=== PATIENT | male | born 1955 | race Caucasian/White ===

== ENCOUNTER 2019-04-02 23:50 | Inpatient (IN) ==
[2019-04-03] MEDS ORDERED: SODIUM CHLORIDE 0.9% 1000ML 1,000 ML IV ONE (00:17)
[2019-04-03] MEDS ORDERED: SODIUM CHLORIDE 0.9% 250 ML IV PRN ×5 (00:17→05:22)
[2019-04-03] MEDS ORDERED: PANTOprazole 80 MG in DEXTROSE 5% 100 ML IV ONE (00:30)
[2019-04-03] MEDS ORDERED: PROTHROMBIN COMP CONC- KCENTRA 2,000 UNITS in SYRINGE 0 ML IV ONE ×2 (00:45→01:15)
[2019-04-03 00:51] LABS: Hematocrit (blood only) 16.8 % (42-52); Hemoglobin 5.3 g/dL (14.0-18.0); Mean Corpuscular Hgb Conc 31.5 g/dL (32-36); Mean Corpuscular Volume 85.3 fL (80-100); Mean Platelet Volume 8.9 fL (7.4-10.4); Nucleated RBC # (auto) 0.11 K/uL (0-0); Nucleated RBC % (auto) 1.2 %; Platelet Count 490 K/uL (130-400); RDW Coefficient of Variation 26.9 % (11.5-14.5); RDW Standard Deviation 83.2 fL (36.4-46.3); Red Blood Count 1.97 M/uL (4.7-6.1); White Blood Count 9.96 K/uL (4.8-10.8)
[2019-04-03 00:53] LABS: INR 1.4 (0.9-1.1); Partial Thromboplastin Time 27.3 Seconds (21.0-31.0); Prothrombin Time 13.7 Seconds (9.0-12.0)
[2019-04-03] MEDS: PANTOprazole 40 MG in DEXTROSE 5% 100 ML IV SCH ×5 (00:54→19:40)
[2019-04-03 00:59] LABS: Alanine Aminotransferase 34 U/L (12-78); Albumin Globulin Ratio 0.5 (0.9-2); Albumin Level 1.9 gm/dl (3.4-5.0); Alkaline Phosphatase 111 U/L (45-117); Aspartate Aminotransferase 30 U/L (15-37); BUN Creatinine Ratio 27.6 (10-20); Bilirubin,Total 1.5 mg/dl (0.2-1); Blood Urea Nitrogen 125 mg/dl (7-18); Calcium 8.4 mg/dl (8.5-10.1); Carbon Dioxide 23 mmol/L (21-32); Chloride 108 mmol/L (98-107); Est GFR (African American) 14.5; Est GFR (Non-African American) 12.5; Globulin 4.2 gm/dl (2.5-4.0); Glucose 153 mg/dl (70-99); Potassium 4.3 mmol/L (3.5-5.1); Sodium 142 mmol/L (136-145); Total Protein 6.1 gm/dl (6.4-8.2); Troponin I < 0.015 ng/ml (0-0.045)
--- NOTE | 2019-04-03 01:26 | Emergency Department Note ---
Entered by Izabel Martinez acting as a scribe for Mynor Garcia MD History of Present Illness General Chief complaint: Fall Time Seen by Provider: 04/03/19 00:08 Source: patient History of Present Illness Onset (ago): hour(s) (prior to arrival) Location: upper extremity (wrist and shoulder) and right Pain Consistency: + constant Exacerbated By: + none Associated symptoms: + denies other symptoms (black stool); no chest pain and no nausea/vomiting The patient is a 63 year old male who presents to the Emergency Room with complaints of constant left wrist and left shoulder pain from a fall that occurred just prior to arrival. He also states that he has some back pain from the fall. The patient states that he remembers some of the fall. He denies any nausea, vomiting, chest pain, and black stool. EMS reports that he was found on the floor. The patient reports that he is on Eliquis. He has been falling a lot recently. He does use alcohol heavily but has not had an alcoholic drink today. History is somewhat limited secondary to his mental state and the critical nature of his presentation. Home Medications Home Medications Medication Instructions Recorded Confirmed Type apixaban [Eliquis] 5 mg PO BID 04/03/19 04/03/19 History carvedilol 25 mg PO BID 04/03/19 04/03/19 History furosemide 20 mg PO DAILY 04/03/19 04/03/19 History lisinopril 10 mg PO DAILY 04/03/19 04/03/19 History multivitamin 1 tab PO DAILY 04/03/19 04/03/19 History prednisone 0 mg PO DIRECTED 04/03/19 04/03/19 History Allergies Allergy/AdvReac Type Severity Reaction Status Date / Time No Known Allergies Allergy NONE Verified 04/03/19 00:22 Past Med/Surg History Medical History EDMUNDO (acute kidney injury) Anemia Atrial fibrillation Chronic anticoagulation [place] GI bleed Heavy alcohol use Hypertension Subdural hematoma Wrist pain Surgical History Status post knee surgery Family History Other Medical history non-contributory Social History Preferred Language: Slovenian Communication Ability: Effective Counter Molder Required: No Beliefs That Will Affect Care: None Current Living Situation: Alone Feels Safe at Home: Yes Smoking Status: Current some day smoker Hx Alcohol Use: Yes Alcohol type: hard liquor Hx Substance Use: No Review of Systems Unobtainable due to reduced consciousness Physical Exam Vital Signs Vital Signs - 24 hr 04/02/19 23:54 04/02/19 23:57 04/02/19 23:59 Temperature 36.7 C Temperature Source Oral Sepsis Recent Fever Within 48 Hours No Sepsis New/Unexplained Change in Mental Status No Sepsis Action Taken by Nursing No Action Required Pulse Rate 103 H 107 H 105 H Pulse Rate [Apical] Pulse Rate from SpO2 Sensor Pulse Rhythm Pulse Rhythm [Apical] Respiratory Rate 17 19 16 Respiratory Effort / Characteristics Non-Labored Spontaneous Respiratory Depth Normal Respiratory Pattern Regular Blood Pressure 88/55 L 88/64 L Blood Pressure [Right Arm] Blood Pressure Mean 66 72 Blood Pressure Mean [Right Arm] Blood Pressure Position Pulse Oximetry 99 98 Oxygen Delivery Method Room Air Oxygen Flow Rate 04/03/19 00:00 04/03/19 00:01 04/03/19 00:15 Temperature Temperature Source Sepsis Recent Fever Within 48 Hours Sepsis New/Unexplained Change in Mental Status Sepsis Action Taken by Nursing Pulse Rate 105 H 100 H Pulse Rate [Apical] 112 H Pulse Rate from SpO2 Sensor Pulse Rhythm Pulse Rhythm [Apical] Irregular Respiratory Rate 16 19 16 Respiratory Effort / Characteristics Respiratory Depth Normal Respiratory Pattern Blood Pressure 82/55 L Blood Pressure [Right Arm] 82/45 L Blood Pressure Mean 64 Blood Pressure Mean [Right Arm] 57 Blood Pressure Position Pulse Oximetry 100 100 Oxygen Delivery Method Oxygen Flow Rate 04/03/19 00:21 04/03/19 00:24 04/03/19 00:27 Temperature Temperature Source Sepsis Recent Fever Within 48 Hours Sepsis New/Unexplained Change in Mental Status Sepsis Action Taken by Nursing Pulse Rate 112 H 100 H Pulse Rate [Apical] 103 H Pulse Rate from SpO2 Sensor Pulse Rhythm Pulse Rhythm [Apical] Irregular Respiratory Rate 18 16 19 Respiratory Effort / Characteristics Respiratory Depth Respiratory Pattern Blood Pressure 72/53 L 80/55 L Blood Pressure [Right Arm] 72/53 L Blood Pressure Mean 59 63 Blood Pressure Mean [Right Arm] 59 Blood Pressure Position Pulse Oximetry 98 99 Oxygen Delivery Method Oxygen Flow Rate 04/03/19 00:30 04/03/19 00:31 04/03/19 00:32 Temperature Temperature Source Sepsis Recent Fever Within 48 Hours Sepsis New/Unexplained Change in Mental Status Sepsis Action Taken by Nursing Pulse Rate 104 H 113 H 117 H Pulse Rate [Apical] 104 H Pulse Rate from SpO2 Sensor Pulse Rhythm Pulse Rhythm [Apical] Regular Respiratory Rate 21 22 14 Respiratory Effort / Characteristics Respiratory Depth Respiratory Pattern Blood Pressure 75/54 L Blood Pressure [Right Arm] 75/54 L Blood Pressure Mean 61 Blood Pressure Mean [Right Arm] 61 Blood Pressure Position Pulse Oximetry 95 100 100 Oxygen Delivery Method Room Air Oxygen Flow Rate 04/03/19 00:47 04/03/19 00:52 04/03/19 01:00 Temperature Temperature Source Sepsis Recent Fever Within 48 Hours Sepsis New/Unexplained Change in Mental Status Sepsis Action Taken by Nursing Pulse Rate 106 H 109 H 106 H Pulse Rate [Apical] Pulse Rate from SpO2 Sensor Pulse Rhythm Pulse Rhythm [Apical] Respiratory Rate 22 19 21 Respiratory Effort / Characteristics Respiratory Depth Respiratory Pattern Blood Pressure Blood Pressure [Right Arm] Blood Pressure Mean Blood Pressure Mean [Right Arm] Blood Pressure Position Pulse Oximetry Oxygen Delivery Method Oxygen Flow Rate 04/03/19 01:01 04/03/19 01:09 04/03/19 01:15 Temperature 36 C L Temperature Source Rectal Sepsis Recent Fever Within 48 Hours Sepsis New/Unexplained Change in Mental Status Sepsis Action Taken by Nursing Pulse Rate 133 H 105 H 115 H Pulse Rate [Apical] 118 H Pulse Rate from SpO2 Sensor Pulse Rhythm Pulse Rhythm [Apical] Irregular Respiratory Rate 21 18 17 Respiratory Effort / Characteristics Respiratory Depth Normal Respiratory Pattern Blood Pressure 76/60 L 94/58 L Blood Pressure [Right Arm] 94/68 L Blood Pressure Mean 65 70 Blood Pressure Mean [Right Arm] 76 Blood Pressure Position Pulse Oximetry 98 96 Oxygen Delivery Method Non-rebreather Oxygen Flow Rate 15 04/03/19 01:16 04/03/19 01:29 04/03/19 01:31 Temperature 36 C L Temperature Source Rectal Sepsis Recent Fever Within 48 Hours Sepsis New/Unexplained Change in Mental Status Sepsis Action Taken by Nursing Pulse Rate 107 H 104 H 104 H Pulse Rate [Apical] Pulse Rate from SpO2 Sensor Pulse Rhythm Irregular Pulse Rhythm [Apical] Respiratory Rate 23 18 20 Respiratory Effort / Characteristics Respiratory Depth Respiratory Pattern Blood Pressure 89/61 L 89/61 L 89/65 L Blood Pressure [Right Arm] Blood Pressure Mean 70 70 73 Blood Pressure Mean [Right Arm] Blood Pressure Position Pulse Oximetry 100 Oxygen Delivery Method Oxymask Oxygen Flow Rate 6 04/03/19 01:35 04/03/19 01:45 04/03/19 01:56 Temperature 35.9 C L 35.9 C L Temperature Source Rectal Rectal Sepsis Recent Fever Within 48 Hours Sepsis New/Unexplained Change in Mental Status Sepsis Action Taken by Nursing Pulse Rate 114 H 103 H 116 H Pulse Rate [Apical] Pulse Rate from SpO2 Sensor 105 H Pulse Rhythm Pulse Rhythm [Apical] Respiratory Rate 26 H 18 18 Respiratory Effort / Characteristics Respiratory Depth Respiratory Pattern Blood Pressure 85/65 L 97/59 L 92/58 L Blood Pressure [Right Arm] Blood Pressure Mean 71 71 69 Blood Pressure Mean [Right Arm] Blood Pressure Position Pulse Oximetry 97 100 96 Oxygen Delivery Method Oxymask Oxygen Flow Rate 6 6 6 04/03/19 02:00 04/03/19 02:17 04/03/19 02:19 Temperature 36.2 C L Temperature Source Rectal Sepsis Recent Fever Within 48 Hours Sepsis New/Unexplained Change in Mental Status Sepsis Action Taken by Nursing Pulse Rate 121 H 109 H 96 H Pulse Rate [Apical] Pulse Rate from SpO2 Sensor 105 H 103 H Pulse Rhythm Pulse Rhythm [Apical] Respiratory Rate 19 26 H 18 Respiratory Effort / Characteristics Respiratory Depth Respiratory Pattern Blood Pressure 85/65 L 97/59 L 88/58 L Blood Pressure [Right Arm] Blood Pressure Mean 71 71 68 Blood Pressure Mean [Right Arm] Blood Pressure Position Lying Pulse Oximetry 88 L 100 100 Oxygen Delivery Method Oxymask Oxymask Oxygen Flow Rate 6 6 6 04/03/19 02:21 04/03/19 02:32 04/03/19 02:45 Temperature 35.9 C L Temperature Source Rectal Sepsis Recent Fever Within 48 Hours Sepsis New/Unexplained Change in Mental Status Sepsis Action Taken by Nursing Pulse Rate 99 H 92 H Pulse Rate [Apical] Pulse Rate from SpO2 Sensor 99 H 104 H Pulse Rhythm Pulse Rhythm [Apical] Respiratory Rate 20 19 Respiratory Effort / Characteristics Respiratory Depth Respiratory Pattern Blood Pressure 94/70 L 89/64 L Blood Pressure [Right Arm] Blood Pressure Mean 78 72 Blood Pressure Mean [Right Arm] Blood Pressure Position Pulse Oximetry 100 100 Oxygen Delivery Method Oxymask Oxymask Oxygen Flow Rate 6 6 GENERAL: Patient is significant distress. HEENT: No acute trauma, normocephalic atraumatic, mucous membranes dry, no nasal congestion, no scleral icterus. NECK: No stridor, no adenopathy, no meningismus, trachea is midline. LUNGS: Clear to auscultation bilaterally, no wheeze, no rhonchi, breath sounds equal. HEART: tachycardic, irregular rhythm, no murmurs ABDOMEN: Soft, nontender, bowel sounds positive, no hernias, no peritonitis. Reducible umbilical hernia EXTREMITIES: Pain with palpation and movement of left wrist and hand, no gross deformity, bruising noted of all ages on all extremities. NEUROLOGIC: Somewhat slow to respond to questioning, awake, no acute motor or sensory deficits, no focal weakness. SKIN: No rash, no jaundice, no diaphoresis. Pale. BACK: non tender thoracic or lumbar spine RECTAL: black stool, heme positive Procedures Free Text Procedures Central line placement: The area for the procedure was cleansed sterilely and prepared for the procedure. Lidocaine was used for anesthesia. Sterile technique was employed. Using the Seldinger technique, I was able to cannulate the femoral vein. No significant complications. There was no arterial stick during the procedure. All ports did flush well. The line was then sutured into position. This line was placed under emergent conditions. The patient was hypotensive and had just suffered a syncopal event. His hemoglobin was in the range of 5. A timeout was taken prior to placement of the line. Ultrasound was used for evaluation of his anatomy. Patient did consent to the procedure. Course 0008: Past medical records reviewed. The patient was evaluated in room A1. A complete history and physical exam was performed. 0020: I talked to Dr Richard-coagulation management consultant, and she is ordering Kcentra. I also talked to the pharmacist who is getting Protonix. 0030: I spoke with Dr. Taylor - [facility] who sees no clear indicat ion for transfer to [facility] due to the patient being unstable. He recommends neuro checks and a repeat CT in the morning 0044: I talked to Dr. Cooley - ICU attending who agrees to take the patient for further evaluation. Administered Medications Pantoprazole Sodium 40 mg/ (Dextrose) 100 mls @ 20 mls/hr IV Q5H MIMI Stop: 05/03/19 00:44 Last Admin: 04/03/19 19:40 Dose: 20 mls/hr Documented by: [id number] Infusion: 04/03/19 19:40 Dose: 20 mls/hr Documented by: [id number] Admin: 04/03/19 15:02 Dose: 20 mls/hr Documented by: [id number] Infusion: 04/03/19 15:02 Dose: 20 mls/hr Documented by: [id number] Admin: 04/03/19 10:33 Dose: 20 mls/hr Documented by: [id number] Infusion: 04/03/19 10:33 Dose: 20 mls/hr Documented by: [id number] Admin: 04/03/19 06:21 Dose: 20 mls/hr Documented by: [id number] Infusion: 04/03/19 05:54 Dose: 20 mls/hr Documented by: [id number] Admin: 04/03/19 00:54 Dose: 20 mls/hr Documented by: [id number] Thiamine HCl 100 mg/ Syringe 10 mls @ 2 mls/min IV BID MIMI Stop: 04/05/19 21:04 Last Admin: 04/03/19 09:02 Dose: 2 mls/min Documented by: [id number] Insulin Aspart (Novolog Flexpen) 0 units SC Q6 MIMI Stop: 05/03/19 11:59 Last Admin: 04/03/19 18:41 Dose: 2 units Documented by: [id number] Cosigned by: [id number] Admin: 04/03/19 13:35 Dose: 2 units Documented by: [id number] Cosigned by: [id number] Discontinued Medications Acetaminophen (Ofirmev) Confirm Administered Dose 1,000 mg IV .STK-MED ONE Stop: 04/03/19 03:16 Last Admin: 04/03/19 03:29 Dose: Not Given Documented by: [id number] Hydrocortisone Sodium Succinate (Solu-Cortef) 100 mg IV NOW STA Stop: 04/03/19 05:58 Last Admin: 04/03/19 08:54 Dose: 100 mg Documented by: [id number] Hydrocortisone Sodium Succinate (Solu-Cortef) Confirm Administered Dose 100 mg .ROUTE .STK-MED ONE Stop: 04/03/19 08:51 Last Admin: 04/03/19 09:02 Dose: Not Given Documented by: [id number] Prothrombin Complex Concent ( (Human) 2,000 units/ Syringe) 80 mls @ 10 mls/min IV NOW ONE; Protocol Stop: 04/03/19 00:52 Last Admin: 04/03/19 00:31 Dose: 10 mls/min Documented by: [id number] Pantoprazole Sodium 80 mg/ (Dextrose) 120 mls @ 480 mls/hr IV ONE ONE Stop: 04/03/19 00:44 Last Infusion: 04/03/19 01:10 Dose: 0 mls/hr Documented by: [id number] Admin: 04/03/19 00:54 Dose: 480 mls/hr Documented by: [id number] Sodium Chloride (Nss) 250 mls @ 15 mls/hr IV .[id number] PRN PRN Reason: For Transfusion Stop: 05/03/19 00:16 Last Infusion: 04/03/19 02:35 Dose: 0 mls/hr Documented by: [id number] Admin: 04/03/19 02:16 Dose: 15 mls/hr Documented by: [id number] Sodium Chloride (Nss 1000ml) 1,000 mls @ 999 mls/hr IV .[id number] ONE Stop: 04/03/19 01:17 Last Infusion: 04/03/19 02:41 Dose: 0 mls/hr Documented by: [id number] Infusion: 04/03/19 01:09 Dose: 0 mls/hr Documented by: [id number] Admin: 04/03/19 00:30 Dose: 999 mls/hr Documented by: [id number] Sodium Chloride (Nss) 250 mls @ 15 mls/hr IV .[id number] PRN PRN Reason: For Transfusion Stop: 05/03/19 00:53 Last Infusion: 04/03/19 02:16 Dose: 0 mls/hr Documented by: [id number] Admin: 04/03/19 02:15 Dose: 15 mls/hr Documented by: [id number] Ceftriaxone Sodium (Rocephin) 2,000 mg in 70 mls @ 140 mls/hr IV NOW STA Stop: 04/03/19 02:11 Last Infusion: 04/03/19 02:41 Dose: 0 mls/hr Documented by: [id number] Admin: 04/03/19 02:15 Dose: 140 mls/hr Documented by: [id number] Acetaminophen (Ofirmev) 1,000 mg in 100 mls @ 400 mls/hr IV NOW STA Stop: 04/03/19 03:25 Last Infusion: 04/03/19 03:35 Dose: 0 mls/hr Documented by: [id number] Admin: 04/03/19 03:20 Dose: 400 mls/hr Documented by: [id number] Parenteral Electrolytes (Normosol-R) 1,000 mls @ 100 mls/hr IV .Q10H MIMI Stop: 04/03/19 13:11 Last Infusion: 04/03/19 14:45 Dose: 0 mls/hr Documented by: [id number] Admin: 04/03/19 06:21 Dose: 125 mls/hr Documented by: [id number] Medical Decision Making Differential Diagnosis DD: upper GI bleeding, lower GI bleeding, intra-abdominal bleeding, intracranial bleeding, anemia, electrolyte imbalance, dehydration, cervical spine injury, extremity fracture, CT Medical Records Attestation: I reviewed the patient's medical records. Home Medications Current Medication List: was personally reviewed by me Laboratory Data Attestation: I reviewed the patient's lab results. Result diagrams: 04/03/19 20:17 04/03/19 20:17 Lab Results 04/02/19 04/02/19 04/02/19 Range/Units 23:56 23:56 23:56 WBC 9.96 (4.8-10.8) K/uL RBC 1.97 L (4.7-6.1) M/uL Hgb 5.3 L* (14.0-18.0) g/dL Hct 16.8 L* (42-52) % MCV 85.3 (80-100) fL MCH 26.9 (25-34) pg MCHC 31.5 L (32-36) g/dL RDW Std Deviation 83.2 H (36.4-46.3) fL RDW Coeff of Quan 26.9 H (11.5-14.5) % Plt Count 490 H (130-400) K/uL MPV 8.9 (7.4-10.4) fL Absolute Nucleated RBC 0.11 H (0-0) K/uL Nucleated RBC % (auto) 1.2 % PT 13.7 H (9.0-12.0) Seconds INR 1.4 H (0.9-1.1) APTT 27.3 (21.0-31.0) Seconds PTT Ratio 1.0 Sodium 142 (136-145) mmol/L Potassium 4.3 (3.5-5.1) mmol/L Chloride 108 H (98-107) mmol/L Carbon Dioxide 23 (21-32) mmol/L Anion Gap 11.0 (3-11) BUN 125 H (7-18) mg/dl Creatinine 4.62 H* (0.6-1.4) mg/dl Est Cr Clr Drug Dosing 18.0 ml/min Est GFR ( Amer) 14.5 Est GFR (Non-Af Amer) 12.5 BUN/Creatinine Ratio 27.6 H (10-20) Glucose 153 H (70-99) mg/dl Calcium 8.4 L (8.5-10.1) mg/dl Magnesium 2.0 (1.8-2.4) mg/dl Total Bilirubin 1.5 H (0.2-1) mg/dl AST 30 (15-37) U/L ALT 34 (12-78) U/L Alkaline Phosphatase 111 (45-117) U/L Troponin I < 0.015 (0-0.045) ng/ml Total Protein 6.1 L (6.4-8.2) gm/dl Albumin 1.9 L (3.4-5.0) gm/dl Globulin 4.2 H (2.5-4.0) gm/dl Albumin/Globulin Ratio 0.5 L (0.9-2) Ethyl Alcohol mg/dL (0-3) mg/dl Blood Type Blood Type Recheck Antibody Screen Crossmatch 04/03/19 04/03/19 04/03/19 Range/Units 00:25 01:16 01:16 WBC (4.8-10.8) K/uL RBC (4.7-6.1) M/uL Hgb (14.0-18.0) g/dL Hct (42-52) % MCV (80-100) fL MCH (25-34) pg MCHC (32-36) g/dL RDW Std Deviation (36.4-46.3) fL RDW Coeff of Quan (11.5-14.5) % Plt Count (130-400) K/uL MPV (7.4-10.4) fL Absolute Nucleated RBC (0-0) K/uL Nucleated RBC % (auto) % PT (9.0-12.0) Seconds INR (0.9-1.1) APTT (21.0-31.0) Seconds PTT Ratio Sodium (136-145) mmol/L Potassium (3.5-5.1) mmol/L Chloride (98-107) mmol/L Carbon Dioxide (21-32) mmol/L Anion Gap (3-11) BUN (7-18) mg/dl Creatinine (0.6-1.4) mg/dl Est Cr Clr Drug Dosing ml/min Est GFR ( Amer) Est GFR (Non-Af Amer) BUN/Creatinine Ratio (10-20) Glucose (70-99) mg/dl Calcium (8.5-10.1) mg/dl Magnesium (1.8-2.4) mg/dl Total Bilirubin (0.2-1) mg/dl AST (15-37) U/L ALT (12-78) U/L Alkaline Phosphatase (45-117) U/L Troponin I (0-0.045) ng/ml Total Protein (6.4-8.2) gm/dl Albumin (3.4-5.0) gm/dl Globulin (2.5-4.0) gm/dl Albumin/Globulin Ratio (0.9-2) Ethyl Alcohol mg/dL < 3.0 (0-3) mg/dl Blood Type A Negative Blood Type Recheck A Negative Antibody Screen NEGATIVE Crossmatch See Detail Imaging Data Attestation: I personally reviewed and interpreted this imaging study as follows: My Impression: Xray left wrist and hand: No hand fracture. Flakes of bone over dorsal aspect of wrist Finding could be acute or chronic. No bony dislocation xray of chest: mild cardiomegaly, no CHF, no pneumonia, some superior mediastinal fullness Radiologist's Impression: [facility] Preliminary Findings Only See Final Report For Complete Findings CT HEAD: Evaluation is limited due to motion artifact Small subdural hematoma along the right aspect of the anterior falx measuring 5 mm in maximum thickness. Although limited by motion artifact, there is a probable subdural hematoma in the left frontal temporal convexity measuring up to 4 mm. Additionally there are prominent extra-axial space in the bilateral convexities with medium to low density which probably represents chronic subdural hematoma/cystic hygroma. No midline shift. No acute fracture. Radiologist: George Hirsch MD Study ready at 01:53 and initial results transmitted at 02:03 CT C SPINE: No acute fracture. Severe cervical spondylosis mainly at C5-C7 with disc osteophyte complexes causing mild central spinal stenosis and right neural foraminal stenosis at C5- 6. Severe multilevel facet arthropathy. Minimal anterolisthesis at C3-4 is probably related to degenerative disc disease. Radiologist: George Hirsch MD Study ready at 01:59 and initial results transmitted at 02:05 CT ABDOMEN & PELVIS Without Contrast: Cholelithiasis without cholecystitis. No biliary dilatation. Bilateral perinephric fat stranding and fluid are nonspecific and could be related to senescent changes or chronic kidney disease. Recommend correlation with renal function. No retroperitoneal hematoma. No bowel wall thickening. No free air. No acute fracture. Multilevel degenerative changes of the lumbar spine. Small fat-containing bilateral inguinal hernias. Small fat-containing umbilical hernia. Radiologist: George Hirsch MD Study ready at 02:11 and initial results transmitted at 02:19 ECG Data Attestation: I personally reviewed and interpreted this ECG as follows: Indication: back/shoulder pain Rate (beats per minute): 108 Rhythm: atrial fibrillation Findings: + PVC and + T-wave inversion Comparison ECG Date: from (December 10, 2008) Change: the following changes noted Additional Comments: afib now present Blood Pressure Blood Pressure Findings: Low blood pressure Blood Pressure Disposition: further management by hospitalist MDM Narrative There is no leukocytosis. Hemoglobin is low at 5.3rectal exam was performed, the stool was black and heme positive. Platelet count is elevated at 493. INR is elevated at 1.4, this is likely from his Eliquis use. Renal panel testing shows a significant BUN elevation at 125. Creatinine is quite high at 4.6. No concerning liver enzyme elevation. EKG showed A. fib, no acute ischemic change. Cardiac enzyme testing x1 was not consistent with acute cardiac injury. Alcohol level was undetectable. Blood type returned A negative. Chest film shows some cardiomegaly, no CHF or pneumonia. Brain CT shows some chronic hygromas with 2 areas of acute subdural bleeding at 5 mm, and 4 mm. No midline shift. C-spine CT showed no acute fracture. Abdominal and pelvis CT shows some chronic findings. There was no evidence for acute intra-abdominal bleeding or solid organ injury. The patient was aggressively managed. He presented hypotensive, dehydrated and pale. He was found down at his home. He received 1 L of saline prior to arri kami, he was given 1 L of IV saline during his ED stay. I did speak to our coagulation management consultant. She recommended Kcentra, this was given IV. Patient was also given a bolus of Protonix IV and placed on a Protonix drip. He received a dose of IV ceftriaxone. Patient was eventually ordered for 2 units of O- blood emergently. The patient did receive the 2 units of O- blood here in the ED, 2 more units of type specific blood were then ordered. I did place a right femoral central line, this was done without complication. I was called emergently to the room as the patient had become unresponsive. His blood pressure could not be measured. He was maintaining his airway. He was placed in Trendelenburg and more IV fluids were initiated. He did then become responsive. The patient did not require CPR. Since the fluids and blood have been administered, the patient's blood pressure is now around 90 systolic. He is awake and interactive and states he feels improved. He does look better, his color is improved. I did speak to the roller on-call. I spoke to the on-call hospitalist, I spoke to case management. I spoke at length with the patient about his findings. When the findings of subtle areas of subdural bleeding were noted on CT, I spoke to neurology at [facility] in [place]. They did not feel any need for emergent transfer. They felt the patient was truly unstable for transfer. There was no need for emergent neurosurgical intervention. They recommended frequent neuro checks, a repeat CT scan of the brain in the morning. If the patient has a decline in his mentation, if the areas of bleeding increase in size, transfer may at that point be warranted. Films of the left hand and wrist were done, there was no fracture to the hand. There were a few flakes of bone noted over the dorsal aspect of the wrist, this may be chronic versus acute. A wrist lacer was placed. The patient is being admitted to our intensive care unit. He requires further resuscitation. In short, the patient is currently in improved condition compared to when he arrived. His condition though is still critical. Impression & Plan Hypotension, Syncope, Anemia, GI (gastrointestinal bleed), Acute kidney injury, Acute dehydration Critical Care Time Critical Care Time: Yes Total Critical Care Time: 55 I have personally spent greater than 55 minutes of critical care time in the direct management of this patient. This includes bedside care, interpretation of diagnostic studies, and testing, discussion with consultants, patient, and family members, and other required patient management activities. This 55 minutes is in excess of all separately billable procedures. Discharge Plan Visit Data *Final* Discharge Date/Time: 04/03/19 03:59 Chief Complaint: Fall ED Provider: Mynor Garcia Discharge Problem: Hypotension, Syncope, Anemia, GI (gastrointestinal bleed), Acute kidney injury, Acute dehydration Patient Disposition: Admitted As Inpatient Discharge Instructions Interventions: ED Discharge Assessment Last Done: 04/03/19 03:59 Discharge Problem: Hypotension Qualifiers: Hypotension type: unspecified hypotension type Qualified Code(s): I95.9 - Hypotension, unspecified Syncope Qualifiers: Syncope type: unspecified Qualified Code(s): R55 - Syncope and collapse Anemia Qualifiers: Anemia type: unspecified type Qualified Code(s): D64.9 - Anemia, unspecified GI (gastrointestinal bleed) Qualifiers: GI bleed type/associated pathology: gastritis Gastritis type: acute gastritis Qualified Code(s): K29.01 - Acute gastritis with bleeding The scribe's documentation has been prepared under my direction and personally reviewed by me in its entirety. I confirm that the note above accurately reflect s all work, treatment, procedures, and medical decision making performed by me.
[2019-04-03] MEDS ORDERED: cefTRIAXone SODIUM 2,000 MG/70 ML BAG IV STA (01:42)
[2019-04-03] MEDS ORDERED: cefTRIAXone SODIUM 1,000 MG in DEXTROSE 5% 50 ML IV SCH (02:00)
--- NOTE | 2019-04-03 03:06 | History & Physical Report ---
Date of Service April 03, 2019 Assessment & Plan (1) Hypotension: 63-year-old male with history of hypertension, atrial fibrillation on Eliquis anticoagulation, COPD who was brought in after being found down on the floor. Patient hypotensive, anemic with heme positive stools. Severely compromised renal function. Subdural hematoma. Neuro: Patient awake alert and oriented x4. Speech is clear. Weakness at left wrist and hand most likely secondary to acute pain. CT head with what appears to be chronic subdural hematomas/hygromas. Patient with frequent falls. Uncertain if this is secondary to alcohol use. He reports drinking approximately 4 drinks daily. No history of withdrawal. -Pain control with Tylenol PRN -Ice to area -Cautious use of morphine -Neurochecks every 4 hours -CT head in the morning -CIWA protocol. Patient at risk for alcohol withdrawal Cardiovascular: Patient presenting with hypotension most likely secondary to hemorrhagic/hypovolemic shock. Patient with anemia and heme positive stools. Blood pressure has improved with IV fluids and transfusion of packed red blood cells. Patient with atrial fibrillation, anticoagulated on Eliquis. -Continue aggressive resuscitation -Continue to monitor blood pressure. Goal map of 65 or greater -Hold Coreg, lisinopril, Lasix in setting of hypotension -PCC administered in the ER -Hold Eliquis Pulmonary: Patient with history of COPD. Wheezing on exam. Adequate oxygenation on oxygen mask. -Duo nebs as needed -Albuterol as needed -Supplemental oxygen as needed to maintain saturation of 88 to 94% Gastrointestinal: Suspect upper GI bleed. Patient presenting with hypotension, normochromic/normocytic anemia, heme positive stools on chronic anticoagulation. Patient denies history of liver disease or varices. No prior history of GI bleed. Colonoscopy from 2009 comments on presence of diverticulosis. Suspect upper GI source. -PCC administered as above -Patient being transfused with 4 units PRBCs -Continue to monitor CBC every 8 hours. Transfuse for ongoing blood loss, hemodynamic instability, hemoglobin less than 7 -Protonix drip -GI consultation. Appreciate assistance with this case -Keep n.p.o. Genitourinary: Markedly elevated BUN and creatinine 125 and 4.6, respectively. Patient with underlying CKD. Creatinine of 2.09 in 2015, recent creatinine level unknown. Findings on CT abdomen also suggestive of CKD. Suspect multifactorial etiology of EDMUNDO on CKD to include prerenal azotemia in setting of hypotension and blood loss as well as medication effects of lisinopril/Lasix. -Check urine sodium and urea to calculate FeUrea -Check UA -Place James catheter. Monitor strict I's and O's -BMP every 8 hours -Avoid nephrotoxic agents -Renal dosing were appropriate Hematology: Patient with normochromic normocytic anemia. Suspect acute blood loss. Hemoglobin of 5.3 and hematocrit of 16.8. Prior labs from 2015 with hemoglobin of 13.8 and hematocrit of 39.8. -Transfusion of PRBCs x4 units as above -CBC every 8 hours Infectious disease: Patient afebrile. Administered 2 g of ceftriaxone in the ER. No overt evidence of infection. -Follow culture results -We will hold empiric antibiotics for now Endocrine: No active issues F/E/N -Normosol at 125 mL/h x 1 L. Monitor electrolytes with every 8 hours BMPs, n.p.o. for now Prophylaxis-Protonix drip as above. SCDs to bilateral lower extremities Code-full per discussion with patient Disposition-admission to MICU (2) Hypertension: (3) Atrial fibrillation: (4) Chronic anticoagulation: (5) EDMUNDO (acute kidney injury): (6) GI bleed: (7) Anemia: (8) Falls: (9) Heavy alcohol use: (10) Subdural hematoma: (11) Wrist pain: History of Present Illness Chief Complaint: Falls, hypotension Primary Care Provider: Mg Fuller Mr. Loza is a 63-year-old male with history of atrial flutter on Eliquis for anticoagulation, hypertension, COPD and heavy alcohol use. He was found down in his home by friends and was brought to [facility]. Mr. Flores complains only of feeling tired, shaky and thirsty. He does report frequent falls at home over the last few weeks. States that his legs simply give out. He denies chest pain, palpitations, dizziness contributing to these falls. Denies any significant head trauma. Does not completely recall having a fall this evening. On arrival patient afebrile, tachycardic at 103 bpm, hypotensive at 88/55, saturating well on ambient air. He had what may be a syncopal episode while in the ER where he became pale and became briefly unresponsive. Blood pressure during the episode was difficult to obtain. Patient found to have heme positive stools. Hemoglobin of 5.3. BUN elevated at 125 and creatinine elevated at 4.6. Patient was administered PCC for some degree of Eliquis reversal in setting of presumed acute bleed. A triple-lumen central venous catheter was placed in the right femoral by the ER attending. The patient was aggressively resuscitated with 1 L of normal saline in route and 2 additional liters in the ER. He was transfused with [address] of the head was obtained which revealed evidence of chronic subdural hematomas, possible small areas of acute hemorrhage. Case was discussed with neurology at [place] for possible transfer. Patient will remain at [facility] for now with close neurological observation. ER course: Ceftriaxone, Protonix bolus and drip, PCC, normal saline solution, 2 units PRBCs Allergies Allergy/AdvReac Type Severity Reaction Status Date / Time No Known Allergies Allergy NONE Verified 04/03/19 00:22 Home Medications Home Medications Medication Instructions Recorded Confirmed Type apixaban [Eliquis] 5 mg PO BID 04/03/19 04/03/19 History carvedilol 25 mg PO BID 04/03/19 04/03/19 History furosemide 20 mg PO DAILY 04/03/19 04/03/19 History lisinopril 10 mg PO DAILY 04/03/19 04/03/19 History multivitamin 1 tab PO DAILY 04/03/19 04/03/19 History prednisone 0 mg PO DIRECTED 04/03/19 04/03/19 History Past Med/Surg History Medical History EDMUNDO (acute kidney injury) Anemia Atrial fibrillation Chronic anticoagulation Falls GI bleed Heavy alcohol use Hypertension Subdural hematoma Wrist pain Surgical History Status post knee surgery Family History Other Medical history non-contributory Social History Feels Safe at Home: Yes Smoking Status: Never smoker Hx Alcohol Use: Yes Hx Substance Use: No Review of Systems Review of Systems: All systems reviewed & are unremarkable except as noted in HPI & below Patient denies fevers + Chills over the last 2 to 3 days Denies headache, visual changes, throat pain, chest pain, palpitations, shortness of breath, nausea, vomiting, diarrhea, constipation, abdominal pain, dysuria Physical Exam Physical Exam: General: patient resting comfortably, supine, NAD, ill in appearance, AA&O x 4 Skin: warm, dry, intact, + pallor, fungal infection on feet HEENT: NC/AT, facial bones stable, PERRL, EOMI, anicteric sclera, conjunctiva pale without injection, external ear normal to inspection and nontender, no hemotympanum, nares patent, moist mucus membranes, dentition intact, no oropharyngeal lesions, neck supple, trachea midline, no LAD, no thyromegaly, no JVD Heart: +S1/S2, irregularly irregular, tachycardic no m/r/g Lungs: equal air entry bilaterally, no rales/rhonchi, scattered end expiratory wheezing Abd: +BS, soft, NT/ND, no masses/organomegaly/ascites, reducible umbilical hernia Ext: warm, 2+ pulses in UE/LE bilaterally, no clubbing/cyanosis or edema, triple-lumen CVC and right femoral pain Neuro: nonfocal, patient AA&O x 4, speech intact, no facial droop, moving all extremities on command, weakness of left hand Results & Data Vital Signs (Past 12 Hours) Vital Signs Temp Pulse Pulse Resp BP BP Pulse Ox 04/03/19 02:45 92 H 19 89/64 L 100 04/03/19 02:32 99 H 20 94/70 L 100 04/03/19 02:21 35.9 C L 04/03/19 02:17 109 H 26 H 97/59 L 100 04/03/19 02:00 121 H 19 85/65 L 88 L 04/03/19 01:56 116 H 18 92/58 L 96 04/03/19 01:45 35.9 C L 103 H 18 97/59 L 100 04/03/19 01:35 35.9 C L 114 H 26 H 85/65 L 97 04/03/19 01:31 104 H 20 89/65 L 04/03/19 01:29 36 C L 104 H 18 89/61 L 100 04/03/19 01:16 107 H 23 89/61 L 04/03/19 01:15 115 H 17 96 04/03/19 01:09 36 C L 105 H 118 H 18 94/58 L 94/68 L 98 04/03/19 01:01 133 H 21 76/60 L 04/03/19 01:00 106 H 21 04/03/19 00:52 109 H 19 04/03/19 00:47 106 H 22 04/03/19 00:32 117 H 104 H 14 75/54 L 100 04/03/19 00:31 113 H 22 75/54 L 100 04/03/19 00:30 104 H 21 95 04/03/19 00:27 100 H 19 80/55 L 99 04/03/19 00:24 103 H 16 72/53 L 98 04/03/19 00:21 112 H 18 72/53 L 04/03/19 00:15 16 04/03/19 00:01 100 H 19 82/55 L 100 04/03/19 00:00 105 H 112 H 16 82/45 L 100 04/02/19 23:59 36.7 C 105 H 16 88/64 L 98 04/02/19 23:57 107 H 19 99 04/02/19 23:54 103 H 17 88/55 L Laboratory Results Lab Results 04/02/19 04/02/19 04/02/19 Range/Units 23:56 23:56 23:56 WBC 9.96 (4.8-10.8) K/uL RBC 1.97 L (4.7-6.1) M/uL Hgb 5.3 L* (14.0-18.0) g/dL Hct 16.8 L* (42-52) % MCV 85.3 (80-100) fL MCH 26.9 (25-34) pg MCHC 31.5 L (32-36) g/dL RDW Std Deviation 83.2 H (36.4-46.3) fL RDW Coeff of Quan 26.9 H (11.5-14.5) % Plt Count 490 H (130-400) K/uL MPV 8.9 (7.4-10.4) fL Absolute Nucleated RBC 0.11 H (0-0) K/uL Nucleated RBC % (auto) 1.2 % PT 13.7 H (9.0-12.0) Seconds INR 1.4 H (0.9-1.1) APTT 27.3 (21.0-31.0) Seconds PTT Ratio 1.0 Sodium 142 (136-145) mmol/L Potassium 4.3 (3.5-5.1) mmol/L Chloride 108 H (98-107) mmol/L Carbon Dioxide 23 (21-32) mmol/L Anion Gap 11.0 (3-11) BUN 125 H (7-18) mg/dl Creatinine 4.62 H* (0.6-1.4) mg/dl Est Cr Clr Drug Dosing 18.0 ml/min Est GFR ( Amer) 14.5 Est GFR (Non-Af Amer) 12.5 BUN/Creatinine Ratio 27.6 H (10-20) Glucose 153 H (70-99) mg/dl Calcium 8.4 L (8.5-10.1) mg/dl Magnesium 2.0 (1.8-2.4) mg/dl Total Bilirubin 1.5 H (0.2-1) mg/dl AST 30 (15-37) U/L ALT 34 (12-78) U/L Alkaline Phosphatase 111 (45-117) U/L Troponin I < 0.015 (0-0.045) ng/ml Total Protein 6.1 L (6.4-8.2) gm/dl Albumin 1.9 L (3.4-5.0) gm/dl Globulin 4.2 H (2.5-4.0) gm/dl Albumin/Globulin Ratio 0.5 L (0.9-2) Ethyl Alcohol mg/dL (0-3) mg/dl Blood Type Blood Type Recheck Antibody Screen Crossmatch 04/03/19 04/03/19 04/03/19 Range/Units 00:25 01:16 01:16 WBC (4.8-10.8) K/uL RBC (4.7-6.1) M/uL Hgb (14.0-18.0) g/dL Hct (42-52) % MCV (80-100) fL MCH (25-34) pg MCHC (32-36) g/dL RDW Std Deviation (36.4-46.3) fL RDW Coeff of Quan (11.5-14.5) % Plt Count (130-400) K/uL MPV (7.4-10.4) fL Absolute Nucleated RBC (0-0) K/uL Nucleated RBC % (auto) % PT (9.0-12.0) Seconds INR (0.9-1.1) APTT (21.0-31.0) Seconds PTT Ratio Sodium (136-145) mmol/L Potassium (3.5-5.1) mmol/L Chloride (98-107) mmol/L Carbon Dioxide (21-32) mmol/L Anion Gap (3-11) BUN (7-18) mg/dl Creatinine (0.6-1.4) mg/dl Est Cr Clr Drug Dosing ml/min Est GFR ( Amer) Est GFR (Non-Af Amer) BUN/Creatinine Ratio (10-20) Glucose (70-99) mg/dl Calcium (8.5-10.1) mg/dl Magnesium (1.8-2.4) mg/dl Total Bilirubin (0.2-1) mg/dl AST (15-37) U/L ALT (12-78) U/L Alkaline Phosphatase (45-117) U/L Troponin I (0-0.045) ng/ml Total Protein (6.4-8.2) gm/dl Albumin (3.4-5.0) gm/dl Globulin (2.5-4.0) gm/dl Albumin/Globulin Ratio (0.9-2) Ethyl Alcohol mg/dL < 3.0 (0-3) mg/dl Blood Type A Negative Blood Type Recheck A Negative Antibody Screen NEGATIVE Crossmatch See Detail Diagnostic Findings CT head: Per stat read-evaluation is limited due to motion artifact. Small subdural hematoma along the right aspect of the anterior falx measuring 5 mm. Probable subdural hematoma in the left frontal temporal convexity measuring up to 4 mm. Prominent extra-axial space in the bilateral convexities with medium to low-density which probably represents chronic subdural hematoma/cystic hygroma. No midline shift. No acute fracture CT C-spine: Per stat read-no acute fracture. Severe cervical spondylosis mainly at C5-C7 with disc osteophyte complexes causing mild central spinal stenosis and right neuroforaminal stenosis at C5 and C6. Severe multilevel facet arthropathy. Minimal anterolisthesis at C3-C4 is probably related to degenerative disc disease CT abdomen and pelvis: Per stat rad-cholelithiasis without cholecystitis. No biliary dilatation. Bilateral perinephric fat stranding and fluid are nonspecific and could be related to senescent changes or chronic kidney disease. Recommend correlation with renal function. No retroperitoneal hematoma. No bowel wall thickening. No free air. No acute fracture. Multilevel degenerative changes of the lumbar spine. Small fat-containing bilateral inguinal hernias. Small fat-containing umbilical hernia Code Status & VTE Plan Code Status Full code VTE Prophylaxis Plan VTE Prophylaxis will be ordered: Yes Critical Care Time Critical Care Time: Yes Total Critical Care Time: 65 PG Care Time/CCT Total # of Minutes Spent Total Time Spent with Patient: Total time spent is greater than 50% in coordination of care (as documented) at patient's floor/unit and/or counseling patient: Critical Care Time: Yes Total Critical Care Time: 65
[2019-04-03] MEDS ORDERED: ACETAMINOPHEN 1,000 MG/100 ML VIAL IV STA (03:11)
[2019-04-03] MEDS ORDERED: ACETAMINOPHEN 1000 MG/100 ML IV IV ONE (03:15)
[2019-04-03] MEDS ORDERED: ICU PROTOCOL FOR HYPERGLYCEMIA PRN (04:23)
[2019-04-03] MEDS ORDERED: MoRPHine SULFATE 2 MG/ML CARP IV PRN (04:23)
[2019-04-03] MEDS ORDERED: ALBUTEROL 0.5% NEB SOLN 2.5 MG/0.5 ML VIAL NEB PRN (04:23)
[2019-04-03] MEDS ORDERED: NORMOSOL-R 1,000 ML IV SCH (04:23)
[2019-04-03] MEDS ORDERED: ACETAMINOPHEN 65 ML IV PRN (04:23)
[2019-04-03] MEDS ORDERED: ALBUT/IPRATROP 3MG/0.5MG NEB 3 ML VIAL INH PRN (04:23)
[2019-04-03 04:44] LABS: Hematocrit (blood only) 22.8 % (42-52); Hemoglobin 7.3 g/dL (14.0-18.0); Mean Corpuscular Volume 85.4 fL (80-100); Mean Platelet Volume 8.8 fL (7.4-10.4); Nucleated RBC # (auto) 0.09 K/uL (0-0); Nucleated RBC % (auto) 0.9 %; Platelet Count 369 K/uL (130-400); RDW Coefficient of Variation 21.8 % (11.5-14.5); RDW Standard Deviation 68.2 fL (36.4-46.3); Red Blood Count 2.67 M/uL (4.7-6.1); White Blood Count 9.95 K/uL (4.8-10.8)
[2019-04-03 04:52] LABS: INR 1.3 (0.9-1.1); Prothrombin Time 13.1 Seconds (9.0-12.0)
[2019-04-03 05:02] LABS: Albumin Level 1.7 gm/dl (3.4-5.0); Calcium 7.5 mg/dl (8.5-10.1); Est GFR (African American) 17.6; Est GFR (Non-African American) 15.2; Magnesium 1.9 mg/dl (1.8-2.4); Potassium 4.1 mmol/L (3.5-5.1)
[2019-04-03 05:06] LABS: Appearance Urine Clear (Clear); Bacteria Urine Automated Negative (Negative); Bilirubin Urine Negative (Negative); Blood Urine Trace (Negative); Color Urine Yellow; Epithelial Cell Urine Auto 20-30 /lpf (0-5); Glucose Urine UA Negative (Negative); Ketones Urine Negative (Negative); Leukocyte Esterase Urine Negative (Negative); Nitrite Urine Negative (Negative); Protein Urine 1+ (Negative); RBC Urine Automated 0-4 /hpf (0-4); Specific Gravity Urine 1.019 (1.000-1.030); Urobilinogen Urine Negative (Negative)
[2019-04-03 05:07] LABS: Bilirubin,Total 1.5 mg/dl (0.2-1); Phosphorus 4.6 mg/dl (2.5-4.9); Total Protein 5.6 gm/dl (6.4-8.2)
[2019-04-03 05:16] LABS: Anisocytosis Present; Immature Granulocytes # (auto) 0.03 K/uL (0.00-0.02); Immature Granulocytes % (auto) 0.3 %; Lymphocytes # (auto) 0.18 K/uL (1.2-3.4); Lymphocytes % (auto) 1.8 %; Monocytes # (auto) 0.43 K/uL (0.11-0.59); Monocytes % (auto) 4.3 %; Neutrophils # (auto) 9.31 K/uL (1.4-6.5); Neutrophils % (auto) 93.6 %; Polychromasia 1+
[2019-04-03 05:22] LABS: Sodium Random Urine 16 mmol/L; Urea Nitrogen, Urine Random 1070 mg/dl
[2019-04-03] MEDS ORDERED: HYDROCORTISONE SOD SUCCINATE 100 MG/2 ML VIAL IV STA (05:57)
--- NOTE | 2019-04-03 06:19 | XRay Report ---
XR chest 1V portable CLINICAL HISTORY: weakness dyspnea COMPARISON STUDY: 10/11/2014 FINDINGS: Fullness in the mediastinum possibly due to AP supine technique. Lungs are considered clear . Diaphragms are smooth. Mild stable cardiomegaly. IMPRESSION: Mild stable cardiomegaly. No acute process. The above report was generated using voice recognition software. It may contain grammatical, syntax or spelling errors. Electronically signed by: Mike So M.D. 04/03/2019 6:18 AM
--- NOTE | 2019-04-03 06:23 | XRay Report ---
XR hand LT min 3V routine CLINICAL HISTORY: fall, pain trauma. Pain. COMPARISON: None. DISCUSSION: Mild soft tissue edema. Moderate degenerative change. No well-defined fracture or disloca tion. IMPRESSION: Soft tissue edema. Moderate degenerative change. No acute bony abnormality. The above report was generated using voice recognition software. It may contain grammatical, syntax or spelling errors. Electronically signed by: Mike So M.D. 04/03/2019 6:21 AM
--- NOTE | 2019-04-03 06:26 | XRay Report ---
XR wrist LT min 3V routine CLINICAL HISTORY: fall, pain trauma. Pain. COMPARISON: None. DISCUSSION: The bones and joint spaces appear intact. There is no evidence of fracture, dislocation o r bony disease. Mild soft tissue edema IMPRESSION: No acute bony abnormality. Mild soft tissue edema. The above report was generated using voice recognition software. It may contain grammatical, syntax or spelling errors. Electronically signed by: Mike So M.D. 04/03/2019 6:25 AM
--- NOTE | 2019-04-03 06:41 | CT Scan Report ---
CT cervical spine wo con CT DOSE: 1124.61 mGy.cm CLINICAL HISTORY: 63 years-old Male with fall, pain. Acute neck pain status post fall COMPARISON: Head CT of same day TECHNIQUE: Multiple axial CT images of the cervical spine were obtained without contrast. A dose low ering technique was utilized adhering to the principles of ALARA. FINDINGS: Grade 1 anterolisthesis C3 on C4, C4 on C5 and T1 on T2, likely secondary to long-standing facet arth rosis. There is severe multilevel facet arthrosis. Severe disc space narrowing and spondylitic spurri ng at C5-C6 and C6-C7 with posterior disc osteophyte complex formations. Large posterior disc osteoph yte complex is also noted at C3-C4. No acute fracture identified. Evaluation of the central canal and neuroforamina is better assessed by MRI. Multilevel foraminal narrowing is noted. There is at least mild central canal stenosis at C5-C6. No prevertebral soft tissue swelling. Calcified plaque of the c arotid bulbs. No pneumothorax. IMPRESSION: No acute cervical spine fracture or subluxation. The above report was generated using voice recognition software. It may contain grammatical, syntax o r spelling errors. Electronically signed by: Juma Shepherd M.D. 04/03/2019 6:39 AM
--- NOTE | 2019-04-03 06:50 | CT Scan Report ---
CT abd pelvis wo con CT DOSE: 758.35 mGy.cm HISTORY: Trauma. Pain. fall, poss bleeding, on eliquis TECHNIQUE: Multiaxial CT images of the abdomen and pelvis were performed without contrast. A dose lo wering technique was utilized adhering to the principles of ALARA. COMPARISON STUDY: None. FINDINGS: Lung bases are clear. Overall configuration of liver spleen and pancreas are unremarkable. Considerable bilateral perinephric fat stranding. This is nonspecific. Several gallstones. Nonobstructive bowel pattern. Containing periumbilical hernia. This is nonobstructing. Bladder is midline. Small fat-containing chilo ateral inguinal hernias. IMPRESSION: 1. Significant perinephric fat stranding bilaterally. 2. This is nonobstructive and may be age-related, although findings secondary to renal insufficiency must be considered. 3. Several fat-containing nonobstructive hernias. 4. Otherwise no acute process. The above report was generated using voice recognition software. It may contain grammatical, syntax or spelling errors. Electronically signed by: Mike So M.D. 04/03/2019 6:49 AM
--- NOTE | 2019-04-03 06:58 | CT Scan Report ---
CT head/brain wo con CLINICAL HISTORY: 63 years-old Male with fall, eliquis. Acute head injury status post fall TECHNIQUE: Multiple axial CT images of the head were obtained without contrast. A dose lowering tech nique was utilized adhering to the principles of ALARA. COMPARISON: CT cervical spine of same day FINDINGS: Motion degraded exam. Small areas of acute subdural hematoma noted about the falx cerebri the level t he centrum semiovale and also adjacent to the anteroinferior left frontal lobe. These measure up to 5 mm in transverse dimension. Additional probable acute subdural hematoma adjacent to the left tempora l lobe measures up to 4 mm. Prominent extra-axial spaces bilaterally with attenuation slightly above that of expected CSF. Age-related involutional changes. Mild patchy white matter hypodensities sugges t chronic microvascular ischemic disease. No acute territorial infarct. No calvarial fracture. Mastoi d air cells and middle ear cavities are clear. Paranasal sinuses are also clear. The soft tissues and orbits are within normal limits. IMPRESSION: 1. Acute areas of subdural hematoma noted about the falx cerebri measuring up to 5 mm without midline shift or hydrocephalus. 2. Probable additional acute subdural hematoma adjacent to the left temporal lobe, 4 mm. 3. Symmetric prominent extra-axial spaces about the bilateral cerebral convexities may be secondary t o age-related involutional changes versus chronic subdural hematoma/subdural hygroma. The above report was generated using voice recognition software. It may contain grammatical, syntax o r spelling errors. Electronically signed by: Juma Shepherd M.D. 04/03/2019 6:56 AM
--- NOTE | 2019-04-03 08:01 | Critical Care Consultation ---
Date of Consultation April 03, 2019 Assessment & Plan (1) Admitted to intensive care unit: Reason Critically Ill: Acute blood loss anemia suspect 2/2 AGIB PLAN: Neuro: Bilateral subdural hematoma Serial CT scan to follow, hematoma with maximum transverse dimension of 5 mm and without significant midline shift -Holding systemic anticoagulation History of high alcohol intake - CIWA precautions - 4-8 drinks per day per pt, liquor Acute encephalopathy, improved -Ammonia level 14, within normal limits - Continue to follow clinically Resp: Acute hypoxic respiratory failure: Improved History of COPD not tolerant of inhalers Duo nebs every 4 hours as needed No home O2 requirement Former tobacco smoker -40 year .5ppd (~20pack/yr hx) -Quit September this year CV: Hypotension 2/2 hypovolemia and acute blood loss anemia Clinically stable History atrial fibrillation Initially in normal sinus rhythm, converted to A. fib in the afternoon Apixaban held in the setting of acute bleed -Echo pending Renal: Acute kidney injury Creatinine 3.62 downtrending from a.m. 3.95, peak 4.56 I: 3070, O: 665 ID: Ceftriaxone 1 g daily for acute GI bleed without excluded varices Perianal/gluteal rash Patient has a diffuse, nontender bilateral rash with central eschar and without vesicles. 3 ocean import representative lesions unroofed and collected for HSV rapid culture, sample slides sent for pathology/[place] smear. No giant cells, but large amounts of bacteria observed. + Bacitracin BID GI/Nutrition: Acute GI bleed Hemoglobin initially dropped to 5.3, received 4 units of packed red blood cells and 1 unit of PCC with increase in hemoglobin to 7.3 GI consulted. EGD shows diffuse gastritis with biopsy taken, nonbleeding gastric ulcers, nonbleeding duodenal ulcers, and a normal second and third portion of the duodenum. Per GI recommend 1 day full liquid diet and advance as tolerated, Protonix 40 mg p.o. twice daily for 6 weeks then 40 mg daily Repeat upper endoscopy in 3 months Right upper quadrant ultrasound pending Nutrition 1 day full liquids and advance as tolerated as above Heme: Acute blood loss anemia secondary to GI bleed as above Status post 4 units PRBC, 1 unit PCC Hemoglobin on admit 5.3, delicia to 7.3 with above. Currently 7.9, no active signs of bleeding -Reticulocytes increased to 4.1 with a reticulate site index of 1.19 adjusting a degree of hypo-proliferation Endocrine: No history of type 2 diabetes Glycemic high of 176 -SSI ICU hyperglycemia protocol DVT prophylaxis: Pharmacal prophylaxis contraindicated, SCDs Vascular access: Peripheral IVs x2, triple-lumen in femoral Code Status: Full (2) HTN (hypertension): (3) Hypotension: (4) Syncope: (5) Anemia: (6) Heart disease: (7) GI (gastrointestinal bleed): (8) Acute kidney injury: (9) Acute dehydration: Supervising Physician Co-Signing Physician Notes Dr. Duffy was resident physician during care of patient. I separately evaluated patient for coulter portions of the history and the exam. I was present during the critical portion of medical decision making, and I discussed the case with the resident. I generally agree with the findings and plan. Patient was discussed in multidisciplinary rounds. Reason Critically Ill: Acute anemia requiring blood transfusion on anticoagulation PLAN: Neuro: Bilateral subdurals -Serial CT scan to evaluate for expansion -Holding systemic anticoagulation Reported alcohol use - CIWA precautions Acute encephalopathy: Improved -Checking ammonia level, however I believe the acute encephalopathy was likely secondary to hypoperfusion and anemia Resp: Acute hypoxic respiratory failure: Improved Former tobacco smoker -Quit September this year CV: Hypotension: Resolved -Secondary to volume contraction and acute blood loss anemia History atrial fibrillation -Echocardiogram pending -Normal sinus rhythm at this time Fluids/Renal: Acute kidney injury -Continue fluids at this time as patient is n.p.o. ID: Adding Rocephin in setting of GI bleed and alcoholism cannot exclude variceal bleeding at this point GI/Nutrition: Gastrointestinal bleeding -GI consulted -Holding anticoagulation Right upper quadrant ultrasound pending Heme: Long-term anticoagulation with Eliquis -Indication: Atrial fibrillation -Contraindication: Frequent falls, gastrointestinal hemorrhage Acute blood loss anemia: improved -Transfused 4 units of blood DVT prophylaxis: SCDs Endocrine: ICU hyperglycemia protocol Vascular access: Peripheral IVs x2, triple-lumen in femoral -After GI evaluation plus minus EGD will discontinue triple-lumen Code Status: Full I have personally spent 55 minutes of critical care time in the direct management of this patient. This is a life/limb threatening event. This includes time spent evaluating patient, direct bedside care, chart review, placing orders, interpretation of diagnostic studies, discussion with consultants, patient, and/or family members regarding treatment decisions, as well as other required patient management activities. This time is exclusive of all separately billable procedures, and teaching time and separate from and in addition to any other critical care service time. History of Present Illness Reason for Consultation: MICU Admit. Hypotension, Acute Blood Loss Anemia 2/2 GIB Attending Physician: Hortensia Huitron DO History of Present Illness Tapan is a 63-year-old male with past medical history of hypertension, atrial fibrillation anticoagulated with Eliquis, COPD with no home O2 requirement who was brought to the hospital after being found down on the floor and was hypotensive with guaiac positive stools on admission. He lives alone at home and was found at home by friends. He reports he has had frequent falls over the last few months and has felt tired since September. He endorses wheezing with a COPD which he feels makes him very tired and he has tried multiple inhalers, but does not remember their name and reports that they make him sick and vomit so he has not been taking them. He reports he is not aware that he was admitted because of a fall, and does not remember falling. He is not sure if he hit his head, but does not report a headache or head trauma. He denies a history of heart disease, high cholesterol, strokes, or diabetes. Patient endorses at least 4 "not small "mixed drinks per day which he thinks is equal to a couple of shots daily. He reports he has not had symptoms of withdrawal before, and has never been in delirium tremens. Past medical history: Reviewed. Positive for hypertension, A. fib, COPD Past surgical history: Reports a history of bilateral knee surgery over 20 years ago and a distant left elbow surgery. Denies other surgery. Endorses 40-year half pack per day cigarette use, reports he quit with no cigarette use since September 2018. Denies recreational drug use Reports he lives at home alone, has friends that visit him Denies medication allergies Allergies Allergy/AdvReac Type Severity Reaction Status Date / Time No Known Allergies Allergy NONE Verified 04/03/19 00:22 Home Medications Home Medications Medication Instructions Recorded Confirmed Type apixaban [Eliquis] 5 mg PO BID 04/03/19 04/03/19 History carvedilol 25 mg PO BID 04/03/19 04/03/19 History furosemide 20 mg PO DAILY 04/03/19 04/03/19 History lisinopril 10 mg PO DAILY 04/03/19 04/03/19 History multivitamin 1 tab PO DAILY 04/03/19 04/03/19 History prednisone 0 mg PO DIRECTED 04/03/19 04/03/19 History Patient History Medical History EDMUNDO (acute kidney injury) Anemia Atrial fibrillation Chronic anticoagulation Falls GI bleed Heavy alcohol use Hypertension Subdural hematoma Wrist pain Surgical History Status post knee surgery Family History Other Medical history non-contributory Social History Preferred Language: Ukrainian Communication Ability: Effective Cheese Specialist Required: No Beliefs That Will Affect Care: None Current Living Situation: Alone Feels Safe at Home: Yes Smoking Status: Current some day smoker Hx Alcohol Use: Yes Alcohol type: hard liquor Hx Substance Use: No Review of Systems Review of Systems: Constitutional: Denies fever, chills. Endorses fatigue, malaise Eyes: Denies double vision, vision change, eye pain ENT: Denies ear pain, sore throat, sinus pain Cardiovascular: Denies chest pain, chest pressure, palpitations, extremity swelling Respiratory: Denies shortness of breath, cough, sputum production, difficulty breathing at time of visit. Endorses wheezing over the last few months Gastrointestinal: Denies abdominal pain, nausea, vomiting, constipation, diarrhea Genitourinary: Denies pain with urination, incontinence Musculoskeletal: Denies weakness, muscle aches/pain, joint aches/pain. Endorses left hand swelling without pain. Integumentary:Denies rash, lesions, bruising Neurological: Denies headache, numbness, tingling, focal weakness. Physical Exam Physical Exam: General: Alert and oriented to name, date, and place. NAD. Cooperative. Speech fluent. Mild pallor. Skin: Few scattered spider angiomata on upper chest bilaterally. Perianal and posterior gluteal skin with scattered erythematous 2 to 5 mm eschars with central scab Nontender to palpation. No warmth. HEENT: Atraumatic, normocephalic. Pupils equal and reactive to light and accommodation. Extraocular movements intact without nystagmus. Mucous membranes moist. Pulm: Global end expiratory wheezes, otherwise CTAB A&P with moderate air movement-rales, -rhonchi. Symmetrical chest rise. No increased work of breathing. No respiratory distress. Cardiac: On initial exam heart rate regular, on recheck half an hour later heart rate irregularly irregular. Tachycardic, without murmurs rubs or gallops. No JVD appreciated. Abdominal: Nontender, nondistended, soft. BS present. Extremities: Warm, well-perfused. PT pulses palpable bilaterally. No pitting edema appreciated. Right groin central venous line present. Results & Data Vital Signs (Past 12 Hours) Vital Signs Temp Pulse Pulse Resp BP BP Pulse Ox 04/03/19 06:01 36.4 C L 105 H 26 H 71/55 L 98 04/03/19 05:57 36.4 C L 105 H 26 H 71/55 L 04/03/19 04:16 36.3 C L 101 H 16 77/58 L 98 04/03/19 03:47 106 H 20 99/60 L 96 04/03/19 03:26 35.7 C L 108 H 18 120/107 H 98 04/03/19 03:00 115 H 21 90/57 L 100 04/03/19 02:45 92 H 19 89/64 L 100 04/03/19 02:32 99 H 20 94/70 L 100 04/03/19 02:21 35.9 C L 04/03/19 02:19 36.2 C L 96 H 18 88/58 L 100 04/03/19 02:17 109 H 26 H 97/59 L 100 04/03/19 02:00 121 H 19 85/65 L 88 L 04/03/19 01:56 116 H 18 92/58 L 96 04/03/19 01:45 35.9 C L 103 H 18 97/59 L 100 04/03/19 01:35 35.9 C L 114 H 26 H 85/65 L 97 04/03/19 01:31 104 H 20 89/65 L 04/03/19 01:29 36 C L 104 H 18 89/61 L 100 04/03/19 01:16 107 H 23 89/61 L 04/03/19 01:15 115 H 17 96 04/03/19 01:09 36 C L 105 H 118 H 18 94/58 L 94/68 L 98 04/03/19 01:01 133 H 21 76/60 L 04/03/19 01:00 106 H 21 04/03/19 00:52 109 H 19 04/03/19 00:47 106 H 22 04/03/19 00:32 117 H 104 H 14 75/54 L 100 04/03/19 00:31 113 H 22 75/54 L 100 04/03/19 00:30 104 H 21 95 04/03/19 00:27 100 H 19 80/55 L 99 04/03/19 00:24 103 H 16 72/53 L 98 04/03/19 00:21 112 H 18 72/53 L 04/03/19 00:15 16 04/03/19 00:01 100 H 19 82/55 L 100 04/03/19 00:00 105 H 112 H 16 82/45 L 100 04/02/19 23:59 36.7 C 105 H 16 88/64 L 98 04/02/19 23:57 107 H 19 99 04/02/19 23:54 103 H 17 88/55 L PG Care Time/CCT Total # of Minutes Spent Total Time Spent with Patient: Total time spent is greater than 50% in coordination of care (as documented) at patient's floor/unit and/or counseling patient: Critical Care Time: Yes Total Critical Care Time: 55 Resident Activity Tracking Resident Involvement: Resident Care Provided Care Provided: Adult Hospital Medicine (1) GI (gastrointestinal bleed) GI bleed type/associated pathology: gastritis Gastritis type: acute gastritis Qualified Code(s): K29.01 - Acute gastritis with bleeding (2) Anemia Anemia type: unspecified type Qualified Code(s): D64.9 - Anemia, unspecified (3) Syncope Syncope type: unspecified Qualified Code(s): R55 - Syncope and collapse (4) Hypotension Hypotension type: unspecified hypotension type Qualified Code(s): I95.9 - Hypotension, unspecified
--- NOTE | 2019-04-03 08:20 | CT Scan Report ---
CT head/brain wo con CLINICAL HISTORY: 63 years-old Male with assess bleed. TECHNIQUE: Multiple axial CT images of the head were obtained without contrast. A dose lowering tech nique was utilized adhering to the principles of ALARA. CT DOSE: 1535.66 mGy.cm COMPARISON: None. FINDINGS: Motion degraded exam. Small areas of acute subdural hematoma noted about the falx cerebri at the leve l the centrum semiovale and also adjacent to the anteroinferior left frontal lobe appears unchanged. These measure up to 5 mm in transverse dimension. Additional probable acute subdural hematoma adjacen t to the left temporal lobe measures up to 4 mm. Prominent extra-axial spaces bilaterally with attenu ation slightly above that of expected CSF. Age-related involutional changes. Mild patchy white matter hypodensities suggest chronic microvascular ischemic disease. No acute territorial infarct. No juanis rial fracture. Mastoid air cells and middle ear cavities are clear. Paranasal sinuses are also clear. The soft tissues and orbits are within normal limits. IMPRESSION: 1. Unchanged small acute subdural hematoma about the falx cerebri with additional unchanged small acu te subdural hematoma adjacent to the left temporal lobe. 2. Prominent extra-axial spaces adjacent to the bilateral cerebral convexities redemonstrated suggest darrian of probable chronic subdural hematomas. The above report was generated using voice recognition software. It may contain grammatical, syntax o r spelling errors. Electronically signed by: Juma Shepherd M.D. 04/03/2019 8:19 AM
[2019-04-03 08:48] LABS: Hematocrit (blood only) 25.1 % (42-52); Hemoglobin 8.2 g/dL (14.0-18.0); Reticulocyte % 4.1 % (0.5-2.0); Reticulocytes # 0.12 10^6/uL (0.02-0.10)
[2019-04-03] MEDS ORDERED: HYDROCORTISONE SOD SUCCINATE 100 MG/2 ML VIAL ONE (08:50)
--- NOTE | 2019-04-03 08:56 | Gastrointestinal Consultation ---
Date of Consultation April 03, 2019 Assessment & Plan (1) Anemia: 63 year old male with history of a-flutter on Eliquis HTN, COPD, daily ETOH use last drink day prior to arrival found down at home admitted w/ hypotension, anemia, EDMUNDO - GI asked to evaluate for anemia. He denies any prior episodes of black/bloody emesis/bowels but notes he does not often assess his stools. Head CT w/ acute areas of subdural hematoma. He is awake, alert and oriented x 3 but appears to be a poor historian. - NPO - IV PPI drip and bolus - Trend HGB - Transfuse PRN HGB less than 8 - Agree with holding anticoagulation - Ongoing fluid resuscitation and BP support per ICU - EGD today, location and timing to be determined Thank you for allowing us to participate in the care of this patient. Please call with any acute changes, questions or concerns. Please see addendum below with additional recommendation from my supervising physician. Present on Admission?: Yes Supervising Physician Co-Signing Physician Notes I saw and evaluated the patient. GI is consulted for evaluation of anemia heme positive stool and a recent drop in his hemoglobin and hematocrit. The patient was found down at home and appears to have suffered a recent subdural hematoma. The patient does have a history of alcohol use but no known history of cirrhosis. There is been no gross hematemesis since admission. Physical examination Frail appearing male /disheveled appearing No scleral icterus Abdomen soft Impression: Patient with a subdural hematoma found to have anemia and heme positive stools. We are certainly happy to provide endoscopic evaluation of the upper GI tract to look for blood loss from peptic ulcer disease. If negative then the patient would likely need to have an outpatient colonoscopy once he is recovered from his epidural hematoma. Recommendations Upper endoscopy today History of Present Illness Reason for Consultation: anemia Requesting Physician: Alexx Attending Physician: Paty Coffey MD History of Present Illness 63 year old male with history of a-flutter on Eliquis HTN, COPD, daily ETOH use suggesting 3-5 drinks daily last drink was AM who presented through the ED after being found down at home - GI asked to evaluate for hypotension and anemia. Pt was seen and evaluated, chart reviewed. He is awake, alert and oriented, answering questions appropriately although appear to be a poor historian. He endorses he just has not felt well the past few days but denies any abdominal pain, nausea, vomiting. He notes he moves his bowels twice daily but is unsure if he has had any black/bloody stools as he does not assess. He denies any increase in stool frequency. Today, feels tired, weak. Denies any CP, SOB. On arrival, he was hypotensive, tachycardiac w/ a reported unresponsive episode in the ED. At that time, labs revealed HGB 5 w/ both BUN and PARKING ATTENDANT elevation. Stools were heme +. S/P [address] of the head was obtained which revealed evidence of chronic subdural hematomas, possible small areas of acute hemorrhage. CT ABD w/o evidence of cirrhosis or splenomegaly Allergies Allergy/AdvReac Type Severity Reaction Status Date / Time No Known Allergies Allergy NONE Verified 04/03/19 00:22 Home Medications Home Medications Medication Instructions Recorded Confirmed Type apixaban [Eliquis] 5 mg PO BID 04/03/19 04/03/19 History carvedilol 25 mg PO BID 04/03/19 04/03/19 History furosemide 20 mg PO DAILY 04/03/19 04/03/19 History lisinopril 10 mg PO DAILY 04/03/19 04/03/19 History multivitamin 1 tab PO DAILY 04/03/19 04/03/19 History prednisone 0 mg PO DIRECTED 04/03/19 04/03/19 History Patient History Medical History EDMUNDO (acute kidney injury) Anemia Atrial fibrillation Chronic anticoagulation Falls GI bleed Heavy alcohol use Hypertension Subdural hematoma Wrist pain Surgical History Status post knee surgery Family History Other Medical history non-contributory Social History Preferred Language: Syriac Communication Ability: Effective Trim Carpenter Required: No Beliefs That Will Affect Care: None Current Living Situation: Alone Feels Safe at Home: Yes Smoking Status: Current some day smoker Hx Alcohol Use: Yes Alcohol type: hard liquor Hx Substance Use: No Review of Systems Constitutional: + fatigue; no fever and no chills Respiratory: no cough, no chest congestion and no wheezing Cardiovascular: + syncope (ongoing prior to arrival); no chest pain and no chest pain at rest Gastrointestinal: no abdominal pain, no belching, no coffee ground emesis, no hematemesis, no blood in stools and no melena Physical Exam Constitutional: + ill appearing and + thin Neck: trachea midline Respiratory: normal respiratory effort Cardiovascular: Rate/Rhythm: + tachycardic Gastrointestinal (Abdomen): normal bowel sounds, soft, nontender, no hepatosplenomegaly Skin: no rashes, warm and dry Results & Data Vital Signs (Past 12 Hours) Vital Signs Temp Pulse Pulse Resp BP BP Pulse Ox 04/03/19 08:31 36.6 C 102 H 24 93/66 L 99 04/03/19 08:11 110 H 16 04/03/19 07:46 95 H 22 92/72 L 99 04/03/19 07:45 106 H 23 100 04/03/19 07:31 100 H 32 H 91/63 L 99 04/03/19 07:30 36.5 C 96 H 20 100 04/03/19 07:16 106 H 22 93/57 L 99 04/03/19 07:15 105 H 15 100 04/03/19 07:01 106 H 22 84/62 L 97 04/03/19 07:00 110 H 25 H 94 04/03/19 06:46 104 H 26 H 84/60 L 100 04/03/19 06:45 105 H 17 100 04/03/19 06:31 100 H 25 H 88/57 L 100 04/03/19 06:30 97 H 23 100 04/03/19 06:16 100 H 17 93/59 L 99 04/03/19 06:15 99 H 17 100 04/03/19 06:01 36.4 C L 102 H 23 89/57 L 100 04/03/19 06:00 109 H 19 100 04/03/19 05:57 36.4 C L 105 H 26 H 71/55 L 04/03/19 05:50 110 H 13 76/55 L 100 04/03/19 05:45 104 H 27 H 98 04/03/19 05:30 102 H 18 100 04/03/19 05:15 106 H 20 100 04/03/19 05:00 101 H 22 100 04/03/19 04:45 91 H 25 H 100 04/03/19 04:38 108 H 20 86/64 L 100 04/03/19 04:30 100 H 22 100 04/03/19 04:16 36.3 C L 101 H 101 H 18 77/58 L 100 04/03/19 04:14 102 H 21 77/58 L 100 04/03/19 04:13 110 H 23 100 04/03/19 03:47 106 H 20 99/60 L 96 04/03/19 03:45 92 H 23 99/60 L 100 04/03/19 03:42 36.4 C L 109 H 26 H 89/47 L 100 04/03/19 03:30 105 H 18 88/58 L 100 04/03/19 03:26 35.7 C L 108 H 18 120/107 H 98 04/03/19 03:17 131 H 19 120/107 H 04/03/19 03:15 110 H 18 96 04/03/19 03:00 115 H 21 90/57 L 100 04/03/19 02:45 92 H 19 89/64 L 100 04/03/19 02:32 99 H 20 94/70 L 100 04/03/19 02:21 35.9 C L 04/03/19 02:19 36.2 C L 96 H 18 88/58 L 100 04/03/19 02:17 109 H 26 H 97/59 L 100 04/03/19 02:00 121 H 19 85/65 L 88 L 04/03/19 01:56 116 H 18 92/58 L 96 04/03/19 01:45 35.9 C L 103 H 18 97/59 L 100 04/03/19 01:35 35.9 C L 114 H 26 H 85/65 L 97 04/03/19 01:31 104 H 20 89/65 L 04/03/19 01:29 36 C L 104 H 18 89/61 L 100 04/03/19 01:16 107 H 23 89/61 L 04/03/19 01:15 115 H 17 96 04/03/19 01:09 36 C L 105 H 118 H 18 94/58 L 94/68 L 98 04/03/19 01:01 133 H 21 76/60 L 04/03/19 01:00 106 H 21 04/03/19 00:52 109 H 19 04/03/19 00:47 106 H 22 08/30/19 00:32 117 H 104 H 14 75/54 L 100 04/03/19 00:31 113 H 22 75/54 L 100 04/03/19 00:30 104 H 21 95 04/03/19 00:27 100 H 19 80/55 L 99 04/03/19 00:24 103 H 16 72/53 L 98 04/03/19 00:21 112 H 18 72/53 L 04/03/19 00:15 16 04/03/19 00:01 100 H 19 82/55 L 100 04/03/19 00:00 105 H 112 H 16 82/45 L 100 04/02/19 23:59 36.7 C 105 H 16 88/64 L 98 04/02/19 23:57 107 H 19 99 04/02/19 23:54 103 H 17 88/55 L Laboratory Results 04/03/19 04/03/19 04/03/19 Range/Units 08:37 06:32 04:50 WBC (4.8-10.8) K/uL RBC (4.7-6.1) M/uL Hgb 8.2 L (14.0-18.0) g/dL Hct 25.1 L (42-52) % MCV (80-100) fL MCH (25-34) pg MCHC (32-36) g/dL RDW Std Deviation (36.4-46.3) fL RDW Coeff of Quan (11.5-14.5) % Plt Count (130-400) K/uL MPV (7.4-10.4) fL Immature Gran % (Auto) % Neut % (Auto) % Lymph % (Auto) % [place] % (Auto) % Eos % (Auto) % Baso % (Auto) % Reticulocyte % (Auto) 4.1 H (0.5-2.0) % Immature Gran # (Auto) (0.00-0.02) K/uL Neut # (Auto) (1.4-6.5) K/uL Lymph # (Auto) (1.2-3.4) K/uL Sargent # (Auto) (0.11-0.59) K/uL Eos # (Auto) (0-0.5) K/uL Baso # (Auto) (0-0.2) K/uL Reticulocyte # 0.12 H (0.02-0.10) 10^6/uL Absolute Nucleated RBC (0-0) K/uL Nucleated RBC % (auto) % Polychromasia Anisocytosis PT (9.0-12.0) Seconds INR (0.9-1.1) APTT (21.0-31.0) Seconds PTT Ratio Sodium (136-145) mmol/L Potassium (3.5-5.1) mmol/L Chloride (98-107) mmol/L Carbon Dioxide (21-32) mmol/L Anion Gap (3-11) BUN (7-18) mg/dl Creatinine (0.6-1.4) mg/dl Est Cr Clr Drug Dosing ml/min Est GFR ( Amer) Est GFR (Non-Af Amer) BUN/Creatinine Ratio (10-20) Glucose (70-99) mg/dl Calcium (8.5-10.1) mg/dl Phosphorus (2.5-4.9) mg/dl Magnesium (1.8-2.4) mg/dl Total Bilirubin (0.2-1) mg/dl Direct Bilirubin (0-0.2) mg/dl AST (15-37) U/L ALT (12-78) U/L Alkaline Phosphatase (45-117) U/L Total Creatine Kinase 111 (39-308) U/L Troponin I (0-0.045) ng/ml Total Protein (6.4-8.2) gm/dl Albumin (3.4-5.0) gm/dl Globulin (2.5-4.0) gm/dl Albumin/Globulin Ratio (0.9-2) Urine Color Yellow Urine Appearance Clear (Clear) Urine pH 5.0 (4.5-7.5) Ur Specific [place] 1.019 (1.000-1.030) Urine Protein 1+ H (Negative) Urine Glucose (UA) Negative (Negative) Urine Ketones Negative (Negative) Urine Blood Trace H (Negative) Urine Nitrite Negative (Negative) Urine Bilirubin Negative (Negative) Urine Urobilinogen Negative (Negative) Ur Leukocyte Esterase Negative (Negative) Urine WBC (Auto) 1-5 (0-5) /hpf Urine RBC (Auto) 0-4 (0-4) /hpf U Hyaline Cast (Auto) 1-5 (0-5) /lpf U Epithel Cells (Auto) 20-30 H (0-5) /lpf Urine Bacteria (Auto) Negative (Negative) Ur Random Sodium Ur Random Urea Nitrogn mg/dl Nasal Screen MRSA (PCR) (Negative) Ethyl Alcohol mg/dL (0-3) mg/dl Hepatitis C Ab Screen Blood Type Blood Type Recheck Antibody Screen Crossmatch 04/03/19 04/03/19 04/03/19 Range/Units 04:50 04:50 04:36 WBC (4.8-10.8) K/uL RBC (4.7-6.1) M/uL Hgb (14.0-18.0) g/dL Hct (42-52) % MCV (80-100) fL MCH (25-34) pg MCHC (32-36) g/dL RDW Std Deviation (36.4-46.3) fL RDW Coeff of Quan (11.5-14.5) % Plt Count (130-400) K/uL MPV (7.4-10.4) fL Immature Gran % (Auto) % Neut % (Auto) % Lymph % (Auto) % Sargent % (Auto) % Eos % (Auto) % Baso % (Auto) % Reticulocyte % (Auto) (0.5-2.0) % Immature Gran # (Auto) (0.00-0.02) K/uL Neut # (Auto) (1.4-6.5) K/uL Lymph # (Auto) (1.2-3.4) K/uL Sargent # (Auto) (0.11-0.59) K/uL Eos # (Auto) (0-0.5) K/uL Baso # (Auto) (0-0.2) K/uL Reticulocyte # (0.02-0.10) 10^6/uL Absolute Nucleated RBC (0-0) K/uL Nucleated RBC % (auto) % Polychromasia Anisocytosis PT (9.0-12.0) Seconds INR (0.9-1.1) APTT (21.0-31.0) Seconds PTT Ratio Sodium (136-145) mmol/L Potassium (3.5-5.1) mmol/L Chloride (98-107) mmol/L Carbon Dioxide (21-32) mmol/L Anion Gap (3-11) BUN (7-18) mg/dl Creatinine (0.6-1.4) mg/dl Est Cr Clr Drug Dosing ml/min Est GFR ( Amer) Est GFR (Non-Af Amer) BUN/Creatinine Ratio (10-20) Glucose (70-99) mg/dl Calcium (8.5-10.1) mg/dl Phosphorus (2.5-4.9) mg/dl Magnesium (1.8-2.4) mg/dl Total Bilirubin (0.2-1) mg/dl Direct Bilirubin (0-0.2) mg/dl AST (15-37) U/L ALT (12-78) U/L Alkaline Phosphatase (45-117) U/L Total Creatine Kinase (39-308) U/L Troponin I (0-0.045) ng/ml Total Protein (6.4-8.2) gm/dl Albumin (3.4-5.0) gm/dl Globulin (2.5-4.0) gm/dl Albumin/Globulin Ratio (0.9-2) Urine Color Urine Appearance (Clear) Urine pH (4.5-7.5) Ur Specific [place] (1.000-1.030) Urine Protein (Negative) Urine Glucose (UA) (Negative) Urine Ketones (Negative) Urine Blood (Negative) Urine Nitrite (Negative) Urine Bilirubin (Negative) Urine Urobilinogen (Negative) Ur Leukocyte Esterase (Negative) Urine WBC (Auto) (0-5) /hpf Urine RBC (Auto) (0-4) /hpf U Hyaline Cast (Auto) (0-5) /lpf U Epithel Cells (Auto) (0-5) /lpf Urine Bacteria (Auto) (Negative) Ur Random Sodium 16 Cancelled Ur Random Urea Nitrogn 1070 mg/dl Nasal Screen MRSA (PCR) (Negative) Ethyl Alcohol mg/dL (0-3) mg/dl Hepatitis C Ab Screen Pending Blood Type Blood Type Recheck Antibody Screen Crossmatch 04/03/19 04/03/19 04/03/19 Range/Units 04:33 04:33 04:33 WBC 9.95 (4.8-10.8) K/uL RBC 2.67 L (4.7-6.1) M/uL Hgb 7.3 L (14.0-18.0) g/dL Hct 22.8 L (42-52) % MCV 85.4 (80-100) fL MCH 27.3 (25-34) pg MCHC 32.0 (32-36) g/dL RDW Std Deviation 68.2 H (36.4-46.3) fL RDW Coeff of Quan 21.8 H (11.5-14.5) % Plt Count 369 (130-400) K/uL MPV 8.8 (7.4-10.4) fL Immature Gran % (Auto) 0.3 % Neut % (Auto) 93.6 % Lymph % (Auto) 1.8 % Sargent % (Auto) 4.3 % Eos % (Auto) 0.0 % Baso % (Auto) 0.0 % Reticulocyte % (Auto) (0.5-2.0) % Immature Gran # (Auto) 0.03 H (0.00-0.02) K/uL Neut # (Auto) 9.31 H (1.4-6.5) K/uL Lymph # (Auto) 0.18 L (1.2-3.4) K/uL Sargent # (Auto) 0.43 (0.11-0.59) K/uL Eos # (Auto) 0.00 (0-0.5) K/uL Baso # (Auto) 0.00 (0-0.2) K/uL Reticulocyte # (0.02-0.10) 10^6/uL Absolute Nucleated RBC 0.09 H (0-0) K/uL Nucleated RBC % (auto) 0.9 % Polychromasia 1+ Anisocytosis Present PT 13.1 H (9.0-12.0) Seconds INR 1.3 H (0.9-1.1) APTT (21.0-31.0) Seconds PTT Ratio Sodium 143 (136-145) mmol/L Potassium 4.1 (3.5-5.1) mmol/L Chloride 112 H (98-107) mmol/L Carbon Dioxide 21 (21-32) mmol/L Anion Gap 10.0 (3-11) BUN 114 H (7-18) mg/dl Creatinine 3.95 H D (0.6-1.4) mg/dl Est Cr Clr Drug Dosing 21.0 ml/min Est GFR ( Amer) 17.6 Est GFR (Non-Af Amer) 15.2 BUN/Creatinine Ratio 29.0 H (10-20) Glucose 176 H (70-99) mg/dl Calcium 7.5 L (8.5-10.1) mg/dl Phosphorus 4.6 (2.5-4.9) mg/dl Magnesium 1.9 (1.8-2.4) mg/dl Total Bilirubin 1.5 H (0.2-1) mg/dl Direct Bilirubin 1.0 H (0-0.2) mg/dl AST 26 (15-37) U/L ALT 29 (12-78) U/L Alkaline Phosphatase 101 (45-117) U/L Total Creatine Kinase (39-308) U/L Troponin I (0-0.045) ng/ml Total Protein 5.6 L (6.4-8.2) gm/dl Albumin 1.7 L (3.4-5.0) gm/dl Globulin (2.5-4.0) gm/dl Albumin/Globulin Ratio (0.9-2) Urine Color Urine Appearance (Clear) Urine pH (4.5-7.5) Ur Specific [place] (1.000-1.030) Urine Protein (Negative) Urine Glucose (UA) (Negative) Urine Ketones (Negative) Urine Blood (Negative) Urine Nitrite (Negative) Urine Bilirubin (Negative) Urine Urobilinogen (Negative) Ur Leukocyte Esterase (Negative) Urine WBC (Auto) (0-5) /hpf Urine RBC (Auto) (0-4) /hpf U Hyaline Cast (Auto) (0-5) /lpf U Epithel Cells (Auto) (0-5) /lpf Urine Bacteria (Auto) (Negative) Ur Random Sodium Ur Random Urea Nitrogn mg/dl Nasal Screen MRSA (PCR) (Negative) Ethyl Alcohol mg/dL (0-3) mg/dl Hepatitis C Ab Screen Blood Type Blood Type Recheck Antibody Screen Crossmatch 04/03/19 04/03/19 04/03/19 Range/Units 04:30 01:16 01:16 WBC (4.8-10.8) K/uL RBC (4.7-6.1) M/uL Hgb (14.0-18.0) g/dL Hct (42-52) % MCV (80-100) fL MCH (25-34) pg MCHC (32-36) g/dL RDW Std Deviation (36.4-46.3) fL RDW Coeff of Quan (11.5-14.5) % Plt Count (130-400) K/uL MPV (7.4-10.4) fL Immature Gran % (Auto) % Neut % (Auto) % Lymph % (Auto) % Sargent % (Auto) % Eos % (Auto) % Baso % (Auto) % Reticulocyte % (Auto) (0.5-2.0) % Immature Gran # (Auto) (0.00-0.02) K/uL Neut # (Auto) (1.4-6.5) K/uL Lymph # (Auto) (1.2-3.4) K/uL Sargent # (Auto) (0.11-0.59) K/uL Eos # (Auto) (0-0.5) K/uL Baso # (Auto) (0-0.2) K/uL Reticulocyte # (0.02-0.10) 10^6/uL Absolute Nucleated RBC (0-0) K/uL Nucleated RBC % (auto) % Polychromasia Anisocytosis PT (9.0-12.0) Seconds INR (0.9-1.1) APTT (21.0-31.0) Seconds PTT Ratio Sodium (136-145) mmol/L Potassium (3.5-5.1) mmol/L Chloride (98-107) mmol/L Carbon Dioxide (21-32) mmol/L Anion Gap (3-11) BUN (7-18) mg/dl Creatinine (0.6-1.4) mg/dl Est Cr Clr Drug Dosing ml/min Est GFR ( Amer) Est GFR (Non-Af Amer) BUN/Creatinine Ratio (10-20) Glucose (70-99) mg/dl Calcium (8.5-10.1) mg/dl Phosphorus (2.5-4.9) mg/dl Magnesium (1.8-2.4) mg/dl Total Bilirubin (0.2-1) mg/dl Direct Bilirubin (0-0.2) mg/dl AST (15-37) U/L ALT (12-78) U/L Alkaline Phosphatase (45-117) U/L Total Creatine Kinase (39-308) U/L Troponin I (0-0.045) ng/ml Total Protein (6.4-8.2) gm/dl Albumin (3.4-5.0) gm/dl Globulin (2.5-4.0) gm/dl Albumin/Globulin Ratio (0.9-2) Urine Color Urine Appearance (Clear) Urine pH (4.5-7.5) Ur Specific [place] (1.000-1.030) Urine Protein (Negative) Urine Glucose (UA) (Negative) Urine Ketones (Negative) Urine Blood (Negative) Urine Nitrite (Negative) Urine Bilirubin (Negative) Urine Urobilinogen (Negative) Ur Leukocyte Esterase (Negative) Urine WBC (Auto) (0-5) /hpf Urine RBC (Auto) (0-4) /hpf U Hyaline Cast (Auto) (0-5) /lpf U Epithel Cells (Auto) (0-5) /lpf Urine Bacteria (Auto) (Negative) Ur Random Sodium Ur Random Urea Nitrogn mg/dl Nasal Screen MRSA (PCR) Uninterpretable (Negative) Ethyl Alcohol mg/dL < 3.0 (0-3) mg/dl Hepatitis C Ab Screen Blood Type Blood Type Recheck A Negative Antibody Screen Crossmatch 04/03/19 04/02/19 04/02/19 Range/Units 00:25 23:56 23:56 WBC (4.8-10.8) K/uL RBC (4.7-6.1) M/uL Hgb (14.0-18.0) g/dL Hct (42-52) % MCV (80-100) fL MCH (25-34) pg MCHC (32-36) g/dL RDW Std Deviation (36.4-46.3) fL RDW Coeff of Quan (11.5-14.5) % Plt Count (130-400) K/uL MPV (7.4-10.4) fL Immature Gran % (Auto) % Neut % (Auto) % Lymph % (Auto) % Sargent % (Auto) % Eos % (Auto) % Baso % (Auto) % Reticulocyte % (Auto) (0.5-2.0) % Immature Gran # (Auto) (0.00-0.02) K/uL Neut # (Auto) (1.4-6.5) K/uL Lymph # (Auto) (1.2-3.4) K/uL Sargent # (Auto) (0.11-0.59) K/uL Eos # (Auto) (0-0.5) K/uL Baso # (Auto) (0-0.2) K/uL Reticulocyte # (0.02-0.10) 10^6/uL Absolute Nucleated RBC (0-0) K/uL Nucleated RBC % (auto) % Polychromasia Anisocytosis PT 13.7 H (9.0-12.0) Seconds INR 1.4 H (0.9-1.1) APTT 27.3 (21.0-31.0) Seconds PTT Ratio 1.0 Sodium 142 (136-145) mmol/L Potassium 4.3 (3.5-5.1) mmol/L Chloride 108 H (98-107) mmol/L Carbon Dioxide 23 (21-32) mmol/L Anion Gap 11.0 (3-11) BUN 125 H (7-18) mg/dl Creatinine 4.62 H* (0.6-1.4) mg/dl Est Cr Clr Drug Dosing 18.0 ml/min Est GFR ( Amer) 14.5 Est GFR (Non-Af Amer) 12.5 BUN/Creatinine Ratio 27.6 H (10-20) Glucose 153 H (70-99) mg/dl Calcium 8.4 L (8.5-10.1) mg/dl Phosphorus (2.5-4.9) mg/dl Magnesium 2.0 (1.8-2.4) mg/dl Total Bilirubin 1.5 H (0.2-1) mg/dl Direct Bilirubin (0-0.2) mg/dl AST 30 (15-37) U/L ALT 34 (12-78) U/L Alkaline Phosphatase 111 (45-117) U/L Total Creatine Kinase (39-308) U/L Troponin I < 0.015 (0-0.045) ng/ml Total Protein 6.1 L (6.4-8.2) gm/dl Albumin 1.9 L (3.4-5.0) gm/dl Globulin 4.2 H (2.5-4.0) gm/dl Albumin/Globulin Ratio 0.5 L (0.9-2) Urine Color Urine Appearance (Clear) Urine pH (4.5-7.5) Ur Specific [place] (1.000-1.030) Urine Protein (Negative) Urine Glucose (UA) (Negative) Urine Ketones (Negative) Urine Blood (Negative) Urine Nitrite (Negative) Urine Bilirubin (Negative) Urine Urobilinogen (Negative) Ur Leukocyte Esterase (Negative) Urine WBC (Auto) (0-5) /hpf Urine RBC (Auto) (0-4) /hpf U Hyaline Cast (Auto) (0-5) /lpf U Epithel Cells (Auto) (0-5) /lpf Urine Bacteria (Auto) (Negative) Ur Random Sodium Ur Random Urea Nitrogn mg/dl Nasal Screen MRSA (PCR) (Negative) Ethyl Alcohol mg/dL (0-3) mg/dl Hepatitis C Ab Screen Blood Type A Negative Blood Type Recheck Antibody Screen NEGATIVE Crossmatch See Detail 04/02/19 Range/Units 23:56 WBC 9.96 (4.8-10.8) K/uL RBC 1.97 L (4.7-6.1) M/uL Hgb 5.3 L* (14.0-18.0) g/dL Hct 16.8 L* (42-52) % MCV 85.3 (80-100) fL MCH 26.9 (25-34) pg MCHC 31.5 L (32-36) g/dL RDW Std Deviation 83.2 H (36.4-46.3) fL RDW Coeff of Quan 26.9 H (11.5-14.5) % Plt Count 490 H (130-400) K/uL MPV 8.9 (7.4-10.4) fL Immature Gran % (Auto) % Neut % (Auto) % Lymph % (Auto) % [place] % (Auto) % Eos % (Auto) % Baso % (Auto) % Reticulocyte % (Auto) (0.5-2.0) % Immature Gran # (Auto) (0.00-0.02) K/uL Neut # (Auto) (1.4-6.5) K/uL Lymph # (Auto) (1.2-3.4) K/uL [place] # (Auto) (0.11-0.59) K/uL Eos # (Auto) (0-0.5) K/uL Baso # (Auto) (0-0.2) K/uL Reticulocyte # (0.02-0.10) 10^6/uL Absolute Nucleated RBC 0.11 H (0-0) K/uL Nucleated RBC % (auto) 1.2 % Polychromasia Anisocytosis PT (9.0-12.0) Seconds INR (0.9-1.1) APTT (21.0-31.0) Seconds PTT Ratio Sodium (136-145) mmol/L Potassium (3.5-5.1) mmol/L Chloride (98-107) mmol/L Carbon Dioxide (21-32) mmol/L Anion Gap (3-11) BUN (7-18) mg/dl Creatinine (0.6-1.4) mg/dl Est Cr Clr Drug Dosing ml/min Est GFR ( Amer) Est GFR (Non-Af Amer) BUN/Creatinine Ratio (10-20) Glucose (70-99) mg/dl Calcium (8.5-10.1) mg/dl Phosphorus (2.5-4.9) mg/dl Magnesium (1.8-2.4) mg/dl Total Bilirubin (0.2-1) mg/dl Direct Bilirubin (0-0.2) mg/dl AST (15-37) U/L ALT (12-78) U/L Alkaline Phosphatase (45-117) U/L Total Creatine Kinase (39-308) U/L Troponin I (0-0.045) ng/ml Total Protein (6.4-8.2) gm/dl Albumin (3.4-5.0) gm/dl Globulin (2.5-4.0) gm/dl Albumin/Globulin Ratio (0.9-2) Urine Color Urine Appearance (Clear) Urine pH (4.5-7.5) Ur Specific [place] (1.000-1.030) Urine Protein (Negative) Urine Glucose (UA) (Negative) Urine Ketones (Negative) Urine Blood (Negative) Urine Nitrite (Negative) Urine Bilirubin (Negative) Urine Urobilinogen (Negative) Ur Leukocyte Esterase (Negative) Urine WBC (Auto) (0-5) /hpf Urine RBC (Auto) (0-4) /hpf U Hyaline Cast (Auto) (0-5) /lpf U Epithel Cells (Auto) (0-5) /lpf Urine Bacteria (Auto) (Negative) Ur Random Sodium Ur Random Urea Nitrogn mg/dl Nasal Screen MRSA (PCR) (Negative) Ethyl Alcohol mg/dL (0-3) mg/dl Hepatitis C Ab Screen Blood Type Blood Type Recheck Antibody Screen Crossmatch (1) Anemia Anemia type: unspecified type Qualified Code(s): D64.9 - Anemia, unspecified
[2019-04-03] MEDS ORDERED: POTASSIUM CHLORIDE / WTR 10 MEQ/100 ML PLCT IV SCH (09:00)
[2019-04-03] MEDS: THIAMINE HCL 100 MG in SYRINGE 9 ML IV SCH ×2 (09:02→21:30)
[2019-04-03] MEDS ORDERED: ePHEDrine sulfate 50 MG/ML AMP IV PRN ×3 (09:58→14:58)
[2019-04-03] MEDS ORDERED: ATROPINE SULFATE 0.1 MG/ML 10ML SYR IV PRN ×3 (09:58→14:58)
--- NOTE | 2019-04-03 09:58 | Ultrasound Report ---
US abdomen limited HISTORY: Pain. Nausea. RUQ US, etoh abuse with gib. COMPARISON: CT same date FINDINGS: Pancreas: The pancreas demonstrates a normal echotexture. Liver: Unremarkable. Gallbladder: Several small gallstones. No pericholecystic edematous change. CBD: 3 mm Right kidney: Trace amount of perinephric edema. No evidence for hydronephrosis. IMPRESSION: 1. Trace amount of perinephric edematous change. 2. No evidence for hydronephrosis. 3. Several small gallstone. 4. Normal caliber bile ducts. The above report was generated using voice recognition software. It may contain grammatical, syntax or spelling errors. Electronically signed by: Mike So M.D. 04/03/2019 9:57 AM
--- NOTE | 2019-04-03 09:58 | Anesthesiology Consultation ---
Date of Service April 03, 2019 Assessment & Plan Chart Review Chart Review: Acceptable Risk for Surgery and Patient NOT seen in Pre Admission Testing Consults Requested none History Surgery Operation Date: 04/03/19 07:00 Proposed Procedures p Esophagogastroduodenoscopy - Ray Miramontes Height/Weight Height: 6 ft Weight: 82 kg Allergies Allergy/AdvReac Type Severity Reaction Status Date / Time No Known Allergies Allergy NONE Verified 04/03/19 00:22 Medications Home Medications Medication Instructions Recorded Confirmed Last Taken apixaban [Eliquis] 5 mg PO BID 04/03/19 04/03/19 04/02/19 carvedilol 25 mg PO BID 04/03/19 04/03/19 04/02/19 furosemide 20 mg PO DAILY 04/03/19 04/03/19 04/02/19 lisinopril 10 mg PO DAILY 04/03/19 04/03/19 04/02/19 multivitamin 1 tab PO DAILY 04/03/19 04/03/19 04/02/19 prednisone 0 mg PO DIRECTED 04/03/19 04/03/19 Unknown Active Medications Generic Name Dose Route Start Last Admin Trade Name Freq PRN Reason Stop Dose Admin Pantoprazole Sodium 40 mg/ 100 mls @ 20 mls/hr 04/03/19 00:45 04/03/19 10:33 Dextrose IV 05/03/19 00:44 20 mls/hr Q5H MIMI Administration Parenteral Electrolytes 1,000 mls @ 100 mls/hr 04/03/19 04:23 04/03/19 06:21 Normosol-R IV 04/03/19 13:11 125 mls/hr .Q10H MIMI Administration Thiamine HCl 100 mg/ Syringe 10 mls @ 2 mls/min 04/03/19 09:00 04/03/19 09:02 IV 04/05/19 21:04 2 mls/min BID MIMI Administration Past Medical History Medical History EDMUNDO (acute kidney injury) Anemia Atrial fibrillation Chronic anticoagulation [place] GI bleed Heavy alcohol use Hypertension Subdural hematoma Wrist pain Past Family History Family History Other Medical history non-contributory Past Surgical History Surgical History Status post knee surgery Social History Smoking Status: Current some day smoker Hx Alcohol Use: Yes Alcohol type: hard liquor alcohol intake frequency: 3 or more drinks per day Hx Substance Use: No Physical Exam Vital Signs Last Vital Signs Temp 36.6 C 04/03/19 08:31 Pulse 104 H 04/03/19 11:01 Resp 17 04/03/19 11:01 BP 94/61 L 04/03/19 11:01 Pulse Ox 99 04/03/19 11:01 Testing Laboratory Results 04/03/19 08:37 PT 13.1 Seconds (9.0-12.0) H 04/03/19 04:33 INR 1.3 (0.9-1.1) H 04/03/19 04:33 APTT 27.3 Seconds (21.0-31.0) 04/02/19 23:56 Urine Color Yellow 04/03/19 04:50 Urine Appearance Clear (Clear) 04/03/19 04:50 Urine pH 5.0 (4.5-7.5) 04/03/19 04:50 Ur Specific Scroggins 1.019 (1.000-1.030) 04/03/19 04:50 Urine Protein 1+ (Negative) H 04/03/19 04:50 Urine Glucose (UA) Negative (Negative) 04/03/19 04:50 Urine Ketones Negative (Negative) 04/03/19 04:50 Urine Nitrite Negative (Negative) 04/03/19 04:50 Ur Leukocyte Esterase Negative (Negative) 04/03/19 04:50 Urine WBC (Auto) 1-5 /hpf (0-5) 04/03/19 04:50 Urine RBC (Auto) 0-4 /hpf (0-4) 04/03/19 04:50 U Hyaline Cast (Auto) 1-5 /lpf (0-5) 04/03/19 04:50 U Epithel Cells (Auto) 20-30 /lpf (0-5) H 04/03/19 04:50 Urine Bacteria (Auto) Negative (Negative) 04/03/19 04:50 Blood Type A Negative 04/03/19 00:25 Antibody Screen NEGATIVE 04/03/19 00:25 04/03/19 11:20 POC Glucose 183 H
[2019-04-03 13:03] LABS: BUN Creatinine Ratio 28.7 (10-20); Calcium 8.1 mg/dl (8.5-10.1); Creatinine Clr Calc Pharmacy 22.9 ml/min; Est GFR (African American) 19.5; Est GFR (Non-African American) 16.8; Potassium 3.9 mmol/L (3.5-5.1)
[2019-04-03] MEDS: INSULIN ASPART 100 UNITS/ML 3 ML PEN SC SCH ×2 (13:35→18:41)
--- NOTE | 2019-04-03 14:51 | History & Physical Bridge Note ---
Date of Service April 03, 2019 History & Physical Bridge Note I have examined the patient, reviewed the History & Physical and in the interval since the performance of the History & Physical I have noted the following changes of clinical significance: no changes noted. Upper endoscopy today to evaluate a history of heme positive stool and question of melena.
[2019-04-03 15:03] LABS: Hematocrit (blood only) 24.3 % (42-52); Hemoglobin 7.9 g/dL (14.0-18.0)
[2019-04-03] MEDS ORDERED: fentaNYL citrate 100 MCG/2 ML VIAL ONE (15:25)
[2019-04-03] MEDS ORDERED: LIDOCAINE HCL 2% 2 ML VIAL/AMP(20MG/ML) INFIL ONE (15:45)
[2019-04-03] MEDS ORDERED: ONDANSETRON INJ 2 MG/ML 2 ML VIAL ONE (15:45)
[2019-04-03] MEDS ORDERED: SUCCINYLCHOLINE CHLORIDE 20 MG/ML 10 ML VIAL ONE (15:45)
[2019-04-03] MEDS ORDERED: PROPOFOL IV EMULSION 10 MG/ML 20 ML VIAL IV ONE (15:45)
--- NOTE | 2019-04-03 15:54 | GI REPORT ---
Patient Name: Tapan Mac Procedure Date: 04/03/2019 3:27 PM Date of : 1955 Admit Type: Inpatient Age: 63 Gender: Male Attending MD: Ray Miramontes DO Procedure: Upper GI endoscopy Providers: Ray Miramontes DO Referring MD: Paty Coffey Md, Julio Starks, Indications: Acute post hemorrhagic anemia Medicines: General Anesthesia Complications: No immediate complications. Estimated blood loss: Minimal. Estimated Blood Loss: Estimated blood loss was minimal. Procedure: Pre-Anesthesia Assessment: - Prior to the procedure, a History and Physical was performed, and patient medications, allergies and sensitivities were reviewed. The patient's tolerance of previous anesthesia was reviewed. - The risks and benefits of the procedure and the sedation options and risks were discussed with the patient. All questions were answered and informed consent was obtained. - Patient identification and proposed procedure were verified prior to the procedure by the physician, the nurse and the medicaid nurse. The procedure was verified in the procedure room. - Pre-procedure physical examination revealed no contraindications to sedation. - ASA Grade Assessment: IV - A patient with severe systemic disease that is a constant threat to life. - After reviewing the risks and benefits, the patient was deemed in satisfactory condition to undergo the procedure. - The anesthesia plan was to use general anesthesia. - Immediately prior to administration of medications, the patient was re-assessed for adequacy to receive sedatives. - The heart rate, respiratory rate, oxygen saturations, blood pressure, adequacy of pulmonary ventilation, and response to care were monitored throughout the procedure. - The physical status of the patient was re-assessed after the procedure. After obtaining informed consent, the endoscope was passed under direct vision. Throughout the procedure, the patient's blood pressure, pulse, and oxygen saturations were monitored continuously. The Scope was introduced through the mouth, and advanced to the third part of duodenum. The upper GI endoscopy was accomplished without difficulty. The patient tolerated the procedure well. Findings: The esophagus and gastroesophageal junction were examined with white light. 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 These changes involved the mucosa at the upper extent of the gastric folds (36 cm from the incisors) extending to the Z-line (26 cm from the incisors). Circumferential salmon-colored mucosa was present from 27 to 36 cm. The maximum longitudinal extent of these esophageal mucosal changes was at least 10 cm in length. Biopsies not done today due to indication of a melena. Diffuse moderate inflammation characterized by congestion (edema), erythema and granularity was found in the entire examined stomach. Biopsies were taken with a cold forceps for histology. The pathology specimen was placed into Bottle A. Estimated blood loss was minimal. Two non-obstructing non-bleeding cratered gastric ulcers of moderate severity with no stigmata of bleeding were found in the gastric antrum. The largest lesion was 8 mm in largest dimension. Three non-obstructing non-bleeding cratered duodenal ulcers with no stigmata of bleeding were found in the duodenal bulb. The largest lesion was 6 mm in largest dimension. Estimated blood loss was minimal. The second portion of the duodenum and third portion of the duodenum were normal. 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 - Diffuse Gastritis. Biopsied. - Non-obstructing non-bleeding gastric ulcers with no stigmata of bleeding. NSAID induced etiology. - Multiple non-obstructing non-bleeding duodenal ulcers with no stigmata of bleeding. NSAID induced etiology. - Normal second portion of the duodenum and third portion of the duodenum. Recommendation: - Return patient to [facility] for ongoing care. - Full liquid diet today, then advance as tolerated. - Avoid use of NSAIDS - Use Protonix (pantoprazole) 40 mg PO BID for 6 weeks, then 40 mg per day therafter. - Repeat upper endoscopy in 3 months for surveillance and evaluation of the Barretts Segment. Ray Miramontes D.O. Ray Miramontes, 04/03/2019 3:54:10 PM This report has been signed electronically. Note Initiated On: 04/03/2019 3:27 PM Number of Addenda: 0 I attest to the content of the Intraoperative Record and orders documented therein, exceptions below {[id number]}
--- NOTE | 2019-04-03 15:56 | Communication Note ---
Date of Service: April 03, 2019 Patient underwent upper endoscopy this afternoon. He was found to have several clean-based ulcers in the gastric antrum in addition to the duodenal bulb. In addition it appears the patient may have long segment Ricks's esophagus. We did obtain biopsies from the gastric antrum to screen for H. pylori infection. Biopsies were not obtained from the Ricks's segment due to the recent history of melena. Recommendations Protonix 40 mg twice daily for 6 weeks then 1 time daily thereafter Upper endoscopy with Dr. Antonio in 3 months outpatient colonoscopy in [address] Antonio May advance diet as tolerated from my perspective Is call with any questions or concerns GI to sign off for the present time
[2019-04-03] MEDS ORDERED: PHENYLEPHRINE HCL 10 MG/ML VIAL ONE (16:23)
--- NOTE | 2019-04-03 17:32 | Anesthesiology Progress Note ---
Date of Service April 03, 2019 Anesthesia Post Procedure Vital Signs Vital Signs: Temp Pulse Pulse Resp BP BP Pulse Ox 04/03/19 16:51 108 H 23 80/33 L 04/03/19 16:45 112 H 16 90 04/03/19 16:41 109 H 21 83/54 L 90 04/03/19 16:35 94 04/03/19 14:39 36.6 C 104 H 24 80/59 L 97 04/03/19 14:01 110 H 17 86/61 L 96 04/03/19 14:00 106 H 20 97 04/03/19 13:33 106 H 19 85/66 L 98 04/03/19 13:32 105 H 18 65/37 L 98 04/03/19 13:30 104 H 19 99 04/03/19 13:02 102 H 21 87/58 L 99 04/03/19 13:01 109 H 25 H 77/60 L 98 04/03/19 13:00 102 H 14 96 04/03/19 12:31 101 H 14 90/56 L 99 04/03/19 12:30 105 H 13 100 04/03/19 12:01 36.7 C 106 H 15 92/66 L 98 04/03/19 11:59 106 H 24 88/58 L 98 04/03/19 11:30 115 H 15 97 04/03/19 11:01 104 H 17 94/61 L 99 04/03/19 11:00 118 H 38 H 92 04/03/19 10:31 113 H 18 95/66 L 99 04/03/19 10:30 104 H 18 100 04/03/19 10:01 109 H 20 101/66 99 04/03/19 10:00 112 H 18 98 04/03/19 09:31 104 H 16 89/65 L 98 04/03/19 09:30 111 H 20 99 04/03/19 09:01 103 H 22 100/63 99 04/03/19 09:00 107 H 24 99 04/03/19 08:46 102 H 14 95/67 L 98 04/03/19 08:31 36.6 C 96 H 21 101/72 96 04/03/19 08:30 101 H 24 99 04/03/19 08:27 93 H 20 93/66 L 97 04/03/19 08:16 100 H 16 99/66 L 99 04/03/19 08:11 110 H 16 04/03/19 07:46 95 H 22 92/72 L 99 04/03/19 07:45 106 H 23 100 04/03/19 07:31 100 H 32 H 91/63 L 99 04/03/19 07:30 36.5 C 96 H 20 100 04/03/19 07:16 106 H 22 93/57 L 99 04/03/19 07:15 105 H 15 100 04/03/19 07:01 106 H 22 84/62 L 97 04/03/19 07:00 110 H 25 H 94 04/03/19 06:46 104 H 26 H 84/60 L 100 04/03/19 06:45 105 H 17 100 04/03/19 06:31 100 H 25 H 88/57 L 100 04/03/19 06:30 97 H 23 100 04/03/19 06:16 100 H 17 93/59 L 99 04/03/19 06:15 99 H 17 100 04/03/19 06:01 36.4 C L 102 H 23 89/57 L 100 04/03/19 06:00 109 H 19 100 04/03/19 05:57 36.4 C L 105 H 26 H 71/55 L 04/03/19 05:50 110 H 13 76/55 L 100 04/03/19 05:45 104 H 27 H 98 04/03/19 05:30 102 H 18 100 04/03/19 05:15 106 H 20 100 04/03/19 05:00 101 H 22 100 04/03/19 04:45 91 H 25 H 100 04/03/19 04:38 108 H 20 86/64 L 100 04/03/19 04:30 100 H 22 100 04/03/19 04:16 36.3 C L 101 H 101 H 18 77/58 L 100 04/03/19 04:14 102 H 21 77/58 L 100 04/03/19 04:13 110 H 23 100 04/03/19 03:47 106 H 20 99/60 L 96 04/03/19 03:45 92 H 23 99/60 L 100 04/03/19 03:42 36.4 C L 109 H 26 H 89/47 L 100 04/03/19 03:30 105 H 18 88/58 L 100 04/03/19 03:26 35.7 C L 108 H 18 120/107 H 98 04/03/19 03:17 131 H 19 120/107 H 04/03/19 03:15 110 H 18 96 04/03/19 03:00 115 H 21 90/57 L 100 04/03/19 02:45 92 H 19 89/64 L 100 04/03/19 02:32 99 H 20 94/70 L 100 04/03/19 02:21 35.9 C L 04/03/19 02:19 36.2 C L 96 H 18 88/58 L 100 04/03/19 02:17 109 H 26 H 97/59 L 100 04/03/19 02:00 121 H 19 85/65 L 88 L 04/03/19 01:56 116 H 18 92/58 L 96 04/03/19 01:45 35.9 C L 103 H 18 97/59 L 100 04/03/19 01:35 35.9 C L 114 H 26 H 85/65 L 97 04/03/19 01:31 104 H 20 89/65 L 04/03/19 01:29 36 C L 104 H 18 89/61 L 100 04/03/19 01:16 107 H 23 89/61 L 04/03/19 01:15 115 H 17 96 04/03/19 01:09 36 C L 105 H 118 H 18 94/58 L 94/68 L 98 04/03/19 01:01 133 H 21 76/60 L 04/03/19 01:00 106 H 21 04/03/19 00:52 109 H 19 04/03/19 00:47 106 H 22 04/03/19 00:32 117 H 104 H 14 75/54 L 100 04/03/19 00:31 113 H 22 75/54 L 100 04/03/19 00:30 104 H 21 95 04/03/19 00:27 100 H 19 80/55 L 99 04/03/19 00:24 103 H 16 72/53 L 98 04/03/19 00:21 112 H 18 72/53 L 04/03/19 00:15 16 04/03/19 00:01 100 H 19 82/55 L 100 04/03/19 00:00 105 H 112 H 16 82/45 L 100 08/29/19 23:59 36.7 C 105 H 16 88/64 L 98 04/02/19 23:57 107 H 19 99 04/02/19 23:54 103 H 17 88/55 L Pain Intensity Generalized: Pain Intensity: 3 Transfer of Care Handoff Completed per policy Notes Mental Status: alert / awake / arousable and participated in evaluation Patient Amnestic to Procedure: Yes Nausea / Vomiting: adequately controlled Pain: adequately controlled Airway Patency, RR, SpO2: stable & adequate BP & HR: stable & adequate Hydration State: stable & adequate Anesthetic Complications: no major complications apparent and Pt Satisfied with anesthetic care
[2019-04-03 20:28] LABS: Hematocrit (blood only) 23.9 % (42-52); Hemoglobin 7.9 g/dL (14.0-18.0)
--- NOTE | 2019-04-03 20:44 | History & Physical Bridge Note ---
Date of Service April 03, 2019 History & Physical Bridge Note I have examined the patient, reviewed the History & Physical and in the interval since the performance of the History & Physical I have noted the following changes of clinical significance: Admitted early this AM with acute encephalopathy from acute blood loss anemia, hypotension, GI bleed, EDMUNDO, and acute on chronic SDH. Is in rapid Afib, ECHO with severely reduced LV function, BPs remain low throughout the day. Had EGD which showed clean based gastric and duodenal ulcers,nonbleeding. Eliquis on hold Continue IVF, has received 4 units PBCs, hgb up to 7.9 -continue PPI gtt -continue AWSS scale and ativan prn, thiamine, folic acid -serial labs Vitals reviewed appears chonically ill Is AAOx3 tachy, irreg irreg, no mgr CTAB no wcr Abd +BS soft NT ND, reducible umb hernia Ext trace edema, left foot with ecchymosis and erythematous macular rash, palpable DP pulses
[2019-04-03 20:48] LABS: BUN Creatinine Ratio 29.4 (10-20); Calcium 7.6 mg/dl (8.5-10.1); Creatinine Clr Calc Pharmacy 25.1 ml/min; Est GFR (African American) 21.7; Est GFR (Non-African American) 18.8; Potassium 3.9 mmol/L (3.5-5.1)
[2019-04-03] MEDS: BACITRACIN OINT 15 GM TUBE EXT SCH (21:29)
[2019-04-03] MEDS: LORazepam 1 MG/2 ML VIAL IV PRN (21:41)
[2019-04-04] MEDS ORDERED: VANCOMYCIN CONSULT ACTIVE PRN (00:21)
[2019-04-04] MEDS ORDERED: VANCOMYCIN HCL 1,500 MG in SODIUM CHLORIDE 0.9% 500 ML IV ONE (00:30)
[2019-04-04] MEDS ORDERED: SODIUM CHLORIDE 0.9% 1000ML 1,000 ML IV SCH (00:34)
[2019-04-04] MEDS: INSULIN ASPART 100 UNITS/ML 3 ML PEN SC SCH ×5 (00:40→23:41)
[2019-04-04] MEDS: PANTOprazole 40 MG in DEXTROSE 5% 100 ML IV SCH ×3 (00:57→11:08)
[2019-04-04 01:00] LABS: Hematocrit (blood only) 23.7 % (42-52); Hemoglobin 7.8 g/dL (14.0-18.0); Mean Corpuscular Volume 84.9 fL (80-100); Mean Platelet Volume 8.7 fL (7.4-10.4); Nucleated RBC # (auto) 0.08 K/uL (0-0); Nucleated RBC % (auto) 0.9 %; Platelet Count 337 K/uL (130-400); RDW Coefficient of Variation 20.8 % (11.5-14.5); RDW Standard Deviation 64.7 fL (36.4-46.3); Red Blood Count 2.79 M/uL (4.7-6.1); White Blood Count 8.69 K/uL (4.8-10.8)
[2019-04-04 01:05] LABS: Allen Test Pos (Pos); Base Excess ABG -3.1 mEq/L (-9-1.8); HCO3 ABG 20 mmol/L (19-24); Oxygen Saturation ABG 94.9 % (90-95); PCO2 ABG 28 mmHg (35-46); PO2 ABG 88 mm/Hg (80-95); pH ABG 7.47 (7.35-7.45)
[2019-04-04 01:13] LABS: Mean Corpuscular Hgb Conc 32.9 g/dL (32-36)
[2019-04-04 01:21] LABS: Albumin Level 1.6 gm/dl (3.4-5.0); BUN Creatinine Ratio 30.7 (10-20); Calcium 7.5 mg/dl (8.5-10.1); Creatinine Clr Calc Pharmacy 27.2 ml/min; Est GFR (Non-African American) 20.7; Potassium 3.8 mmol/L (3.5-5.1)
[2019-04-04 01:23] LABS: Albumin Globulin Ratio 0.4 (0.9-2); Bilirubin,Total 1.3 mg/dl (0.2-1); Globulin 3.7 gm/dl (2.5-4.0); Total Protein 5.3 gm/dl (6.4-8.2)
[2019-04-04 01:32] LABS: Anisocytosis Present; Dohle Bodies 1+; Eosinophils # (auto) 0.01 K/uL (0-0.5); Eosinophils % (auto) 0.1 %; Immature Granulocytes # (auto) 0.04 K/uL (0.00-0.02); Immature Granulocytes % (auto) 0.5 %; Lymphocytes # (auto) 0.27 K/uL (1.2-3.4); Lymphocytes % (auto) 3.1 %; Monocytes # (auto) 0.22 K/uL (0.11-0.59); Monocytes % (auto) 2.5 %; Neutrophils # (auto) 8.15 K/uL (1.4-6.5); Neutrophils % (auto) 93.8 %; Polychromasia 1+; Toxic Vacuolation 1+
--- NOTE | 2019-04-04 01:38 | Progress Note ---
Date of Service April 04, 2019 Assessment & Plan (1) Admitted to intensive care unit: S/ Informed by nursing that patient had 2 positive blood cultures for MRSA, and that he was less responsive than before. O/ GCS was 10 - opened eyes to verbal command, groaning frequently, able to localize pain Pulse 120s. Saturating in mid 90's on oxymask. BP 100s/60s. Cardiac: Tachycardic. Irregularly irregular rhythm. Lungs: CTAB A&P/ Concern regarding sepsis in the setting of 2 positive MRSA blood cultures. - initiated IV vancomycin - 1L NS bolus ordered - stat CBC, CMP, trop, EKG and ABG ordered Results & Data Vital Signs (Past 12 Hours) Vital Signs Temp Pulse Pulse Resp BP BP Pulse Ox 04/04/19 01:03 118 H 23 107/65 81 L 04/04/19 01:00 118 H 27 H 98 04/04/19 00:55 116 H 21 94/62 L 94 04/04/19 00:45 130 H 29 H 98 04/04/19 00:30 116 H 27 H 94 04/04/19 00:15 118 H 18 95 04/04/19 00:01 110 H 27 H 88/56 L 97 04/04/19 00:00 36.8 C 124 H 19 96 04/03/19 23:45 116 H 21 97 04/03/19 23:30 126 H 19 95 04/03/19 23:15 36.8 C 114 H 17 106/43 L 91 04/03/19 23:01 112 H 21 88/61 L 97 04/03/19 23:00 108 H 15 97 04/03/19 22:45 121 H 17 100 04/03/19 22:30 107 H 14 98 04/03/19 22:15 121 H 21 96 04/03/19 22:01 112 H 17 89/67 L 99 04/03/19 22:00 117 H 24 100 04/03/19 21:45 118 H 18 98 04/03/19 21:30 108 H 20 98 04/03/19 21:25 118 H 23 92/78 L 04/03/19 21:21 111 H 23 77/61 L 04/03/19 21:15 113 H 18 04/03/19 21:11 105 H 20 112/66 04/03/19 21:01 115 H 18 87/60 L 92 04/03/19 21:00 94 H 21 98 04/03/19 20:51 101 H 17 94/68 L 98 04/03/19 20:45 110 H 18 97 04/03/19 20:41 105 H 18 92/63 L 96 04/03/19 20:31 35 L 99/66 L 92 04/03/19 20:30 89 L 04/03/19 20:21 91/58 L 91 04/03/19 20:15 98 04/03/19 20:11 85/62 L 97 04/03/19 20:02 157/102 H 99 04/03/19 20:00 36.8 C 100 04/03/19 19:45 110 H 21 96 04/03/19 19:41 94 H 18 83/59 L 99 04/03/19 19:31 105 H 22 85/54 L 100 04/03/19 19:30 98 H 20 100 04/03/19 19:21 120 H 24 86/72 L 99 04/03/19 19:15 116 H 17 98 04/03/19 19:11 118 H 22 86/56 L 04/03/19 19:01 119 H 19 90/57 L 04/03/19 19:00 110 H 22 04/03/19 18:51 109 H 20 86/60 L 04/03/19 18:41 110 H 20 87/58 L 04/03/19 18:31 94 H 24 80/57 L 04/03/19 18:30 123 H 16 04/03/19 18:21 117 H 14 82/54 L 04/03/19 18:11 108 H 17 87/51 L 04/03/19 18:01 121 H 15 87/57 L 92 04/03/19 18:00 112 H 16 90 04/03/19 17:42 116 H 22 120/68 04/03/19 17:31 104 H 17 78/63 L 92 04/03/19 17:30 106 H 18 94 04/03/19 17:11 117 H 21 84/58 L 91 04/03/19 17:01 116 H 17 84/61 L 92 04/03/19 17:00 115 H 20 91 04/03/19 16:51 108 H 23 80/33 L 04/03/19 16:45 112 H 16 90 04/03/19 16:41 109 H 21 83/54 L 90 04/03/19 16:35 94 04/03/19 14:39 36.6 C 104 H 24 80/59 L 97 04/03/19 14:01 110 H 17 86/61 L 96 04/03/19 14:00 106 H 20 97 Pulse Ox 04/04/19 01:03 04/04/19 01:00 04/04/19 00:55 04/04/19 00:45 04/04/19 00:30 04/04/19 00:15 04/04/19 00:01 04/04/19 00:00 98 04/03/19 23:45 04/03/19 23:30 04/03/19 23:15 04/03/19 23:01 04/03/19 23:00 04/03/19 22:45 04/03/19 22:30 04/03/19 22:15 04/03/19 22:01 04/03/19 22:00 04/03/19 21:45 04/03/19 21:30 04/03/19 21:25 04/03/19 21:21 04/03/19 21:15 04/03/19 21:11 04/03/19 21:01 04/03/19 21:00 04/03/19 20:51 04/03/19 20:45 04/03/19 20:41 04/03/19 20:31 04/03/19 20:30 04/03/19 20:21 04/03/19 20:15 04/03/19 20:11 04/03/19 20:02 04/03/19 20:00 04/03/19 19:45 04/03/19 19:41 04/03/19 19:31 04/03/19 19:30 04/03/19 19:21 04/03/19 19:15 04/03/19 19:11 04/03/19 19:01 04/03/19 19:00 04/03/19 18:51 04/03/19 18:41 04/03/19 18:31 04/03/19 18:30 04/03/19 18:21 04/03/19 18:11 04/03/19 18:01 04/03/19 18:00 04/03/19 17:42 04/03/19 17:31 04/03/19 17:30 04/03/19 17:11 04/03/19 17:01 04/03/19 17:00 04/03/19 16:51 04/03/19 16:45 04/03/19 16:41 04/03/19 16:35 04/03/19 14:39 04/03/19 14:01 04/03/19 14:00 PG Care Time/CCT Total # of Minutes Spent Total Time Spent with Patient: Total time spent is greater than 50% in coordination of care (as documented) at patient's floor/unit and/or counseling patient: Resident Activity Tracking Resident Involvement: [facility] Coverage Note Care Provided: Adult Hospital Medicine
[2019-04-04] MEDS ORDERED: cefTRIAXone SODIUM 1,000 MG in DEXTROSE 5% 50 ML IV SCH (02:00)
[2019-04-04 05:11] LABS: Hematocrit (blood only) 23.9 % (42-52); Hemoglobin 7.9 g/dL (14.0-18.0)
[2019-04-04 05:22] LABS: INR 1.3 (0.9-1.1); Prothrombin Time 12.8 Seconds (9.0-12.0)
[2019-04-04 05:38] LABS: Albumin Level 1.5 gm/dl (3.4-5.0); Bilirubin Direct 0.9 mg/dl (0-0.2); Creatinine Clr Calc Pharmacy 27.7 ml/min; Est GFR (African American) 24.5; Est GFR (Non-African American) 21.1; Magnesium 1.8 mg/dl (1.8-2.4)
[2019-04-04 05:45] LABS: Bilirubin,Total 1.4 mg/dl (0.2-1); Phosphorus 3.7 mg/dl (2.5-4.9); Total Protein 5.7 gm/dl (6.4-8.2)
[2019-04-04] MEDS: LORazepam 1 MG/2 ML VIAL IV PRN (05:57)
[2019-04-04] MEDS ORDERED: METOPROLOL TARTRATE 1 MG/ML VIAL IV STA (06:15)
[2019-04-04] MEDS ORDERED: SODIUM CHLORIDE 0.9% 500 ML IV ONE (06:15)
--- NOTE | 2019-04-04 06:31 | Critical Care Progress Note ---
Date of Service April 04, 2019 Assessment & Plan (1) Admitted to intensive care unit: Reason Critically Ill: Acute blood loss anemia suspect 2/2 AGIB PLAN: Neuro: Bilateral subdural hematoma Serial CT scan to follow, hematoma with maximum transverse dimension of 5 mm and without significant midline shift. Repeat CT scan pending today. -Holding systemic anticoagulation Suspect EtOH Withdrawal, last drink [employer] 04/02, History of high alcohol intake - CIWA precautions - Ativan 2mg total overnight, AWSS ~14 Started phenobarbital protocol - 4-8 drinks per day per pt, liquor Acute Encephalopahy, EtOH withdrawal versus septic -Ammonia level 14, within normal limits - CIWA/phenobarbital as above, abx/sepsis tx as below Resp: Acute hypoxic respiratory failure: Improved History of COPD not tolerant of inhalers Duo nebs every 4 hours as needed No home O2 requirement Former tobacco smoker -40 year .5ppd (~20pack/yr hx) -Quit September this year CV: Hypotension 2/2 hypovolemia and acute blood loss anemia Clinically stable History atrial fibrillation Initially in normal sinus rhythm, converted to A. fib in the afternoon Apixaban held in the setting of acute bleed Heart failure with reduced ejection fraction -Echo shows reduced ejection fraction of approximately 30 to 35% He is having good urine output at this time. Balancing fluid status in the setting of reduced ejection fraction against MRSA bacteremia/sepsis. EDMUNDO as below No diuresis at this time Renal: Acute kidney injury 2/2 prerenal Creatinine peak 4.56, downtrending to 3.00 In: 3026, out: 1700 cc ID: Sepsis 2/2 MRSA Bacteremia - BCx2 positive for GPC MRSA rapid positive - Started on Vancomycin overnight, recieved 1L crystalloid bolus Source unclear, his presentation is concerning for septic emboli. Cardiology consulted. -Left foot continues to be swollen with ecchymoses. XR left ankle/foot 3 No active bleeding on EGD, Rocephin discontinued Perianal/gluteal rash Patient has a diffuse, nontender bilateral rash with central eschar and without vesicles. 3 parts counter representative lesions unroofed and collected for HSV rapid culture, sample slides sent for pathology/[place] smear. No giant cells, but large amounts of bacteria observed. + Bacitracin BID - ?MRSA with bacteremia after unroofing GI/Nutrition: Acute GI bleed Hemoglobin initially dropped to 5.3, received 4 units of packed red blood cells and 1 unit of PCC with increase in hemoglobin to 7.3 GI consulted. EGD shows diffuse gastritis with biopsy taken, nonbleeding gastric ulcers, nonbleeding duodenal ulcers, and a normal second and third portion of the duodenum. - Hgb continues to be stable Per GI ADAT Protonix 40 mg p.o. twice daily for 6 weeks then 40 mg daily, PO conversion and diet currently held in the setting of AMS Repeat upper endoscopy in 3 months Right upper quadrant ultrasound shows trace amount of perinephric edematous change, No evidence for hydronephrosis, Several small gallstones Nutrition NPO 2/2 AMS. Heme: Acute blood loss anemia secondary to GI bleed as above Status post 4 units PRBC, 1 unit PCC Hemoglobin on admit 5.3, delicia to 7.3 with above. Currently stable -Reticulocytes increased to 4.1 with a reticulate site index of 1.19 adjusting a degree of hypo-proliferation Endocrine: No history of type 2 diabetes Glucose checks as needed, BMP daily -SSI ICU hyperglycemia protocol Pending A1c DVT prophylaxis: Pharmacal prophylaxis contraindicated, SCDs Vascular access: Peripheral IVs x2, triple-lumen in femoral Code Status: Full Supervising Physician Co-Signing Physician Notes Dr. Duffy was resident physician during care of patient. I separately evaluated patient for coulter portions of the history and the exam. I was present during the critical portion of medical decision making, and I discussed the case with the resident. I generally agree with the findings and plan. Patient underwent EGD yesterday no active bleedingNo intervention was completed.No significant events overnight with the exception of increasing confusion, I believe the patient is entering alcohol withdrawal we will switch from symptom triggered management to empiric management based off of clinical history. Nursing staff is able to get additional history from friends who report the patient fell at work approximately 6 weeks ago had a significant contusion noticeable to his head and has declined mentally since that point. I believe this could represent the onset of the chronic appearing subdural hematomas. Blood cultures are positive to for 2 for MRSA bacteremia, we will obtain an echo to rule out, I am concerned for septic emboli. We will work with case management to confirm a medical decision maker for him.Cardiology will be consulted,Will discontinue ceftriaxone and continue vancomycin he will require long-term IV, he will need to be consented for PICC line at some point. We will continue with the groin triple-lumen until we can confirm the medical decision maker for him. Patient remains critically ill I have personally spent 40 minutes of critical care time in the direct management of this patient. This is a life/limb threatening event. This includes time spent evaluating patient, direct bedside care, chart review, placing orders, interpretation of diagnostic studies, discussion with consultants, patient, and/or family members regarding treatment decisions, as well as other required patient management activities. This time is exclusive of all separately billable procedures, and teaching time and separate from and in addition to any other critical care service time. Subjective Patient somnolent, undergoing phenobarbital protocol. Subjective limited by mental status. Review of Systems Review of Systems: Unobtainable due to cognitive status Physical Exam Physical Exam: General: Alert and oriented to name, date, and place. NAD. Cooperative. Speech fluent. Mild pallor. Skin: Few scattered spider angiomata on upper chest bilaterally. Perianal and posterior gluteal skin with scattered erythematous 2 to 5 mm eschars with central scab. No warmth. HEENT: Atraumatic, normocephalic. Pupils equal and reactive to light and accommodation. Mucous membranes moist. Pulm: Global end expiratory wheezes, otherwise CTAB A&P with moderate air movement-rales, -rhonchi. Symmetrical chest rise. No increased work of breathing. No respiratory distress. Cardiac: Irregularly irregular. No JVD. Abdominal: Nontender, nondistended, soft. BS present. Extremities: Warm, well-perfused. PT pulses palpable bilaterally. Ecchymoses of left ankle and foot appreciated. Feet bilaterally. Right lateral forefoot and hallux erythematous and warm, erythema dissipated on evening reexam. Results & Data Vital Signs (Past 12 Hours) Vital Signs Temp Pulse Resp BP Pulse Ox Pulse Ox 04/04/19 06:27 106 H 88/57 L 04/04/19 04:01 36.9 C 130 H 22 103/61 95 04/04/19 04:00 123 H 27 H 96 04/04/19 03:45 122 H 25 H 95 04/04/19 03:30 115 H 22 96 04/04/19 03:15 113 H 32 H 94 04/04/19 03:01 122 H 25 H 95/64 L 94 04/04/19 03:00 126 H 29 H 94 04/04/19 02:45 124 H 26 H 97 04/04/19 02:30 105 H 22 92 04/04/19 02:15 117 H 20 96 04/04/19 02:01 104 H 25 H 97/68 L 94 04/04/19 02:00 118 H 24 94 04/04/19 01:45 110 H 26 H 97 04/04/19 01:30 111 H 17 94 04/04/19 01:15 145 H 22 93 04/04/19 01:03 118 H 23 107/65 81 L 04/04/19 01:00 118 H 27 H 98 04/04/19 00:55 116 H 21 94/62 L 94 04/04/19 00:45 130 H 29 H 98 04/04/19 00:30 116 H 27 H 94 04/04/19 00:15 118 H 18 95 04/04/19 00:01 110 H 27 H 88/56 L 97 04/04/19 00:00 36.8 C 124 H 19 96 98 04/03/19 23:45 116 H 21 97 04/03/19 23:30 126 H 19 95 04/03/19 23:15 36.8 C 114 H 17 106/43 L 91 04/03/19 23:01 112 H 21 88/61 L 97 04/03/19 23:00 108 H 15 97 04/03/19 22:45 121 H 17 100 04/03/19 22:30 107 H 14 98 04/03/19 22:15 121 H 21 96 04/03/19 22:01 112 H 17 89/67 L 99 04/03/19 22:00 117 H 24 100 04/03/19 21:45 118 H 18 98 04/03/19 21:30 108 H 20 98 04/03/19 21:25 118 H 23 92/78 L 04/03/19 21:21 111 H 23 77/61 L 04/03/19 21:15 113 H 18 04/03/19 21:11 105 H 20 112/66 04/03/19 21:01 115 H 18 87/60 L 92 04/03/19 21:00 94 H 21 98 04/03/19 20:51 101 H 17 94/68 L 98 04/03/19 20:45 110 H 18 97 04/03/19 20:41 105 H 18 92/63 L 96 04/03/19 20:31 35 L 99/66 L 92 04/03/19 20:30 89 L 04/03/19 20:21 91/58 L 91 04/03/19 20:15 98 04/03/19 20:11 85/62 L 97 04/03/19 20:02 157/102 H 99 04/03/19 20:00 36.8 C 100 04/03/19 19:45 110 H 21 96 04/03/19 19:41 94 H 18 83/59 L 99 04/03/19 19:31 105 H 22 85/54 L 100 04/03/19 19:30 98 H 20 100 04/03/19 19:21 120 H 24 86/72 L 99 04/03/19 19:15 116 H 17 98 04/03/19 19:11 118 H 22 86/56 L 04/03/19 19:01 119 H 19 90/57 L 04/03/19 19:00 110 H 22 04/03/19 18:51 109 H 20 86/60 L 04/03/19 18:41 110 H 20 87/58 L 04/03/19 18:31 94 H 24 80/57 L PG Care Time/CCT Total # of Minutes Spent Total Time Spent with Patient: Total time spent is greater than 50% in coordination of care (as documented) at patient's floor/unit and/or counseling patient: Critical Care Time: Yes Total Critical Care Time: 40 Resident Activity Tracking Resident Involvement: Resident Care Provided Care Provided: Adult Hospital Medicine
[2019-04-04] MEDS: FOLIC ACID 1 MG in SYRINGE 9.8 ML IV SCH (08:10)
[2019-04-04] MEDS: BACITRACIN OINT 15 GM TUBE EXT SCH (08:10)
[2019-04-04] MEDS: THIAMINE HCL 100 MG in SYRINGE 9 ML IV SCH ×2 (08:10→19:56)
[2019-04-04] MEDS ORDERED: THIAMINE HCL 100 MG in SYRINGE 9 ML IV SCH (09:00)
[2019-04-04] MEDS ORDERED: PHENobarbital sodium 65 MG/ML VIAL IM STA (10:52)
[2019-04-04] MEDS ORDERED: PHENobarbital sodium 130 MG/ML VIAL IV PRN (10:56)
[2019-04-04] MEDS ORDERED: CONSULT PHARMACY STA (11:06)
[2019-04-04] MEDS: PANTOprazole 40 MG in SYRINGE 0 ML IV SCH ×2 (12:07→19:57)
[2019-04-04] MEDS ORDERED: VANCOMYCIN HCL 2,000 MG in SODIUM CHLORIDE 0.9% 500 ML IV STA (12:32)
--- NOTE | 2019-04-04 12:59 | Pharmacy Report ---
Pharmacy Abx Dose Short Note - Date of Service April 04, 2019 - Assessment & Plan Assessment 63 year old M receiving IV Vancomycin and Ceftriaxone for treatment of MRSA bacteremia Day # 1 of antimicrobial therapy. * Patient with confirmed MRSA bacteremia in EDMUNDO, rapidly changing renal function * sCr is currently 3.05 mg/dL * He received Vancomycin 1500mg (~18 mg/kg) x 1 last night ~0038. The drug likely finished infusing at ~0300, therefore the random level around 0400 is essentially a "peak". Based on his Vd, this should have been at least 26 mcg/mL. * Given severity of infection, need to dose Vancomycin aggressively. Plan Vancomycin * Random levels of 14.6 mcg/mL (0441) and 11 mcg/mL (0954) are subtherapeutic * Give another dose of Vancomycin 2000mg (~24mg/kg) IV x 1 now * Continue to dose Vancomycin prn random levels * Goal trough level for bacteremia : 15 to 20 mcg/mL * Random level ordered for: 04/05/19 with AM labs Ceftriaxone * Incr' to 2g IV q24 (from 1g IV q24) due to weight >80kg; next dose given ~6 hours early Pharmacy will continue to follow and will adjust dose/frequency as necessary. Thank you.
[2019-04-04] MEDS ORDERED: PHENobarbital sodium 65 MG/ML VIAL IM SCH (14:15)
[2019-04-04] MEDS ORDERED: PHENobarbital sodium 65 MG/ML VIAL IV PRN (16:15)
[2019-04-04] MEDS: PHENOBARBITAL SODIUM IM SCH ×2 (16:23→19:49)
--- NOTE | 2019-04-04 16:51 | Anesthesiology Progress Note ---
Date of Service April 04, 2019 Anesthesia Post Procedure Vital Signs Vital Signs: Temp Pulse Pulse Resp BP BP Pulse Ox 04/04/19 16:00 37.4 C 122 H 117 H 22 110/77 97 04/04/19 10:00 122 H 20 104/65 99 04/04/19 09:00 118 H 38 H 97/64 L 97 04/04/19 08:00 37.1 C 119 H 22 97/61 L 99 04/04/19 07:01 113 H 24 97/67 L 99 04/04/19 07:00 122 H 25 H 97 04/04/19 06:45 122 H 23 99 04/04/19 06:30 113 H 22 99 04/04/19 06:27 106 H 88/57 L 04/04/19 06:15 136 H 23 100 04/04/19 06:05 124 H 11 L 88/57 L 90 04/04/19 06:01 129 H 19 88/59 L 96 04/04/19 06:00 126 H 25 H 93 04/04/19 05:45 128 H 24 86 L 04/04/19 05:30 124 H 25 H 94 04/04/19 05:15 118 H 25 H 89 L 04/04/19 05:01 117 H 21 100/65 96 04/04/19 05:00 138 H 26 H 96 04/04/19 04:45 131 H 24 97 04/04/19 04:30 135 H 27 H 95 04/04/19 04:15 129 H 34 H 92 04/04/19 04:01 36.9 C 130 H 22 103/61 95 04/04/19 04:00 123 H 27 H 96 04/04/19 03:45 122 H 25 H 95 04/04/19 03:30 115 H 22 96 04/04/19 03:15 113 H 32 H 94 04/04/19 03:01 122 H 25 H 95/64 L 94 04/04/19 03:00 126 H 29 H 94 04/04/19 02:45 124 H 26 H 97 04/04/19 02:30 105 H 22 92 04/04/19 02:15 117 H 20 96 04/04/19 02:01 104 H 25 H 97/68 L 94 04/04/19 02:00 118 H 24 94 04/04/19 01:45 110 H 26 H 97 04/04/19 01:30 111 H 17 94 04/04/19 01:15 145 H 22 93 04/04/19 01:03 118 H 23 107/65 81 L 04/04/19 01:00 118 H 27 H 98 04/04/19 00:55 116 H 21 94/62 L 94 04/04/19 00:45 130 H 29 H 98 04/04/19 00:30 116 H 27 H 94 04/04/19 00:15 118 H 18 95 04/04/19 00:01 110 H 27 H 88/56 L 97 04/04/19 00:00 36.8 C 124 H 19 96 04/03/19 23:45 116 H 21 97 04/03/19 23:30 126 H 19 95 04/03/19 23:15 36.8 C 114 H 17 106/43 L 91 04/03/19 23:01 112 H 21 88/61 L 97 04/03/19 23:00 108 H 15 97 04/03/19 22:45 121 H 17 100 04/03/19 22:30 107 H 14 98 04/03/19 22:15 121 H 21 96 04/03/19 22:01 112 H 17 89/67 L 99 04/03/19 22:00 117 H 24 100 04/03/19 21:45 118 H 18 98 04/03/19 21:30 108 H 20 98 04/03/19 21:25 118 H 23 92/78 L 04/03/19 21:21 111 H 23 77/61 L 04/03/19 21:15 113 H 18 04/03/19 21:11 105 H 20 112/66 04/03/19 21:01 115 H 18 87/60 L 92 04/03/19 21:00 94 H 21 98 04/03/19 20:51 101 H 17 94/68 L 98 04/03/19 20:45 110 H 18 97 04/03/19 20:41 105 H 18 92/63 L 96 04/03/19 20:31 35 L 99/66 L 92 04/03/19 20:30 89 L 04/03/19 20:21 91/58 L 91 04/03/19 20:15 98 04/03/19 20:11 85/62 L 97 04/03/19 20:02 157/102 H 99 04/03/19 20:00 36.8 C 100 04/03/19 19:45 110 H 21 96 04/03/19 19:41 94 H 18 83/59 L 99 04/03/19 19:31 105 H 22 85/54 L 100 04/03/19 19:30 98 H 20 100 04/03/19 19:21 120 H 24 86/72 L 99 04/03/19 19:15 116 H 17 98 04/03/19 19:11 118 H 22 86/56 L 04/03/19 19:01 119 H 19 90/57 L 04/03/19 19:00 110 H 22 04/03/19 18:51 109 H 20 86/60 L 04/03/19 18:41 110 H 20 87/58 L 04/03/19 18:31 94 H 24 80/57 L 04/03/19 18:30 123 H 16 04/03/19 18:21 117 H 14 82/54 L 04/03/19 18:11 108 H 17 87/51 L 04/03/19 18:01 121 H 15 87/57 L 92 04/03/19 18:00 112 H 16 90 04/03/19 17:42 116 H 22 120/68 04/03/19 17:31 104 H 17 78/63 L 92 04/03/19 17:30 106 H 18 94 04/03/19 17:11 117 H 21 84/58 L 91 04/03/19 17:01 116 H 17 84/61 L 92 04/03/19 17:00 115 H 20 91 04/03/19 16:51 108 H 23 80/33 L Pulse Ox 04/04/19 16:00 04/04/19 10:00 04/04/19 09:00 04/04/19 08:00 04/04/19 07:01 04/04/19 07:00 04/04/19 06:45 04/04/19 06:30 04/04/19 06:27 04/04/19 06:15 04/04/19 06:05 04/04/19 06:01 04/04/19 06:00 04/04/19 05:45 04/04/19 05:30 04/04/19 05:15 04/04/19 05:01 04/04/19 05:00 04/04/19 04:45 04/04/19 04:30 04/04/19 04:15 04/04/19 04:01 04/04/19 04:00 04/04/19 03:45 04/04/19 03:30 04/04/19 03:15 04/04/19 03:01 04/04/19 03:00 04/04/19 02:45 04/04/19 02:30 04/04/19 02:15 04/04/19 02:01 04/04/19 02:00 04/04/19 01:45 04/04/19 01:30 04/04/19 01:15 04/04/19 01:03 04/04/19 01:00 04/04/19 00:55 04/04/19 00:45 04/04/19 00:30 04/04/19 00:15 04/04/19 00:01 04/04/19 00:00 98 04/03/19 23:45 04/03/19 23:30 04/03/19 23:15 04/03/19 23:01 04/03/19 23:00 04/03/19 22:45 04/03/19 22:30 04/03/19 22:15 04/03/19 22:01 04/03/19 22:00 04/03/19 21:45 04/03/19 21:30 04/03/19 21:25 04/03/19 21:21 04/03/19 21:15 04/03/19 21:11 04/03/19 21:01 04/03/19 21:00 04/03/19 20:51 04/03/19 20:45 04/03/19 20:41 04/03/19 20:31 04/03/19 20:30 04/03/19 20:21 04/03/19 20:15 04/03/19 20:11 04/03/19 20:02 04/03/19 20:00 04/03/19 19:45 04/03/19 19:41 04/03/19 19:31 04/03/19 19:30 04/03/19 19:21 04/03/19 19:15 04/03/19 19:11 04/03/19 19:01 04/03/19 19:00 04/03/19 18:51 04/03/19 18:41 04/03/19 18:31 04/03/19 18:30 04/03/19 18:21 04/03/19 18:11 04/03/19 18:01 04/03/19 18:00 04/03/19 17:42 04/03/19 17:31 04/03/19 17:30 04/03/19 17:11 04/03/19 17:01 04/03/19 17:00 04/03/19 16:51 Pain Intensity Generalized: Pain Intensity: 3 Transfer of Care Handoff Completed per policy Notes Mental Status: see notes below Patient Amnestic to Procedure: Yes Nausea / Vomiting: adequately controlled Pain: adequately controlled Airway Patency, RR, SpO2: stable & adequate BP & HR: stable & adequate Hydration State: stable & adequate Anesthetic Complications: no major complications apparent and see Notes below Notes: pt extubated, but sedated in the ICU
--- NOTE | 2019-04-04 17:15 | Hospitalist Progress Note ---
Date of Service April 04, 2019 Assessment & Plan (1) Acute metabolic encephalopathy: 63-year-old male with history of EtOH abuse, hypertension, atrial fibrillation on Eliquis anticoagulation, COPD who was brought in after being found down on the floor. Patient hypotensive, anemic with heme positive stools, EDMUNDO, and acute on chronic Subdural hematomas. ALso with EtOH withdrawal and sepsis from MRSA bacteremia. -Acute Metabolic encephalopathy-secondary to EtOH withdrawal, possibly SDH, sepsis, med side effect from phenobarb, and hypotension. -treating infection -giving volume resuscitation -continue phenobarb for EtOH withdrawal -repeat CT head -continue supportive care (2) Sepsis: secondary to MRSA bacteremia With tachycardia, tachypnea, hypothermia on admission -treating with IV Vanco, volume resuscitation (3) Hypovolemic shock: treated with PRBCs, IVFs, now improved treating bacteremia (4) MRSA bacteremia: with likely skin cellulitis on foot vs septic ankle joint as source? -repeat BCxs today -started IV Vanco last night-continue -ECHO no valvular vegetation -check xrays foot/ankle and consider Ortho consult to assess for septic joint (5) Hypotension: Secondary to hypovolemia from blood loss, sepsis, also with rapid afib -treating with PRBC transfusion, IVFs BPs now improving, were down into the 60s systolic at one point no vasopressors needed (6) Atrial fibrillation: With rapid Afib since admission, has a h/o Afib -continue volume resuscitation -also treating EtOH withdrawal which is also contributing to tachycardia -holding home Coreg and Eliquis due to hypotension and acute GI bleeding -continue tele monitoring (7) Anemia: Acute blood loss anemia Patient with normochromic normocytic anemia. Suspect acute blood loss. Hemoglobin of 5.3 on admission, had Heme positive stool in ER. Prior labs from 2015 with hemoglobin of 13.8 and hematocrit of 39.8. -Transfusion of PRBCs x4 units given on admission and hgb up to 7.9 and stable No further obvious bleeding Was likely secondary to gastric and duodenal ulcers and gastritis from EtOH use- s/p EGD -follow CBC -continue PPI IV bid (8) EDMUNDO (acute kidney injury): With markedly elevated BUN and creatinine 125 and 4.6, respectively on admission. Patient with underlying CKD. Creatinine of 2.09 in 2015, recent creatinine level unknown. Findings on CT abdomen also suggestive of CKD. Suspect multifactorial etiology of EDMUNDO on CKD to include prerenal azotemia in setting of hypotension and blood loss as well as medication effects of lisinopril/Lasix at home. UA without infection Corporate Compliance Manager improved today down to 3.0, BUN down to 94, other lytes ok -maintain James catheter. Monitor strict I's and O's -follow BMP -Avoid nephrotoxic agents -Renal dosing were appropriate Making urine (9) GI bleed: UGI Bleed as above with duodenal and gastric ulcers, gastritis on EGD. Patient presenting with hypotension, normochromic/normocytic anemia, heme p ositive stools on chronic anticoagulation. Patient denies history of liver disease or varices. No prior history of GI bleed. Colonoscopy from 2009 comments on presence of diverticulosis. -PCC administered initially due to Eliquis use Appreciate GI consult -continue IV PPI bid nad conver to po PPI bid once taking po -continue NPO for now due to AMS (10) Falls: multiple, likely secondary to EtOH abuse and possibly due to chronic SDH? Will eventually need PT/OT (11) Subdural hematoma: Acute on chronic SDH bilat on CT With known h/o multiple falls recently, EtOH use -Gave PCC to try to reverse Eliquis Hold Eliquis -serial CT-repeat today -if worsening, would transfer out for NS eval (12) Wrist pain: xrays neg for fracture contusions (13) Left ankle pain: Appears to have a sprain with edema, ecchymosis, warmth, tenderness Xrays neg for fractures Possible septic joint given MRSA bacteremia? Consider Ortho consult in AM -continue IV abx (14) Hypoalbuminemia: severely low at 1.5, secondary to poor nutrition and alcohol abuse -follow -NPO for now due to AMS (15) Hyperbilirubinemia: mildly high at 1.4 secondary to EtOH use -follow LFTs (16) Hyperglycemia: glucose elevated, no known h/o DMII accuchecks, SSI -check HgbA1C in AM (17) Systolic CHF, acute: ECHO here found ot have left vent global hypokinesis and severely reduce LV function at 25% COuld be tachyarrhythmia-induced from Afib, could be Alcohol-induced CM? -no volume overload at this time -holding home Coreg, lisinopril, lasix -consider Cardio consult -may need ischemic eval in future (18) Alcohol dependence: known to drink 1/2 bottle vodka daily, sometimes beer in active withdrawal -continue phenobarb taper, prn ativan or phenobarb -IV thiamine, Folate (19) Hypertension: Hold Coreg, lisinopril, Lasix in setting of hypotension (20) COPD (chronic obstructive pulmonary disease): Patient with history of COPD. With acute hypoxic respiratory failure, Wheezing on exam on admission, now improved. Adequate oxygenation on oxygen mask. 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 He was having worsening signs of EtOH withdrawal today and was placed on phenobarbital. Remains in rapid Afib, BCxs turned positive overnight for MRSA. He was given IVF bolus overnight and 1 dose of IV lopressor for tachycardia. Making urine. Discussed the case with the Operator and commercial project manager of Systems Review of Systems: Unobtainable due to reduced consciousness Physical Exam Constitutional: + ill appearing, + altered mental status and + lethargic ENMT: external ear and nose normal, oropharynx normal (with OxyMask in place) Neck: trachea midline, no thyromegaly Respiratory: + labored breathing (intermittently) Auscultation: + diminished lung sounds (throughout); no crackles, no rhonchi and no wheezes Cardiovascular: Rate/Rhythm: + tachycardic and + irregularly irregular Heart Sounds: no murmur Extremities: no calf tenderness and no edema Gastrointestinal (Abdomen): normal bowel sounds, soft, nontender, no hepatosplenomegaly Musculoskeletal: Extremities: + extremities abnormal to inspection (left ankel with +edema and ecchymosis laterally, +TTP, mild warmth/erythema), no cyanosis and no clubbing Skin: + rash (left foot with erythematous macular lesions dorsal foot) Neurologic: moves all extremities, + confused and + obtunded Motor/Sensory: no tremor Genitourinary: James in place with clear yellow urine Results & Data Vital Signs (Past 12 Hours) Vital Signs Temp Pulse Pulse Resp BP BP Pulse Ox 04/04/19 16:00 37.4 C 122 H 117 H 22 110/77 97 04/04/19 10:00 122 H 20 104/65 99 04/04/19 09:00 118 H 38 H 97/64 L 97 04/04/19 08:00 37.1 C 119 H 22 97/61 L 99 04/04/19 07:01 113 H 24 97/67 L 99 04/04/19 07:00 122 H 25 H 97 04/04/19 06:45 122 H 23 99 04/04/19 06:30 113 H 22 99 04/04/19 06:27 106 H 88/57 L 04/04/19 06:15 136 H 23 100 04/04/19 06:05 124 H 11 L 88/57 L 90 04/04/19 06:01 129 H 19 88/59 L 96 04/04/19 06:00 126 H 25 H 93 04/04/19 05:45 128 H 24 86 L 04/04/19 05:30 124 H 25 H 94 04/04/19 05:15 118 H 25 H 89 L Laboratory Results 04/04/19 04/04/19 04/04/19 Range/Units 19:58 19:58 18:00 WBC (4.8-10.8) K/uL RBC (4.7-6.1) M/uL Hgb (14.0-18.0) g/dL Hct (42-52) % MCV (80-100) fL MCH (25-34) pg MCHC (32-36) g/dL RDW Std Deviation (36.4-46.3) fL RDW Coeff of Quan (11.5-14.5) % Plt Count (130-400) K/uL MPV (7.4-10.4) fL Immature Gran % (Auto) % Neut % (Auto) % Lymph % (Auto) % [place] % (Auto) % Eos % (Auto) % Baso % (Auto) % Immature Gran # (Auto) (0.00-0.02) K/uL Neut # (Auto) (1.4-6.5) K/uL Lymph # (Auto) (1.2-3.4) K/uL [place] # (Auto) (0.11-0.59) K/uL Eos # (Auto) (0-0.5) K/uL Baso # (Auto) (0-0.2) K/uL Absolute Nucleated RBC (0-0) K/uL Nucleated RBC % (auto) % Toxic Vacuolation Dohle Bodies Polychromasia Anisocytosis PT (9.0-12.0) Seconds INR (0.9-1.1) ABG pH (7.35-7.45) ABG pCO2 (35-46) mmHg ABG pO2 (80-95) mm/Hg ABG HCO3 (19-24) mmol/L ABG O2 Saturation (90-95) % ABG Base Excess (-9-1.8) mEq/L Jimmy Test (Pos) VBG pH 7.35 L (7.36-7.41) VBG pCO2 42 (38-50) mmHg VBG pO2 30 mmHg VBG HCO3 23 mmol/L VBG O2 Saturation < 60.0 % VBG Base Excess -3.0 mEq/L Barometric Pressure 738.6 mm/Hg Oxygen Given Sodium (136-145) mmol/L Potassium (3.5-5.1) mmol/L Chloride (98-107) mmol/L Carbon Dioxide (21-32) mmol/L Anion Gap (3-11) BUN (7-18) mg/dl Creatinine (0.6-1.4) mg/dl Est Cr Clr Drug Dosing ml/min Est GFR ( Amer) Est GFR (Non-Af Amer) BUN/Creatinine Ratio (10-20) Glucose (70-99) mg/dl POC Glucose 173 H (70-99) Lactate (0.4-2.0) mmol/L Calcium (8.5-10.1) mg/dl Ionized Calcium 1.11 L (1.12-1.32) mmol/L Phosphorus (2.5-4.9) mg/dl Magnesium (1.8-2.4) mg/dl Total Bilirubin (0.2-1) mg/dl Direct Bilirubin (0-0.2) mg/dl AST (15-37) U/L ALT (12-78) U/L Alkaline Phosphatase (45-117) U/L Troponin I (0-0.045) ng/ml Total Protein (6.4-8.2) gm/dl Albumin (3.4-5.0) gm/dl Globulin (2.5-4.0) gm/dl Albumin/Globulin Ratio (0.9-2) Procalcitonin (0-0.5) ng/ml Random Vancomycin mcg/ml Bld Cult Staph aureus PCR (Negative) Blood Culture MRSA PCR (Negative) Crossmatch 04/04/19 04/04/19 04/04/19 Range/Units 17:05 11:50 09:54 WBC (4.8-10.8) K/uL RBC (4.7-6.1) M/uL Hgb 7.8 L (14.0-18.0) g/dL Hct 24.6 L (42-52) % MCV (80-100) fL MCH (25-34) pg MCHC (32-36) g/dL RDW Std Deviation (36.4-46.3) fL RDW Coeff of Quan (11.5-14.5) % Plt Count (130-400) K/uL MPV (7.4-10.4) fL Immature Gran % (Auto) % Neut % (Auto) % Lymph % (Auto) % [place] % (Auto) % Eos % (Auto) % Baso % (Auto) % Immature Gran # (Auto) (0.00-0.02) K/uL Neut # (Auto) (1.4-6.5) K/uL Lymph # (Auto) (1.2-3.4) K/uL [place] # (Auto) (0.11-0.59) K/uL Eos # (Auto) (0-0.5) K/uL Baso # (Auto) (0-0.2) K/uL Absolute Nucleated RBC (0-0) K/uL Nucleated RBC % (auto) % Toxic Vacuolation Dohle Bodies Polychromasia Anisocytosis PT (9.0-12.0) Seconds INR (0.9-1.1) ABG pH (7.35-7.45) ABG pCO2 (35-46) mmHg ABG pO2 (80-95) mm/Hg ABG HCO3 (19-24) mmol/L ABG O2 Saturation (90-95) % ABG Base Excess (-9-1.8) mEq/L Jimmy Test (Pos) VBG pH (7.36-7.41) VBG pCO2 (38-50) mmHg VBG pO2 mmHg VBG HCO3 mmol/L VBG O2 Saturation % VBG Base Excess mEq/L Barometric Pressure mm/Hg Oxygen Given Sodium (136-145) mmol/L Potassium (3.5-5.1) mmol/L Chloride (98-107) mmol/L Carbon Dioxide (21-32) mmol/L Anion Gap (3-11) BUN (7-18) mg/dl Creatinine (0.6-1.4) mg/dl Est Cr Clr Drug Dosing ml/min Est GFR ( Amer) Est GFR (Non-Af Amer) BUN/Creatinine Ratio (10-20) Glucose (70-99) mg/dl POC Glucose 154 H (70-99) Lactate (0.4-2.0) mmol/L Calcium (8.5-10.1) mg/dl Ionized Calcium (1.12-1.32) mmol/L Phosphorus (2.5-4.9) mg/dl Magnesium (1.8-2.4) mg/dl Total Bilirubin (0.2-1) mg/dl Direct Bilirubin (0-0.2) mg/dl AST (15-37) U/L ALT (12-78) U/L Alkaline Phosphatase (45-117) U/L Troponin I (0-0.045) ng/ml Total Protein (6.4-8.2) gm/dl Albumin (3.4-5.0) gm/dl Globulin (2.5-4.0) gm/dl Albumin/Globulin Ratio (0.9-2) Procalcitonin (0-0.5) ng/ml Random Vancomycin 11.0 mcg/ml Bld Cult Staph aureus PCR (Negative) Blood Culture MRSA PCR (Negative) Crossmatch 04/04/19 04/04/19 04/04/19 Range/Units 08:33 05:39 04:41 WBC (4.8-10.8) K/uL RBC (4.7-6.1) M/uL Hgb (14.0-18.0) g/dL Hct (42-52) % MCV (80-100) fL MCH (25-34) pg MCHC (32-36) g/dL RDW Std Deviation (36.4-46.3) fL RDW Coeff of Quan (11.5-14.5) % Plt Count (130-400) K/uL MPV (7.4-10.4) fL Immature Gran % (Auto) % Neut % (Auto) % Lymph % (Auto) % [place] % (Auto) % Eos % (Auto) % Baso % (Auto) % Immature Gran # (Auto) (0.00-0.02) K/uL Neut # (Auto) (1.4-6.5) K/uL Lymph # (Auto) (1.2-3.4) K/uL [place] # (Auto) (0.11-0.59) K/uL Eos # (Auto) (0-0.5) K/uL Baso # (Auto) (0-0.2) K/uL Absolute Nucleated RBC (0-0) K/uL Nucleated RBC % (auto) % Toxic Vacuolation Dohle Bodies Polychromasia Anisocytosis PT (9.0-12.0) Seconds INR (0.9-1.1) ABG pH (7.35-7.45) ABG pCO2 (35-46) mmHg ABG pO2 (80-95) mm/Hg ABG HCO3 (19-24) mmol/L ABG O2 Saturation (90-95) % ABG Base Excess (-9-1.8) mEq/L Jimmy Test (Pos) VBG pH (7.36-7.41) VBG pCO2 (38-50) mmHg VBG pO2 mmHg VBG HCO3 mmol/L VBG O2 Saturation % VBG Base Excess mEq/L Barometric Pressure mm/Hg Oxygen Given Sodium (136-145) mmol/L Potassium (3.5-5.1) mmol/L Chloride (98-107) mmol/L Carbon Dioxide (21-32) mmol/L Anion Gap (3-11) BUN (7-18) mg/dl Creatinine (0.6-1.4) mg/dl Est Cr Clr Drug Dosing ml/min Est GFR ( Amer) Est GFR (Non-Af Amer) BUN/Creatinine Ratio (10-20) Glucose (70-99) mg/dl POC Glucose 163 H (70-99) Lactate (0.4-2.0) mmol/L Calcium (8.5-10.1) mg/dl Ionized Calcium (1.12-1.32) mmol/L Phosphorus (2.5-4.9) mg/dl Magnesium (1.8-2.4) mg/dl Total Bilirubin (0.2-1) mg/dl Direct Bilirubin (0-0.2) mg/dl AST (15-37) U/L ALT (12-78) U/L Alkaline Phosphatase (45-117) U/L Troponin I (0-0.045) ng/ml Total Protein (6.4-8.2) gm/dl Albumin (3.4-5.0) gm/dl Globulin (2.5-4.0) gm/dl Albumin/Globulin Ratio (0.9-2) Procalcitonin 1.09 H (0-0.5) ng/ml Random Vancomycin 14.6 mcg/ml Bld Cult Staph aureus PCR (Negative) Blood Culture MRSA PCR (Negative) Crossmatch 04/04/19 04/04/19 04/04/19 Range/Units 04:41 04:41 04:41 WBC (4.8-10.8) K/uL RBC (4.7-6.1) M/uL Hgb 7.9 L (14.0-18.0) g/dL Hct 23.9 L (42-52) % MCV (80-100) fL MCH (25-34) pg MCHC (32-36) g/dL RDW Std Deviation (36.4-46.3) fL RDW Coeff of Quan (11.5-14.5) % Plt Count (130-400) K/uL MPV (7.4-10.4) fL Immature Gran % (Auto) % Neut % (Auto) % Lymph % (Auto) % [place] % (Auto) % Eos % (Auto) % Baso % (Auto) % Immature Gran # (Auto) (0.00-0.02) K/uL Neut # (Auto) (1.4-6.5) K/uL Lymph # (Auto) (1.2-3.4) K/uL [place] # (Auto) (0.11-0.59) K/uL Eos # (Auto) (0-0.5) K/uL Baso # (Auto) (0-0.2) K/uL Absolute Nucleated RBC (0-0) K/uL Nucleated RBC % (auto) % Toxic Vacuolation Dohle Bodies Polychromasia Anisocytosis PT 12.8 H (9.0-12.0) Seconds INR 1.3 H (0.9-1.1) ABG pH (7.35-7.45) ABG pCO2 (35-46) mmHg ABG pO2 (80-95) mm/Hg ABG HCO3 (19-24) mmol/L ABG O2 Saturation (90-95) % ABG Base Excess (-9-1.8) mEq/L Jimmy Test (Pos) VBG pH (7.36-7.41) VBG pCO2 (38-50) mmHg VBG pO2 mmHg VBG HCO3 mmol/L VBG O2 Saturation % VBG Base Excess mEq/L Barometric Pressure mm/Hg Oxygen Given Sodium (136-145) mmol/L Potassium (3.5-5.1) mmol/L Chloride (98-107) mmol/L Carbon Dioxide (21-32) mmol/L Anion Gap (3-11) BUN (7-18) mg/dl Creatinine 3.00 H (0.6-1.4) mg/dl Est Cr Clr Drug Dosing 27.7 ml/min Est GFR ( Amer) 24.5 Est GFR (Non-Af Amer) 21.1 BUN/Creatinine Ratio (10-20) Glucose (70-99) mg/dl POC Glucose (70-99) Lactate (0.4-2.0) mmol/L Calcium (8.5-10.1) mg/dl Ionized Calcium (1.12-1.32) mmol/L Phosphorus 3.7 (2.5-4.9) mg/dl Magnesium 1.8 (1.8-2.4) mg/dl Total Bilirubin 1.4 H (0.2-1) mg/dl Direct Bilirubin 0.9 H (0-0.2) mg/dl AST 22 (15-37) U/L ALT 26 (12-78) U/L Alkaline Phosphatase 98 (45-117) U/L Troponin I (0-0.045) ng/ml Total Protein 5.7 L (6.4-8.2) gm/dl Albumin 1.5 L (3.4-5.0) gm/dl Globulin (2.5-4.0) gm/dl Albumin/Globulin Ratio (0.9-2) Procalcitonin (0-0.5) ng/ml Random Vancomycin mcg/ml Bld Cult Staph aureus PCR (Negative) Blood Culture MRSA PCR (Negative) Crossmatch 04/04/19 04/04/19 04/04/19 Range/Units 00:52 00:52 00:42 WBC (4.8-10.8) K/uL RBC (4.7-6.1) M/uL Hgb (14.0-18.0) g/dL Hct (42-52) % MCV (80-100) fL MCH (25-34) pg MCHC (32-36) g/dL RDW Std Deviation (36.4-46.3) fL RDW Coeff of Quan (11.5-14.5) % Plt Count (130-400) K/uL MPV (7.4-10.4) fL Immature Gran % (Auto) % Neut % (Auto) % Lymph % (Auto) % [place] % (Auto) % Eos % (Auto) % Baso % (Auto) % Immature Gran # (Auto) (0.00-0.02) K/uL Neut # (Auto) (1.4-6.5) K/uL Lymph # (Auto) (1.2-3.4) K/uL [place] # (Auto) (0.11-0.59) K/uL Eos # (Auto) (0-0.5) K/uL Baso # (Auto) (0-0.2) K/uL Absolute Nucleated RBC (0-0) K/uL Nucleated RBC % (auto) % Toxic Vacuolation Dohle Bodies Polychromasia Anisocytosis PT (9.0-12.0) Seconds INR (0.9-1.1) ABG pH 7.47 H (7.35-7.45) ABG pCO2 28 L (35-46) mmHg ABG pO2 88 (80-95) mm/Hg ABG HCO3 20 (19-24) mmol/L ABG O2 Saturation 94.9 (90-95) % ABG Base Excess -3.1 (-9-1.8) mEq/L Jimmy Test Pos (Pos) VBG pH (7.36-7.41) VBG pCO2 (38-50) mmHg VBG pO2 mmHg VBG HCO3 mmol/L VBG O2 Saturation % VBG Base Excess mEq/L Barometric Pressure mm/Hg Oxygen Given 2L Sodium (136-145) mmol/L Potassium (3.5-5.1) mmol/L Chloride (98-107) mmol/L Carbon Dioxide (21-32) mmol/L Anion Gap (3-11) BUN (7-18) mg/dl Creatinine (0.6-1.4) mg/dl Est Cr Clr Drug Dosing ml/min Est GFR ( Amer) Est GFR (Non-Af Amer) BUN/Creatinine Ratio (10-20) Glucose (70-99) mg/dl POC Glucose (70-99) Lactate 1.3 (0.4-2.0) mmol/L Calcium (8.5-10.1) mg/dl Ionized Calcium (1.12-1.32) mmol/L Phosphorus (2.5-4.9) mg/dl Magnesium (1.8-2.4) mg/dl Total Bilirubin (0.2-1) mg/dl Direct Bilirubin (0-0.2) mg/dl AST (15-37) U/L ALT (12-78) U/L Alkaline Phosphatase (45-117) U/L Troponin I < 0.015 (0-0.045) ng/ml Total Protein (6.4-8.2) gm/dl Albumin (3.4-5.0) gm/dl Globulin (2.5-4.0) gm/dl Albumin/Globulin Ratio (0.9-2) Procalcitonin (0-0.5) ng/ml Random Vancomycin mcg/ml Bld Cult Staph aureus PCR (Negative) Blood Culture MRSA PCR (Negative) Crossmatch 04/04/19 04/04/19 04/04/19 Range/Units 00:42 00:42 00:17 WBC 8.69 (4.8-10.8) K/uL RBC 2.79 L (4.7-6.1) M/uL Hgb 7.8 L (14.0-18.0) g/dL Hct 23.7 L (42-52) % MCV 84.9 (80-100) fL MCH 28.0 (25-34) pg MCHC 32.9 (32-36) g/dL RDW Std Deviation 64.7 H (36.4-46.3) fL RDW Coeff of Quan 20.8 H (11.5-14.5) % Plt Count 337 (130-400) K/uL MPV 8.7 (7.4-10.4) fL Immature Gran % (Auto) 0.5 % Neut % (Auto) 93.8 % Lymph % (Auto) 3.1 % [place] % (Auto) 2.5 % Eos % (Auto) 0.1 % Baso % (Auto) 0.0 % Immature Gran # (Auto) 0.04 H (0.00-0.02) K/uL Neut # (Auto) 8.15 H (1.4-6.5) K/uL Lymph # (Auto) 0.27 L (1.2-3.4) K/uL [place] # (Auto) 0.22 (0.11-0.59) K/uL Eos # (Auto) 0.01 (0-0.5) K/uL Baso # (Auto) 0.00 (0-0.2) K/uL Absolute Nucleated RBC 0.08 H (0-0) K/uL Nucleated RBC % (auto) 0.9 % Toxic Vacuolation 1+ Dohle Bodies 1+ Polychromasia 1+ Anisocytosis Present PT (9.0-12.0) Seconds INR (0.9-1.1) ABG pH (7.35-7.45) ABG pCO2 (35-46) mmHg ABG pO2 (80-95) mm/Hg ABG HCO3 (19-24) mmol/L ABG O2 Saturation (90-95) % ABG Base Excess (-9-1.8) mEq/L Jimmy Test (Pos) VBG pH (7.36-7.41) VBG pCO2 (38-50) mmHg VBG pO2 mmHg VBG HCO3 mmol/L VBG O2 Saturation % VBG Base Excess mEq/L Barometric Pressure mm/Hg Oxygen Given Sodium 144 (136-145) mmol/L Potassium 3.8 (3.5-5.1) mmol/L Chloride 114 H (98-107) mmol/L Carbon Dioxide 21 (21-32) mmol/L Anion Gap 9.0 (3-11) BUN 94 H (7-18) mg/dl Creatinine 3.05 H (0.6-1.4) mg/dl Est Cr Clr Drug Dosing 27.2 ml/min Est GFR ( Amer) 24.0 Est GFR (Non-Af Amer) 20.7 BUN/Creatinine Ratio 30.7 H (10-20) Glucose 153 H (70-99) mg/dl POC Glucose 177 H (70-99) Lactate (0.4-2.0) mmol/L Calcium 7.5 L (8.5-10.1) mg/dl Ionized Calcium (1.12-1.32) mmol/L Phosphorus (2.5-4.9) mg/dl Magnesium (1.8-2.4) mg/dl Total Bilirubin 1.3 H (0.2-1) mg/dl Direct Bilirubin (0-0.2) mg/dl AST 20 (15-37) U/L ALT 28 (12-78) U/L Alkaline Phosphatase 91 (45-117) U/L Troponin I (0-0.045) ng/ml Total Protein 5.3 L (6.4-8.2) gm/dl Albumin 1.6 L (3.4-5.0) gm/dl Globulin 3.7 (2.5-4.0) gm/dl Albumin/Globulin Ratio 0.4 L (0.9-2) Procalcitonin (0-0.5) ng/ml Random Vancomycin mcg/ml Bld Cult Staph aureus PCR (Negative) Blood Culture MRSA PCR (Negative) Crossmatch 04/03/19 04/03/19 04/03/19 Range/Units 22:51 22:36 00:25 WBC (4.8-10.8) K/uL RBC (4.7-6.1) M/uL Hgb (14.0-18.0) g/dL Hct (42-52) % MCV (80-100) fL MCH (25-34) pg MCHC (32-36) g/dL RDW Std Deviation (36.4-46.3) fL RDW Coeff of Quan (11.5-14.5) % Plt Count (130-400) K/uL MPV (7.4-10.4) fL Immature Gran % (Auto) % Neut % (Auto) % Lymph % (Auto) % [place] % (Auto) % Eos % (Auto) % Baso % (Auto) % Immature Gran # (Auto) (0.00-0.02) K/uL Neut # (Auto) (1.4-6.5) K/uL Lymph # (Auto) (1.2-3.4) K/uL [place] # (Auto) (0.11-0.59) K/uL Eos # (Auto) (0-0.5) K/uL Baso # (Auto) (0-0.2) K/uL Absolute Nucleated RBC (0-0) K/uL Nucleated RBC % (auto) % Toxic Vacuolation Dohle Bodies Polychromasia Anisocytosis PT (9.0-12.0) Seconds INR (0.9-1.1) ABG pH (7.35-7.45) ABG pCO2 (35-46) mmHg ABG pO2 (80-95) mm/Hg ABG HCO3 (19-24) mmol/L ABG O2 Saturation (90-95) % ABG Base Excess (-9-1.8) mEq/L Jimmy Test (Pos) VBG pH (7.36-7.41) VBG pCO2 (38-50) mmHg VBG pO2 mmHg VBG HCO3 mmol/L VBG O2 Saturation % VBG Base Excess mEq/L Barometric Pressure mm/Hg Oxygen Given Sodium (136-145) mmol/L Potassium (3.5-5.1) mmol/L Chloride (98-107) mmol/L Carbon Dioxide (21-32) mmol/L Anion Gap (3-11) BUN (7-18) mg/dl Creatinine (0.6-1.4) mg/dl Est Cr Clr Drug Dosing ml/min Est GFR ( Amer) Est GFR (Non-Af Amer) BUN/Creatinine Ratio (10-20) Glucose (70-99) mg/dl POC Glucose 173 H (70-99) Lactate (0.4-2.0) mmol/L Calcium (8.5-10.1) mg/dl Ionized Calcium (1.12-1.32) mmol/L Phosphorus (2.5-4.9) mg/dl Magnesium (1.8-2.4) mg/dl Total Bilirubin (0.2-1) mg/dl Direct Bilirubin (0-0.2) mg/dl AST (15-37) U/L ALT (12-78) U/L Alkaline Phosphatase (45-117) U/L Troponin I (0-0.045) ng/ml Total Protein (6.4-8.2) gm/dl Albumin (3.4-5.0) gm/dl Globulin (2.5-4.0) gm/dl Albumin/Globulin Ratio (0.9-2) Procalcitonin (0-0.5) ng/ml Random Vancomycin mcg/ml Bld Cult Staph aureus PCR Positive A (Negative) Blood Culture MRSA PCR Positive A (Negative) Crossmatch See Detail PG Care Time/CCT Total # of Minutes Spent Total Time Spent with Patient: Total time spent is greater than 50% in coordination of care (as documented) at patient's floor/unit and/or counseling patient: (1) Hypotension Hypotension type: unspecified hypotension type Qualified Code(s): I95.9 - Hypotension, unspecified
[2019-04-04 17:19] LABS: Hematocrit (blood only) 24.6 % (42-52); Hemoglobin 7.8 g/dL (14.0-18.0)
--- NOTE | 2019-04-04 17:50 | CT Scan Report ---
CT head/brain wo con CLINICAL HISTORY: 63 years-old Male presenting with AMS known chronic subdurals. TECHNIQUE: Multidetector CT imaging of the head was performed without the use of intravenous contrast . IV contrast: None. One or more dose lowering techniques were used consistent with the principles of ALARA (as low as reasonably achievable), including automatic exposure control, mA or kV adjustment t o individual patient size, and/or use of iterative reconstruction. COMPARISON: 04/03/2019. CT DOSE (mGy.cm): The estimated cumulative dose is 3554.74 mGycm. FINDINGS: [employer] topogram: Unremarkable. Motion artifact and rotation moderately degrades diagnostic sensitivity the exam. Ventricles and sulci normal in size. No hemorrhage. Focal round hypodensity in the left temporal lobe is indeterminate and may represent an underlying lesion (series 8 image 13). No acute territorial in farct. No mass effect or midline shift. Prominence of the extra-axial spaces along the bilateral cere bral convexities fluid density consistent with chronic subdural hematomas or hygromas. Hyperdense foc us along the anterior falx near the vertex may represent trace hemorrhage versus a vessel. Paranasal sinuses and mastoid air cells clear. Calvarium intact. IMPRESSION: 1. Hypodense lesions suspected in the left temporal lobe. A contrast-enhanced brain MR is recommende d for better assessment. Metastatic lesion is not excluded. 2. Chronic subdural hematomas or hygromas. 3. Indeterminate focus of hyperdensity along the falx near the vertex. Trace acute subdural hematoma is not excluded though this could represent a vessel. The appearance is unchanged from prior. Again, brain MRI would better assess this abnormality. The report will be called/faxed according to standard departmental protocol. Electronically signed by: Gilbert Murillo M.D. 04/04/2019 5:48 PM
[2019-04-04] MEDS ORDERED: SODIUM CHLORIDE 0.9% 1000ML 500 ML IV ONE ×2 (18:39→22:10)
--- NOTE | 2019-04-04 19:02 | XRay Report ---
XR foot LT min 3V routine CLINICAL HISTORY: 63 years-old Male presenting with ecchymosis, swelling, MRSA bacteremia. TECHNIQUE: Frontal, oblique, and lateral views of the left foot were obtained. COMPARISON: None. FINDINGS: Suboptimal positioning with overlapping external leads and distortion results in mild image quality d egradation and mild decrease in diagnostic sensitivity the exam. No osseous erosion or periosteal reaction. No acute fracture or malalignment. Mild osteophytosis at t he first metatarsophalangeal joint. Prominent these a fight at the origin of the plantar fascia. No r adiographic soft tissue abnormality. IMPRESSION: No radiographic evidence of acute osseous injury or osteomyelitis. Electronically signed by: Gilbert Murillo M.D. 04/04/2019 7:01 PM
--- NOTE | 2019-04-04 19:05 | XRay Report ---
XR ankle LT min 3V routine CLINICAL HISTORY: 63 years-old Male presenting with swelling, ecchymosis, MRSA bacteremia. TECHNIQUE: Frontal, mortise, and lateral views of the left ankle were obtained. COMPARISON: None. FINDINGS: Ankle mortise congruent. Significant soft tissue swelling over the lateral malleolus as well as skin thickening. No osseous erosion or periosteal reaction. No acute fracture or malalignment. Enthesophyt e at the origin of the plantar fascia. Soft tissue erosion may be present over the calcaneus. IMPRESSION: 1. Possible soft tissue erosion over the calcaneus. Correlate clinically. Alternatively, this could be artifact. 2. No radiographic evidence of osteomyelitis or acute osseous injury. Electronically signed by: Gilbert Murillo M.D. 04/04/2019 7:04 PM
[2019-04-04] MEDS ORDERED: cefTRIAXone SODIUM 2,000 MG in DEXTROSE 5% 50 ML IV SCH (20:00)
[2019-04-04 20:15] LABS: HCO3 VBG 23 mmol/L; PCO2 VBG 42 mmHg (38-50); PO2 VBG 30 mmHg; pH VBG 7.35 (7.36-7.41)
[2019-04-04 20:20] LABS: Oxygen Saturation VBG < 60.0 %
[2019-04-04] MEDS ORDERED: PHENobarbital 32.4 MG TAB PO SCH (21:00)
[2019-04-04] MEDS ORDERED: NORMOSOL-R 500 ML IV ONE (22:11)
[2019-04-04] MEDS ORDERED: PROPRANOLOL HCL 1 MG/ML 1 ML VIAL IV SCH (22:45)
[2019-04-04] MEDS ORDERED: PROPRANOLOL HCL 1 MG/ML 1 ML VIAL IV STA (23:07)
[2019-04-04] MEDS ORDERED: PROPRANOLOL HCL 1 MG/ML 1 ML VIAL IV ONE (23:49)
--- NOTE | 2019-04-05 00:58 | Critical Care Progress Note ---
Date of Service April 05, 2019 Assessment & Plan (1) CKD (chronic kidney disease) stage 3, GFR 30-59 ml/min: Reason Critically Ill: Acute blood loss anemia suspect 2/2 AGIB, AMS w/ MRSA bacteremia of unclear origin PLAN: Neuro: AMS 2/2 Acute Encephalopathy - Ddx EtoH withdrawal vs chronic subdural hematoma vs septic - Ammonia wnl yesterday - Increased somnolence, AWSS scoring 8 this morning. - ETT placed this morning. Phenobarb d/mi, placed on versed gtt Bilateral subdural hematoma Serial CT scan to follow, hematoma with maximum transverse dimension of 5 mm and without significant midline shift. Repeat CT scan pending today. -Holding systemic anticoagulation hypodense lesions suspected in the left temporal lobe, chronic subdural hematomas or hygromas, Indeterminate focus of hyperdensity along the falx near the vertex. Trace acute subdural hematoma is not excluded though this could represent a vessel, appearance unchagned from prior. Recommend MRI for further evaluation. - MR Brain/MRA for eval of above and ?mycotic aneurysm. Suspect EtOH Withdrawal, last drink [employer] 04/02, History of high alcohol intake - CIWA precautions - 4-8 drinks per day per pt, liquor Resp: Acute hypoxic respiratory failure - Intubated 0800 History of COPD not tolerant of inhalers Duo nebs every 4 hours as needed No home O2 requirement Former tobacco smoker -40 year .5ppd (~20pack/yr hx) -Quit September this year CV: Hypotension 2/2 hypovolemia and acute blood loss anemia - Recieved 500cc bolus x3 overnight with improvement in MAP, lungs remained clear. Caution given reduced EF, clinically dry and appears contracted - Normosol 80cc/hr IVFM - Propranolol for rate control as noted below Tachycardia, history atrial fibrillation - In afib overnight Apixaban held in the setting of acute bleed - Rate control Propranolol IV 1mg x2 given with increased MAP. Addition dose def erred given above pending improvement in preload. Heart failure with reduced ejection fraction -Echo shows reduced ejection fraction of approximately 30 to 35% He is having good urine output at this time. Balancing fluid status in the setting of reduced ejection fraction against MRSA bacteremia/sepsis. EDMUNDO as below No diuresis at this time Renal: Acute kidney injury 2/2 prerenal Creatinine peak 4.56, downtrending to 3.00. BUN/Cr >20 Nonanion Gap Metabolic acidosis Sodium acutely increased to 150, chloride 121 - Volume contracted, free water loss. Bolus and IVFM as above ID: Sepsis 2/2 MRSA Bacteremia - BCx2 positive for GPC MRSA rapid positive - Repeat BC positive for GPC - +1 bc set - Continue vancomycin daily Source unclear, his presentation is concerning for septic emboli. -Left foot continues to be swollen with ecchymoses. XR left ankle/foot 3view shows no acute fracture, R foot with return of erythema. Ortho consulted for eval of septic arthritis as possible source. No active bleeding on EGD, Rocephin discontinued Perianal/gluteal rash Patient has a diffuse, nontender bilateral rash with central eschar and without vesicles. 3 phlebotomy services representative lesions unroofed and collected for HSV rapid culture, sample slides sent for pathology/[place] smear. No giant cells, but large amounts of bacteria observed. + Bacitracin BID GI/Nutrition: Acute GI bleed Hemoglobin initially dropped to 5.3, received 4 units of packed red blood cells and 1 unit of PCC with increase in hemoglobin to 7.3 GI consulted. EGD shows diffuse gastritis with biopsy taken, nonbleeding gas tric ulcers, nonbleeding duodenal ulcers, and a normal second and third portion of the duodenum. - Hgb continues to be stable Per GI ADAT Protonix 40 mg p.o. twice daily for 6 weeks then 40 mg daily, PO conversion and diet currently held in the setting of AMS Repeat upper endoscopy in 3 months Right upper quadrant ultrasound shows trace amount of perinephric edematous change, No evidence for hydronephrosis, Several small gallstones Nutrition NPO 2/2 AMS & ETT Heme: Acute blood loss anemia secondary to GI bleed as above Status post 4 units PRBC, 1 unit PCC Hemoglobin on admit 5.3, delicia to 7.3 with above. Stable at 8.1 this morning -Reticulocytes increased to 4.1 with a reticulate site index of 1.19 adjusting a degree of hypo-proliferation Endocrine: No history of type 2 diabetes Glucose checks as needed, BMP daily -SSI ICU hyperglycemia protocol Pending A1c DVT prophylaxis: Pharmacal prophylaxis contraindicated, SCDs Vascular access: Peripheral IVs x2, triple-lumen in femoral Code Status: Full (2) COPD (chronic obstructive pulmonary disease): (3) Alcohol dependence: (4) Systolic CHF, acute: (5) Hyperglycemia: (6) Hyperbilirubinemia: (7) Hypoalbuminemia: (8) Hypovolemic shock: (9) Sepsis: (10) DVT prophylaxis: (11) Left ankle pain: (12) MRSA bacteremia: (13) Acute metabolic encephalopathy: Supervising Physician Co-Signing Physician Notes Dr. Duffy was resident physician during care of patient. I separately evaluated patient for coulter portions of the history and the exam. I was present during the critical portion of medical decision making, and I discussed the case with the resident. I generally agree with the findings and plan. Patient's encephalopathy has not improved and may be mildly worse compared to yesterday. I do believe the patient is in alcohol withdrawal, he is receiving phenobarbital. He has a persistent MRSA bacteremia without obvious source at th is time. Given the encephalopathy as well as the subdural hematomas which of note have not change in interval size I believe he could be at risk for brain abscesses as well as mycotic aneurysms, to facilitate MRI as the patient clearly is not going to be able to tolerate laying flat and not moving as he is not redirectable to commands. We will proceed with intubation mechanical ventilation to facilitate MRI imaging. Patient does have extensive bruising and ecchymoses over the left ankle, radiographs are negative however given the lack of source I think it is a possibility that the patient could have a joint space infection. Question is is this secondary to the bacteremia or is this a primary infection from local trauma which led to hematogenous spread. Repeat blood cultures will be obtained today. Given that the patient will be intubated we will place a consult for transesophageal echocardiogram. Since the patient will be intubated we will transition from phenobarbital to IV Versed. Patient has a known history of atrial fibrillation and he certainly exhibits signs of sympathomimetic overdrive given the alcohol withdrawal he has frequent PVCs as well as atrial dysrhythmias. We added low-dose beta-blockade yesterday, I think the patient may benefit from amiodarone to help suppress his frequent arrhythmias and we will start that. Patient clearly is not a candidate for systemic anticoagulation given recent bleeding gastropathy as well as bilateral subdural hematomas which are presumptive secondary to frequent falls. Course safe will be placed and we will start tube feeds after the MRI is obtained. I have personally spent 85 minutes of critical care time in the direct management of this patient. This is a life/limb threatening event. This includes time spent evaluating patient, direct bedside care, chart review, placing orders, interpretation of diagnostic studies, discussion with consultants, patient, and/or family members regarding treatment decisions, as well as other required patient management activities. This time is exclusive of all separately billable procedures, and teaching time and separate from and in addition to any other critical care service time. Subjective Subjective limited by AMS. Mr. 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 Review of Systems Review of Systems: Unobtainable due to cognitive status Physical Exam Physical Exam: General: Somnolent, arouses transiently to voice. Follows simple commands (squeeze my hand) but not complex commands (hold up one finger). Skin: Few scattered spider angiomata on upper chest bilaterally. Perianal and posterior gluteal skin with scattered erythematous 2 to 5 mm eschars with central scab. No warmth. HEENT: Atraumatic, normocephalic. Pupils equal and reactive to light and accommodation. Mucous membranes moist. Pulm: Global end expiratory wheezes, otherwise CTAB A&P with moderate air movement-rales, -rhonchi. Symmetrical chest rise. No increased work of breathing. No respiratory distress. Cardiac: Irregularly irregular. No JVD, neck veins flat. Abdominal: Nontender, nondistended, soft. BS present. Extremities: Warm, cap refill ~2 seconds. PT pulses palpable bilaterally. Ecchymoses of left ankle and foot appreciated. Swelling and edema of the foot a nd low ankle bilaterally. Results & Data Vital Signs (Past 12 Hours) Vital Signs Temp Pulse Pulse Resp BP BP Pulse Ox 04/04/19 18:02 103 H 15 92/71 L 98 04/04/19 18:00 114 H 23 97 04/04/19 17:52 120 H 19 83/56 L 91 04/04/19 17:01 120 H 21 91/60 L 99 04/04/19 17:00 114 H 26 H 89 L 04/04/19 16:01 102 H 25 H 110/77 97 04/04/19 16:00 37.4 C 122 H 117 H 19 110/77 99 04/04/19 15:38 119 H 16 104/65 100 04/04/19 15:01 113 H 21 93/64 L 100 04/04/19 15:00 120 H 22 100 PG Care Time/CCT Total # of Minutes Spent Total Time Spent with Patient: Total time spent is greater than 50% in coordination of care (as documented) at patient's floor/unit and/or counseling patient: Critical Care Time: Yes Total Critical Care Time: 85 Resident Activity Tracking Resident Involvement: Resident Care Provided Care Provided: Adult Hospital Medicine
[2019-04-05] MEDS: BACITRACIN OINT 15 GM TUBE EXT SCH ×3 (01:14→21:27)
[2019-04-05 04:14] LABS: Hematocrit (blood only) 25.7 % (42-52); Hemoglobin 8.1 g/dL (14.0-18.0); Mean Corpuscular Hgb Conc 31.5 g/dL (32-36); Mean Corpuscular Volume 86.5 fL (80-100); Mean Platelet Volume 8.9 fL (7.4-10.4); Nucleated RBC # (auto) 0.05 K/uL (0-0); Nucleated RBC % (auto) 0.5 %; Platelet Count 321 K/uL (130-400); RDW Coefficient of Variation 21.2 % (11.5-14.5); RDW Standard Deviation 66.9 fL (36.4-46.3); Red Blood Count 2.97 M/uL (4.7-6.1); White Blood Count 9.45 K/uL (4.8-10.8)
[2019-04-05 04:26] LABS: INR 1.2 (0.9-1.1); Partial Thromboplastin Ratio 1.2; Prothrombin Time 12.3 Seconds (9.0-12.0)
[2019-04-05 04:34] LABS: Albumin Level 1.5 gm/dl (3.4-5.0); BUN Creatinine Ratio 30.1 (10-20); Calcium 7.9 mg/dl (8.5-10.1); Creatinine Clr Calc Pharmacy 33.5 ml/min; Est GFR (African American) 30.8; Est GFR (Non-African American) 26.6; Magnesium 1.9 mg/dl (1.8-2.4)
[2019-04-05 04:37] LABS: Albumin Globulin Ratio 0.4 (0.9-2); Bilirubin,Total 1.1 mg/dl (0.2-1); Phosphorus 3.4 mg/dl (2.5-4.9); Total Protein 5.5 gm/dl (6.4-8.2)
[2019-04-05 04:38] LABS: Anisocytosis Present; Echinocytes 1+; Eosinophils # (auto) 0.02 K/uL (0-0.5); Eosinophils % (auto) 0.2 %; Immature Granulocytes # (auto) 0.03 K/uL (0.00-0.02); Immature Granulocytes % (auto) 0.3 %; Lymphocytes # (auto) 0.57 K/uL (1.2-3.4); Monocytes # (auto) 0.38 K/uL (0.11-0.59); Neutrophils # (auto) 8.45 K/uL (1.4-6.5); Neutrophils % (auto) 89.5 %; Polychromasia 1+; Rouleaux 1+; Target Cells 1+
[2019-04-05] MEDS: INSULIN ASPART 100 UNITS/ML 3 ML PEN SC SCH ×3 (05:53→19:16)
[2019-04-05] MEDS ORDERED: LACTATED RINGER'S 500 ML IV ONE (06:43)
[2019-04-05] MEDS ORDERED: NORMOSOL-R 500 ML IV ONE (06:45)
[2019-04-05] MEDS: NORMOSOL-R 1,000 ML IV SCH ×2 (07:06→19:21)
[2019-04-05] MEDS ORDERED: AMIODARONE IV BOLUS / DRIP IV STA (07:36)
[2019-04-05] MEDS ORDERED: AMIODARONE 150MG / 100ML D5W IV ONE (07:42)
[2019-04-05] MEDS ORDERED: AMIODARONE 360MG / 200ML D5W IV ONE (07:43)
[2019-04-05] MEDS ORDERED: AMIODARONE / D5W 360 MG/200 ML BAG IV SCH (07:45)
[2019-04-05] MEDS ORDERED: AMIODARONE / D5W 150 MG/100 ML BAG IV ONE (07:45)
[2019-04-05] MEDS ORDERED: RAPID SEQUENCE INDUCTION BAG ONE ×2 (07:53→17:09)
[2019-04-05] MEDS ORDERED: ETOMIDATE 2 MG/ML 20 ML VIAL IV ONE ×2 (07:55→15:34)
[2019-04-05] MEDS ORDERED: MIDAZOLAM HCL 5 MG/ML 1 ML VIAL IV ONE (07:55)
[2019-04-05] MEDS ORDERED: SUCCINYLCHOLINE CHLORIDE 20 MG/ML 10 ML VIAL IV ONE ×2 (07:55→15:34)
[2019-04-05] MEDS ORDERED: MIDAZOLAM HCL 125MG/250ML D5W ONE (08:19)
[2019-04-05] MEDS: MIDAZOLAM HCL 125 MG/250 ML BAG IV SCH (08:25)
--- NOTE | 2019-04-05 08:54 | Procedure Note ---
Procedure Note Date of Service April 05, 2019 Procedure Date: Noted above Procedure: Endotracheal intubation Pre-procedure Diagnosis: Acute encephalopathy Post-procedure Diagnosis: same as above Prior to Procedure: Informed Consent: Two-physician consent Attending Staff: Wyatt Cooley DO The identity of the patient was confirmed and a bedside time out was performed. Description of Procedure: Patient was evaluated and required intubation for impending respiratory failure. The patient was prepared in the usual fashion. A Pena 3 laryngoscope was used. A 8 mm inner diameter endotrachial tube was placed endotracheally to 21 cm at the teeth. A grade 1 view was obtained. The endotracheal tube was noted to pass through the vocal cords. Chest rise was bilateral. Bilateral breath sounds were heard without air sounds in the abdomen. Mist was noted in the endotracheal tube. End-tidal CO2 measurement was positive. Chest x-ray shows proper endotracheal tube placement. Complications: None Findings: Not applicable Specimens: Not applicable Estimated blood loss: Zero Coding
[2019-04-05] MEDS: PANTOprazole 40 MG in SYRINGE 0 ML IV SCH ×2 (08:56→21:26)
[2019-04-05] MEDS: FOLIC ACID 1 MG in SYRINGE 9.8 ML IV SCH (08:57)
[2019-04-05] MEDS: THIAMINE HCL 100 MG in SYRINGE 9 ML IV SCH ×2 (08:57→21:27)
[2019-04-05] MEDS ORDERED: FIBERSOURCE HN 1.2 CAL 1000 ML BAG NG SCH (09:00)
[2019-04-05] MEDS ORDERED: PROPRANOLOL HCL 1 MG/ML 1 ML VIAL IV SCH (09:00)
--- NOTE | 2019-04-05 09:08 | Pharmacy Report ---
Pharmacy Abx Dose Short Note - Date of Service April 05, 2019 - Assessment & Plan Assessment 63 year old M receiving IV Vancomycin for treatment of MRSA bacteremia Day # 2 of antimicrobial therapy. * Renal function continues to rapidly change/improve. sCr is 2.48 mg/dL today (was 3.31 mg/dL upon admission). Vancomycin needs to be dosed prn random levels until renal function stabilizes. Plan Vancomycin * Random level of 24.8 mcg/mL drawn on 04/05/19 @ 0355 is supratherapeutic, but will drop to below 20 mcg/mL by 1000, therefore will need to be-redosed at that time * Give Vancomycin 1250mg (~15mg/kg) IV x 1 at 1000 * Goal trough level for bacteremia : 15 to 20 mcg/mL * Random level ordered for: 04/06/19 with AM labs Pharmacy will continue to follow and will adjust dose/frequency as necessary. Thank you.
[2019-04-05] MEDS ORDERED: VECURONIUM BROMIDE 10 MG VIAL IV STA ×2 (09:15→09:31)
[2019-04-05] MEDS ORDERED: VECURONIUM BROMIDE 10 MG VIAL ONE (09:27)
--- NOTE | 2019-04-05 09:52 | XRay Report ---
XR chest 1V portable HISTORY: intubation / coresafe placement COMPARISON: Chest 04/03/2019. FINDINGS: No pneumothorax. No pleural effusions. The heart is mildly enlarged. There is right greater than left perihilar interstitial and vascular thickening. This suggests developing mild asymmetric p ulmonary edema. Nasogastric tube terminates below the diaphragm. The tip is not included on this stud y. An endotracheal tube terminates 11 cm from the radha within the upper trachea. This should be adv anced by approximately 6 to 8 cm. IMPRESSION: 1. Endotracheal tube terminates 11 cm from the radha within the upper trachea. This should be advanc ed by approximately 68 cm. 2. Developing mild asymmetric pulmonary edema. 3. These findings were discussed with Dr. Cooley at 10:00 AM on 04/05/2019. Electronically signed by: Connor Lewis M.D. 04/05/2019 9:51 AM
[2019-04-05] MEDS ORDERED: VANCOMYCIN HCL 1,250 MG in SODIUM CHLORIDE 0.9% 250 ML IV ONE (10:00)
[2019-04-05] MEDS: THIAMINE HCL 500 MG in SODIUM CHLORIDE 0.9% 50 ML IV SCH ×2 (10:01→22:08)
--- NOTE | 2019-04-05 10:14 | XRay Report ---
ORBIT RADIOGRAPHS 3 VIEWS HISTORY: pre-MRI screening. COMPARISON: None. FINDINGS: There are no radiopaque foreign bodies identified within the orbits. Endotracheal tube and nasogastric tube are partially visualized. IMPRESSION: No radiopaque foreign bodies identified within the orbits. Electronically signed by: Connor Lewis M.D. 04/05/2019 10:13 AM
--- NOTE | 2019-04-05 10:18 | XRay Report ---
XR chest 1V portable HISTORY: Intubation. Follow-up. lines COMPARISON: Chest 04/05/2019.r FINDINGS: The tip of the endotracheal tube remains at the proximal trachea/hypopharynx and is located 12 cm from the radha. No pneumothorax. Progressive opacification within the basal left lower lobe w ith associated volume loss. This could be due to partial collapse of the left lower lobe. Calcified g ranuloma within the right upper lobe. Mild congestive change remains stable. The heart is stable in s ize. IMPRESSION: Tip of the endotracheal tube terminates in the hypopharynx/proximal trachea is 12 cm in the radha. T his should be advanced x 6-8 cm. There is developing left lower lobe collapse. These findings were di scussed with Dr. Cooley at 10:15 AM on 04/05/2019. Electronically signed by: Connor Lewis M.D. 04/05/2019 10:17 AM
--- NOTE | 2019-04-05 11:06 | Consultation Report ---
DATE OF CONSULTATION: 04/05/2019 CHIEF COMPLAINT: Left ankle swelling with bacteremia of unknown source. HISTORY OF PRESENT ILLNESS: Mr. Mac is a 63-year-old gentleman who was found down and admitted 2 days ago. He has a significant medical history for alcohol abuse, hypertension, atrial fibrillation on Eliquis and COPD. Blood cultures were drawn and he was found to have MRSA bacteremia. He is currently on IV vancomycin. He was intubated this morning and the intensive care unit physicians have been unable to get a good exam due to altered mental status since his admission. The patient had x-rays done of his ankle and foot. He is also being treated for acute on chronic subdural hematoma. PAST MEDICAL HISTORY: Reviewed in the chart. PAST SURGICAL HISTORY: Reviewed in the chart. REVIEW OF SYSTEMS: Reviewed in the chart. MEDICATIONS: Reviewed in the chart. ALLERGIES: Reviewed in the chart. PHYSICAL EXAMINATION: GENERAL: The patient is intubated and sedated in the intensive care unit. He recently received a paralytic for his intubation and therefore was not able to fire any motors. MUSCULOSKELETAL: He has an effusion noted in the left ankle joint. There is, however, minimal redness. There is some warmth both of the ankle, but also of the entire left lower extremity. The patient does not respond to passive ankle range of motion. Unable to assess neurologic status. His toes are warm and well perfused. Left hand exam reveals the patient to have an area of swelling on the dorsal aspect of the index finger MCP joint. It is difficult further to say this is an abscess versus a chronic callus from a Heberden's node. He does have some swelling around the wrist, but has been in restraints. IMPRESSION: Left ankle fusion in a patient with methicillin-resistant Staphylococcus aureus bacteremia. PLAN: Unable to obtain informed consent due to no family members available and patient being intubated. The anterior aspect of the ankle was prepped with chlorhexidine and a sterile drape was applied. I then inserted an 18 gauge needle into the ankle joint and was able to aspirate 2.5 mL of thick purulent appearing material. This was placed in a culture vial as well as sent for cell count. I then opened up a sterile container and used a 60 mL syringe to irrigate out the ankle joint by placing a second 18 gauge syringe through the anterolateral ankle joint as an outflow portal. A total of 1 liter of normal saline was irrigated through the ankle joint. The fluid was clear after only about 100 mL of irrigation. The ankle was then covered with 4 x 4 gauze and a Kerlix wrap loosely. The patient did not respond and appeared to tolerate the procedure well. I ordered a CT scan of his left hand and wrist to evaluate for a soft tissue abscess over the dorsal aspect of the index finger metacarpal as well as for wrist effusion. He will continue to follow this patient. IV antibiotics per the intensive care unit.
--- NOTE | 2019-04-05 11:37 | CT Scan Report ---
LEFT HAND CT CT DOSE: 443.16 mGy.cm HISTORY: Left hand swelling. Eval for abscess index MCP joint and wrist effusion TECHNIQUE: Multiaxial CT images of the left hand were performed and reformatted in the sagittal and c oronal plane without the use of contrast. A dose lowering technique was utilized adhering to the insa Arreola. COMPARISON: None. FINDINGS: No acute fracture or dislocation within the left hand. Bone mineralization is intact. There is subcutaneous edema seen throughout the hand and wrist. This is most pronounced dorsal to the seco nd MCP joint. No definite loculated subcutaneous fluid collections to suggest an abscess at this time . There is extensive chondrocalcinosis seen scattered throughout the hand and wrist primarily at the MCP joints. Specifically, this is most pronounced at the second MCP joint. Scattered areas of subchon dral cystic change seen within the wrist likely correspond to the CPPD arthropathy. Suspect small eff usions at the wrist and majority of the MCP joints. This may correspond to the CPPD arthropathy. IMPRESSION: 1. Extensive chondrocalcinosis and small effusions throughout the majority of the joints within the h and and wrist. This favors CPPD. Superimposed infectious process would be impossible to exclude by im aging but is considered less likely given the diffuse findings. 2. Subcutaneous edema throughout the hand and wrist most pronounced at the second MCP joint. No defin ite loculated fluid collections to suggest an abscess. Electronically signed by: Connor Lewis M.D. 04/05/2019 11:35 AM
--- NOTE | 2019-04-05 11:39 | Orthopedic Consultation ---
Date of Consultation April 05, 2019 Assessment & Plan (1) MRSA bacteremia: History of Present Illness Attending Physician: Paty Coffey MD Allergies Allergy/AdvReac Type Severity Reaction Status Date / Time No Known Allergies Allergy NONE Verified 04/03/19 00:22 Home Medications Home Medications Medication Instructions Recorded Confirmed Type apixaban [Eliquis] 5 mg PO BID 04/03/19 04/03/19 History carvedilol 25 mg PO BID 04/03/19 04/03/19 History furosemide 20 mg PO DAILY 04/03/19 04/03/19 History lisinopril 10 mg PO DAILY 04/03/19 04/03/19 History multivitamin 1 tab PO DAILY 04/03/19 04/03/19 History prednisone 0 mg PO DIRECTED 04/03/19 04/03/19 History Patient History Medical History EDMUNDO (acute kidney injury) Anemia Atrial fibrillation Chronic anticoagulation [place] GI bleed Heavy alcohol use Hypertension Subdural hematoma Wrist pain Surgical History Status post knee surgery Family History Other Medical history non-contributory Social History Preferred Language: [place] Communication Ability: Effective Blow Molder Required: No Beliefs That Will Affect Care: None Current Living Situation: Alone Feels Safe at Home: Yes Smoking Status: Current some day smoker Hx Alcohol Use: Yes Alcohol type: hard liquor Hx Substance Use: No Results & Data Vital Signs (Past 12 Hours) Vital Signs Temp Pulse Resp BP Pulse Ox 04/05/19 09:43 16 04/05/19 08:25 113 H 16 100 04/05/19 05:01 123 H 20 104/71 99 04/05/19 05:00 115 H 15 97 04/05/19 04:52 112 H 16 96/73 L 04/05/19 04:02 19 103/76 91 04/05/19 04:00 36.5 C 16 91 04/05/19 03:01 116 H 17 103/70 90 04/05/19 03:00 124 H 15 93 04/05/19 02:02 115 H 19 109/56 L 100 04/05/19 02:00 130 H 18 85 L 04/05/19 01:01 125 H 14 83/61 L 04/05/19 01:00 126 H 13 100 04/05/19 00:01 36.4 C L 124 H 17 96/76 L 98 04/05/19 00:00 120 H 17 100
[2019-04-05 11:45] LABS: Appearance Synovial Fluid TURBID; Color Synovial Fluid STRAW; Source Synovial Fluid LEFT ANKLE
[2019-04-05 11:46] LABS: Mononuclear WBC Synovial 12.2 %; Polynuclear WBC Synovial 87.8 %; RBC Synovial Fluid (A) 168000 /uL
[2019-04-05 11:48] LABS: WBC Synovial Fluid (A) 59379 /uL (0-200)
--- NOTE | 2019-04-05 12:10 | XRay Report ---
XR chest 1V portable HISTORY: intubation COMPARISON: Chest 04/05/2019. FINDINGS: Rotated study. Endotracheal tube is been advanced and now resides approximately 2.8 cm from the radha. No pneumothorax. Mild central pulmonary vascular congestion without overt edema. The hea rt is mildly enlarged. Left basilar density persists. There is associated left mediastinal shift. Thi s favors partial collapse of the left lower lobe. Nasogastric tube terminates below the diaphragm. IMPRESSION: 1. Satisfactory support line placement. Endotracheal tube terminates 2.8 cm from the radha. 2. Left mediastinal shift and left basilar density persists. This favors partial collapse of the left lower lobe. Electronically signed by: Connor Lewis M.D. 04/05/2019 12:08 PM
[2019-04-05 12:27] LABS: iSTAT Allen Test Pass; iSTAT Art Bld Gas pCO2 Correct 35 mmHg (35-46); iSTAT Art Bld Gas pH Corrected 7.362 (7.35-7.45); iSTAT Arterial Blood Gas HCO3 20 meg/L (19-24); iSTAT Arterial Blood Gas pCO2 36 mmHg (35-46); iSTAT Arterial Blood Gas pH 7.36 (7.35-7.45); iSTAT Carbon Dioxide 21 mEq/l (24-31); iSTAT Site R Radial
[2019-04-05] MEDS ORDERED: fentaNYL citrate 100 MCG/2 ML VIAL ONE (12:45)
--- NOTE | 2019-04-05 12:53 | Ultrasound Report ---
RENAL ULTRASOUND HISTORY: Acute kidney injury. COMPARISON: Abdomen and pelvis CT 04/03/2019. FINDINGS: Right kidney: 10.4 cm. A 6 mm cyst within the upper pole. No hydronephrosis. Normal corticomedullary differentiation and cortical thickness. Left kidney: 10.4 cm. No hydronephrosis. Normal corticomedullary differentiation and cortical thickne ss. Bladder: Bladder is decompressed by a James catheter and not well visualized. IMPRESSION: No hydronephrosis. Electronically signed by: Connor Lewis M.D. 04/05/2019 12:52 PM
[2019-04-05] MEDS: SUCRALFATE 1 GM/10 ML UDC PO SCH ×3 (12:56→21:27)
--- NOTE | 2019-04-05 13:09 | Anesthesiology Consultation ---
Date of Service April 05, 2019 Assessment & Plan (1) Encounter for pre-operative examination: Chart Review Chart Review: Acceptable Risk for Surgery and Patient NOT seen in Pre Admission Testing Consults Requested none ASA [id number] Proposed Anesthesia Anesthesia Type: General Risk / Benefits Reviewed With: PT / POA / Parent / Guardian, Accepts Plan and Informed Consent Obtained Additional Comments: Plan to obtain 2 physician consent due to patient not having a next of kin and currently being intubated. History Surgery Operation Date: 04/03/19 07:00 Proposed Procedures p Esophagogastroduodenoscopy - Ray Miramonets Operation Date: 04/05/19 13:00 Proposed Procedures p Incision and Drainage Extremity - Gilbert Santillan MD Height/Weight Height: 6 ft Weight: 81.7 kg Allergies Allergy/AdvReac Type Severity Reaction Status Date / Time No Known Allergies Allergy NONE Verified 04/03/19 00:22 Medications Home Medications Medication Instructions Recorded Confirmed Last Taken apixaban [Eliquis] 5 mg PO BID 04/03/19 04/03/19 04/02/19 carvedilol 25 mg PO BID 04/03/19 04/03/19 04/02/19 furosemide 20 mg PO DAILY 04/03/19 04/03/19 04/02/19 lisinopril 10 mg PO DAILY 04/03/19 04/03/19 04/02/19 multivitamin 1 tab PO DAILY 04/03/19 04/03/19 04/02/19 prednisone 0 mg PO DIRECTED 04/03/19 04/03/19 Unknown Active Medications Generic Name Dose Route Start Last Admin Trade Name Freq PRN Reason Stop Dose Admin Bacitracin 1 appln 04/03/19 21:00 04/05/19 08:58 Bacitracin EXT 05/03/19 20:59 1 appln BID MIMI Administration Folic Acid 1 mg/ Syringe 10 mls @ 5 mls/min 04/04/19 09:00 04/05/19 08:57 IV 05/04/19 08:59 5 mls/min QAM MIMI Administration Thiamine HCl 100 mg/ Syringe 10 mls @ 2 mls/min 04/03/19 09:00 04/05/19 08:57 IV 04/05/19 21:04 2 mls/min BID MIMI Administration Pantoprazole Sodium 40 mg/ 10 mls @ 5 mls/min 04/04/19 12:00 04/05/19 08:56 Syringe IV 05/04/19 11:59 5 mls/min BID@0900,2100 MIMI Administration Parenteral Electrolytes 1,000 mls @ 80 mls/hr 04/05/19 07:15 04/05/19 07:06 Normosol-R IV 05/05/19 07:14 80 mls/hr .[id number] MIMI Administration Amiodarone HCl/Dextrose 360 mg in 200 mls @ 33.333 mls/hr 04/05/19 07:45 04/05/19 08:00 Nexterone / D5w IV 04/05/19 13:44 1 mg/min .Q6H MIMI 33.3 mls/hr Administration 1 MG/MIN Midazolam HCl 125 mg in 250 mls @ 2 mls/hr 04/05/19 08:17 04/05/19 08:25 Versed IV 05/05/19 08:16 1 mg/hr .Q24H MIMI 2 mls/hr Administration Protocol 1 MG/HR Thiamine HCl 500 mg/ Sodium 55 mls @ 208 mls/hr 04/05/19 09:00 04/05/19 10:20 Chloride IV 04/06/19 21:16 Infused BID MIMI Infusion Insulin Aspart 0 units 04/03/19 12:00 04/05/19 12:26 Novolog Flexpen SC 05/03/19 11:59 1 units Q6 MIMI Administration Propranolol HCl 1 mg 04/05/19 09:00 04/05/19 08:58 Inderal IV 05/05/19 08:59 1 mg BID MIMI Administration Sucralfate 1 gm 04/05/19 13:00 04/05/19 12:56 Carafate PO 05/05/19 12:59 Not Given QID MIMI NPO Date Last Intake of Fluids: 04/02/19 Time Last Intake of Fluids: 22:00 Date Last Intake of Solids: 04/02/19 Time Last Intake of Solids: 17:00 Past Medical History Medical History EDMUNDO (acute kidney injury) Anemia Atrial fibrillation Chronic anticoagulation [place] GI bleed Heavy alcohol use Hypertension Subdural hematoma Wrist pain Past Family History Family History Other Medical history non-contributory Past Surgical History Surgical History Status post knee surgery Social History Smoking Status: Current some day smoker Hx Alcohol Use: Yes Alcohol type: hard liquor alcohol intake frequency: 3 or more drinks per day Hx Substance Use: No Review of Systems Unable to obtain due to sedated/intubated in ICU Physical Exam Vital Signs Last Vital Signs Temp 36.5 C 04/05/19 04:00 Pulse 88 04/05/19 12:20 Resp 16 04/05/19 12:20 BP 93/61 L 04/05/19 11:32 Pulse Ox 99 04/05/19 12:20 Constitutional + altered mental status ENMT Mouth: no TMJ abnormality Thyromental Distance: < 3.5 Finger Breadths Mallampati Class: Other (Pt intubated in ICU) Neck normal visual inspection Respiratory normal respiratory effort (Intubated on ventilator) Cardiovascular Rate/Rhythm: + abnormal rate and + abnormal rhythm Testing Laboratory Results 04/05/19 03:55 04/05/19 03:55 PT 12.3 Seconds (9.0-12.0) H 04/05/19 03:55 INR 1.2 (0.9-1.1) H 04/05/19 03:55 APTT 32.0 Seconds (21.0-31.0) H 04/05/19 03:55 Urine Color Yellow 04/03/19 04:50 Urine Appearance Clear (Clear) 04/03/19 04:50 Urine pH 5.0 (4.5-7.5) 04/03/19 04:50 Ur Specific [place] 1.019 (1.000-1.030) 04/03/19 04:50 Urine Protein 1+ (Negative) H 04/03/19 04:50 Urine Glucose (UA) Negative (Negative) 04/03/19 04:50 Urine Ketones Negative (Negative) 04/03/19 04:50 Urine Nitrite Negative (Negative) 04/03/19 04:50 Ur Leukocyte Esterase Negative (Negative) 04/03/19 04:50 Urine WBC (Auto) 1-5 /hpf (0-5) 04/03/19 04:50 Urine RBC (Auto) 0-4 /hpf (0-4) 04/03/19 04:50 U Hyaline Cast (Auto) 1-5 /lpf (0-5) 04/03/19 04:50 U Epithel Cells (Auto) 20-30 /lpf (0-5) H 04/03/19 04:50 Urine Bacteria (Auto) Negative (Negative) 04/03/19 04:50 Blood Type A Negative 04/03/19 00:25 Antibody Screen NEGATIVE 04/03/19 00:25 04/05/19 10:35 Gram Stain - Final Ankle,Left 04/04/19 08:50 Aerobic Blood Culture - Preliminary Blood Gram positive cocci clusters Anaerobic Blood Culture - Preliminary No growth in Anaerobic bottle after 24 hours. 04/04/19 08:33 Aerobic Blood Culture - Preliminary Blood Gram positive cocci clusters Anaerobic Blood Culture - Preliminary No growth in Anaerobic bottle after 24 hours. 04/03/19 06:35 Aerobic Blood Culture - Preliminary Blood Staph aureus MRSA Anaerobic Blood Culture - Final 04/03/19 06:32 Aerobic Blood Culture - Preliminary Blood Staph aureus MRSA Anaerobic Blood Culture - Final 04/03/19 07:06 MRSA Surveillance Culture - Final Nasal Methicillin Resistant Staph Aureus present. ---Surveillance culture only--- 04/05/19 04/05/19 12:11 05:50 POC Glucose 152 H 116 H Electrocardiogram Findings: + AFIB @ (118) Atrial fibrillation with rapid ventricular response Low voltage QRS Septal infarct (cited on or before 02-APR-2019) Abnormal ECG When compared with ECG of 02-APR-2019 23:53, T wave inversion no longer evident in Lateral leads Chest X-Ray Date: 04/03/19 FINDINGS: Rotated study. Endotracheal tube is been advanced and now resides approximately 2.8 cm from the radha. No pneumothorax. Mild central pulmonary vascular congestion without overt edema. The heart is mildly enlarged. Left basilar density persists. There is associated left mediastinal shift. This favors partial collapse of the left lower lobe. Nasogastric tube terminates below the diaphragm. IMPRESSION: 1. Satisfactory support line placement. Endotracheal tube terminates 2.8 cm from the radha. 2. Left mediastinal shift and left basilar density persists. This favors partial collapse of the left lower lobe. Echocardiogram Date: 04/03/19 EF: 30-35% LV Function: dysfunctional (moderately to severely reduced) RWMA: + hypokinetic (moderate global hypokinesis) Valvular Disease: + no significant valvular disease Other Testing 04/03/19 CT head/brain wo con CLINICAL HISTORY: 63 years-old Male presenting with AMS known chronic subdurals. TECHNIQUE: Multidetector CT imaging of the head was performed without the use of intravenous contrast. IV contrast: None. One or more dose lowering techniques were used consistent with the principles of ALARA (as low as reasonably achievable), including automatic exposure control, mA or kV adjustment to individual patient size, and/or use of iterative reconstruction. COMPARISON: 04/03/2019. CT DOSE (mGy.cm): The estimated cumulative dose is 3554.74 mGycm. FINDINGS: Coil Shaper topogram: Unremarkable. Motion artifact and rotation moderately degrades diagnostic sensitivity the exam. Ventricles and sulci normal in size. No hemorrhage. Focal round hypodensity in the left temporal lobe is indeterminate and may represent an underlying lesion (series 8 image 13). No acute territorial infarct. No mass effect or midline shift. Prominence of the extra-axial spaces along the bilateral cerebral convexities fluid density consistent with chronic subdural hematomas or hygromas. Hyperdense focus along the anterior falx near the vertex may represent trace hemorrhage versus a vessel. Paranasal sinuses and mastoid air cells clear. Calvarium intact. IMPRESSION: 1. Hypodense lesions suspected in the left temporal lobe. A contrast-enhanced brain MR is recommended for better assessment. Metastatic lesion is not excluded. 2. Chronic subdural hematomas or hygromas. 3. Indeterminate focus of hyperdensity along the falx near the vertex. Trace acute subdural hematoma is not excluded though this could represent a vessel. The appearance is unchanged from prior. Again, brain MRI would better assess this abnormality. The report will be called/faxed according to standard departmental protocol.
[2019-04-05] MEDS ORDERED: ATROPINE SULFATE 0.1 MG/ML 10ML SYR IV PRN (13:20)
[2019-04-05] MEDS ORDERED: ePHEDrine sulfate 50 MG/ML AMP IV PRN (13:20)
[2019-04-05] MEDS ORDERED: fentaNYL citrate 100 MCG/2 ML VIAL IV PRN (13:20)
--- NOTE | 2019-04-05 13:20 | History & Physical Bridge Note ---
Date of Service April 05, 2019 History & Physical Bridge Note After discussing the patient with Dr. Cooley and Dr. Campbell, it was decided that the best course of action would be to do a surgical irrigation and debridement of his left ankle before starting his tube feeds today. Since patient is intubated, and no immediate family available to consent, 2 physician consent was obtained. Re-admit to ICU post-operatively.
[2019-04-05] MEDS ORDERED: BUPIVACAINE/EPINEPHRINE 0.5% MPF 1:200,000 30 ML VIAL ONE (13:39)
[2019-04-05] MEDS: AMIODARONE / D5W 360 MG/200 ML BAG IV SCH ×2 (13:45→22:37)
[2019-04-05] MEDS ORDERED: ePHEDrine sulfate 50 MG/ML SYR ONE (13:59)
--- NOTE | 2019-04-05 15:03 | Post Operative Brief Note ---
Immediate Post Op Note v1 Date of Surgery April 05, 2019 Pre & Post Diagnosis Operation Date: 04/05/19 13:00 Pre-Op Diagnosis: Left Ankle Septic Arthritis Post-Op Diagnosis: Septic Arthritis of the Left ankle, Left Wrist, and Left Midcarpal joint. Procedure Operation Date: 04/05/19 13:00 Actual Procedures p Incision and Drainage Left Wrist and Mid Carpal Joint(Left) - Gilbert Santillan MD s Aspiration of Left Wrist - Gilbert Santillan MD s Incision and Drainage Left Ankle - Gilbert Santillan MD Surgeon Gilbert Santillan MD Fruit Cutter CHRISTIANO Nicholson PA-C Estimated Blood Loss 5 Findings Consistent with Post-Op Diagnosis Specimens Left wrist aspirate Left wrist synovium Drains Hemovac Drain (single trocar to left ankle) and [place] Drain (1/4 inch page drain used left wrist ) Anesthesia Type General Complications none Disposition Accompanied Patient To Recovery: No Disposition: Surgical ICU
[2019-04-05] MEDS ORDERED: PHENYLEPHRINE HCL 10 MG/ML VIAL ONE (15:05)
[2019-04-05] MEDS ORDERED: ONDANSETRON INJ 2 MG/ML 2 ML VIAL ONE (15:05)
[2019-04-05] MEDS ORDERED: DiphenhydrAMINE HCL 50 MG/ML VIAL IV PRN (15:07)
[2019-04-05] MEDS ORDERED: MAGNESIUM HYDROXIDE SUSP 30 ML UDC PO PRN (15:07)
[2019-04-05] MEDS ORDERED: NALOXONE HCL 0.4 MG/1 ML VIAL/CARP IV PRN (15:07)
[2019-04-05] MEDS ORDERED: ONDANSETRON INJ 2 MG/ML 2 ML VIAL IV PRN (15:07)
[2019-04-05] MEDS ORDERED: METOCLOPRAMIDE HCL INJ 5 MG/ML 2 ML VIAL IV PRN (15:07)
[2019-04-05] MEDS ORDERED: BISACODYL 10 MG SUPP PR PRN (15:07)
--- NOTE | 2019-04-05 15:07 | Operative Report ---
Post Operative Report Pre & Post Diagnosis Operation Date: 04/03/19 07:00 Pre-Op Diagnosis: MELENA Post-Op Diagnosis: gastric ulcer, duodenal ulcer, Ricks"s esophagus Operation Date: 04/05/19 13:00 Pre-Op Diagnosis: Left Wrist Infection;Left Ankle Septic Arthritis Post-Op Diagnosis: Left Wrist Infection;Left Ankle Septic Arthritis Procedure Operation Date: 04/03/19 07:00 Actual Procedures p Esophagogastroduodenoscopy, with biopsy - Ray Miramontes Operation Date: 04/05/19 13:00 Actual Procedures p Incision and Drainage Left Wrist and Mid Carpal Joint(Left) - Gilbert Santillan MD s Aspiration of Left Wrist - Gilbert Santillan MD s Incision and Drainage Left Ankle - Gilbert Santillan MD Surgeon Gilbert Santillan MD Production Assembly Supervisor CHRISTIANO Nicholson PA-C Estimated Blood Loss 5 Findings Consistent with Post-Op Diagnosis Specimens Left wrist purulent fluid and synovium; Left ankle synovium Drains Left wrist: #2 page drains Left ankle: hemovac drain Complications none Disposition Accompanied Patient To Recovery: Yes Disposition: Recovery Room Description of Procedure I was present during the entire procedure assisting with wound closure, drain and dressing application. Please see Dr. Santillan procedure note for specifics of the case. I attest to the content of the Intraoperative Record and any orders documented therein. Any exceptions are noted below.
[2019-04-05] MEDS ORDERED: TAMSULOSIN HCL 0.4 MG CAP PO PRN (15:13)
[2019-04-05] MEDS ORDERED: HYDROmorphone INJ 0.5 MG/0.5 ML SYR IV PRN (15:13)
[2019-04-05] MEDS ORDERED: SODIUM CHLORIDE 0.9% 1000ML 1,000 ML IV SCH (15:15)
--- NOTE | 2019-04-05 15:27 | Cardiology Consultation ---
Date of Consultation April 05, 2019 Assessment & Plan (1) MRSA bacteremia: The patient has grown out MRI of say in 4 of 4 blood cultures. The possibility of endocarditis is high. Will defer the decision of a transesophageal echocardiogram and its timing to Dr. Galo. (2) Left ventricular dysfunction: The patient has history of a transient nonischemic cardiomyopathy. Ejection fraction now depressed at 30-35% and likely related to his poor clinical status. (3) CAD (coronary artery disease): The patient had a 25% mid LAD stenosis identified on a cardiac catheterization in 2008. Fortunately, his troponins are undetectable. (4) PAF (paroxysmal atrial fibrillation): Agree with use of intravenous amiodarone. Clearly, anticoagulation is contraindicated at this time realizing his acute subdural hematomas, and his bleeding GI ulcers. History of Present Illness Attending Physician: Paty Coffey MD History of Present Illness Mr. Mac is a 63-year-old male admitted on April 03 with hypotension, a significant GI bleed, and sepsis. This consultation was ordered to assistance cardiac management. Of note, the patient typically follows with Dr. Galo in the outpatient setting. The patient's history was obtained from discussions with the ICU team and his medical record. He is currently intubated and sedated in the ICU. Apparently, the patient had a significant fall approximately 6 weeks ago striking his head and having a large, visible hematoma. His mental and physical status has deteriorated since that time. He was diagnosed with an acute subdural hematoma at the time of presentation, and his Eliquis was reversed. He did require 4 units of packed red blood cells. He was diagnosed with bleeding gastric and duodenal ulcers. The patient's blood cultures have grown out MRSA, likely related to his infected left ankle and left wrist. A transesophageal echocardiogram has been requested. The patient developed atrial fibrillation with a rapid ventricular response and was started on intravenous amiodarone. The patient was diagnosed with a nonischemic cardiomyopathy in 2008. Left ventricular systolic function was estimated at less than 20% at that time. Cardiac catheterization revealed a 25% mid LAD stenosis. Most recent echocardiogram performed in September 2014 noted normalization of his systolic function with an ejection fraction of 50% at that time. Past medical and surgical history 1. Nonobstructive coronary artery disease-2008 2. Transient nonischemic cardiomyopathy-see above 3. Hypertension 4. Paroxysmal atrial fibrillation 5. Paroxysmal atrial tachycardia. 6. Umbilical hernia repair 7. Carpal tunnel release Social history , lives alone Heavy alcohol use Smokes 1/2 pack of cigarettes daily Family history Father at 35 from leukemia Mother at 80 from a CVA Review of systems Unobtainable Allergies Allergy/AdvReac Type Severity Reaction Status Date / Time No Known Allergies Allergy NONE Verified 04/03/19 00:22 Home Medications Home Medications Medication Instructions Recorded Confirmed Type apixaban [Eliquis] 5 mg PO BID 04/03/19 04/03/19 History carvedilol 25 mg PO BID 04/03/19 04/03/19 History furosemide 20 mg PO DAILY 04/03/19 04/03/19 History lisinopril 10 mg PO DAILY 04/03/19 04/03/19 History multivitamin 1 tab PO DAILY 04/03/19 04/03/19 History prednisone 0 mg PO DIRECTED 04/03/19 04/03/19 History Patient History Medical History EDMUNDO (acute kidney injury) Anemia Atrial fibrillation Chronic anticoagulation [place] GI bleed Heavy alcohol use Hypertension Subdural hematoma Wrist pain Surgical History Status post knee surgery Family History Other Medical history non-contributory Social History Preferred Language: Greenlandic Communication Ability: Effective Overhead Irrigator Required: No Beliefs That Will Affect Care: None Current Living Situation: Alone Feels Safe at Home: Yes Smoking Status: Current some day smoker Hx Alcohol Use: Yes Alcohol type: hard liquor Hx Substance Use: No Physical Exam Physical Exam: In general is well-developed well-nourished white male intubated and sedated in the intensive care unit. HEENT exam notes an ET tube in place. Neck is supple with full carotid upstrokes. Jugular pressure cannot be assessed. Cardiovascular exam reveals an irregular irregular rhythm with distant heart sounds. No obvious murmurs. Lungs no coarse breath sounds anteriorly. Abdomen is soft. Extremities note 1+ pretibial edema bilaterally. Results & Data Vital Signs (Past 12 Hours) Vital Signs Temp Pulse Resp BP Pulse Ox 04/05/19 13:01 87 89/68 L 94 04/05/19 12:29 85 92/69 L 97 04/05/19 12:20 88 16 99 04/05/19 12:00 36.8 C 93 H 98 04/05/19 11:32 93/61 L 96 04/05/19 10:35 97 H 16 96 04/05/19 10:31 107 H 100/75 96 04/05/19 10:01 90 102/59 L 96 04/05/19 09:46 100 H 78/54 L 94 04/05/19 09:43 16 04/05/19 09:32 97 H 90/66 L 100 04/05/19 09:01 103 H 91/66 L 100 04/05/19 09:00 101 H 100 04/05/19 08:46 105 H 111/57 L 100 04/05/19 08:40 123 H 102/68 99 04/05/19 08:36 120 H 70/52 L 100 04/05/19 08:34 112 H 98/77 L 04/05/19 08:25 112 H 16 77/54 L 100 04/05/19 08:21 122 H 3 L 108/77 100 04/05/19 08:19 121 H 0 L 109/88 100 04/05/19 08:16 126 H 0 L 122/77 100 04/05/19 08:13 113 H 9 L 108/79 82 L 04/05/19 08:08 108 H 16 103/65 98 04/05/19 07:02 36.6 C 124 H 18 98/78 L 94 04/05/19 05:01 123 H 20 104/71 99 04/05/19 05:00 115 H 15 97 04/05/19 04:52 112 H 16 96/73 L 04/05/19 04:02 19 103/76 91 04/05/19 04:00 36.5 C 16 91 Laboratory Results CBC notes hemoglobin 8.1, adequate 25.7, white count 9.45, platelet count 3 and 21,000. Electrolytes note a sodium of 150, potassium 4.0, chloride 121, bicarb 26, BUN 75, creatinine 2.48, glucose of 127. Two troponin I levels have been undetectable less than 0.015. Magnesium level normal 1.9. Diagnostic Findings Echocardiogram notes moderate left ventricular dysfunction with ejection fraction of 30-35 percent. There is moderate global hypokinesis. No obvious valvular pathology. EKG notes atrial fibrillation with a rapid ventricular response. There is an old septal myocardial infarction pattern. Chest x-ray notes cardiomegaly. Head CT noted small acute subdural hematomas involving the falx cerebri and the left temporal lobe. Four sets of blood cultures have grown out MRSA. PG Care Time/CCT Total # of Minutes Spent Total Time Spent with Patient: Total time spent is greater than 50% in coordination of care (as documented) at patient's floor/unit and/or counseling patient:
[2019-04-05] MEDS ORDERED: DEXTROSE 50% 50 ML SYRINGE IV ONE (15:34)
[2019-04-05] MEDS ORDERED: SODIUM CHLORIDE 0.9% 10ML FLUSH IV ONE (15:34)
[2019-04-05] MEDS ORDERED: CALCIUM CHLORIDE 10% 10 ML SYR IV ONE (15:34)
[2019-04-05] MEDS ORDERED: SODIUM BICARB 8.4% INJ 50 MEQ/50 ML SYR IV ONE (15:34)
--- NOTE | 2019-04-05 16:10 | Procedure Note ---
Procedure Note Date of Service April 05, 2019 Radial arterial line placed in OR [address] Santillan for postoperative management due to sepsis. Right wrist prepped with chlorhexidine and draped with sterile towels. 20 G angiocath placed under sterile technique utilizing sterile gloves, surgical hats and masks. Catheter threaded using seldinger technique with return of pulsatile, bright red blood. Site covered with occlusive dressing and taped in place. Waveform consistent with correct arterial placement. After placement, fingers of procedural hand had normal perfusion. Patient tolerated procedure well without complications. Procedure performed by MELANIE Chris under medical direction by myself. Caryn Campbell MD, PhD Anesthesiology Coding
--- NOTE | 2019-04-05 16:14 | Procedure Note ---
Procedure Note Date of Service April 05, 2019 Central Line Placement Note Consent: Line placed intraoperatively at the request of ICU attending Dr. Cooley. Consent for Central line placement was obtained by Dr. Cooley. Procedure: The central line was placed in OR 8 during I and D with Dr. Santillan. Monitors were attached including EKG, pulse ox, and blood pressure. The patient under GA prior to placement. Prior to initiating the procedure, the proceduralist washed their hands. The proceduralist wore a surgical hat and mask as well as sterile gloves and gown. The right IJ was prepped with chlorhexidine and draped in sterile fashion. The patient was positioned in trendelenburg and the vein identified using ultrasound guidance. There was good return of nonpulsatile blood after needle placement. The vessel was transduced to confirm venous access. The guidewire threaded easily and was verified in the vein by ultrasound. The accessed vessel was dilated and a triple lumen catheter was introduced into the right IJ over the wire. The guidewire was removed and each lumen of the catheter was aspirated and flushed. The catheter was sutured in place at 14.5 cm. An antibiotic disc was placed and the site covered in a sterile, occlusive dressing. Post-procedure: The patient was hemodynamically stable throughout and tolerated the procedure well without apparent complications. Post placement CXR was ordered. Caryn Campbell MD, PhD Anesthesiology Coding
[2019-04-05] MEDS: ACETAMINOPHEN 1,000 MG/100 ML VIAL IV SCH ×2 (16:25→23:41)
--- NOTE | 2019-04-05 16:36 | XRay Report ---
XR chest 1V portable HISTORY: Line verification COMPARISON: Chest 04/05/2019. FINDINGS: The endotracheal tube terminates 2.7 cm in the radha. Nasogastric tube terminates below th e diaphragm. The tip is not included on this study. Right jugular central venous catheter terminates in the expected location of the proximal SVC. Progressive consolidation within the left lung with lef t mediastinal shift likely representing complete collapse of the left lower lobe and partial collapse of the left upper lobe. This favors mucous plugging given the interval change. The right lung is ess entially clear with a few small areas of atelectasis at the right lung base and a right upper lobe ca lcified granuloma. The heart is stable in size. IMPRESSION: 1. Satisfactory support line placement. 2. Progressive volume loss and consolidation within the left hemithorax consistent with complete nicholas apse of the left lower lobe and partial collapse of the left upper lobe. There appears to be an abrup t cut off at the distal left mainstem bronchus likely representing mucous plugging given the interval change. Bronchoscopy is recommended as follow-up. Electronically signed by: Connor Lewis M.D. 04/05/2019 4:34 PM
[2019-04-05] MEDS ORDERED: NOREPINEPHRINE BIT INJ 8 MG in DEXTROSE 5% 500 ML IV STA (17:26)
[2019-04-05] MEDS ORDERED: NOREPINEPHRINE (Adult STAT Only) 4 MG in D5W 250 ML IV STA (17:27)
[2019-04-05] MEDS ORDERED: EPINEPHrine 2 MG in DEXTROSE 5% 250 ML IV SCH (17:49)
[2019-04-05] MEDS ORDERED: VASOPRESSIN 20 UNITS in 0.9 % SODIUM CHLORIDE 100 ML IV SCH (17:49)
[2019-04-05 17:54] LABS: Basophils # (auto) 0.01 K/uL (0-0.2); Basophils % (auto) 0.1 %; Eosinophils # (auto) 0.08 K/uL (0-0.5); Eosinophils % (auto) 0.6 %; Hematocrit (blood only) 25.9 % (42-52); Hemoglobin 8.2 g/dL (14.0-18.0); Immature Granulocytes # (auto) 0.08 K/uL (0.00-0.02); Immature Granulocytes % (auto) 0.6 %; Lymphocytes # (auto) 1.55 K/uL (1.2-3.4); Lymphocytes % (auto) 11.3 %; Mean Corpuscular Volume 86.9 fL (80-100); Mean Platelet Volume 9.1 fL (7.4-10.4); Monocytes # (auto) 0.61 K/uL (0.11-0.59); Monocytes % (auto) 4.5 %; Neutrophils # (auto) 11.34 K/uL (1.4-6.5); Neutrophils % (auto) 82.9 %; Nucleated RBC # (auto) 0.05 K/uL (0-0); Nucleated RBC % (auto) 0.4 %; Platelet Count 366 K/uL (130-400); RDW Coefficient of Variation 21.4 % (11.5-14.5); Red Blood Count 2.98 M/uL (4.7-6.1); White Blood Count 13.67 K/uL (4.8-10.8)
[2019-04-05 17:55] LABS: Mean Corpuscular Hgb Conc 31.7 g/dL (32-36)
--- NOTE | 2019-04-05 18:03 | Anesthesiology Progress Note ---
Date of Service April 05, 2019 Anesthesia Post Procedure Vital Signs Vital Signs: Temp Pulse Resp BP Pulse Ox 04/05/19 15:50 88 101/54 L 04/05/19 15:46 89 92/69 L 04/05/19 15:45 87 90 04/05/19 15:41 85 16 90/70 L 87 L 04/05/19 15:40 83 96/74 L 93 04/05/19 15:37 79 92/73 L 96 04/05/19 15:35 83 95 04/05/19 15:32 84 93/69 L 04/05/19 13:01 87 89/68 L 94 04/05/19 12:29 85 92/69 L 97 04/05/19 12:20 88 16 99 04/05/19 12:00 36.8 C 93 H 98 04/05/19 11:32 93/61 L 96 04/05/19 10:35 97 H 16 96 04/05/19 10:31 107 H 100/75 96 04/05/19 10:01 90 102/59 L 96 04/05/19 09:46 100 H 78/54 L 94 04/05/19 09:43 16 04/05/19 09:32 97 H 90/66 L 100 04/05/19 09:01 103 H 91/66 L 100 04/05/19 09:00 101 H 100 04/05/19 08:46 105 H 111/57 L 100 04/05/19 08:40 123 H 102/68 99 04/05/19 08:36 120 H 70/52 L 100 04/05/19 08:34 112 H 98/77 L 04/05/19 08:25 112 H 16 77/54 L 100 04/05/19 08:21 122 H 3 L 108/77 100 04/05/19 08:19 121 H 0 L 109/88 100 04/05/19 08:16 126 H 0 L 122/77 100 04/05/19 08:13 113 H 9 L 108/79 82 L 04/05/19 08:08 108 H 16 103/65 98 04/05/19 07:02 36.6 C 124 H 18 98/78 L 94 04/05/19 05:01 123 H 20 104/71 99 04/05/19 05:00 115 H 15 97 04/05/19 04:52 112 H 16 96/73 L 04/05/19 04:02 19 103/76 91 04/05/19 04:00 36.5 C 16 91 04/05/19 03:01 116 H 17 103/70 90 04/05/19 03:00 124 H 15 93 04/05/19 02:02 115 H 19 109/56 L 100 04/05/19 02:00 130 H 18 85 L 04/05/19 01:01 125 H 14 83/61 L 04/05/19 01:00 126 H 13 100 04/05/19 00:01 36.4 C L 124 H 17 96/76 L 98 04/05/19 00:00 120 H 17 100 04/04/19 23:01 128 H 17 92/68 L 96 04/04/19 23:00 121 H 15 92 04/04/19 22:46 122 H 18 127/87 100 04/04/19 22:01 107 H 13 105/72 100 04/04/19 22:00 126 H 20 92 04/04/19 21:01 114 H 29 H 91/69 L 91 04/04/19 21:00 113 H 14 100 04/04/19 20:01 117 H 15 104/70 04/04/19 20:00 36.6 C 118 H 23 04/04/19 19:01 122 H 16 100/65 100 04/04/19 19:00 128 H 23 87 L 04/04/19 18:02 103 H 15 92/71 L 98 Pain Intensity Generalized: Pain Intensity: 3 Transfer of Care Handoff Completed per policy Notes Mental Status: see notes below Patient Amnestic to Procedure: Yes Nausea / Vomiting: adequately controlled Pain: adequately controlled Airway Patency, RR, SpO2: stable & adequate BP & HR: stable & adequate Hydration State: stable & adequate Anesthetic Complications: no major complications apparent Notes: Patient was returned to the ICU intubated and hemodynamically stable post surgery.
[2019-04-05 18:16] LABS: Albumin Globulin Ratio 0.3 (0.9-2); Albumin Level 1.2 gm/dl (3.4-5.0); BUN Creatinine Ratio 30.1 (10-20); Calcium 7.4 mg/dl (8.5-10.1); Creatinine Clr Calc Pharmacy 36.7 ml/min; Est GFR (African American) 34.5; Est GFR (Non-African American) 29.8; Globulin 3.8 gm/dl (2.5-4.0)
[2019-04-05 18:22] LABS: Acanthocytes 1+; Anisocytosis Present; Echinocytes 1+; Schistocytes 1+; Target Cells 1+
[2019-04-05 18:28] LABS: Beta-Hydroxybutyrate 5.45 mg/dl (0.2-2.81)
[2019-04-05 18:46] LABS: iSTAT Art Bld Gas pCO2 Correct 44 mmHg (35-46); iSTAT Art Bld Gas pH Corrected 7.289 (7.35-7.45); iSTAT Arterial Blood Gas HCO3 22 meg/L (19-24); iSTAT Arterial Blood Gas pCO2 50 mmHg (35-46); iSTAT Arterial Blood Gas pH 7.25 (7.35-7.45); iSTAT Carbon Dioxide 24 mEq/l (24-31); iSTAT Hematocrit 25 % (42-52); iSTAT Hemoglobin 8.5 g/dl (14.0-18.0); iSTAT Potassium 3.6 mEq/L (3.3-5.0); iSTAT Site Art Line; iSTAT Sodium 149 mEq/L (135-144)
[2019-04-05] MEDS: NOREPINEPHRINE BIT INJ 8 MG in DEXTROSE 5% 500 ML IV SCH ×2 (18:58→19:38)
--- NOTE | 2019-04-05 19:41 | Operative Report ---
DATE OF OPERATION: 04/05/2019 PREOPERATIVE DIAGNOSIS: Septic arthritis of the left ankle, left wrist swelling POSTOPERATIVE DIAGNOSES: Septic arthritis of the left ankle, left wrist joint and left mid carpal joint. OPERATIONS PERFORMED: 1. Left wrist joint aspiration. 2. Irrigation and debridement of left wrist joint. 3. Irrigation and debridement, left mid carpal joint. 4. Irrigation and debridement, left ankle joint. SURGEON: Gilbert Santillan MD. COMMISSIONER OF INTERNAL REVENUE: Clarissa Nicholson PA-C. ESTIMATED BLOOD LOSS: 5 mL. IV FLUIDS: 600 mL crystalloid. SPECIMENS: Aspirate from the left wrist joint was sent for culture. INDICATIONS: Mr. Mac is a 63-year-old male who is admitted to the ICU with MRSA bacteremia, altered mental status and multiple medical comorbidities including a subdural hematoma, chronic kidney disease and others. I was consulted today for bacteremia of unknown origin with left ankle swelling as well as left wrist swelling. I tapped his left ankle joint and this returned dafne purulence. It was sent for Gram stain and culture. This showed many white blood cells with nothing on the Gram stain. Given his clinical picture; however, of altered mental status and MRSA bacteremia, this was felt in all likelihood to be infected. After discussing the case with the ICU attending, Dr. Mg Cooley, the decision was made to perform an operative I and D on his left ankle as well as aspirate his left wrist. Because the patient was intubated and had no immediate family members available, the decision was made to have 2-physician signed off on his consent. This was myself and Dr. Cooley. OPERATIVE FINDINGS: Aspirate of the left wrist joint revealed again thick purulent appearing material. This was sent off for Gram stain and culture. The decision was then made to I and D the wrist joint. More purulence was discovered once the wrist joint was opened up. We then extended the deeper incision into the mid carpal joint and found purulence in the mid carpal joint as well. The wrist joint and mid carpal joint were irrigated with 3 liters of normal saline and [place] drains were placed in each joint. The left ankle joint was opened up and irrigated out using 6 liters of normal saline. Hemovac drain was placed. DESCRIPTION OF OPERATION: The patient was identified in the intensive care unit where his surgical sites were marked. He was brought to the operating room where he was moved on to the operating room table and hooked up to the ventilator. Once he had adequate sedation, a timeout was performed. The dorsal aspect of the left wrist was prepped with chlorhexidine and draped out. An 18-gauge needle was inserted into the radial carpal joint between the 2nd and 4th dorsal compartments. Approximately 1 mL of purulent-appearing material was aspirated. This was sent for culture. The decision was made to I&D his wrist joint in addition to the ankle. Next, the left lower extremity and left upper extremity were prepped and draped in the normal sterile fashion. Prior to incision, a multidisciplinary timeout was called. All in the room were in agreement. We began by doing the I and D of his left wrist. A 3 cm long incision was made starting just ulnar to Annie's tubercle and extending distally. We dissected through the subcutaneous tissues to the level of the fascia. A small portion of the extensor retinaculum was incised as well as the fascia overlying the joint. The joint was then opened up. As stated above, we immediately encountered purulence within the wrist joint. We, therefore, extended the incision through the deeper layers to expose the mid carpal joint. Again, purulence was discovered here. A freer elevator was used to open up the mid carpal joint and we irrigated this out with a liter and a half of normal saline. The wrist joint itself was irrigated with normal saline 1.5 liters. I did send some deep cultures of the wrist joint synovium tissue cultures. I then cut a [place] drain in half and put 1 limb in the mid carpal joint and one in the wrist joint. A quarter inch gauze packing strip was placed in the center of the [place] to wick the fluid out and keep the [place] open. A total of 4 nylon sutures using 3-0 nylon were placed in simple stitch fashion around the [place] drain. Sterile dressings were then applied. Next, we turned our attention to the left ankle. A 4 cm long incision was made just medial to the tibialis anterior tendon. This was centered over the ankle joint. I dissected down through subcutaneous tissues. Small crossing venous branches were cauterized. The tibialis anterior tendon was identified and retracted laterally. This exposed the underlying ankle joint capsule. The ankle joint capsule was incised. There was still a small amount of purulence as well as some blood in the ankle joint, likely from the previously performed aspiration. Some of the pathologic appearing synovium was excised to open up the ankle joint completely. The pulse lock tender was then used to irrigate out the joint with a total of 6 liters of normal saline. The Hemovac drain was then placed through a stab wound out through the anterolateral ankle with a tip of the drain placed into the medial gutter and the majority of the drain lying across the anterior ankle joint. The incision was then closed with interrupted 3-0 nylon sutures. Xeroform and a sterile dressing was applied. The Hemovac was hooked up to suction. The patient remained intubated and was transferred back on to the ICU bed in stable condition. POSTOPERATIVE COURSE: The patient will be readmitted to the intensive care unit. He will be on IV antibiotics as per the intensive care unit. We will plan on leaving the drains in throughout the duration of tomorrow and removing them on Saturday morning at which point we will take down his dressings and do a wound check. Please leave the dressings in place until that time. He should elevate both the left upper and left lower extremities to help with swelling. Deep venous thrombosis prophylaxis per the intensive care unit. I attest to the content of the Intraoperative Record and any orders documented therein. Any exceptions are noted below. MANE
--- NOTE | 2019-04-05 19:44 | Hospitalist Progress Note ---
Date of Service April 05, 2019 Assessment & Plan (1) Acute metabolic encephalopathy: 63-year-old male with history of EtOH abuse, hypertension, atrial fibrillation on Eliquis anticoagulation, COPD who was brought in after being found down on the floor. Patient hypotensive, anemic with heme positive stools, EDMUNDO, and acute on chronic Subdural hematomas. ALso with EtOH withdrawal and sepsis from MRSA bacteremia. -Acute Metabolic encephalopathy-secondary to EtOH withdrawal, possibly from the SDH, and also with sepsis, med side effect from phenobarb, and hypotension. -treating infection as below -giving volume resuscitation -Now converted from phenobarbital to Versed for EtOH withdrawal -repeat CT head shows bilateral subdural hematomas with hygromas as well as possible acute subdural hemorrhage -continue supportive care, sedation and paralytics with mechanical ventilation (2) Cardiac arrest with pulseless electrical activity: CODE BLUE on 04/05 for PEA arrest immediately following a bronchoscopy to relieve mucoid impaction Was resuscitated with CPR, epinephrine, bicarbonate, vasopressin, and Levophed Likely secondary to cardiogenic shock in the setting of sepsis with lactic acidosis ECG without STEMI after achieved return of spontaneous circulation Lactate elevated at 4.5 -Management as per non morse intercept technician (3) Acute respiratory failure with hypoxia: With intermittent hypoxia secondary to nonpurulent secretions that were advised during bronchoscopy on 04/05 Was intubated for significant metabolic encephalopathy for airway protection on 04/05 Management as per ICU (4) Sepsis: secondary to MRSA bacteremia Has left septic joint as well as septic arthritis of the hand joints-now status post washout on 04/05 With tachycardia, tachypnea, hypothermia on admission 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 given hypodense lesions in the left temporal lobe on CT scan of the head, multiple areas of seeded septic arthritis, perhaps mild cellulitis of the left ankle but difficult to say whether that is the initial source of his bacteremia -Continue treating with IV Vanco Repeat cultures from 04/04 also positive in 2 out of 2 bottles for gram-positive cocci in clusters Repeat blood cultures on 04/05 were drawn -Needs a GIANFRANCO when clinically stable but given CODE BLUE today, will await for stabilization -If persistently bacteremic, and especially if has large valvular vegetation, would need transfer to tertiary care center for possible valve replacement (5) Hypovolemic shock: Secondary to acute blood loss anemia and septic shock -Treated with PRBCs, IVFs, and did have some improvement, but now status post cardiac arrest with hypotension requiring vasoactive medications treating bacteremia with antibiotics Hemoglobin is improved and stable -Vasopressors as per non morse intercept technician Continue IV fluids (6) MRSA bacteremia: Unclear where this came from but has evidence of multiple contusions and may have had an abrasion which led to MRSA bacteremia which then spread to multiple joints and now with septic ankle as well as hand joints Suspect endocarditis as above -repeat BCxs today -Treatment as above (7) Hypotension: Secondary to hypovolemia from blood loss, sepsis, also with rapid afib -treating with PRBC transfusion, IVFs, antibiotics, and vasopressors as above A-line in place in the right radial artery (8) Atrial fibrillation: With rapid Afib since admission, has a h/o Afib Rates better controlled today after sedation and intubation for encephalopathy and alcohol withdrawal -Continue Versed drip for sedation and for alcohol withdrawal -Started on IV amiodarone and IV propranolol for rate control as tolerated given low blood pressures -continue volume resuscitation -holding home Coreg and Eliquis due to hypotension and acute GI bleeding -continue tele monitoring (9) Anemia: Acute blood loss anemia Patient with normochromic normocytic anemia. Secondary to acute blood loss from a GI source. Hemoglobin of 5.3 on admission, had Heme positive stool in ER. Prior labs from 2015 with hemoglobin of 13.8 and hematocrit of 39.8. -Transfusion of PRBCs x4 units given on admission and hgb up to 9.2 and stable No further obvious bleeding Was likely secondary to gastric and duodenal ulcers and gastritis from EtOH use- s/p EGD -follow CBC -continue PPI IV bid (10) EDMUNDO (acute kidney injury): With markedly elevated BUN and creatinine 125 and 4.6, respectively on admission. Patient with underlying CKD. Creatinine of 2.09 in 2015, recent creatinine level unknown. Findings on CT abdomen also suggestive of CKD. Suspect multifactorial etiology of EDMUNDO on CKD to include prerenal azotemia in setting of hypotension and blood loss as well as medication effects of lisinopril/Lasix at home. UA without infection Tab Card Press Operator continues to improve today down to 2.48, BUN down to 75 Continues to make urine, bicarbonate normal, potassium normal -maintain James catheter. Monitor strict I's and O's -follow BMP -Avoid nephrotoxic agents -Renal dosing were appropriate (11) GI bleed: UGI Bleed as above with duodenal and gastric ulcers, gastritis on EGD. Patient presenting with hypotension, normochromic/normocytic anemia, heme positive stools on chronic anticoagulation. Patient denies history of liver disease or varices. No prior history of GI bleed. Colonoscopy from 2009 comments on presence of diverticulosis. -PCC administered initially due to Eliquis use Appreciate GI consult -continue IV PPI bid and eventually convert to po PPI bid once taking po -continue NPO for now due to AMS/mechanical ventilation (12) Falls: multiple, likely secondary to EtOH abuse and possibly due to chronic SDH? Will eventually need PT/OT (13) Subdural hematoma: Acute on chronic SDH bilat on CT with serial CT similar With known h/o multiple falls recently, EtOH use -Gave PCC to try to reverse Eliquis upon admission Continue to hold Eliquis and would not restart in the future -if worsening, would transfer out for NS eval -Consider monitoring serial head CTs while sedated and paralyzed (14) Wrist pain: xrays neg for fracture Swelling of the wrist and some mild erythema of the left second MCP joint today- CT of the hand showed multiple areas of fluid collections Status post washout by orthopedic surgery on 04/05 -Continue IV antibiotics -follow wound cultures (15) Left ankle pain: Appears to have suffered an ankle sprain with edema, ecchymosis, warmth, tenderness Seeded with bacteria and now with septic joint Xrays neg for fractures Appreciate orthopedics consultation-now status post washout of joint on 04/05 -Continue IV antibiotics and follow intraoperative cultures (16) Hyperglycemia: glucose elevated, no known h/o DMII accuchecks, SSI -check [id number] pending (17) Systolic CHF, acute: ECHO here found to have left ventricular global hypokinesis and severely reduce LV function at 25% Cardiology has reviewed his outpatient records from his primary cytometry technologist at [facility]-he was noted to have an EF of 20% several years ago and had a nonobstructive cardiac catheterization indicating a diagnosis of nonischemic cardiomyopathy. He then had a repeat echocardiogram in the last couple of years which showed recovery of his EF to 50% Now with again severely reduced LV function COuld be tachyarrhythmia-induced from Afib, could be Alcohol-induced CM? -no volume overload at this time -Continue holding home Coreg, lisinopril, lasix -Appreciate cardio consult With cardiogenic shock as above (18) Alcohol dependence: known to drink 1/2 bottle vodka daily, sometimes beer in active withdrawal and was on a phenobarbital IV taper with PRN Ativan -Now converted to IV Versed after he is sedated mechanically ventilated -Continue IV thiamine, Folate (19) Hypertension: Hold Coreg, lisinopril, Lasix in setting of hypotension (20) Hypernatremia: Sodium significantly elevated today at 154 He has been receiving isotonic solution-discussed with non morse intercept technician-we will continue isotonic solution in the setting of brain bleeding to prevent cerebral edema -Follow BMP (21) Mucoid impaction of bronchi: Status post bronchoscopy with lavage -Remains on ventilator (22) Nonischemic cardiomyopathy: As above (23) Septic arthritis: As above (24) Abnormal head CT: With left temporal hypodensity seen on CT of the head Possibility of septic emboli to the brain or mycotic aneurysm needs GIANFRANCO when stable -Needs brain MRI and will get MRI of the spine as well-ordered and awaiting stability (25) Anemia: Acute blood loss anemia from GI bleed as above (26) CKD (chronic kidney disease) stage 3, GFR 30-59 ml/min: as above, baseline candles pourer 2.0 -avoid nephrotoxins -renally dose meds (27) Chronic anticoagulation: on Eliquis for Afib -holding for GIB and SDH Would NOT EVER restart AC on this pt given h/o serious bleeding and alcohol a buse, multiple falls (28) COPD (chronic obstructive pulmonary disease): Patient with history of COPD. With acute hypoxic respiratory failure, Wheezing on exam on admission, now ventilated as above -Duo nebs as needed -Albuterol as needed -Supplemental oxygen as needed to maintain saturation of 88 to 94% (29) Hyperbilirubinemia: mildly high at 1.4 secondary to EtOH use and now decreasing -follow LFTs (30) Hypoalbuminemia: severely low at 1.2, secondary to poor nutrition and alcohol abuse -follow -NPO for now due to AMS -Consider initiation of tube feeds if/when comes off vasopressors (31) DVT prophylaxis: SCDs Dispo-remains critically ill in ICU Prognosis is extremely guarded at this time Rug Sample Beveler has discussed his care extensively with the patient's son whom he has not had contact with in 13 years but has agreed to be his healthcare power of foundry superintendant. The son has now decided to make him a DNR/DNI in the event of recurrent cardiac arrest Subjective Patient was intubated early this morning for significant encephalopathy to protect his airway. He had a arthrocentesis of the left ankle at the bedside with orthopedics this morning and then later went for a surgical washout of the ankle and aspiration of the left wrist both of which appear to have septic arthritis. He was obtunded when I saw him the first time this morning on the ventilator but was stable. He had also been started on IV amiodarone drip overnight as well as IV propranolol for his rapid atrial fibrillation. Telemetry showed atrial fibrillation with rates improved to the low 100s I saw him again in the evening when there was a CODE BLUE called. He had had a bronchoscopy and shortly afterwards had a PEA arrest. He was treated with cardiopulmonary resuscitation, bicarbonate, epinephrine, Levophed, and vasopressin. He had ROSC and then his blood pressures were low requiring continued vasopressors. I discussed the case at length with the non morse intercept technician both this morning and during and after the CODE BLUE. I also discussed the case with the cytometry technologist in the orthopedic surgeon today. I actively participated in the Jigsaw today Review of Systems Review of Systems: Unobtainable due to reduced consciousness Physical Exam Constitutional: + ill appearing and + mechanically ventilated (And sedated) Eyes: + anicteric sclerae ENMT: Nose: no external nose abnormality ET tube in place Neck: trachea midline, no thyromegaly Respiratory: symmetric chest movement Auscultation: + diminished lung sounds (At bilateral bases); no crackles and no wheezes Cardiovascular: Rate/Rhythm: + tachycardic and + irregularly irregular Heart Sounds: no murmur Extremities: no calf tenderness and no edema Gastrointestinal (Abdomen): Inspection/Auscultation: + abdomen distended (Mildly distended) and + hypoactive bowel sounds; + abdomen abnormal to inspection Percussion/Palpation: abdomen soft and + hernia (Umbilical hernia easily reducible) Musculoskeletal: Extremities: + extremities abnormal to inspection (Left ankle with persistent mild erythema, warmth, ecchymosis; left wrist with edema, mild erythema and fluctuance over the first MCP joint) and no clubbing Skin: + rash (left foot with erythematous macular lesions dorsal foot) Neurologic: Paralyzed and sedated, ventilated Genitourinary: James catheter placed with clear yellow urine draining Results & Data Vital Signs (Past 12 Hours) Vital Signs Temp Pulse Resp BP Pulse Ox 04/05/19 18:49 93 H 16 77 L 04/05/19 15:50 88 101/54 L 04/05/19 15:46 89 92/69 L 04/05/19 15:45 87 90 04/05/19 15:41 85 16 90/70 L 87 L 04/05/19 15:40 83 96/74 L 93 04/05/19 15:37 79 92/73 L 96 04/05/19 15:35 83 95 04/05/19 15:32 84 93/69 L 04/05/19 13:01 87 89/68 L 94 04/05/19 12:29 85 92/69 L 97 04/05/19 12:20 88 16 99 04/05/19 12:00 36.8 C 93 H 98 04/05/19 11:32 93/61 L 96 04/05/19 10:35 97 H 16 96 04/05/19 10:31 107 H 100/75 96 04/05/19 10:01 90 102/59 L 96 04/05/19 09:46 100 H 78/54 L 94 04/05/19 09:43 16 04/05/19 09:32 97 H 90/66 L 100 04/05/19 09:01 103 H 91/66 L 100 04/05/19 09:00 101 H 100 04/05/19 08:46 105 H 111/57 L 100 04/05/19 08:40 123 H 102/68 99 04/05/19 08:36 120 H 70/52 L 100 04/05/19 08:34 112 H 98/77 L 04/05/19 08:25 112 H 16 77/54 L 100 04/05/19 08:21 122 H 3 L 108/77 100 04/05/19 08:19 121 H 0 L 109/88 100 04/05/19 08:16 126 H 0 L 122/77 100 04/05/19 08:13 113 H 9 L 108/79 82 L 04/05/19 08:08 108 H 16 103/65 98 Laboratory Results 04/05/19 04/05/19 04/05/19 Range/Units 18:28 17:44 17:44 WBC (4.8-10.8) K/uL RBC (4.7-6.1) M/uL Hgb (14.0-18.0) g/dL POC Hgb 8.5 L (14.0-18.0) g/dl Hct (42-52) % POC Hct 25 L (42-52) % MCV (80-100) fL MCH (25-34) pg MCHC (32-36) g/dL RDW Std Deviation (36.4-46.3) fL RDW Coeff of Quan (11.5-14.5) % Plt Count (130-400) K/uL MPV (7.4-10.4) fL Immature Gran % (Auto) % Neut % (Auto) % Lymph % (Auto) % [place] % (Auto) % Eos % (Auto) % Baso % (Auto) % Immature Gran # (Auto) (0.00-0.02) K/uL Neut # (Auto) (1.4-6.5) K/uL Lymph # (Auto) (1.2-3.4) K/uL [place] # (Auto) (0.11-0.59) K/uL Eos # (Auto) (0-0.5) K/uL Baso # (Auto) (0-0.2) K/uL Absolute Nucleated RBC (0-0) K/uL Nucleated RBC % (auto) % Polychromasia Anisocytosis Target Cells Echinocytes Acanthocytes (Spur) Rouleaux Schistocytes ESR (0-14) mm/hr PT (9.0-12.0) Seconds INR (0.9-1.1) APTT (21.0-31.0) Seconds PTT Ratio Sample Site Art Line POC pH 7.25 L (7.35-7.45) POC pCO2 50 H (35-46) mmHg POC pO2 40 L (80-95) mmHg POC HCO3 22 (19-24) jennifer/L POC Total CO2 24 (24-31) mEq/l POC Base Excess -5.0 (-9-1.8) jennifer/L ABG pH (Temp Correct) 7.289 L (7.35-7.45) ABG pCO2 (Temp Corrct 44 (35-46) mmHg POC ABG pO2 at Pt Temp 32 POC ABG O2 Sat (90-95) % Jimmy Test NA VBG pH (7.36-7.41) VBG pCO2 (38-50) mmHg VBG pO2 mmHg VBG HCO3 mmol/L VBG O2 Saturation % VBG Base Excess mEq/L Barometric Pressure mm/Hg O2 Delivery Device Ventilator POC O2 Rate 16 Minute Ventilation 7.5 Tidal Volume 500 PEEP 5 POC Sodium 149 H (135-144) mEq/L Sodium 154 H (136-145) mmol/L POC Potassium 3.6 (3.3-5.0) mEq/L Potassium 4.0 (3.5-5.1) mmol/L Chloride 118 H (98-107) mmol/L Carbon Dioxide 27 (21-32) mmol/L Anion Gap 9.0 (3-11) BUN 68 H (7-18) mg/dl Creatinine 2.26 H (0.6-1.4) mg/dl Est Cr Clr Drug Dosing 36.7 ml/min Est GFR ( Amer) 34.5 Est GFR (Non-Af Amer) 29.8 BUN/Creatinine Ratio 30.1 H (10-20) Glucose 340 H* (70-99) mg/dl POC Glucose (70-99) Estimat Average Glucose Hemoglobin A1c Lactate 4.5 H* (0.4-2.0) mmol/L Calcium 7.4 L (8.5-10.1) mg/dl Ionized Calcium (1.12-1.32) mmol/L Phosphorus (2.5-4.9) mg/dl Magnesium (1.8-2.4) mg/dl Total Bilirubin 1.0 (0.2-1) mg/dl AST 28 (15-37) U/L ALT 27 (12-78) U/L Alkaline Phosphatase 93 (45-117) U/L C-Reactive Protein (0-0.29) mg/dl Total Protein 5.0 L (6.4-8.2) gm/dl Albumin 1.2 L (3.4-5.0) gm/dl Globulin 3.8 (2.5-4.0) gm/dl Albumin/Globulin Ratio 0.3 L (0.9-2) Beta-Hydroxybutyric Acd 5.45 H (0.2-2.81) mg/dl Synovial Source Synovial Color Synovial Appearance Synovial WBC (0-200) /uL Synovial RBC /uL Synovial Polynuclear % % Synovial Mononuclear % % Random Vancomycin mcg/ml 04/05/19 04/05/19 04/05/19 Range/Units 17:44 17:43 17:36 WBC 13.67 H (4.8-10.8) K/uL RBC 2.98 L (4.7-6.1) M/uL Hgb 8.2 L (14.0-18.0) g/dL POC Hgb (14.0-18.0) g/dl Hct 25.9 L (42-52) % POC Hct (42-52) % MCV 86.9 (80-100) fL MCH 27.5 (25-34) pg MCHC 31.7 L (32-36) g/dL RDW Std Deviation 67.0 H (36.4-46.3) fL RDW Coeff of Quan 21.4 H (11.5-14.5) % Plt Count 366 (130-400) K/uL MPV 9.1 (7.4-10.4) fL Immature Gran % (Auto) 0.6 % Neut % (Auto) 82.9 % Lymph % (Auto) 11.3 % [place] % (Auto) 4.5 % Eos % (Auto) 0.6 % Baso % (Auto) 0.1 % Immature Gran # (Auto) 0.08 H (0.00-0.02) K/uL Neut # (Auto) 11.34 H (1.4-6.5) K/uL Lymph # (Auto) 1.55 (1.2-3.4) K/uL [place] # (Auto) 0.61 H (0.11-0.59) K/uL Eos # (Auto) 0.08 (0-0.5) K/uL Baso # (Auto) 0.01 (0-0.2) K/uL Absolute Nucleated RBC 0.05 H (0-0) K/uL Nucleated RBC % (auto) 0.4 % Polychromasia Anisocytosis Present Target Cells 1+ Echinocytes 1+ Acanthocytes (Spur) 1+ Rouleaux Schistocytes 1+ ESR (0-14) mm/hr PT (9.0-12.0) Seconds INR (0.9-1.1) APTT (21.0-31.0) Seconds PTT Ratio Sample Site POC pH (7.35-7.45) POC pCO2 (35-46) mmHg POC pO2 (80-95) mmHg POC HCO3 (19-24) jennifer/L POC Total CO2 (24-31) mEq/l POC Base Excess (-9-1.8) jennifer/L ABG pH (Temp Correct) (7.35-7.45) ABG pCO2 (Temp Corrct (35-46) mmHg POC ABG pO2 at Pt Temp POC ABG O2 Sat (90-95) % Jimmy Test VBG pH (7.36-7.41) VBG pCO2 (38-50) mmHg VBG pO2 mmHg VBG HCO3 mmol/L VBG O2 Saturation % VBG Base Excess mEq/L Barometric Pressure mm/Hg O2 Delivery Device POC O2 Rate Minute Ventilation Tidal Volume PEEP POC Sodium (135-144) mEq/L Sodium (136-145) mmol/L POC Potassium (3.3-5.0) mEq/L Potassium (3.5-5.1) mmol/L Chloride (98-107) mmol/L Carbon Dioxide (21-32) mmol/L Anion Gap (3-11) BUN (7-18) mg/dl Creatinine (0.6-1.4) mg/dl Est Cr Clr Drug Dosing ml/min Est GFR ( Amer) Est GFR (Non-Af Amer) BUN/Creatinine Ratio (10-20) Glucose (70-99) mg/dl POC Glucose 141 H (70-99) Estimat Average Glucose Hemoglobin A1c Lactate (0.4-2.0) mmol/L Calcium (8.5-10.1) mg/dl Ionized Calcium 1.07 L (1.12-1.32) mmol/L Phosphorus (2.5-4.9) mg/dl Magnesium (1.8-2.4) mg/dl Total Bilirubin (0.2-1) mg/dl AST (15-37) U/L ALT (12-78) U/L Alkaline Phosphatase (45-117) U/L C-Reactive Protein (0-0.29) mg/dl Total Protein (6.4-8.2) gm/dl Albumin (3.4-5.0) gm/dl Globulin (2.5-4.0) gm/dl Albumin/Globulin Ratio (0.9-2) Beta-Hydroxybutyric Acd (0.2-2.81) mg/dl Synovial Source Synovial Color Synovial Appearance Synovial WBC (0-200) /uL Synovial RBC /uL Synovial Polynuclear % % Synovial Mononuclear % % Random Vancomycin mcg/ml 04/05/19 04/05/19 04/05/19 Range/Units 12:13 12:11 10:35 WBC (4.8-10.8) K/uL RBC (4.7-6.1) M/uL Hgb (14.0-18.0) g/dL POC Hgb (14.0-18.0) g/dl Hct (42-52) % POC Hct (42-52) % MCV (80-100) fL MCH (25-34) pg MCHC (32-36) g/dL RDW Std Deviation (36.4-46.3) fL RDW Coeff of Quan (11.5-14.5) % Plt Count (130-400) K/uL MPV (7.4-10.4) fL Immature Gran % (Auto) % Neut % (Auto) % Lymph % (Auto) % [place] % (Auto) % Eos % (Auto) % Baso % (Auto) % Immature Gran # (Auto) (0.00-0.02) K/uL Neut # (Auto) (1.4-6.5) K/uL Lymph # (Auto) (1.2-3.4) K/uL [place] # (Auto) (0.11-0.59) K/uL Eos # (Auto) (0-0.5) K/uL Baso # (Auto) (0-0.2) K/uL Absolute Nucleated RBC (0-0) K/uL Nucleated RBC % (auto) % Polychromasia Anisocytosis Target Cells Echinocytes Acanthocytes (Spur) Rouleaux Schistocytes ESR (0-14) mm/hr PT (9.0-12.0) Seconds INR (0.9-1.1) APTT (21.0-31.0) Seconds PTT Ratio Sample Site R Radial POC pH 7.36 (7.35-7.45) POC pCO2 36 (35-46) mmHg POC pO2 74 L (80-95) mmHg POC HCO3 20 (19-24) jennifer/L POC Total CO2 21 L (24-31) mEq/l POC Base Excess -6.0 (-9-1.8) jennifer/L ABG pH (Temp Correct) 7.362 (7.35-7.45) ABG pCO2 (Temp Corrct 35 (35-46) mmHg POC ABG pO2 at Pt Temp 72 POC ABG O2 Sat 94.0 (90-95) % Jimmy Test Pass VBG pH (7.36-7.41) VBG pCO2 (38-50) mmHg VBG pO2 mmHg VBG HCO3 mmol/L VBG O2 Saturation % VBG Base Excess mEq/L Barometric Pressure mm/Hg O2 Delivery Device Ventilator POC O2 Rate 16 Minute Ventilation 7.3 Tidal Volume 500 PEEP 5 POC Sodium (135-144) mEq/L Sodium (136-145) mmol/L POC Potassium (3.3-5.0) mEq/L Potassium (3.5-5.1) mmol/L Chloride (98-107) mmol/L Carbon Dioxide (21-32) mmol/L Anion Gap (3-11) BUN (7-18) mg/dl Creatinine (0.6-1.4) mg/dl Est Cr Clr Drug Dosing ml/min Est GFR ( Amer) Est GFR (Non-Af Amer) BUN/Creatinine Ratio (10-20) Glucose (70-99) mg/dl POC Glucose 152 H (70-99) Estimat Average Glucose Hemoglobin A1c Lactate (0.4-2.0) mmol/L Calcium (8.5-10.1) mg/dl Ionized Calcium (1.12-1.32) mmol/L Phosphorus (2.5-4.9) mg/dl Magnesium (1.8-2.4) mg/dl Total Bilirubin (0.2-1) mg/dl AST (15-37) U/L ALT (12-78) U/L Alkaline Phosphatase (45-117) U/L C-Reactive Protein (0-0.29) mg/dl Total Protein (6.4-8.2) gm/dl Albumin (3.4-5.0) gm/dl Globulin (2.5-4.0) gm/dl Albumin/Globulin Ratio (0.9-2) Beta-Hydroxybutyric Acd (0.2-2.81) mg/dl Synovial Source LEFT ANKLE Synovial Color STRAW Synovial Appearance TURBID Synovial WBC 95228 H (0-200) /uL Synovial RBC 365131 /uL Synovial Polynuclear % 87.8 % Synovial Mononuclear % 12.2 % Random Vancomycin mcg/ml 04/05/19 04/05/19 04/05/19 Range/Units 05:50 03:55 03:55 WBC (4.8-10.8) K/uL RBC (4.7-6.1) M/uL Hgb (14.0-18.0) g/dL POC Hgb (14.0-18.0) g/dl Hct (42-52) % POC Hct (42-52) % MCV (80-100) fL MCH (25-34) pg MCHC (32-36) g/dL RDW Std Deviation (36.4-46.3) fL RDW Coeff of Quan (11.5-14.5) % Plt Count (130-400) K/uL MPV (7.4-10.4) fL Immature Gran % (Auto) % Neut % (Auto) % Lymph % (Auto) % [place] % (Auto) % Eos % (Auto) % Baso % (Auto) % Immature Gran # (Auto) (0.00-0.02) K/uL Neut # (Auto) (1.4-6.5) K/uL Lymph # (Auto) (1.2-3.4) K/uL [place] # (Auto) (0.11-0.59) K/uL Eos # (Auto) (0-0.5) K/uL Baso # (Auto) (0-0.2) K/uL Absolute Nucleated RBC (0-0) K/uL Nucleated RBC % (auto) % Polychromasia Anisocytosis Target Cells Echinocytes Acanthocytes (Spur) Rouleaux Schistocytes ESR 50 H (0-14) mm/hr PT (9.0-12.0) Seconds INR (0.9-1.1) APTT (21.0-31.0) Seconds PTT Ratio Sample Site POC pH (7.35-7.45) POC pCO2 (35-46) mmHg POC pO2 (80-95) mmHg POC HCO3 (19-24) jennifer/L POC Total CO2 (24-31) mEq/l POC Base Excess (-9-1.8) jennifer/L ABG pH (Temp Correct) (7.35-7.45) ABG pCO2 (Temp Corrct (35-46) mmHg POC ABG pO2 at Pt Temp POC ABG O2 Sat (90-95) % Jimmy Test VBG pH (7.36-7.41) VBG pCO2 (38-50) mmHg VBG pO2 mmHg VBG HCO3 mmol/L VBG O2 Saturation % VBG Base Excess mEq/L Barometric Pressure mm/Hg O2 Delivery Device POC O2 Rate Minute Ventilation Tidal Volume PEEP POC Sodium (135-144) mEq/L Sodium (136-145) mmol/L POC Potassium (3.3-5.0) mEq/L Potassium (3.5-5.1) mmol/L Chloride (98-107) mmol/L Carbon Dioxide (21-32) mmol/L Anion Gap (3-11) BUN (7-18) mg/dl Creatinine (0.6-1.4) mg/dl Est Cr Clr Drug Dosing ml/min Est GFR ( Amer) Est GFR (Non-Af Amer) BUN/Creatinine Ratio (10-20) Glucose (70-99) mg/dl POC Glucose 116 H (70-99) Estimat Average Glucose Hemoglobin A1c Lactate (0.4-2.0) mmol/L Calcium (8.5-10.1) mg/dl Ionized Calcium (1.12-1.32) mmol/L Phosphorus (2.5-4.9) mg/dl Magnesium (1.8-2.4) mg/dl Total Bilirubin (0.2-1) mg/dl AST (15-37) U/L ALT (12-78) U/L Alkaline Phosphatase (45-117) U/L C-Reactive Protein 21.20 H (0-0.29) mg/dl Total Protein (6.4-8.2) gm/dl Albumin (3.4-5.0) gm/dl Globulin (2.5-4.0) gm/dl Albumin/Globulin Ratio (0.9-2) Beta-Hydroxybutyric Acd (0.2-2.81) mg/dl Synovial Source Synovial Color Synovial Appearance Synovial WBC (0-200) /uL Synovial RBC /uL Synovial Polynuclear % % Synovial Mononuclear % % Random Vancomycin mcg/ml 04/05/19 04/05/1919 Range/Units 03:55 03:55 03:55 WBC (4.8-10.8) K/uL RBC (4.7-6.1) M/uL Hgb (14.0-18.0) g/dL POC Hgb (14.0-18.0) g/dl Hct (42-52) % POC Hct (42-52) % MCV (80-100) fL MCH (25-34) pg MCHC (32-36) g/dL RDW Std Deviation (36.4-46.3) fL RDW Coeff of Quan (11.5-14.5) % Plt Count (130-400) K/uL MPV (7.4-10.4) fL Immature Gran % (Auto) % Neut % (Auto) % Lymph % (Auto) % [place] % (Auto) % Eos % (Auto) % Baso % (Auto) % Immature Gran # (Auto) (0.00-0.02) K/uL Neut # (Auto) (1.4-6.5) K/uL Lymph # (Auto) (1.2-3.4) K/uL [place] # (Auto) (0.11-0.59) K/uL Eos # (Auto) (0-0.5) K/uL Baso # (Auto) (0-0.2) K/uL Absolute Nucleated RBC (0-0) K/uL Nucleated RBC % (auto) % Polychromasia Anisocytosis Target Cells Echinocytes Acanthocytes (Spur) Rouleaux Schistocytes ESR (0-14) mm/hr PT (9.0-12.0) Seconds INR (0.9-1.1) APTT (21.0-31.0) Seconds PTT Ratio Sample Site POC pH (7.35-7.45) POC pCO2 (35-46) mmHg POC pO2 (80-95) mmHg POC HCO3 (19-24) jennifer/L POC Total CO2 (24-31) mEq/l POC Base Excess (-9-1.8) jennifer/L ABG pH (Temp Correct) (7.35-7.45) ABG pCO2 (Temp Corrct (35-46) mmHg POC ABG pO2 at Pt Temp POC ABG O2 Sat (90-95) % Jimmy Test VBG pH (7.36-7.41) VBG pCO2 (38-50) mmHg VBG pO2 mmHg VBG HCO3 mmol/L VBG O2 Saturation % VBG Base Excess mEq/L Barometric Pressure mm/Hg O2 Delivery Device POC O2 Rate Minute Ventilation Tidal Volume PEEP POC Sodium (135-144) mEq/L Sodium 150 H (136-145) mmol/L POC Potassium (3.3-5.0) mEq/L Potassium 4.0 (3.5-5.1) mmol/L Chloride 121 H (98-107) mmol/L Carbon Dioxide 26 (21-32) mmol/L Anion Gap 3.0 (3-11) BUN 75 H (7-18) mg/dl Creatinine 2.48 H D (0.6-1.4) mg/dl Est Cr Clr Drug Dosing 33.5 ml/min Est GFR ( Amer) 30.8 Est GFR (Non-Af Amer) 26.6 BUN/Creatinine Ratio 30.1 H (10-20) Glucose 127 H (70-99) mg/dl POC Glucose (70-99) Estimat Average Glucose Pending Hemoglobin A1c Pending Lactate (0.4-2.0) mmol/L Calcium 7.9 L (8.5-10.1) mg/dl Ionized Calcium (1.12-1.32) mmol/L Phosphorus 3.4 (2.5-4.9) mg/dl Magnesium 1.9 (1.8-2.4) mg/dl Total Bilirubin 1.1 H (0.2-1) mg/dl AST 25 (15-37) U/L ALT 27 (12-78) U/L Alkaline Phosphatase 88 (45-117) U/L C-Reactive Protein (0-0.29) mg/dl Total Protein 5.5 L (6.4-8.2) gm/dl Albumin 1.5 L (3.4-5.0) gm/dl Globulin 4.0 (2.5-4.0) gm/dl Albumin/Globulin Ratio 0.4 L (0.9-2) Beta-Hydroxybutyric Acd (0.2-2.81) mg/dl Synovial Source Synovial Color Synovial Appearance Synovial WBC (0-200) /uL Synovial RBC /uL Synovial Polynuclear % % Synovial Mononuclear % % Random Vancomycin 24.8 mcg/ml 09/01/19 09/01/19 08/31/19 Range/Units 03:55 03:55 23:36 WBC 9.45 (4.8-10.8) K/uL RBC 2.97 L (4.7-6.1) M/uL Hgb 8.1 L (14.0-18.0) g/dL POC Hgb (14.0-18.0) g/dl Hct 25.7 L (42-52) % POC Hct (42-52) % MCV 86.5 (80-100) fL MCH 27.3 (25-34) pg MCHC 31.5 L (32-36) g/dL RDW Std Deviation 66.9 H (36.4-46.3) fL RDW Coeff of Quan 21.2 H (11.5-14.5) % Plt Count 321 (130-400) K/uL MPV 8.9 (7.4-10.4) fL Immature Gran % (Auto) 0.3 % Neut % (Auto) 89.5 % Lymph % (Auto) 6.0 % [place] % (Auto) 4.0 % Eos % (Auto) 0.2 % Baso % (Auto) 0.0 % Immature Gran # (Auto) 0.03 H (0.00-0.02) K/uL Neut # (Auto) 8.45 H (1.4-6.5) K/uL Lymph # (Auto) 0.57 L (1.2-3.4) K/uL [place] # (Auto) 0.38 (0.11-0.59) K/uL Eos # (Auto) 0.02 (0-0.5) K/uL Baso # (Auto) 0.00 (0-0.2) K/uL Absolute Nucleated RBC 0.05 H (0-0) K/uL Nucleated RBC % (auto) 0.5 % Polychromasia 1+ Anisocytosis Present Target Cells 1+ Echinocytes 1+ Acanthocytes (Spur) Rouleaux 1+ Schistocytes ESR (0-14) mm/hr PT 12.3 H (9.0-12.0) Seconds INR 1.2 H (0.9-1.1) APTT 32.0 H (21.0-31.0) Seconds PTT Ratio 1.2 Sample Site POC pH (7.35-7.45) POC pCO2 (35-46) mmHg POC pO2 (80-95) mmHg POC HCO3 (19-24) jennifer/L POC Total CO2 (24-31) mEq/l POC Base Excess (-9-1.8) jennifer/L ABG pH (Temp Correct) (7.35-7.45) ABG pCO2 (Temp Corrct (35-46) mmHg POC ABG pO2 at Pt Temp POC ABG O2 Sat (90-95) % Jimmy Test VBG pH (7.36-7.41) VBG pCO2 (38-50) mmHg VBG pO2 mmHg VBG HCO3 mmol/L VBG O2 Saturation % VBG Base Excess mEq/L Barometric Pressure mm/Hg O2 Delivery Device POC O2 Rate Minute Ventilation Tidal Volume PEEP POC Sodium (135-144) mEq/L Sodium (136-145) mmol/L POC Potassium (3.3-5.0) mEq/L Potassium (3.5-5.1) mmol/L Chloride (98-107) mmol/L Carbon Dioxide (21-32) mmol/L Anion Gap (3-11) BUN (7-18) mg/dl Creatinine (0.6-1.4) mg/dl Est Cr Clr Drug Dosing ml/min Est GFR ( Amer) Est GFR (Non-Af Amer) BUN/Creatinine Ratio (10-20) Glucose (70-99) mg/dl POC Glucose 138 H (70-99) Estimat Average Glucose Hemoglobin A1c Lactate (0.4-2.0) mmol/L Calcium (8.5-10.1) mg/dl Ionized Calcium (1.12-1.32) mmol/L Phosphorus (2.5-4.9) mg/dl Magnesium (1.8-2.4) mg/dl Total Bilirubin (0.2-1) mg/dl AST (15-37) U/L ALT (12-78) U/L Alkaline Phosphatase (45-117) U/L C-Reactive Protein (0-0.29) mg/dl Total Protein (6.4-8.2) gm/dl Albumin (3.4-5.0) gm/dl Globulin (2.5-4.0) gm/dl Albumin/Globulin Ratio (0.9-2) Beta-Hydroxybutyric Acd (0.2-2.81) mg/dl Synovial Source Synovial Color Synovial Appearance Synovial WBC (0-200) /uL Synovial RBC /uL Synovial Polynuclear % % Synovial Mononuclear % % Random Vancomycin mcg/ml 04/04/19 04/04/19 Range/Units 19:58 19:58 WBC (4.8-10.8) K/uL RBC (4.7-6.1) M/uL Hgb (14.0-18.0) g/dL POC Hgb (14.0-18.0) g/dl Hct (42-52) % POC Hct (42-52) % MCV (80-100) fL MCH (25-34) pg MCHC (32-36) g/dL RDW Std Deviation (36.4-46.3) fL RDW Coeff of Quan (11.5-14.5) % Plt Count (130-400) K/uL MPV (7.4-10.4) fL Immature Gran % (Auto) % Neut % (Auto) % Lymph % (Auto) % [place] % (Auto) % Eos % (Auto) % Baso % (Auto) % Immature Gran # (Auto) (0.00-0.02) K/uL Neut # (Auto) (1.4-6.5) K/uL Lymph # (Auto) (1.2-3.4) K/uL [place] # (Auto) (0.11-0.59) K/uL Eos # (Auto) (0-0.5) K/uL Baso # (Auto) (0-0.2) K/uL Absolute Nucleated RBC (0-0) K/uL Nucleated RBC % (auto) % Polychromasia Anisocytosis Target Cells Echinocytes Acanthocytes (Spur) Rouleaux Schistocytes ESR (0-14) mm/hr PT (9.0-12.0) Seconds INR (0.9-1.1) APTT (21.0-31.0) Seconds PTT Ratio Sample Site POC pH (7.35-7.45) POC pCO2 (35-46) mmHg POC pO2 (80-95) mmHg POC HCO3 (19-24) jennifer/L POC Total CO2 (24-31) mEq/l POC Base Excess (-9-1.8) jennifer/L ABG pH (Temp Correct) (7.35-7.45) ABG pCO2 (Temp Corrct (35-46) mmHg POC ABG pO2 at Pt Temp POC ABG O2 Sat (90-95) % Jimmy Test VBG pH 7.35 L (7.36-7.41) VBG pCO2 42 (38-50) mmHg VBG pO2 30 mmHg VBG HCO3 23 mmol/L VBG O2 Saturation < 60.0 % VBG Base Excess -3.0 mEq/L Barometric Pressure 738.6 mm/Hg O2 Delivery Device POC O2 Rate Minute Ventilation Tidal Volume PEEP POC Sodium (135-144) mEq/L Sodium (136-145) mmol/L POC Potassium (3.3-5.0) mEq/L Potassium (3.5-5.1) mmol/L Chloride (98-107) mmol/L Carbon Dioxide (21-32) mmol/L Anion Gap (3-11) BUN (7-18) mg/dl Creatinine (0.6-1.4) mg/dl Est Cr Clr Drug Dosing ml/min Est GFR ( Amer) Est GFR (Non-Af Amer) BUN/Creatinine Ratio (10-20) Glucose (70-99) mg/dl POC Glucose (70-99) Estimat Average Glucose Hemoglobin A1c Lactate (0.4-2.0) mmol/L Calcium (8.5-10.1) mg/dl Ionized Calcium 1.11 L (1.12-1.32) mmol/L Phosphorus (2.5-4.9) mg/dl Magnesium (1.8-2.4) mg/dl Total Bilirubin (0.2-1) mg/dl AST (15-37) U/L ALT (12-78) U/L Alkaline Phosphatase (45-117) U/L C-Reactive Protein (0-0.29) mg/dl Total Protein (6.4-8.2) gm/dl Albumin (3.4-5.0) gm/dl Globulin (2.5-4.0) gm/dl Albumin/Globulin Ratio (0.9-2) Beta-Hydroxybutyric Acd (0.2-2.81) mg/dl Synovial Source Synovial Color Synovial Appearance Synovial WBC (0-200) /uL Synovial RBC /uL Synovial Polynuclear % % Synovial Mononuclear % % Random Vancomycin mcg/ml PG Care Time/CCT Total # of Minutes Spent Total Time Spent with Patient: Total time spent is greater than 50% in coordination of care (as documented) at patient's floor/unit and/or counseling patient: Critical Care Time: Yes Total Critical Care Time: 90 I have personally spent 90 minutes of critical care time in the direct management of this patient. This is a life/limb threatening event. This includes time spent evaluating patient, direct bedside care, chart review, placing orders, interpretation of diagnostic studies, discussion with consultants, patient, and/or family members regarding treatment decisions, as well as other required patient management activities. This time is exclusive of all separately billable procedures, and teaching time and separate from and in addition to any other critical care service time. (1) Hypotension Hypotension type: unspecified hypotension type Qualified Code(s): I95.9 - Hypotension, unspecified (2) Anemia Anemia type: unspecified type Qualified Code(s): D64.9 - Anemia, unspecified
--- NOTE | 2019-04-05 19:51 | Procedure Note ---
Procedure Note Date of Service April 05, 2019 March 04, 2019 Procedure date: Noted above Procedure: Cardiopulmonary resuscitation Pre-procedure Diagnosis: CODE BLUE, cardiac arrest Post-procedure Diagnosis: same as above Prior to Procedure: Informed Consent: Emergent Attending Staff: Wyatt Cooley DO Please refer to nursing code flowsheet for further details Description of Procedure: ACS protocols were followed for a pulseless electrical activity. Initially it was noted on bedside monitor some narrow complex systoles were not transmitting via the arterial waveform. The patient subsequently had 2 PEA arrests which required CPR please refer to the code sheet for further details. There was return of spontaneous circulation and the patient is currently on additional vasoactive medications. Limited bedside ultrasound demonstrated minimal squeeze in the left ventricle with dilatation. The right ventricle appeared to have adequate ejection fraction and contractility. Complications: None apparent Coding CPT Codes Resuscitation - Resuscitation: Heart/lung resuscitation CPR ([id number])
--- NOTE | 2019-04-05 19:54 | Procedure Note ---
Procedure Note Date of Service April 05, 2019 Procedure date: Noted above Procedure: fiberoptic bronchoscopy Pre-procedure indication: Total whiteout of left lung Post-procedure Diagnosis: same as above Prior to Procedure: Informed Consent: The risks, benefits, indications, potential complications, and alternatives were explained to the patient's son and telephone consent was obtained. Attending Staff: Wyatt Cooley DO Resident/APC: Not applicable Skin Prep: Not applicable Anesthesia: Continuous infusion The identity of the patient was confirmed and a bedside time out was performed. Description of Procedure: Fiberoptic bronchoscopy was performed via endotracheal tube. Bronchioalveolar lavage left upper and left lower lobes was performed. Findings included: Clear mucus was suctioned without evidence of purulence. Complications: None Specimens: Not applicable Estimated blood loss: Zero Coding CPT Codes Pulmonary/Thoracic - Pulmonary and Thoracic: Bronchoscopy, clear airways ([id number])
[2019-04-05 19:55] LABS: iSTAT Art Bld Gas pCO2 Correct 45 mmHg (35-46); iSTAT Art Bld Gas pH Corrected 7.281 (7.35-7.45); iSTAT Arterial Blood Gas HCO3 21 meg/L (19-24); iSTAT Arterial Blood Gas pCO2 46 mmHg (35-46); iSTAT Arterial Blood Gas pH 7.27 (7.35-7.45); iSTAT Carbon Dioxide 23 mEq/l (24-31); iSTAT Hematocrit 27 % (42-52); iSTAT Hemoglobin 9.2 g/dl (14.0-18.0); iSTAT Potassium 3.7 mEq/L (3.3-5.0); iSTAT Site Art Line; iSTAT Sodium 149 mEq/L (135-144)
--- NOTE | 2019-04-05 20:38 | XRay Report ---
XR chest 1V portable HISTORY: hypoxia COMPARISON: Chest 04/05/2019. No pneumothorax. Improved aeration within the left lung with interval imp rovement in the mediastinal shift. Left basilar density remains. There is mild central pulmonary vasc ular congestion without overt edema. Suspect small bilateral pleural effusions. Nasogastric tube term inates in the stomach. Endotracheal tube terminates approximately 3.5 cm from the radha. Right jugul ar central venous catheter terminates at the SVC. FINDINGS: The lungs are clear. Cardiac silhouette is normal in size. No pleural effusions. No pneumot horax. IMPRESSION: 1. Interval improvement in the left lung airspace opacity and mediastinal shift. This favors resolvin g atelectasis. A small left basilar density persists. 2. Small bilateral pleural effusions and mild congestive change are noted. 3. Satisfactory support line placement. Electronically signed by: Connor Lewis M.D. 04/05/2019 8:37 PM
[2019-04-05] MEDS ORDERED: APIXABAN 5 MG TABLET PO SCH (21:00)
[2019-04-05] MEDS ORDERED: DOCUSATE SODIUM 100 MG CAP PO SCH (21:00)
[2019-04-05] MEDS ORDERED: CARVEDILOL 25 MG TAB PO SCH (21:00)
[2019-04-05] MEDS ORDERED: PHENobarbital 32.4 MG TAB PO SCH (21:00)
[2019-04-05] MEDS ORDERED: SENNA 8.6 MG TAB PO SCH (21:00)
[2019-04-05] MEDS: NOREPINEPHRINE BIT INJ 16 MG in DEXTROSE 5% 500 ML IV SCH (22:28)
[2019-04-05 22:45] LABS: HCO3 ABG 21 mmol/L (19-24); Oxygen Saturation ABG 94.2 % (90-95); PCO2 ABG 45 mmHg (35-46); PO2 ABG 83 mm/Hg (80-95); pH ABG 7.28 (7.35-7.45)
[2019-04-05 22:54] LABS: Allen Test POS (Pos)
[2019-04-06] MEDS: INSULIN ASPART 100 UNITS/ML 3 ML PEN SC SCH ×4 (00:28→18:42)
[2019-04-06 02:32] LABS: Basophils # (auto) 0.01 K/uL (0-0.2); Basophils % (auto) 0.1 %; Eosinophils # (auto) 0.05 K/uL (0-0.5); Eosinophils % (auto) 0.4 %; Hematocrit (blood only) 28.3 % (42-52); Hemoglobin 8.8 g/dL (14.0-18.0); Immature Granulocytes # (auto) 0.06 K/uL (0.00-0.02); Immature Granulocytes % (auto) 0.5 %; Lymphocytes # (auto) 0.65 K/uL (1.2-3.4); Lymphocytes % (auto) 5.6 %; Mean Corpuscular Hgb Conc 31.1 g/dL (32-36); Mean Corpuscular Volume 86.5 fL (80-100); Monocytes # (auto) 0.56 K/uL (0.11-0.59); Monocytes % (auto) 4.8 %; Neutrophils # (auto) 10.23 K/uL (1.4-6.5); Neutrophils % (auto) 88.6 %; Nucleated RBC # (auto) 0.12 K/uL (0-0); Platelet Count 392 K/uL (130-400); RDW Coefficient of Variation 21.2 % (11.5-14.5); RDW Standard Deviation 66.8 fL (36.4-46.3); Red Blood Count 3.27 M/uL (4.7-6.1); White Blood Count 11.56 K/uL (4.8-10.8)
[2019-04-06 02:43] LABS: INR 1.3 (0.9-1.1); Partial Thromboplastin Ratio 1.2; Prothrombin Time 13.1 Seconds (9.0-12.0)
[2019-04-06 02:52] LABS: Albumin Level 1.4 gm/dl (3.4-5.0); BUN Creatinine Ratio 29.3 (10-20); Bilirubin Direct 0.8 mg/dl (0-0.2); Calcium 8.2 mg/dl (8.5-10.1); Creatinine Clr Calc Pharmacy 33.2 ml/min; Est GFR (African American) 30.5; Est GFR (Non-African American) 26.3; Magnesium 2.1 mg/dl (1.8-2.4); Potassium 4.2 mmol/L (3.5-5.1)
[2019-04-06 02:58] LABS: Albumin Globulin Ratio 0.3 (0.9-2); Bilirubin,Total 1.3 mg/dl (0.2-1); Globulin 4.4 gm/dl (2.5-4.0); Phosphorus 4.4 mg/dl (2.5-4.9); Total Protein 5.8 gm/dl (6.4-8.2)
[2019-04-06 03:13] LABS: Acanthocytes 1+; Anisocytosis Present; Dohle Bodies 1+; Echinocytes 1+; Toxic Granulation 1+
[2019-04-06] MEDS: NOREPINEPHRINE BIT INJ 16 MG in DEXTROSE 5% 500 ML IV SCH ×5 (05:04→19:19)
--- NOTE | 2019-04-06 05:34 | Critical Care Progress Note ---
Date of Service April 06, 2019 Assessment & Plan (1) CKD (chronic kidney disease) stage 3, GFR 30-59 ml/min: Reason Critically Ill: Acute blood loss anemia suspect 2/2 AGIB, AMS w/ MRSA bacteremia and septic arthritis with concern for endocarditis PLAN: Neuro: AMS 2/2 Acute Encephalopathy - Sepsis +/- alcohol withdrawal and chronic subdural hematomas - Midazolam drip Bilateral subdural hematoma Serial CT, hematoma with maximum transverse dimension of 5 mm and without significant midline shift. -Holding systemic anticoagulation hypodense lesions suspected in the left temporal lobe, chronic subdural hematomas or hygromas, Indeterminate focus of hyperdensity along the falx near the vertex. Trace acute subdural hematoma is not excluded though this could represent a vessel, appearance unchagned from prior. Recommended MRI for further evaluation. - MR Brain/MR for eval of above and ?mycotic aneurysm. 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, History of high alcohol intake - CIWA precautions - 4-8 drinks per day per pt, liquor - Sedated with versed drip as above Resp: Acute hypoxic respiratory failure with L pulmonary whiteout following cardiac arrest - s/p bronchoscopy with wash of mucous plug - ETT in place PRVC 16rr, tv500 / - Adequate SpO2 at this time History of COPD not tolerant of inhalers No home O2 requirement Former tobacco smoker -40 year .5ppd (~20pack/yr hx) -Quit September this year CV: Cardiac Arrest, Code Blue - MRSA 2/2 septic shock - Following ETT prior to MRI yesterday pt acutely decompensated with cardiac arrest. Hypotension 2/2 hypovolemia, sepsis - MRSA bacteremia - Levophed @ .5mcg/kg/hr. - 30% EF + Afib. Abx as below. Tachycardia, history atrial fibrillation - In afib overnight Apixaban held in the setting of acute bleed - Rate control Propranolol IV 1mg x2 given with increased MAP. Addition dose deferred given above pending improvement in preload. Heart failure with reduced ejection fraction -Echo shows reduced ejection fraction of approximately 30 to 35% He is having minimal urine output at this time. Balancing fluid status in the setting of reduced ejection fraction against MRSA bacteremia/sepsis. EDMUNDO as below No diuresis at this time Renal: Acute kidney injury 2/2 prerenal and [place] Creatinine peak 4.56, downtrending to 2.5 but now uptrending with minimal UOP - Discussion with son by phone today. He affirms that his father would not want dialysis performed. Please see Dr. Linares's note's for further. Nonanion Gap Metabolic acidosis Sodium acutely increased to 148, chloride 117 - Volume contracted, free water loss. I: 1.3 with minimal UOP - Normosol 80cc/hr ID: Sepsis 2/2 MRSA Bacteremia - BCx2 positive for GPC MRSA - Repeat BC positive for GPC - +1 bc set - Continue vancomycin daily - L hand and R foot with septic joint s/p washout with fluid positive for MRSA. - High suspicion for endocarditis. GIANFRANCO pending, but given his critical condition and current tx regimen is not appropriate at this time. Perianal/gluteal rash Patient has a diffuse, nontender bilateral rash with central eschar and without vesicles. 3 outside sales account representative lesions unroofed and collected for HSV rapid culture, sample slides sent for pathology/T[place]ck smear. No giant cells, but large amounts of naman teria observed. Continue abx as below. GI/Nutrition: Acute GI bleed Hemoglobin state 8.8 today GI consulted. EGD showed diffuse gastritis with biopsy taken, nonbleeding gastric ulcers, nonbleeding duodenal ulcers, and a normal second and third portion of the duodenum. Per GI ADAT Protonix 40 mg p.o. twice daily for 6 weeks then 40 mg daily, PO conversion and diet currently held in the setting of AMS Repeat upper endoscopy in 3 months Nutrition NPO 2/2 AMS & ETT Heme: Acute blood loss anemia secondary to GI bleed as above Status post 4 units PRBC, 1 unit PCC on admit. Currently stable. Hemoglobin on admit 5.3, delicia to 7.3 with above. Stable at 8.1 this morning -Reticulocytes increased to 4.1 with a reticulate site index of 1.19 adjusting a degree of hypo-proliferation. Endocrine: No history of type 2 diabetes Glucose checks as needed, BMP daily -SSI ICU hyperglycemia protocol Pending A1c DVT prophylaxis: Pharmacal prophylaxis contraindicated, SCDs Vascular access: Peripheral IVs x2, triple-lumen in femoral Goals of Care: His care was discussed with his son who is his medical decision- maker today. His son his son states that his father would not want dialysis in his current condition, and would not want CPR or mechanical ventilation his current condition. Code Status: Full Supervising Physician Co-Signing Physician Notes Case discussed extensively with ICU staff, family practice resident, and the off going stock worker. Electronic medical record was extensively reviewed and imag ings were independently reviewed patient. This unfortunate 63-year-old male has evidence of bacteremia seeding multiple sites. We have been unable to clear the infection up to this point and he is d eveloped multiorgan system failure with organs failing including respiratory, cardiovascular, neurologic, and renal. I discussed with the patient's son, Kenny, the current situation as I believe if we are to be aggressive with the patient's current care he would likely require continuous renal replacement therapy which is not available at this institution and would necessitate transferring him to a higher level of care. Kenny believes that the patient would not want to escalate care beyond what we have done up to this point and believes that we may have actually exceeded his father's wishes by her current interventions. He understands that if we are to intervene with renal replacement therapy, this would need to be initiated sooner rather than later. He states that we should continue to provide the supportive care that we are with pressors, antibiotics and see how he responds. If he deteriorates over the next 24hours, transition to palliative care would be appropriate. The patient is becoming oliguric/and uric and I do not think his kidneys are likely to recover. In addition it is unclear if we have achieved source control of his infections currently. He could have seeded his subdurals or had multiple other areas of bacterial seeding including leptomeninges, spine, spinal disks, other joints, and heart valves. A surface echo was negative. GIANFRANCO has been discussed and may be anticipated tomorrow depending on the patient's clinical course over the next 12 to 24hours. I think the patient's overall prognosis is exceedingly poor and the patient's friends and family of all related that he has always wanted to focus on quality of life and maintaining his independence. They appear to understand that his current situation would likely result in a quality of life that would not be acceptable to him going forward. We will see how he responds over the next 12 to 24 hours and make additional assessments based on his response to therapy. Subjective Unobtainable due to ETT/AMS. Code Blue x2 with ROSC yesterday; see previous note for complete documentation. Per yesterday son is Arnold Mac. He lives in [facility] phone number [phone] he will be acting as his father's medical decision-maker. DNR/DNI at this time/ Review of Systems Review of Systems: Unobtainable due to cognitive status and Unobtainable due to endotracheal tube Physical Exam Physical Exam: General: ETT in place. Appears ill. Sedated. Skin: Warm, moist. HEENT: Atraumatic, normocephalic. No spontaneous eye movement/opening. Pupils equal and reactive to light and accommodation. Mucous membranes moist. Pulm: Global end expiratory wheezes, AIDA/LLL rales. Symmetrical chest rise. ETT in place Cardiac: Irregularly irregular. No JVD. Abdominal: Nontender, nondistended, soft. BS present. Extremities: Warm, well-perfused. PT pulses palpable bilaterally. L foot wrapped in surgical dressing s/p joint tap/washout. R wrist wrapped in surgical dressing s/p joint tap/washout. R foot swollen with mild erythema at hallux. Results & Data Vital Signs (Past 12 Hours) Vital Signs Temp Pulse Pulse Resp BP BP Pulse Ox 04/06/19 04:01 109 H 99/77 L 95 04/06/19 04:00 102 H 95 04/06/19 03:31 115 H 101/79 96 04/06/19 03:01 131 H 94/76 L 95 04/06/19 03:00 119 H 94 04/06/19 02:31 121 H 114/96 94 04/06/19 02:05 122 H 20 99 04/06/19 02:01 116 H 100/76 96 04/06/19 02:00 116 H 100 04/06/19 01:31 114 H 102/77 97 04/06/19 01:01 108 H 86/74 L 98 04/06/19 01:00 120 H 97 04/06/19 00:32 115 H 90/68 L 96 04/06/19 00:01 116 H 93/67 L 99 04/06/19 00:00 118 H 98 04/05/19 23:31 119 H 98/52 L 96 04/05/19 23:01 103 H 94/67 L 97 04/05/19 23:00 100 H 97 04/05/19 22:45 111 H 16 94 04/05/19 22:31 103 H 84/59 L 96 04/05/19 22:02 117 H 98/66 L 95 04/05/19 22:00 110 H 95 04/05/19 21:40 108 H 16 94 04/05/19 21:31 115 H 98/65 L 95 04/05/19 21:01 98 H 97/71 L 04/05/19 21:00 102 H 94 04/05/19 20:31 112 H 97/86 L 97 04/05/19 20:01 94 H 100/80 93 04/05/19 20:00 37.1 C 103 H 108 H 19 113/57 L 93 04/05/19 19:01 96 H 111/77 89 L 04/05/19 19:00 96 H 89 L 04/05/19 18:50 16 04/05/19 18:49 93 H 16 77 L 04/05/19 18:45 95 H 75 L 04/05/19 18:31 102 H 101/67 65 L 04/05/19 18:30 102 H 63 L 04/05/19 18:26 105 H 102/77 79 L 04/05/19 18:21 102 H 102/75 04/05/19 18:16 107 H 101/72 04/05/19 18:15 104 H 04/05/19 18:11 98 H 102/78 81 L 04/05/19 18:06 98 H 100/73 72 L 04/05/19 18:01 102 H 115/88 67 L 04/05/19 18:00 35.9 C L 97 H 87 L 04/05/19 17:56 106 H 112/86 90 04/05/19 17:51 100 H 110/81 74 L 04/05/19 17:47 95 H 126/97 84 L 04/05/19 17:46 98 H 141/100 H 89 L 04/05/19 17:45 99 H 93 04/05/19 17:43 106 H 104/80 96 04/05/19 17:41 95 H 87 L 04/05/19 17:36 106 H PG Care Time/CCT Total # of Minutes Spent Total Time Spent with Patient: Total time spent is greater than 50% in coordination of care (as documented) at patient's floor/unit and/or counseling patient: Critical Care Time: Yes Total Critical Care Time: 76 Resident Activity Tracking Resident Involvement: Resident Care Provided Care Provided: Adult [facility] Medicine
[2019-04-06] MEDS: NORMOSOL-R 1,000 ML IV SCH ×2 (06:23→18:42)
[2019-04-06 06:57] LABS: Estimated Average Glucose 114 mg/dl; Hemoglobin A1C 5.6 % (4.5-5.6)
[2019-04-06] MEDS: ACETAMINOPHEN 1,000 MG/100 ML VIAL IV SCH (08:17)
[2019-04-06] MEDS: BACITRACIN OINT 15 GM TUBE EXT SCH ×2 (08:20→21:13)
[2019-04-06] MEDS: SUCRALFATE 1 GM/10 ML UDC PO SCH ×4 (08:21→21:14)
[2019-04-06] MEDS: PANTOprazole 40 MG in SYRINGE 0 ML IV SCH ×2 (08:27→21:13)
[2019-04-06] MEDS: FOLIC ACID 1 MG in SYRINGE 9.8 ML IV SCH (08:27)
[2019-04-06] MEDS: MIDAZOLAM HCL 125 MG/250 ML BAG IV SCH (08:28)
[2019-04-06] MEDS: THIAMINE HCL 500 MG in SODIUM CHLORIDE 0.9% 50 ML IV SCH ×2 (08:28→21:16)
[2019-04-06] MEDS ORDERED: MULTIVITAMIN TAB PO SCH ×2 (09:00)
[2019-04-06] MEDS ORDERED: FUROSEMIDE 20 MG TAB PO SCH (09:00)
[2019-04-06] MEDS ORDERED: LISINOPRIL 10 MG TAB PO SCH (09:00)
[2019-04-06] MEDS ORDERED: THIAMINE HCL 100 MG in SYRINGE 9 ML IV SCH (09:00)
[2019-04-06] MEDS: CALCIUM CHLORIDE 10% 1,000 MG in SODIUM CHLORIDE 0.9% 50 ML IV SCH ×2 (10:38→10:59)
[2019-04-06] MEDS: ALBUMIN 25% 50 ML IV SCH ×4 (10:41→14:26)
--- NOTE | 2019-04-06 10:44 | Orthopedic Progress Note ---
Date of Service April 06, 2019 Assessment & Plan (1) S/P debridement: ICU hospitalist will continue medical management. Appreciate ID input Will cont to follow while inpatient for necessity of dressing changes to wrist and ankle. If patient does recover, we may need to follow up in clinic, however outlook at this point is unfavorable. Subjective Patient in ICU with several comorbid issued, coded x2 last evening. Unresponsive to any stimuli. Hemovac has no drainage. Dressings on Left wrist and ankle are both clean, dry and intact. Spoke with RN and Hospitalist Dr. Love. ID has been consulted. ICU will cont monitor trough for Vanco administration. Review of Systems Review of Systems: Unobtainable due to endotracheal tube Physical Exam Physical Exam: Dressing on Left wrist and ankle are both clean dry and intact. No drainage in hemovac. JACOBY removed from left wrist and no drainage noted on 4x4's for kerlix. Examined all other joints with no signs of infection. Patient is intubated and unresponsive any type of stimuli. Results & Data Vital Signs (Past 12 Hours) Vital Signs Pulse Resp BP Pulse Ox 04/06/19 07:22 105 H 16 95 04/06/19 07:02 109 H 105/78 94 04/06/19 07:00 117 H 95 04/06/19 06:31 103 H 107/80 97 04/06/19 06:01 105 H 103/84 96 04/06/19 06:00 111 H 95 04/06/19 05:31 117 H 122/91 88 L 04/06/19 05:10 117 H 21 95 04/06/19 05:01 105 H 109/81 96 04/06/19 05:00 118 H 100 04/06/19 04:31 108 H 97/77 L 96 04/06/19 04:01 109 H 99/77 L 95 04/06/19 04:00 102 H 95 04/06/19 03:31 115 H 101/79 96 04/06/19 03:01 131 H 94/76 L 95 04/06/19 03:00 119 H 94 04/06/19 02:31 121 H 114/96 94 04/06/19 02:05 122 H 20 99 04/06/19 02:01 116 H 100/76 96 04/06/19 02:00 116 H 100 04/06/19 01:31 114 H 102/77 97 04/06/19 01:01 108 H 86/74 L 98 04/06/19 01:00 120 H 97 04/06/19 00:32 115 H 90/68 L 96 04/06/19 00:01 116 H 93/67 L 99 04/06/19 00:00 118 H 98 04/05/19 23:31 119 H 98/52 L 96 04/05/19 23:01 103 H 94/67 L 97 04/05/19 23:00 100 H 97 04/05/19 22:45 111 H 16 94 Laboratory Results 04/06/19 04/06/19 04/06/19 Range/Units 10:09 08:15 08:08 WBC (4.8-10.8) K/uL RBC (4.7-6.1) M/uL Hgb (14.0-18.0) g/dL POC Hgb (14.0-18.0) g/dl Hct (42-52) % POC Hct (42-52) % MCV (80-100) fL MCH (25-34) pg MCHC (32-36) g/dL RDW Std Deviation (36.4-46.3) fL RDW Coeff of Quan (11.5-14.5) % Plt Count (130-400) K/uL MPV (7.4-10.4) fL Immature Gran % (Auto) % Neut % (Auto) % Lymph % (Auto) % [place] % (Auto) % Eos % (Auto) % Baso % (Auto) % Immature Gran # (Auto) (0.00-0.02) K/uL Neut # (Auto) (1.4-6.5) K/uL Lymph # (Auto) (1.2-3.4) K/uL [place] # (Auto) (0.11-0.59) K/uL Eos # (Auto) (0-0.5) K/uL Baso # (Auto) (0-0.2) K/uL Absolute Nucleated RBC (0-0) K/uL Nucleated RBC % (auto) % Toxic Granulation Dohle Bodies Anisocytosis Target Cells Echinocytes Acanthocytes (Spur) Schistocytes PT (9.0-12.0) Seconds INR (0.9-1.1) APTT (21.0-31.0) Seconds PTT Ratio Sample Site POC pH (7.35-7.45) POC pCO2 (35-46) mmHg POC pO2 (80-95) mmHg POC HCO3 (19-24) jennifer/L POC Total CO2 (24-31) mEq/l POC Base Excess (-9-1.8) jennifer/L ABG pH (7.35-7.45) ABG pH (Temp Correct) (7.35-7.45) ABG pCO2 (35-46) mmHg ABG pCO2 (Temp Corrct (35-46) mmHg ABG pO2 (80-95) mm/Hg POC ABG pO2 at Pt Temp ABG HCO3 (19-24) mmol/L POC ABG O2 Sat (90-95) % ABG O2 Saturation (90-95) % ABG Base Excess (-9-1.8) mEq/L Jimmy Test Barometric Pressure mm/Hg Oxygen Given O2 Delivery Device POC O2 Rate Minute Ventilation Tidal Volume PEEP POC Sodium (135-144) mEq/L Sodium (136-145) mmol/L POC Potassium (3.3-5.0) mEq/L Potassium (3.5-5.1) mmol/L Chloride (98-107) mmol/L Carbon Dioxide (21-32) mmol/L Anion Gap (3-11) BUN (7-18) mg/dl Creatinine (0.6-1.4) mg/dl Est Cr Clr Drug Dosing ml/min Est GFR ( Amer) Est GFR (Non-Af Amer) BUN/Creatinine Ratio (10-20) Glucose (70-99) mg/dl POC Glucose (70-99) POC Glucose (other) 142 H (70-99) mg/dl Estimat Average Glucose mg/dl Hemoglobin A1c (4.5-5.6) % Lactate (0.4-2.0) mmol/L Calcium (8.5-10.1) mg/dl Ionized Calcium (1.12-1.32) mmol/L Phosphorus (2.5-4.9) mg/dl Magnesium (1.8-2.4) mg/dl Total Bilirubin (0.2-1) mg/dl Direct Bilirubin (0-0.2) mg/dl AST (15-37) U/L ALT (12-78) U/L Alkaline Phosphatase (45-117) U/L Troponin I 0.158 H* (0-0.045) ng/ml Total Protein (6.4-8.2) gm/dl Albumin (3.4-5.0) gm/dl Globulin (2.5-4.0) gm/dl Albumin/Globulin Ratio (0.9-2) Beta-Hydroxybutyric Acd (0.2-2.81) mg/dl Random Cortisol Pending Synovial Source Synovial Color Synovial Appearance Synovial WBC (0-200) /uL Synovial RBC /uL Synovial Polynuclear % % Synovial Mononuclear % % Random Vancomycin mcg/ml 04/06/19 04/06/19 04/06/19 Range/Units 08:08 05:50 02:20 WBC (4.8-10.8) K/uL RBC (4.7-6.1) M/uL Hgb (14.0-18.0) g/dL POC Hgb (14.0-18.0) g/dl Hct (42-52) % POC Hct (42-52) % MCV (80-100) fL MCH (25-34) pg MCHC (32-36) g/dL RDW Std Deviation (36.4-46.3) fL RDW Coeff of Quan (11.5-14.5) % Plt Count (130-400) K/uL MPV (7.4-10.4) fL Immature Gran % (Auto) % Neut % (Auto) % Lymph % (Auto) % [place] % (Auto) % Eos % (Auto) % Baso % (Auto) % Immature Gran # (Auto) (0.00-0.02) K/uL Neut # (Auto) (1.4-6.5) K/uL Lymph # (Auto) (1.2-3.4) K/uL [place] # (Auto) (0.11-0.59) K/uL Eos # (Auto) (0-0.5) K/uL Baso # (Auto) (0-0.2) K/uL Absolute Nucleated RBC (0-0) K/uL Nucleated RBC % (auto) % Toxic Granulation Dohle Bodies Anisocytosis Target Cells Echinocytes Acanthocytes (Spur) Schistocytes PT (9.0-12.0) Seconds INR (0.9-1.1) APTT (21.0-31.0) Seconds PTT Ratio Sample Site POC pH (7.35-7.45) POC pCO2 (35-46) mmHg POC pO2 (80-95) mmHg POC HCO3 (19-24) jennifer/L POC Total CO2 (24-31) mEq/l POC Base Excess (-9-1.8) jennifer/L ABG pH (7.35-7.45) ABG pH (Temp Correct) (7.35-7.45) ABG pCO2 (35-46) mmHg ABG pCO2 (Temp Corrct (35-46) mmHg ABG pO2 (80-95) mm/Hg POC ABG pO2 at Pt Temp ABG HCO3 (19-24) mmol/L POC ABG O2 Sat (90-95) % ABG O2 Saturation (90-95) % ABG Base Excess (-9-1.8) mEq/L Jimmy Test Barometric Pressure mm/Hg Oxygen Given O2 Delivery Device POC O2 Rate Minute Ventilation Tidal Volume PEEP POC Sodium (135-144) mEq/L Sodium (136-145) mmol/L POC Potassium (3.3-5.0) mEq/L Potassium (3.5-5.1) mmol/L Chloride (98-107) mmol/L Carbon Dioxide (21-32) mmol/L Anion Gap (3-11) BUN (7-18) mg/dl Creatinine (0.6-1.4) mg/dl Est Cr Clr Drug Dosing ml/min Est GFR ( Amer) Est GFR (Non-Af Amer) BUN/Creatinine Ratio (10-20) Glucose (70-99) mg/dl POC Glucose (70-99) POC Glucose (other) 142 H (70-99) mg/dl Estimat Average Glucose mg/dl Hemoglobin A1c (4.5-5.6) % Lactate 4.1 H* (0.4-2.0) mmol/L Calcium (8.5-10.1) mg/dl Ionized Calcium (1.12-1.32) mmol/L Phosphorus (2.5-4.9) mg/dl Magnesium (1.8-2.4) mg/dl Total Bilirubin (0.2-1) mg/dl Direct Bilirubin (0-0.2) mg/dl AST (15-37) U/L ALT (12-78) U/L Alkaline Phosphatase (45-117) U/L Troponin I 0.105 H* (0-0.045) ng/ml Total Protein (6.4-8.2) gm/dl Albumin (3.4-5.0) gm/dl Globulin (2.5-4.0) gm/dl Albumin/Globulin Ratio (0.9-2) Beta-Hydroxybutyric Acd (0.2-2.81) mg/dl Random Cortisol Synovial Source Synovial Color Synovial Appearance Synovial WBC (0-200) /uL Synovial RBC /uL Synovial Polynuclear % % Synovial Mononuclear % % Random Vancomycin mcg/ml 04/06/19 04/06/19 04/06/19 Range/Units 02:20 02:20 02:20 WBC (4.8-10.8) K/uL RBC (4.7-6.1) M/uL Hgb (14.0-18.0) g/dL POC Hgb (14.0-18.0) g/dl Hct (42-52) % POC Hct (42-52) % MCV (80-100) fL MCH (25-34) pg MCHC (32-36) g/dL RDW Std Deviation (36.4-46.3) fL RDW Coeff of Quan (11.5-14.5) % Plt Count (130-400) K/uL MPV (7.4-10.4) fL Immature Gran % (Auto) % Neut % (Auto) % Lymph % (Auto) % [place] % (Auto) % Eos % (Auto) % Baso % (Auto) % Immature Gran # (Auto) (0.00-0.02) K/uL Neut # (Auto) (1.4-6.5) K/uL Lymph # (Auto) (1.2-3.4) K/uL [place] # (Auto) (0.11-0.59) K/uL Eos # (Auto) (0-0.5) K/uL Baso # (Auto) (0-0.2) K/uL Absolute Nucleated RBC (0-0) K/uL Nucleated RBC % (auto) % Toxic Granulation Dohle Bodies Anisocytosis Target Cells Echinocytes Acanthocytes (Spur) Schistocytes PT (9.0-12.0) Seconds INR (0.9-1.1) APTT (21.0-31.0) Seconds PTT Ratio Sample Site POC pH (7.35-7.45) POC pCO2 (35-46) mmHg POC pO2 (80-95) mmHg POC HCO3 (19-24) jennifer/L POC Total CO2 (24-31) mEq/l POC Base Excess (-9-1.8) jennifer/L ABG pH (7.35-7.45) ABG pH (Temp Correct) (7.35-7.45) ABG pCO2 (35-46) mmHg ABG pCO2 (Temp Corrct (35-46) mmHg ABG pO2 (80-95) mm/Hg POC ABG pO2 at Pt Temp ABG HCO3 (19-24) mmol/L POC ABG O2 Sat (90-95) % ABG O2 Saturation (90-95) % ABG Base Excess (-9-1.8) mEq/L Jimmy Test Barometric Pressure mm/Hg Oxygen Given O2 Delivery Device POC O2 Rate Minute Ventilation Tidal Volume PEEP POC Sodium (135-144) mEq/L Sodium 148 H (136-145) mmol/L POC Potassium (3.3-5.0) mEq/L Potassium 4.2 (3.5-5.1) mmol/L Chloride 117 H (98-107) mmol/L Carbon Dioxide 22 (21-32) mmol/L Anion Gap 9.0 (3-11) BUN 73 H (7-18) mg/dl Creatinine 2.50 H (0.6-1.4) mg/dl Est Cr Clr Drug Dosing 33.2 ml/min Est GFR ( Amer) 30.5 Est GFR (Non-Af Amer) 26.3 BUN/Creatinine Ratio 29.3 H (10-20) Glucose 163 H (70-99) mg/dl POC Glucose (70-99) POC Glucose (other) (70-99) mg/dl Estimat Average Glucose mg/dl Hemoglobin A1c (4.5-5.6) % Lactate 2.8 H* (0.4-2.0) mmol/L Calcium 8.2 L (8.5-10.1) mg/dl Ionized Calcium (1.12-1.32) mmol/L Phosphorus 4.4 D (2.5-4.9) mg/dl Magnesium 2.1 (1.8-2.4) mg/dl Total Bilirubin 1.3 H (0.2-1) mg/dl Direct Bilirubin 0.8 H (0-0.2) mg/dl AST 633 H (15-37) U/L ALT 319 H (12-78) U/L Alkaline Phosphatase 111 (45-117) U/L Troponin I (0-0.045) ng/ml Total Protein 5.8 L (6.4-8.2) gm/dl Albumin 1.4 L (3.4-5.0) gm/dl Globulin 4.4 H (2.5-4.0) gm/dl Albumin/Globulin Ratio 0.3 L (0.9-2) Beta-Hydroxybutyric Acd (0.2-2.81) mg/dl Random Cortisol Synovial Source Synovial Color Synovial Appearance Synovial WBC (0-200) /uL Synovial RBC /uL Synovial Polynuclear % % Synovial Mononuclear % % Random Vancomycin 26.4 mcg/ml 04/06/19 04/06/19 04/05/19 Range/Units 02:20 02:20 22:26 WBC 11.56 H (4.8-10.8) K/uL RBC 3.27 L (4.7-6.1) M/uL Hgb 8.8 L (14.0-18.0) g/dL POC Hgb (14.0-18.0) g/dl Hct 28.3 L (42-52) % POC Hct (42-52) % MCV 86.5 (80-100) fL MCH 26.9 (25-34) pg MCHC 31.1 L (32-36) g/dL RDW Std Deviation 66.8 H (36.4-46.3) fL RDW Coeff of Quan 21.2 H (11.5-14.5) % Plt Count 392 (130-400) K/uL MPV 9.0 (7.4-10.4) fL Immature Gran % (Auto) 0.5 % Neut % (Auto) 88.6 % Lymph % (Auto) 5.6 % [place] % (Auto) 4.8 % Eos % (Auto) 0.4 % Baso % (Auto) 0.1 % Immature Gran # (Auto) 0.06 H (0.00-0.02) K/uL Neut # (Auto) 10.23 H (1.4-6.5) K/uL Lymph # (Auto) 0.65 L (1.2-3.4) K/uL [place] # (Auto) 0.56 (0.11-0.59) K/uL Eos # (Auto) 0.05 (0-0.5) K/uL Baso # (Auto) 0.01 (0-0.2) K/uL Absolute Nucleated RBC 0.12 H (0-0) K/uL Nucleated RBC % (auto) 1.0 % Toxic Granulation 1+ Dohle Bodies 1+ Anisocytosis Present Target Cells Echinocytes 1+ Acanthocytes (Spur) 1+ Schistocytes PT 13.1 H (9.0-12.0) Seconds INR 1.3 H (0.9-1.1) APTT 32.0 H (21.0-31.0) Seconds PTT Ratio 1.2 Sample Site POC pH (7.35-7.45) POC pCO2 (35-46) mmHg POC pO2 (80-95) mmHg POC HCO3 (19-24) jennifer/L POC Total CO2 (24-31) mEq/l POC Base Excess (-9-1.8) jennifer/L ABG pH 7.28 L (7.35-7.45) ABG pH (Temp Correct) (7.35-7.45) ABG pCO2 45 (35-46) mmHg ABG pCO2 (Temp Corrct (35-46) mmHg ABG pO2 83 (80-95) mm/Hg POC ABG pO2 at Pt Temp ABG HCO3 21 (19-24) mmol/L POC ABG O2 Sat (90-95) % ABG O2 Saturation 94.2 (90-95) % ABG Base Excess -6.0 (-9-1.8) mEq/L Jimmy Test POS Barometric Pressure 735.7 mm/Hg Oxygen Given 100 O2 Delivery Device POC O2 Rate Minute Ventilation Tidal Volume PEEP POC Sodium (135-144) mEq/L Sodium (136-145) mmol/L POC Potassium (3.3-5.0) mEq/L Potassium (3.5-5.1) mmol/L Chloride (98-107) mmol/L Carbon Dioxide (21-32) mmol/L Anion Gap (3-11) BUN (7-18) mg/dl Creatinine (0.6-1.4) mg/dl Est Cr Clr Drug Dosing ml/min Est GFR ( Amer) Est GFR (Non-Af Amer) BUN/Creatinine Ratio (10-20) Glucose (70-99) mg/dl POC Glucose (70-99) POC Glucose (other) (70-99) mg/dl Estimat Average Glucose mg/dl Hemoglobin A1c (4.5-5.6) % Lactate (0.4-2.0) mmol/L Calcium (8.5-10.1) mg/dl Ionized Calcium (1.12-1.32) mmol/L Phosphorus (2.5-4.9) mg/dl Magnesium (1.8-2.4) mg/dl Total Bilirubin (0.2-1) mg/dl Direct Bilirubin (0-0.2) mg/dl AST (15-37) U/L ALT (12-78) U/L Alkaline Phosphatase (45-117) U/L Troponin I (0-0.045) ng/ml Total Protein (6.4-8.2) gm/dl Albumin (3.4-5.0) gm/dl Globulin (2.5-4.0) gm/dl Albumin/Globulin Ratio (0.9-2) Beta-Hydroxybutyric Acd (0.2-2.81) mg/dl Random Cortisol Synovial Source Synovial Color Synovial Appearance Synovial WBC (0-200) /uL Synovial RBC /uL Synovial Polynuclear % % Synovial Mononuclear % % Random Vancomycin mcg/ml 04/05/19 04/05/19 04/05/19 Range/Units 20:12 20:10 19:41 WBC (4.8-10.8) K/uL RBC (4.7-6.1) M/uL Hgb (14.0-18.0) g/dL POC Hgb 9.2 L (14.0-18.0) g/dl Hct (42-52) % POC Hct 27 L (42-52) % MCV (80-100) fL MCH (25-34) pg MCHC (32-36) g/dL RDW Std Deviation (36.4-46.3) fL RDW Coeff of Quan (11.5-14.5) % Plt Count (130-400) K/uL MPV (7.4-10.4) fL Immature Gran % (Auto) % Neut % (Auto) % Lymph % (Auto) % [place] % (Auto) % Eos % (Auto) % Baso % (Auto) % Immature Gran # (Auto) (0.00-0.02) K/uL Neut # (Auto) (1.4-6.5) K/uL Lymph # (Auto) (1.2-3.4) K/uL [place] # (Auto) (0.11-0.59) K/uL Eos # (Auto) (0-0.5) K/uL Baso # (Auto) (0-0.2) K/uL Absolute Nucleated RBC (0-0) K/uL Nucleated RBC % (auto) % Toxic Granulation Dohle Bodies Anisocytosis Target Cells Echinocytes Acanthocytes (Spur) Schistocytes PT (9.0-12.0) Seconds INR (0.9-1.1) APTT (21.0-31.0) Seconds PTT Ratio Sample Site Art Line POC pH 7.27 L (7.35-7.45) POC pCO2 46 (35-46) mmHg POC pO2 68 L (80-95) mmHg POC HCO3 21 (19-24) jennifer/L POC Total CO2 23 L (24-31) mEq/l POC Base Excess -5.0 (-9-1.8) jennifer/L ABG pH (7.35-7.45) ABG pH (Temp Correct) 7.281 L (7.35-7.45) ABG pCO2 (35-46) mmHg ABG pCO2 (Temp Corrct 45 (35-46) mmHg ABG pO2 (80-95) mm/Hg POC ABG pO2 at Pt Temp 66 ABG HCO3 (19-24) mmol/L POC ABG O2 Sat (90-95) % ABG O2 Saturation (90-95) % ABG Base Excess (-9-1.8) mEq/L Jimmy Test NA Barometric Pressure mm/Hg Oxygen Given O2 Delivery Device Ventilator POC O2 Rate 16 Minute Ventilation 7.7 Tidal Volume 500 PEEP 10 POC Sodium 149 H (135-144) mEq/L Sodium (136-145) mmol/L POC Potassium 3.7 (3.3-5.0) mEq/L Potassium (3.5-5.1) mmol/L Chloride (98-107) mmol/L Carbon Dioxide (21-32) mmol/L Anion Gap (3-11) BUN (7-18) mg/dl Creatinine (0.6-1.4) mg/dl Est Cr Clr Drug Dosing ml/min Est GFR ( Amer) Est GFR (Non-Af Amer) BUN/Creatinine Ratio (10-20) Glucose (70-99) mg/dl POC Glucose (70-99) POC Glucose (other) (70-99) mg/dl Estimat Average Glucose mg/dl Hemoglobin A1c (4.5-5.6) % Lactate 3.2 H* (0.4-2.0) mmol/L Calcium (8.5-10.1) mg/dl Ionized Calcium (1.12-1.32) mmol/L Phosphorus (2.5-4.9) mg/dl Magnesium (1.8-2.4) mg/dl Total Bilirubin (0.2-1) mg/dl Direct Bilirubin (0-0.2) mg/dl AST (15-37) U/L ALT (12-78) U/L Alkaline Phosphatase (45-117) U/L Troponin I 0.037 (0-0.045) ng/ml Total Protein (6.4-8.2) gm/dl Albumin (3.4-5.0) gm/dl Globulin (2.5-4.0) gm/dl Albumin/Globulin Ratio (0.9-2) Beta-Hydroxybutyric Acd (0.2-2.81) mg/dl Random Cortisol Synovial Source Synovial Color Synovial Appearance Synovial WBC (0-200) /uL Synovial RBC /uL Synovial Polynuclear % % Synovial Mononuclear % % Random Vancomycin mcg/ml 04/05/19 04/05/19 04/05/19 Range/Units 18:28 17:44 17:44 WBC (4.8-10.8) K/uL RBC (4.7-6.1) M/uL Hgb (14.0-18.0) g/dL POC Hgb 8.5 L (14.0-18.0) g/dl Hct (42-52) % POC Hct 25 L (42-52) % MCV (80-100) fL MCH (25-34) pg MCHC (32-36) g/dL RDW Std Deviation (36.4-46.3) fL RDW Coeff of Quan (11.5-14.5) % Plt Count (130-400) K/uL MPV (7.4-10.4) fL Immature Gran % (Auto) % Neut % (Auto) % Lymph % (Auto) % [place] % (Auto) % Eos % (Auto) % Baso % (Auto) % Immature Gran # (Auto) (0.00-0.02) K/uL Neut # (Auto) (1.4-6.5) K/uL Lymph # (Auto) (1.2-3.4) K/uL [place] # (Auto) (0.11-0.59) K/uL Eos # (Auto) (0-0.5) K/uL Baso # (Auto) (0-0.2) K/uL Absolute Nucleated RBC (0-0) K/uL Nucleated RBC % (auto) % Toxic Granulation Dohle Bodies Anisocytosis Target Cells Echinocytes Acanthocytes (Spur) Schistocytes PT (9.0-12.0) Seconds INR (0.9-1.1) APTT (21.0-31.0) Seconds PTT Ratio Sample Site Art Line POC pH 7.25 L (7.35-7.45) POC pCO2 50 H (35-46) mmHg POC pO2 40 L (80-95) mmHg POC HCO3 22 (19-24) jennifer/L POC Total CO2 24 (24-31) mEq/l POC Base Excess -5.0 (-9-1.8) jennifer/L ABG pH (7.35-7.45) ABG pH (Temp Correct) 7.289 L (7.35-7.45) ABG pCO2 (35-46) mmHg ABG pCO2 (Temp Corrct 44 (35-46) mmHg ABG pO2 (80-95) mm/Hg POC ABG pO2 at Pt Temp 32 ABG HCO3 (19-24) mmol/L POC ABG O2 Sat (90-95) % ABG O2 Saturation (90-95) % ABG Base Excess (-9-1.8) mEq/L Jimmy Test NA Barometric Pressure mm/Hg Oxygen Given O2 Delivery Device Ventilator POC O2 Rate 16 Minute Ventilation 7.5 Tidal Volume 500 PEEP 5 POC Sodium 149 H (135-144) mEq/L Sodium 154 H (136-145) mmol/L POC Potassium 3.6 (3.3-5.0) mEq/L Potassium 4.0 (3.5-5.1) mmol/L Chloride 118 H (98-107) mmol/L Carbon Dioxide 27 (21-32) mmol/L Anion Gap 9.0 (3-11) BUN 68 H (7-18) mg/dl Creatinine 2.26 H (0.6-1.4) mg/dl Est Cr Clr Drug Dosing 36.7 ml/min Est GFR ( Amer) 34.5 Est GFR (Non-Af Amer) 29.8 BUN/Creatinine Ratio 30.1 H (10-20) Glucose 340 H* (70-99) mg/dl POC Glucose (70-99) POC Glucose (other) (70-99) mg/dl Estimat Average Glucose mg/dl Hemoglobin A1c (4.5-5.6) % Lactate 4.5 H* (0.4-2.0) mmol/L Calcium 7.4 L (8.5-10.1) mg/dl Ionized Calcium (1.12-1.32) mmol/L Phosphorus (2.5-4.9) mg/dl Magnesium (1.8-2.4) mg/dl Total Bilirubin 1.0 (0.2-1) mg/dl Direct Bilirubin (0-0.2) mg/dl AST 28 (15-37) U/L ALT 27 (12-78) U/L Alkaline Phosphatase 93 (45-117) U/L Troponin I (0-0.045) ng/ml Total Protein 5.0 L (6.4-8.2) gm/dl Albumin 1.2 L (3.4-5.0) gm/dl Globulin 3.8 (2.5-4.0) gm/dl Albumin/Globulin Ratio 0.3 L (0.9-2) Beta-Hydroxybutyric Acd 5.45 H (0.2-2.81) mg/dl Random Cortisol Synovial Source Synovial Color Synovial Appearance Synovial WBC (0-200) /uL Synovial RBC /uL Synovial Polynuclear % % Synovial Mononuclear % % Random Vancomycin mcg/ml 04/05/19 04/05/19 04/05/19 Range/Units 17:44 17:43 17:36 WBC 13.67 H (4.8-10.8) K/uL RBC 2.98 L (4.7-6.1) M/uL Hgb 8.2 L (14.0-18.0) g/dL POC Hgb (14.0-18.0) g/dl Hct 25.9 L (42-52) % POC Hct (42-52) % MCV 86.9 (80-100) fL MCH 27.5 (25-34) pg MCHC 31.7 L (32-36) g/dL RDW Std Deviation 67.0 H (36.4-46.3) fL RDW Coeff of Quan 21.4 H (11.5-14.5) % Plt Count 366 (130-400) K/uL MPV 9.1 (7.4-10.4) fL Immature Gran % (Auto) 0.6 % Neut % (Auto) 82.9 % Lymph % (Auto) 11.3 % [place] % (Auto) 4.5 % Eos % (Auto) 0.6 % Baso % (Auto) 0.1 % Immature Gran # (Auto) 0.08 H (0.00-0.02) K/uL Neut # (Auto) 11.34 H (1.4-6.5) K/uL Lymph # (Auto) 1.55 (1.2-3.4) K/uL [place] # (Auto) 0.61 H (0.11-0.59) K/uL Eos # (Auto) 0.08 (0-0.5) K/uL Baso # (Auto) 0.01 (0-0.2) K/uL Absolute Nucleated RBC 0.05 H (0-0) K/uL Nucleated RBC % (auto) 0.4 % Toxic Granulation Dohle Bodies Anisocytosis Present Target Cells 1+ Echinocytes 1+ Acanthocytes (Spur) 1+ Schistocytes 1+ PT (9.0-12.0) Seconds INR (0.9-1.1) APTT (21.0-31.0) Seconds PTT Ratio Sample Site POC pH (7.35-7.45) POC pCO2 (35-46) mmHg POC pO2 (80-95) mmHg POC HCO3 (19-24) jennifer/L POC Total CO2 (24-31) mEq/l POC Base Excess (-9-1.8) jennifer/L ABG pH (7.35-7.45) ABG pH (Temp Correct) (7.35-7.45) ABG pCO2 (35-46) mmHg ABG pCO2 (Temp Corrct (35-46) mmHg ABG pO2 (80-95) mm/Hg POC ABG pO2 at Pt Temp ABG HCO3 (19-24) mmol/L POC ABG O2 Sat (90-95) % ABG O2 Saturation (90-95) % ABG Base Excess (-9-1.8) mEq/L Jimmy Test Barometric Pressure mm/Hg Oxygen Given O2 Delivery Device POC O2 Rate Minute Ventilation Tidal Volume PEEP POC Sodium (135-144) mEq/L Sodium (136-145) mmol/L POC Potassium (3.3-5.0) mEq/L Potassium (3.5-5.1) mmol/L Chloride (98-107) mmol/L Carbon Dioxide (21-32) mmol/L Anion Gap (3-11) BUN (7-18) mg/dl Creatinine (0.6-1.4) mg/dl Est Cr Clr Drug Dosing ml/min Est GFR ( Amer) Est GFR (Non-Af Amer) BUN/Creatinine Ratio (10-20) Glucose (70-99) mg/dl POC Glucose 141 H (70-99) POC Glucose (other) (70-99) mg/dl Estimat Average Glucose mg/dl Hemoglobin A1c (4.5-5.6) % Lactate (0.4-2.0) mmol/L Calcium (8.5-10.1) mg/dl Ionized Calcium 1.07 L (1.12-1.32) mmol/L Phosphorus (2.5-4.9) mg/dl Magnesium (1.8-2.4) mg/dl Total Bilirubin (0.2-1) mg/dl Direct Bilirubin (0-0.2) mg/dl AST (15-37) U/L ALT (12-78) U/L Alkaline Phosphatase (45-117) U/L Troponin I (0-0.045) ng/ml Total Protein (6.4-8.2) gm/dl Albumin (3.4-5.0) gm/dl Globulin (2.5-4.0) gm/dl Albumin/Globulin Ratio (0.9-2) Beta-Hydroxybutyric Acd (0.2-2.81) mg/dl Random Cortisol Synovial Source Synovial Color Synovial Appearance Synovial WBC (0-200) /uL Synovial RBC /uL Synovial Polynuclear % % Synovial Mononuclear % % Random Vancomycin mcg/ml 04/05/19 04/05/19 04/05/19 Range/Units 12:13 12:11 10:35 WBC (4.8-10.8) K/uL RBC (4.7-6.1) M/uL Hgb (14.0-18.0) g/dL POC Hgb (14.0-18.0) g/dl Hct (42-52) % POC Hct (42-52) % MCV (80-100) fL MCH (25-34) pg MCHC (32-36) g/dL RDW Std Deviation (36.4-46.3) fL RDW Coeff of Quan (11.5-14.5) % Plt Count (130-400) K/uL MPV (7.4-10.4) fL Immature Gran % (Auto) % Neut % (Auto) % Lymph % (Auto) % [place] % (Auto) % Eos % (Auto) % Baso % (Auto) % Immature Gran # (Auto) (0.00-0.02) K/uL Neut # (Auto) (1.4-6.5) K/uL Lymph # (Auto) (1.2-3.4) K/uL [place] # (Auto) (0.11-0.59) K/uL Eos # (Auto) (0-0.5) K/uL Baso # (Auto) (0-0.2) K/uL Absolute Nucleated RBC (0-0) K/uL Nucleated RBC % (auto) % Toxic Granulation Dohle Bodies Anisocytosis Target Cells Echinocytes Acanthocytes (Spur) Schistocytes PT (9.0-12.0) Seconds INR (0.9-1.1) APTT (21.0-31.0) Seconds PTT Ratio Sample Site R Radial POC pH 7.36 (7.35-7.45) POC pCO2 36 (35-46) mmHg POC pO2 74 L (80-95) mmHg POC HCO3 20 (19-24) jennifer/L POC Total CO2 21 L (24-31) mEq/l POC Base Excess -6.0 (-9-1.8) jennifer/L ABG pH (7.35-7.45) ABG pH (Temp Correct) 7.362 (7.35-7.45) ABG pCO2 (35-46) mmHg ABG pCO2 (Temp Corrct 35 (35-46) mmHg ABG pO2 (80-95) mm/Hg POC ABG pO2 at Pt Temp 72 ABG HCO3 (19-24) mmol/L POC ABG O2 Sat 94.0 (90-95) % ABG O2 Saturation (90-95) % ABG Base Excess (-9-1.8) mEq/L Jimmy Test Pass Barometric Pressure mm/Hg Oxygen Given O2 Delivery Device Ventilator POC O2 Rate 16 Minute Ventilation 7.3 Tidal Volume 500 PEEP 5 POC Sodium (135-144) mEq/L Sodium (136-145) mmol/L POC Potassium (3.3-5.0) mEq/L Potassium (3.5-5.1) mmol/L Chloride (98-107) mmol/L Carbon Dioxide (21-32) mmol/L Anion Gap (3-11) BUN (7-18) mg/dl Creatinine (0.6-1.4) mg/dl Est Cr Clr Drug Dosing ml/min Est GFR ( Amer) Est GFR (Non-Af Amer) BUN/Creatinine Ratio (10-20) Glucose (70-99) mg/dl POC Glucose 152 H (70-99) POC Glucose (other) (70-99) mg/dl Estimat Average Glucose mg/dl Hemoglobin A1c (4.5-5.6) % Lactate (0.4-2.0) mmol/L Calcium (8.5-10.1) mg/dl Ionized Calcium (1.12-1.32) mmol/L Phosphorus (2.5-4.9) mg/dl Magnesium (1.8-2.4) mg/dl Total Bilirubin (0.2-1) mg/dl Direct Bilirubin (0-0.2) mg/dl AST (15-37) U/L ALT (12-78) U/L Alkaline Phosphatase (45-117) U/L Troponin I (0-0.045) ng/ml Total Protein (6.4-8.2) gm/dl Albumin (3.4-5.0) gm/dl Globulin (2.5-4.0) gm/dl Albumin/Globulin Ratio (0.9-2) Beta-Hydroxybutyric Acd (0.2-2.81) mg/dl Random Cortisol Synovial Source LEFT ANKLE Synovial Color STRAW Synovial Appearance TURBID Synovial WBC 48975 H (0-200) /uL Synovial RBC 326277 /uL Synovial Polynuclear % 87.8 % Synovial Mononuclear % 12.2 % Random Vancomycin mcg/ml 04/05/19 Range/Units 03:55 WBC (4.8-10.8) K/uL RBC (4.7-6.1) M/uL Hgb (14.0-18.0) g/dL POC Hgb (14.0-18.0) g/dl Hct (42-52) % POC Hct (42-52) % MCV (80-100) fL MCH (25-34) pg MCHC (32-36) g/dL RDW Std Deviation (36.4-46.3) fL RDW Coeff of Quan (11.5-14.5) % Plt Count (130-400) K/uL MPV (7.4-10.4) fL Immature Gran % (Auto) % Neut % (Auto) % Lymph % (Auto) % [place] % (Auto) % Eos % (Auto) % Baso % (Auto) % Immature Gran # (Auto) (0.00-0.02) K/uL Neut # (Auto) (1.4-6.5) K/uL Lymph # (Auto) (1.2-3.4) K/uL [place] # (Auto) (0.11-0.59) K/uL Eos # (Auto) (0-0.5) K/uL Baso # (Auto) (0-0.2) K/uL Absolute Nucleated RBC (0-0) K/uL Nucleated RBC % (auto) % Toxic Granulation Dohle Bodies Anisocytosis Target Cells Echinocytes Acanthocytes (Spur) Schistocytes PT (9.0-12.0) Seconds INR (0.9-1.1) APTT (21.0-31.0) Seconds PTT Ratio Sample Site POC pH (7.35-7.45) POC pCO2 (35-46) mmHg POC pO2 (80-95) mmHg POC HCO3 (19-24) jennifer/L POC Total CO2 (24-31) mEq/l POC Base Excess (-9-1.8) jennifer/L ABG pH (7.35-7.45) ABG pH (Temp Correct) (7.35-7.45) ABG pCO2 (35-46) mmHg ABG pCO2 (Temp Corrct (35-46) mmHg ABG pO2 (80-95) mm/Hg POC ABG pO2 at Pt Temp ABG HCO3 (19-24) mmol/L POC ABG O2 Sat (90-95) % ABG O2 Saturation (90-95) % ABG Base Excess (-9-1.8) mEq/L Jimmy Test Barometric Pressure mm/Hg Oxygen Given O2 Delivery Device POC O2 Rate Minute Ventilation Tidal Volume PEEP POC Sodium (135-144) mEq/L Sodium (136-145) mmol/L POC Potassium (3.3-5.0) mEq/L Potassium (3.5-5.1) mmol/L Chloride (98-107) mmol/L Carbon Dioxide (21-32) mmol/L Anion Gap (3-11) BUN (7-18) mg/dl Creatinine (0.6-1.4) mg/dl Est Cr Clr Drug Dosing ml/min Est GFR ( Amer) Est GFR (Non-Af Amer) BUN/Creatinine Ratio (10-20) Glucose (70-99) mg/dl POC Glucose (70-99) POC Glucose (other) (70-99) mg/dl Estimat Average Glucose 114 mg/dl Hemoglobin A1c 5.6 (4.5-5.6) % Lactate (0.4-2.0) mmol/L Calcium (8.5-10.1) mg/dl Ionized Calcium (1.12-1.32) mmol/L Phosphorus (2.5-4.9) mg/dl Magnesium (1.8-2.4) mg/dl Total Bilirubin (0.2-1) mg/dl Direct Bilirubin (0-0.2) mg/dl AST (15-37) U/L ALT (12-78) U/L Alkaline Phosphatase (45-117) U/L Troponin I (0-0.045) ng/ml Total Protein (6.4-8.2) gm/dl Albumin (3.4-5.0) gm/dl Globulin (2.5-4.0) gm/dl Albumin/Globulin Ratio (0.9-2) Beta-Hydroxybutyric Acd (0.2-2.81) mg/dl Random Cortisol Synovial Source Synovial Color Synovial Appearance Synovial WBC (0-200) /uL Synovial RBC /uL Synovial Polynuclear % % Synovial Mononuclear % % Random Vancomycin mcg/ml
--- NOTE | 2019-04-06 11:30 | Anesthesiology Progress Note ---
Date of Service April 06, 2019 Anesthesia Post Procedure Vital Signs Vital Signs: Temp Pulse Pulse Resp BP BP Pulse Ox 04/06/19 11:11 113 H 17 98 04/06/19 07:22 105 H 16 95 04/06/19 07:02 109 H 105/78 94 04/06/19 07:00 117 H 95 04/06/19 06:31 103 H 107/80 97 04/06/19 06:01 105 H 103/84 96 04/06/19 06:00 111 H 95 04/06/19 05:31 117 H 122/91 88 L 04/06/19 05:10 117 H 21 95 04/06/19 05:01 105 H 109/81 96 04/06/19 05:00 118 H 100 04/06/19 04:31 108 H 97/77 L 96 04/06/19 04:01 109 H 99/77 L 95 04/06/19 04:00 102 H 95 04/06/19 03:31 115 H 101/79 96 04/06/19 03:01 131 H 94/76 L 95 04/06/19 03:00 119 H 94 04/06/19 02:31 121 H 114/96 94 04/06/19 02:05 122 H 20 99 04/06/19 02:01 116 H 100/76 96 04/06/19 02:00 116 H 100 04/06/19 01:31 114 H 102/77 97 04/06/19 01:01 108 H 86/74 L 98 04/06/19 01:00 120 H 97 04/06/19 00:32 115 H 90/68 L 96 04/06/19 00:01 116 H 93/67 L 99 04/06/19 00:00 118 H 98 04/05/19 23:31 119 H 98/52 L 96 04/05/19 23:01 103 H 94/67 L 97 04/05/19 23:00 100 H 97 04/05/19 22:45 111 H 16 94 04/05/19 22:31 103 H 84/59 L 96 04/05/19 22:02 117 H 98/66 L 95 04/05/19 22:00 110 H 95 04/05/19 21:40 108 H 16 94 04/05/19 21:31 115 H 98/65 L 95 04/05/19 21:01 98 H 97/71 L 04/05/19 21:00 102 H 94 04/05/19 20:31 112 H 97/86 L 97 04/05/19 20:01 94 H 100/80 93 04/05/19 20:00 37.1 C 103 H 108 H 19 113/57 L 93 04/05/19 19:01 96 H 111/77 89 L 04/05/19 19:00 96 H 89 L 04/05/19 18:50 16 04/05/19 18:49 93 H 16 77 L 04/05/19 18:45 95 H 75 L 04/05/19 18:31 102 H 101/67 65 L 04/05/19 18:30 102 H 63 L 04/05/19 18:26 105 H 102/77 79 L 04/05/19 18:21 102 H 102/75 04/05/19 18:16 107 H 101/72 04/05/19 18:15 104 H 04/05/19 18:11 98 H 102/78 81 L 04/05/19 18:06 98 H 100/73 72 L 04/05/19 18:01 102 H 115/88 67 L 04/05/19 18:00 35.9 C L 97 H 87 L 04/05/19 17:56 106 H 112/86 90 04/05/19 17:51 100 H 110/81 74 L 04/05/19 17:47 95 H 126/97 84 L 04/05/19 17:46 98 H 141/100 H 89 L 04/05/19 17:45 99 H 93 04/05/19 17:43 106 H 104/80 96 04/05/19 17:41 95 H 87 L 04/05/19 17:36 106 H 04/05/19 17:33 47 L 69/28 L 62 L 04/05/19 17:30 99 H 90 04/05/19 17:26 108 H 120/84 93 04/05/19 17:22 104 H 148/113 H 100 04/05/19 17:17 57 L 110/23 L 80 L 04/05/19 17:15 85 04/05/19 17:11 83 79/60 L 92 04/05/19 17:06 79 88/70 L 91 04/05/19 17:01 36 C L 84 90/68 L 91 04/05/19 17:00 84 92 04/05/19 16:56 75 100/74 91 04/05/19 16:51 84 92/67 L 91 04/05/19 16:46 86 95/64 L 90 04/05/19 16:45 81 94 04/05/19 16:41 73 93/67 L 100 04/05/19 16:36 84 93/77 L 100 04/05/19 16:31 80 92/67 L 100 04/05/19 16:30 89 100 04/05/19 16:27 83 89/71 L 99 04/05/19 16:22 87 04/05/19 16:16 78 104/73 04/05/19 16:15 89 04/05/19 16:11 85 103/76 04/05/19 16:06 85 100/77 04/05/19 16:01 81 99/73 L 04/05/19 15:50 88 101/54 L 04/05/19 15:46 89 92/69 L 04/05/19 15:45 87 90 04/05/19 15:41 85 16 90/70 L 87 L 04/05/19 15:40 83 96/74 L 93 04/05/19 15:37 79 92/73 L 96 04/05/19 15:35 83 95 04/05/19 15:32 84 93/69 L 04/05/19 13:01 87 89/68 L 94 04/05/19 12:29 85 92/69 L 97 04/05/19 12:20 88 16 99 04/05/19 12:00 36.8 C 93 H 98 04/05/19 11:32 93/61 L 96 Pain Intensity Generalized: Pain Intensity: 3 Transfer of Care Handoff Completed per policy Notes Mental Status: see notes below Patient Amnestic to Procedure: Yes Nausea / Vomiting: adequately controlled Pain: adequately controlled Airway Patency, RR, SpO2: stable & adequate BP & HR: stable & adequate Hydration State: stable & adequate Anesthetic Complications: see Notes below Notes: Pt tolerated GA yesterday without complications, but had 2 episodes of PEA arrests about 2 hours after his anesthetic. Today he remains intubated and sedated with multiple comorbid conditions, including sepsis, recent GI bleed, recent head bleed and suspected EtOH withdrawal. No apparent direct complications from yesterday's anesthetic at this time.
--- NOTE | 2019-04-06 13:08 | Cardiology Progress Note ---
Date of Service April 06, 2019 Assessment & Plan (1) MRSA bacteremia: The patient has grown out MRSA in 4 of 4 blood cultures, and both wound cultures. The likelihood of endocarditis is high. Unfortunately, the patient is demonstrating evidence of multiorgan failure, and is currently on epinephrine, norepinephrine, and vasopressin for blood pressure support. Prognosis seems poor. (2) Left ventricular dysfunction: The patient has history of a transient nonischemic cardiomyopathy. Ejection fraction now depressed at 30-35% and likely related to his poor clinical status. (3) CAD (coronary artery disease): The patient had a 25% mid LAD stenosis identified on a cardiac catheterization in 2008. (4) PAF (paroxysmal atrial fibrillation): Tolerating intravenous amiodarone without difficulty. As before, anticoagulation is contraindicated realizing his acute subdural hematomas, and his bleeding GI ulcers. Subjective Remains intubated on a ventilator. Had two arrests last evening. Physical Exam Physical Exam: In general is well-developed well-nourished white male intubated and sedated in the intensive care unit. HEENT exam notes an ET tube in place. Neck is supple with full carotid upstrokes. Jugular pressure cannot be assessed. Cardiovascular exam reveals an irregular irregular rhythm with distant heart sounds. No obvious murmurs. Lungs no coarse breath sounds anteriorly. Abdomen is soft. Extremities note 1+ pretibial edema bilaterally. Results & Data Vital Signs (Past 12 Hours) Vital Signs Pulse Resp BP Pulse Ox 04/06/19 12:32 118 H 110/87 97 04/06/19 12:01 112 H 103/84 04/06/19 11:31 108 H 109/75 99 04/06/19 11:11 113 H 17 98 04/06/19 11:02 107 H 105/82 100 04/06/19 10:31 111 H 98/74 L 04/06/19 10:01 109 H 106/87 97 04/06/19 09:31 115 H 104/79 04/06/19 09:01 114 H 94/71 L 100 04/06/19 08:31 106 H 97/75 L 99 04/06/19 08:01 111 H 102/86 95 04/06/19 07:31 118 H 119/74 99 04/06/19 07:22 105 H 16 95 04/06/19 07:02 109 H 105/78 94 04/06/19 07:00 117 H 95 04/06/19 06:31 103 H 107/80 97 04/06/19 06:01 105 H 103/84 96 04/06/19 06:00 111 H 95 04/06/19 05:31 117 H 122/91 88 L 04/06/19 05:10 117 H 21 95 04/06/19 05:01 105 H 109/81 96 04/06/19 05:00 118 H 100 04/06/19 04:31 108 H 97/77 L 96 04/06/19 04:01 109 H 99/77 L 95 04/06/19 04:00 102 H 95 04/06/19 03:31 115 H 101/79 96 04/06/19 03:01 131 H 94/76 L 95 04/06/19 03:00 119 H 94 04/06/19 02:31 121 H 114/96 94 04/06/19 02:05 122 H 20 99 04/06/19 02:01 116 H 100/76 96 04/06/19 02:00 116 H 100 04/06/19 01:31 114 H 102/77 97 Laboratory Results Laboratory Results - last 24 hr 04/05/19 04/05/19 04/05/19 03:55 17:36 17:43 WBC RBC Hgb POC Hgb Hct POC Hct MCV MCH MCHC RDW Std Deviation RDW Coeff of Quan Plt Count MPV Immature Gran % (Auto) Neut % (Auto) Lymph % (Auto) Mineral % (Auto) Eos % (Auto) Baso % (Auto) Immature Gran # (Auto) Neut # (Auto) Lymph # (Auto) Mineral # (Auto) Eos # (Auto) Baso # (Auto) Absolute Nucleated RBC Nucleated RBC % (auto) Toxic Granulation Dohle Bodies Anisocytosis Target Cells Echinocytes Acanthocytes (Spur) Schistocytes PT INR APTT PTT Ratio Sample Site POC pH POC pCO2 POC pO2 POC HCO3 POC Total CO2 POC Base Excess ABG pH ABG pH (Temp Correct) ABG pCO2 ABG pCO2 (Temp Corrct ABG pO2 POC ABG pO2 at Pt Temp ABG HCO3 ABG O2 Saturation ABG Base Excess Jimmy Test Barometric Pressure Oxygen Given O2 Delivery Device POC O2 Rate Minute Ventilation Tidal Volume PEEP POC Sodium Sodium POC Potassium Potassium Chloride Carbon Dioxide Anion Gap BUN Creatinine Est Cr Clr Drug Dosing Est GFR ( Amer) Est GFR (Non-Af Amer) BUN/Creatinine Ratio Glucose POC Glucose 141 H POC Glucose (other) Estimat Average Glucose 114 Hemoglobin A1c 5.6 Lactate Calcium Ionized Calcium 1.07 L Phosphorus Magnesium Total Bilirubin Direct Bilirubin AST ALT Alkaline Phosphatase Troponin I Total Protein Albumin Globulin Albumin/Globulin Ratio Beta-Hydroxybutyric Acd Random Cortisol Random Vancomycin 04/05/19 04/05/19 04/05/19 17:44 17:44 17:44 WBC 13.67 H RBC 2.98 L Hgb 8.2 L POC Hgb Hct 25.9 L POC Hct MCV 86.9 MCH 27.5 MCHC 31.7 L RDW Std Deviation 67.0 H RDW Coeff of Quan 21.4 H Plt Count 366 MPV 9.1 Immature Gran % (Auto) 0.6 Neut % (Auto) 82.9 Lymph % (Auto) 11.3 Mineral % (Auto) 4.5 Eos % (Auto) 0.6 Baso % (Auto) 0.1 Immature Gran # (Auto) 0.08 H Neut # (Auto) 11.34 H Lymph # (Auto) 1.55 Mineral # (Auto) 0.61 H Eos # (Auto) 0.08 Baso # (Auto) 0.01 Absolute Nucleated RBC 0.05 H Nucleated RBC % (auto) 0.4 Toxic Granulation Dohle Bodies Anisocytosis Present Target Cells 1+ Echinocytes 1+ Acanthocytes (Spur) 1+ Schistocytes 1+ PT INR APTT PTT Ratio Sample Site POC pH POC pCO2 POC pO2 POC HCO3 POC Total CO2 POC Base Excess ABG pH ABG pH (Temp Correct) ABG pCO2 ABG pCO2 (Temp Corrct ABG pO2 POC ABG pO2 at Pt Temp ABG HCO3 ABG O2 Saturation ABG Base Excess Jimmy Test Barometric Pressure Oxygen Given O2 Delivery Device POC O2 Rate Minute Ventilation Tidal Volume PEEP POC Sodium Sodium 154 H POC Potassium Potassium 4.0 Chloride 118 H Carbon Dioxide 27 Anion Gap 9.0 BUN 68 H Creatinine 2.26 H Est Cr Clr Drug Dosing 36.7 Est GFR ( Amer) 34.5 Est GFR (Non-Af Amer) 29.8 BUN/Creatinine Ratio 30.1 H Glucose 340 H* POC Glucose POC Glucose (other) Estimat Average Glucose Hemoglobin A1c Lactate 4.5 H* Calcium 7.4 L Ionized Calcium Phosphorus Magnesium Total Bilirubin 1.0 Direct Bilirubin AST 28 ALT 27 Alkaline Phosphatase 93 Troponin I Total Protein 5.0 L Albumin 1.2 L Globulin 3.8 Albumin/Globulin Ratio 0.3 L Beta-Hydroxybutyric Acd 5.45 H Random Cortisol Random Vancomycin 04/05/19 04/05/19 04/05/19 18:28 19:41 20:10 WBC RBC Hgb POC Hgb 8.5 L 9.2 L Hct POC Hct 25 L 27 L MCV MCH MCHC RDW Std Deviation RDW Coeff of Quan Plt Count MPV Immature Gran % (Auto) Neut % (Auto) Lymph % (Auto) Mineral % (Auto) Eos % (Auto) Baso % (Auto) Immature Gran # (Auto) Neut # (Auto) Lymph # (Auto) Mineral # (Auto) Eos # (Auto) Baso # (Auto) Absolute Nucleated RBC Nucleated RBC % (auto) Toxic Granulation Dohle Bodies Anisocytosis Target Cells Echinocytes Acanthocytes (Spur) Schistocytes PT INR APTT PTT Ratio Sample Site Art Line Art Line POC pH 7.25 L 7.27 L POC pCO2 50 H 46 POC pO2 40 L 68 L POC HCO3 22 21 POC Total CO2 24 23 L POC Base Excess -5.0 -5.0 ABG pH ABG pH (Temp Correct) 7.289 L 7.281 L ABG pCO2 ABG pCO2 (Temp Corrct 44 45 ABG pO2 POC ABG pO2 at Pt Temp 32 66 ABG HCO3 ABG O2 Saturation ABG Base Excess Jimmy Test NA NA Barometric Pressure Oxygen Given O2 Delivery Device Ventilator Ventilator POC O2 Rate 16 16 Minute Ventilation 7.5 7.7 Tidal Volume 500 500 PEEP 5 10 POC Sodium 149 H 149 H Sodium POC Potassium 3.6 3.7 Potassium Chloride Carbon Dioxide Anion Gap BUN Creatinine Est Cr Clr Drug Dosing Est GFR ( Amer) Est GFR (Non-Af Amer) BUN/Creatinine Ratio Glucose POC Glucose POC Glucose (other) Estimat Average Glucose Hemoglobin A1c Lactate 3.2 H* Calcium Ionized Calcium Phosphorus Magnesium Total Bilirubin Direct Bilirubin AST ALT Alkaline Phosphatase Troponin I Total Protein Albumin Globulin Albumin/Globulin Ratio Beta-Hydroxybutyric Acd Random Cortisol Random Vancomycin 04/05/19 04/05/19 04/06/19 20:12 22:26 02:20 WBC 11.56 H RBC 3.27 L Hgb 8.8 L POC Hgb Hct 28.3 L POC Hct MCV 86.5 MCH 26.9 MCHC 31.1 L RDW Std Deviation 66.8 H RDW Coeff of Quan 21.2 H Plt Count 392 MPV 9.0 Immature Gran % (Auto) 0.5 Neut % (Auto) 88.6 Lymph % (Auto) 5.6 Mineral % (Auto) 4.8 Eos % (Auto) 0.4 Baso % (Auto) 0.1 Immature Gran # (Auto) 0.06 H Neut # (Auto) 10.23 H Lymph # (Auto) 0.65 L Mineral # (Auto) 0.56 Eos # (Auto) 0.05 Baso # (Auto) 0.01 Absolute Nucleated RBC 0.12 H Nucleated RBC % (auto) 1.0 Toxic Granulation 1+ Dohle Bodies 1+ Anisocytosis Present Target Cells Echinocytes 1+ Acanthocytes (Spur) 1+ Schistocytes PT INR APTT PTT Ratio Sample Site POC pH POC pCO2 POC pO2 POC HCO3 POC Total CO2 POC Base Excess ABG pH 7.28 L ABG pH (Temp Correct) ABG pCO2 45 ABG pCO2 (Temp Corrct ABG pO2 83 POC ABG pO2 at Pt Temp ABG HCO3 21 ABG O2 Saturation 94.2 ABG Base Excess -6.0 Jimmy Test POS Barometric Pressure 735.7 Oxygen Given 100 O2 Delivery Device POC O2 Rate Minute Ventilation Tidal Volume PEEP POC Sodium Sodium POC Potassium Potassium Chloride Carbon Dioxide Anion Gap BUN Creatinine Est Cr Clr Drug Dosing Est GFR ( Amer) Est GFR (Non-Af Amer) BUN/Creatinine Ratio Glucose POC Glucose POC Glucose (other) Estimat Average Glucose Hemoglobin A1c Lactate Calcium Ionized Calcium Phosphorus Magnesium Total Bilirubin Direct Bilirubin AST ALT Alkaline Phosphatase Troponin I 0.037 Total Protein Albumin Globulin Albumin/Globulin Ratio Beta-Hydroxybutyric Acd Random Cortisol Random Vancomycin 04/06/19 04/06/19 04/06/19 02:20 02:20 02:20 WBC RBC Hgb POC Hgb Hct POC Hct MCV MCH MCHC RDW Std Deviation RDW Coeff of Quan Plt Count MPV Immature Gran % (Auto) Neut % (Auto) Lymph % (Auto) Mineral % (Auto) Eos % (Auto) Baso % (Auto) Immature Gran # (Auto) Neut # (Auto) Lymph # (Auto) Mineral # (Auto) Eos # (Auto) Baso # (Auto) Absolute Nucleated RBC Nucleated RBC % (auto) Toxic Granulation Dohle Bodies Anisocytosis Target Cells Echinocytes Acanthocytes (Spur) Schistocytes PT 13.1 H INR 1.3 H APTT 32.0 H PTT Ratio 1.2 Sample Site POC pH POC pCO2 POC pO2 POC HCO3 POC Total CO2 POC Base Excess ABG pH ABG pH (Temp Correct) ABG pCO2 ABG pCO2 (Temp Corrct ABG pO2 POC ABG pO2 at Pt Temp ABG HCO3 ABG O2 Saturation ABG Base Excess Jimmy Test Barometric Pressure Oxygen Given O2 Delivery Device POC O2 Rate Minute Ventilation Tidal Volume PEEP POC Sodium Sodium 148 H POC Potassium Potassium 4.2 Chloride 117 H Carbon Dioxide 22 Anion Gap 9.0 BUN 73 H Creatinine 2.50 H Est Cr Clr Drug Dosing 33.2 Est GFR ( Amer) 30.5 Est GFR (Non-Af Amer) 26.3 BUN/Creatinine Ratio 29.3 H Glucose 163 H POC Glucose POC Glucose (other) Estimat Average Glucose Hemoglobin A1c Lactate Calcium 8.2 L Ionized Calcium Phosphorus 4.4 D Magnesium 2.1 Total Bilirubin 1.3 H Direct Bilirubin 0.8 H AST 633 H ALT 319 H Alkaline Phosphatase 111 Troponin I Total Protein 5.8 L Albumin 1.4 L Globulin 4.4 H Albumin/Globulin Ratio 0.3 L Beta-Hydroxybutyric Acd Random Cortisol Random Vancomycin 26.4 04/06/19 04/06/19 04/06/19 02:20 02:20 05:50 WBC RBC Hgb POC Hgb Hct POC Hct MCV MCH MCHC RDW Std Deviation RDW Coeff of Quan Plt Count MPV Immature Gran % (Auto) Neut % (Auto) Lymph % (Auto) Mineral % (Auto) Eos % (Auto) Baso % (Auto) Immature Gran # (Auto) Neut # (Auto) Lymph # (Auto) Mineral # (Auto) Eos # (Auto) Baso # (Auto) Absolute Nucleated RBC Nucleated RBC % (auto) Toxic Granulation Dohle Bodies Anisocytosis Target Cells Echinocytes Acanthocytes (Spur) Schistocytes PT INR APTT PTT Ratio Sample Site POC pH POC pCO2 POC pO2 POC HCO3 POC Total CO2 POC Base Excess ABG pH ABG pH (Temp Correct) ABG pCO2 ABG pCO2 (Temp Corrct ABG pO2 POC ABG pO2 at Pt Temp ABG HCO3 ABG O2 Saturation ABG Base Excess Jimmy Test Barometric Pressure Oxygen Given O2 Delivery Device POC O2 Rate Minute Ventilation Tidal Volume PEEP POC Sodium Sodium POC Potassium Potassium Chloride Carbon Dioxide Anion Gap BUN Creatinine Est Cr Clr Drug Dosing Est GFR ( Amer) Est GFR (Non-Af Amer) BUN/Creatinine Ratio Glucose POC Glucose POC Glucose (other) 142 H Estimat Average Glucose Hemoglobin A1c Lactate 2.8 H* Calcium Ionized Calcium Phosphorus Magnesium Total Bilirubin Direct Bilirubin AST ALT Alkaline Phosphatase Troponin I 0.105 H* Total Protein Albumin Globulin Albumin/Globulin Ratio Beta-Hydroxybutyric Acd Random Cortisol Random Vancomycin 04/06/19 04/06/19 04/06/19 08:08 08:08 08:15 WBC RBC Hgb POC Hgb Hct POC Hct MCV MCH MCHC RDW Std Deviation RDW Coeff of Quan Plt Count MPV Immature Gran % (Auto) Neut % (Auto) Lymph % (Auto) Mineral % (Auto) Eos % (Auto) Baso % (Auto) Immature Gran # (Auto) Neut # (Auto) Lymph # (Auto) Mineral # (Auto) Eos # (Auto) Baso # (Auto) Absolute Nucleated RBC Nucleated RBC % (auto) Toxic Granulation Dohle Bodies Anisocytosis Target Cells Echinocytes Acanthocytes (Spur) Schistocytes PT INR APTT PTT Ratio Sample Site POC pH POC pCO2 POC pO2 POC HCO3 POC Total CO2 POC Base Excess ABG pH ABG pH (Temp Correct) ABG pCO2 ABG pCO2 (Temp Corrct ABG pO2 POC ABG pO2 at Pt Temp ABG HCO3 ABG O2 Saturation ABG Base Excess Jimmy Test Barometric Pressure Oxygen Given O2 Delivery Device POC O2 Rate Minute Ventilation Tidal Volume PEEP POC Sodium Sodium POC Potassium Potassium Chloride Carbon Dioxide Anion Gap BUN Creatinine Est Cr Clr Drug Dosing Est GFR ( Amer) Est GFR (Non-Af Amer) BUN/Creatinine Ratio Glucose POC Glucose POC Glucose (other) 142 H Estimat Average Glucose Hemoglobin A1c Lactate 4.1 H* Calcium Ionized Calcium Phosphorus Magnesium Total Bilirubin Direct Bilirubin AST ALT Alkaline Phosphatase Troponin I 0.158 H* Total Protein Albumin Globulin Albumin/Globulin Ratio Beta-Hydroxybutyric Acd Random Cortisol Random Vancomycin 04/06/19 10:09 WBC RBC Hgb POC Hgb Hct POC Hct MCV MCH MCHC RDW Std Deviation RDW Coeff of Quan Plt Count MPV Immature Gran % (Auto) Neut % (Auto) Lymph % (Auto) Mineral % (Auto) Eos % (Auto) Baso % (Auto) Immature Gran # (Auto) Neut # (Auto) Lymph # (Auto) Mineral # (Auto) Eos # (Auto) Baso # (Auto) Absolute Nucleated RBC Nucleated RBC % (auto) Toxic Granulation Dohle Bodies Anisocytosis Target Cells Echinocytes Acanthocytes (Spur) Schistocytes PT INR APTT PTT Ratio Sample Site POC pH POC pCO2 POC pO2 POC HCO3 POC Total CO2 POC Base Excess ABG pH ABG pH (Temp Correct) ABG pCO2 ABG pCO2 (Temp Corrct ABG pO2 POC ABG pO2 at Pt Temp ABG HCO3 ABG O2 Saturation ABG Base Excess Jimmy Test Barometric Pressure Oxygen Given O2 Delivery Device POC O2 Rate Minute Ventilation Tidal Volume PEEP POC Sodium Sodium POC Potassium Potassium Chloride Carbon Dioxide Anion Gap BUN Creatinine Est Cr Clr Drug Dosing Est GFR ( Amer) Est GFR (Non-Af Amer) BUN/Creatinine Ratio Glucose POC Glucose POC Glucose (other) Estimat Average Glucose Hemoglobin A1c Lactate Calcium Ionized Calcium Phosphorus Magnesium Total Bilirubin Direct Bilirubin AST ALT Alkaline Phosphatase Troponin I Total Protein Albumin Globulin Albumin/Globulin Ratio Beta-Hydroxybutyric Acd Random Cortisol 26.69 Random Vancomycin Diagnostic Findings library monitor note rate controlled atrial fibrillation. PG Care Time/CCT Total # of Minutes Spent Total Time Spent with Patient: Total time spent is greater than 50% in coordination of care (as documented) at patient's floor/unit and/or counseling patient:
[2019-04-06] MEDS ORDERED: VANCOMYCIN HCL 1,000 MG in SODIUM CHLORIDE 0.9% 250 ML IV STA (13:39)
[2019-04-06] MEDS: AMIODARONE / D5W 360 MG/200 ML BAG IV SCH ×2 (13:45→21:16)
--- NOTE | 2019-04-06 14:00 | Hospitalist Progress Note ---
Date of Service April 06, 2019 Assessment & Plan (1) MRSA bacteremia: Unclear where this came from but has evidence of multiple contusions and may have had an abrasion which led to MRSA bacteremia which then spread to multiple joints and now with septic ankle as well as hand joints. Concern for endocarditis as above. - Blood cultures from 04/05 still with Staph growing - Continue vancomycin (2) Cardiac arrest with pulseless electrical activity: CODE BLUE on 04/05 for PEA arrest immediately following a bronchoscopy to relieve mucoid impaction. Was resuscitated with CPR, epinephrine, bicarbonate, vasopressin, and Levophed. Likely secondary to septic shock in the setting of bacteremia. ECG without STEMI after achieved return of spontaneous circulation - Management as per manager engine (3) Acute metabolic encephalopathy: Acute Metabolic encephalopathy-secondary to EtOH withdrawal, possibly from the SDH, and also with sepsis, med side effect from phenobarb, and hypotension. (4) Acute respiratory failure with hypoxia: With intermittent hypoxia secondary to non-purulent secretions that were advised during bronchoscopy on 04/05. - Was intubated for significant metabolic encephalopathy for airway protection on 04/05 - Management as per ICU (5) Sepsis: Secondary to MRSA bacteremia. - Had left septic joint as well as septic arthritis of the hand joints - now status post washout on 04/05. - Continue treating with IV vanc (6) Hypovolemic shock: Secondary to acute blood loss anemia and septic shock. -Treated with PRBCs, IVFs, and did have some improvement, but now status post cardiac arrest with hypotension requiring vasoactive medications. - Hemoglobin is improved and stable - Vasopressors as per manager engine (7) Atrial fibrillation: With rapid Afib since admission, has a h/o afib. - Rates better controlled today after sedation and intubation for encephalopathy and alcohol withdrawal. - On IV amiodarone - Holding home Coreg and Eliquis due to hypotension and acute GI bleeding (8) Anemia: Acute blood loss anemia. Patient with normochromic normocytic anemia. Secondary to acute blood loss from a GI source. Hemoglobin of 5.3 on admission, had heme positive stool in ER. - Transfusion of PRBCs x4 units given on admission and hgb up to 9.2 and stable - No further obvious bleeding - Continue PPI IV BID (9) EDMUNDO (acute kidney injury): With markedly elevated BUN and creatinine 125 and 4.6, respectively on admission. Creatinine of 2.09 in 2014, recent creatinine level unknown. - Cr down to 2.5 on 04/06; concern it may go up after code events on 04/05 (10) GI bleed: Upper GI bleed as above with duodenal and gastric ulcers, gastritis on EGD. - Appreciate GI consult - Continue IV PPI bid and eventually convert to po PPI bid once taking po (11) Subdural hematoma: Acute on chronic SDH bilat on CT with serial CT similar. With known h/o m ultiple falls recently, EtOH use. - Gave PCC to try to reverse Eliquis upon admission - Continue to hold Eliquis and would not restart in the future - If worsening, would transfer out for NS eval - Consider monitoring serial head CTs while sedated and paralyzed (12) Wrist pain: X-rays neg for fracture. Swelling of the wrist and some mild erythema of the left second MCP joint today-CT of the hand showed multiple areas of fluid collections - S/p washout by orthopedic surgery on 04/05. - Continue IV antibiotics - Follow wound cultures (13) Left ankle pain: Appears to have suffered an ankle sprain with edema, ecchymosis, warmth, tenderness. Seeded with bacteria and now with septic joint. X-rays neg for fracture. - Appreciate orthopedics consultation-now status post washout of joint on 04/05. - Continue IV antibiotics and follow intraoperative cultures (14) Hyperglycemia: A1c was 5.6% this admission. Glucose elevated, no known h/o DMII. - Accuchecks, SSI (15) Alcohol dependence: Known to drink 1/2 bottle vodka daily, sometimes beer. In active withdrawal and was on a phenobarbital IV taper with PRN Ativan. - Now converted to IV Versed after he is sedated mechanically ventilated - Continue IV thiamine, folate (16) Hypertension: Hold Coreg, lisinopril, Lasix in setting of hypotension (17) Septic arthritis: As above (18) Abnormal head CT: With left temporal hypodensity seen on CT of the head Possibility of septic emboli to the brain or mycotic aneurysm needs GIANFRANCO when stable -Needs brain MRI and will get MRI of the spine as well-ordered and awaiting stability (19) CKD (chronic kidney disease) stage 3, GFR 30-59 ml/min: as above, baseline pulmonary disease specialist 2.0 -avoid nephrotoxins -renally dose meds (20) COPD (chronic obstructive pulmonary disease): Patient with history of COPD. With acute hypoxic respiratory failure, Wheezing on exam on admission, now ventilated as above -Duo nebs as needed -Albuterol as needed -Supplemental oxygen as needed to maintain saturation of 88 to 94% (21) Systolic CHF: Echo here found to have left ventricular global hypokinesis and severely reduce LV function at 25%. Cardiology has reviewed his outpatient records from his primary director compliance at [facility]-he was noted to have an EF of 20% several years ago and had a non-obstructive cardiac catheterization indicating a diagnosis of non-ischemic cardiomyopathy. He then had a repeat echocardiogram in the last couple of years which showed recovery of his EF to 50%. - Could be tachyarrhythmia-induced from Afib vs. alcohol-induced cardiomyopathy as most likely causes - No volume overload at this time - Continue holding home Coreg, lisinopril, Lasix (22) DVT prophylaxis: SCDs Dispo-remains critically ill in ICU Prognosis is extremely guarded at this time Director [facility] [employer] has discussed his care extensively with the patient's son whom he has not had contact with in 13 years but has agreed to be his healthcare power of trust and estates attorney. The son has now decided to make him a DNR/DNI in the event of recurrent cardiac arrest Subjective Intubated and sedated Review of Systems Review of Systems: Unobtainable due to cognitive status and Unobtainable due to endotracheal tube Physical Exam Constitutional: WD/WN, vitals as above Eyes: no conjunctival abnormality ENMT: external ear and nose normal, oropharynx normal Neck: trachea midline, no thyromegaly normal visual inspection Respiratory: normal respiratory effort, lungs clear to auscultation no respiratory distress Cardiovascular: RRR, no murmur, no edema Gastrointestinal (Abdomen): Inspection/Auscultation: abdomen normal to inspection; abdomen not distended Musculoskeletal: no cyanosis or clubbing, extremities motor strength 5/5 Skin: no rashes, warm and dry Neurologic: + does not move all extremities and + not awake Psychiatric: Orientation: + not alert Results & Data Vital Signs (Past 12 Hours) Vital Signs Pulse Resp BP Pulse Ox 04/06/19 12:32 118 H 110/87 97 04/06/19 12:01 112 H 103/84 04/06/19 11:31 108 H 109/75 99 04/06/19 11:11 113 H 17 98 04/06/19 11:02 107 H 105/82 100 04/06/19 10:31 111 H 98/74 L 04/06/19 10:01 109 H 106/87 97 04/06/19 09:31 115 H 104/79 04/06/19 09:01 114 H 94/71 L 100 04/06/19 08:31 106 H 97/75 L 99 04/06/19 08:01 111 H 102/86 95 04/06/19 07:31 118 H 119/74 99 04/06/19 07:22 105 H 16 95 04/06/19 07:02 109 H 105/78 94 04/06/19 07:00 117 H 95 04/06/19 06:31 103 H 107/80 97 04/06/19 06:01 105 H 103/84 96 04/06/19 06:00 111 H 95 04/06/19 05:31 117 H 122/91 88 L 04/06/19 05:10 117 H 21 95 04/06/19 05:01 105 H 109/81 96 04/06/19 05:00 118 H 100 04/06/19 04:31 108 H 97/77 L 96 04/06/19 04:01 109 H 99/77 L 95 04/06/19 04:00 102 H 95 04/06/19 03:31 115 H 101/79 96 04/06/19 03:01 131 H 94/76 L 95 04/06/19 03:00 119 H 94 04/06/19 02:31 121 H 114/96 94 04/06/19 02:05 122 H 20 99 04/06/19 02:01 116 H 100/76 96 04/06/19 02:00 116 H 100 PG Care Time/CCT Total # of Minutes Spent Total Time Spent with Patient: Total time spent is greater than 50% in coordination of care (as documented) at patient's floor/unit and/or counseling patient:
--- NOTE | 2019-04-06 14:02 | Pharmacy Report ---
Pharmacy Abx Dose Short Note - Date of Service April 06, 2019 - Assessment & Plan Assessment 63 year old M receiving IV Vancomycin for treatment of MRSA bacteremia Day # 3 of antimicrobial therapy. Plan Vancomycin * Random level of 26.4 mcg/mL drawn on 04/06/19 @ 0220 is supratherapeutic, but will drop to below 20 mcg/mL by 1400, therefore will need to be-redosed at that time. Level was drawn ~16 hours after last dose of 1250mg. Given that level was higher today than yesterday, it seems he may be accumulating Vancomycin, therefore will give a smaller dose today. * Give Vancomycin 1000mg (~11mg/kg) IV x 1 today at ~1400 * Goal trough level for bacteremia : 15 to 20 mcg/mL * Random level ordered for: 04/06/19 at 0700 so that Vancomycin can be reassessed prior to rounds. Anticipate that q24 dosing may be appropriate as renal function appears to be stabilizing. Pharmacy will continue to follow and will adjust dose/frequency as necessary. Thank you.
--- NOTE | 2019-04-06 16:32 | Infectious Disease Consult ---
Date of Consultation April 06, 2019 Assessment & Plan (1) MRSA (methicillin resistant Staphylococcus aureus) septicemia: 63-year-old male with staphylococcal sepsis and septic shock with multiple areas of septic arthritis, worry for possibility of endocarditis. Recommend combination of daptomycin and ceftaroline with follow-up blood cultures to ensure clearance of bacteremia. Will discuss further management with all involved. Will follow. (2) Septic arthritis of ankle: History of Present Illness Reason for Consultation: MRSA bacteremia 11/06, multiple septic joints,? Endocarditis Attending Physician: Slava Pena MD History of Present Illness History obtained from medical records and medical staff as patient unable to provide adequate history. 63-year-old male with history of atrial flutter, coronary artery disease, COPD, alcohol abuse, who was admitted to the hospital April 03 after being found poorly responsive on floor. Apparently had been declining over the past several months with frequent falls and been complaining of weakness of his legs. He was found to have evidence of sepsis and blood cultures have grown MRSA. Has multiple areas of joint swelling, and is undergone aspiration of his wrists and debridement of his left ankle with finding of septic arthritis. Patient remains intubated for respiratory failure. Renal function has been deteriorating. Was given dose of vancomycin, levels being followed for re-dosing. Allergies Allergy/AdvReac Type Severity Reaction Status Date / Time No Known Allergies Allergy NONE Verified 04/03/19 00:22 Home Medications Home Medications Medication Instructions Recorded Confirmed Type apixaban [Eliquis] 5 mg PO BID 04/03/19 04/03/19 History carvedilol 25 mg PO BID 04/03/19 04/03/19 History furosemide 20 mg PO DAILY 04/03/19 04/03/19 History lisinopril 10 mg PO DAILY 04/03/19 04/03/19 History multivitamin 1 tab PO DAILY 04/03/19 04/03/19 History prednisone 0 mg PO DIRECTED 04/03/19 04/03/19 History Patient History Medical History EDMUNDO (acute kidney injury) Anemia Atrial fibrillation Falls GI bleed Heavy alcohol use Hypertension Subdural hematoma Wrist pain Surgical History Status post knee surgery Family History Other Medical history non-contributory Social History Preferred Language: Bengali Communication Ability: Effective Commissioning Editor Required: No Beliefs That Will Affect Care: None Current Living Situation: Alone Feels Safe at Home: Yes Smoking Status: Current some day smoker Hx Alcohol Use: Yes Alcohol type: hard liquor Hx Substance Use: No Review of Systems Review of Systems: Unobtainable due to endotracheal tube Physical Exam Constitutional: + ill appearing; no acute distress Sedated on ventilator Eyes: PERRL, conjunctivae normal, anicteric sclerae ENMT: Ears: no external ear abnormality Nose: no external nose abnormality Tracheal tube in place Neck: trachea midline, no thyromegaly Respiratory: normal respiratory effort, lungs clear to auscultation Auscultation: + wheezes Cardiovascular: Rate/Rhythm: + irregularly irregular Heart Sounds: no gallop, no murmur and no cardiac rub Gastrointestinal (Abdomen): normal bowel sounds, soft, nontender, no hepatosplenomegaly Musculoskeletal: Head/Neck/Chest: normocephalic, head atraumatic and neck supple Extremities: + joint enlargement (Swelling of wrists and both ankles) Skin: no rashes, warm and dry Neurologic: moves all extremities Sedated on ventilator Psychiatric: Sedated on ventilator Lymphatic: no cervical or axillary lymphadenopathy no inguinal lymphadenopathy Results & Data Vital Signs (Past 12 Hours) Vital Signs Pulse Resp BP Pulse Ox 04/06/19 16:00 112 H 96 04/06/19 15:41 107 H 98 04/06/19 15:30 113 H 99 04/06/19 15:15 112 H 98 04/06/19 15:01 109 H 101/76 100 04/06/19 15:00 118 H 100 04/06/19 14:35 116 H 100 04/06/19 14:34 114 H 97/77 L 100 04/06/19 14:03 120 H 16 100 04/06/19 14:01 119 H 102/85 100 04/06/19 13:31 102 H 102/79 100 04/06/19 13:01 110 H 104/78 100 04/06/19 12:33 120 H 100 04/06/19 12:32 118 H 110/87 97 04/06/19 12:01 112 H 103/84 04/06/19 11:31 108 H 109/75 99 04/06/19 11:11 113 H 17 98 04/06/19 11:02 107 H 105/82 100 04/06/19 10:31 111 H 98/74 L 04/06/19 10:01 109 H 106/87 97 04/06/19 09:31 115 H 104/79 04/06/19 09:01 114 H 94/71 L 100 04/06/19 08:31 106 H 97/75 L 99 04/06/19 08:01 111 H 102/86 95 04/06/19 07:31 118 H 119/74 99 04/06/19 07:22 105 H 16 95 04/06/19 07:02 109 H 105/78 94 04/06/19 07:00 117 H 95 04/06/19 06:31 103 H 107/80 97 04/06/19 06:01 105 H 103/84 96 04/06/19 06:00 111 H 95 04/06/19 05:31 117 H 122/91 88 L 04/06/19 05:10 117 H 21 95 04/06/19 05:01 105 H 109/81 96 04/06/19 05:00 118 H 100 Laboratory Results Short CBC 04/05/19 04/06/19 Range/Units 17:44 02:20 WBC 13.67 H 11.56 H (4.8-10.8) K/uL Hgb 8.2 L 8.8 L (14.0-18.0) g/dL Hct 25.9 L 28.3 L (42-52) % Plt Count 366 392 (130-400) K/uL BMP 04/05/19 04/06/19 17:44 02:20 Sodium 154 H 148 H Potassium 4.0 4.2 Chloride 118 H 117 H Carbon Dioxide 27 22 BUN 68 H 73 H Creatinine 2.26 H 2.50 H Glucose 340 H* 163 H Calcium 7.4 L 8.2 L Cardiac Enzymes 04/05/19 04/06/19 04/06/19 Range/Units 20:12 02:20 08:08 Troponin I 0.037 0.105 H* 0.158 H* (0-0.045) ng/ml Liver Function 04/05/19 04/06/19 Range/Units 17:44 02:20 Total Bilirubin 1.0 1.3 H (0.2-1) mg/dl Direct Bilirubin 0.8 H (0-0.2) mg/dl AST 28 633 H (15-37) U/L ALT 27 319 H (12-78) U/L Alkaline Phosphatase 93 111 (45-117) U/L Albumin 1.2 L 1.4 L (3.4-5.0) gm/dl Diagnostic Findings Microbiology 04/05/19 Unknown Wrist,Left Gram Stain - Final 04/05/19 Unknown Wrist,Left Aerobic and Anaerobic Culture - Preliminary No growth to date. 04/05/19 13:56 Wrist,Left Gram Stain - Final 04/05/19 13:56 Wrist,Left Aerobic and Anaerobic Culture - Preliminary Staphylococcus species 04/05/19 10:35 Ankle,Left Gram Stain - Final 04/05/19 10:35 Ankle,Left Aerobic and Anaerobic Culture - Preliminary Staphylococcus aureus 04/04/19 08:50 Blood Aerobic Blood Culture - Preliminary Staph aureus MRSA 04/04/19 08:50 Blood Anaerobic Blood Culture - Preliminary No growth in Anaerobic bottle after 48 hours. 04/04/19 08:33 Blood Aerobic Blood Culture - Preliminary Staph aureus MRSA 04/04/19 08:33 Blood Anaerobic Blood Culture - Preliminary No growth in Anaerobic bottle after 48 hours. 04/03/19 06:35 Blood Aerobic Blood Culture - Preliminary Staph aureus MRSA 04/03/19 06:35 Blood Anaerobic Blood Culture - Final 04/03/19 06:32 Blood Aerobic Blood Culture - Preliminary Staph aureus MRSA 04/03/19 06:32 Blood Anaerobic Blood Culture - Final 04/03/19 07:06 Nasal MRSA Surveillance Culture - Final Methicillin Resistant Staph Aureus present. ---Surveillance culture only--- XR chest 1V portable HISTORY: hypoxia COMPARISON: Chest 04/05/2019. No pneumothorax. Improved aeration within the left lung with interval improvement in the mediastinal shift. Left basilar density remains. There is mild central pulmonary vascular congestion without overt edema. Suspect small bilateral pleural effusions. Nasogastric tube terminates in the stomach. Endotracheal tube terminates approximately 3.5 cm from the radha. Right jugular central venous catheter terminates at the SVC. FINDINGS: The lungs are clear. Cardiac silhouette is normal in size. No pleural effusions. No pneumothorax. IMPRESSION: 1. Interval improvement in the left lung airspace opacity and mediastinal shift. This favors resolving atelectasis. A small left basilar density persists. 2. Small bilateral pleural effusions and mild congestive change are noted. 3. Satisfactory support line placement. Electronically signed by: Connor Lewis M.D. 04/05/2019 8:37 PM Dictated: 04/05/192034 Transcribed: 04/05/192034 PG Care Time/CCT Total # of Minutes Spent Total Time Spent with Patient: Total time spent is greater than 50% in coordination of care (as documented) at patient's floor/unit and/or counseling patient:
[2019-04-06] MEDS ORDERED: DAPTOmycin 775 MG in SYRINGE 0 ML IV SCH (19:00)
[2019-04-06] MEDS: CEFTAROLINE FOSAMIL ACETATE 300 MG in SODIUM CHLORIDE 0.9% 250 ML IV SCH (19:19)
[2019-04-07] MEDS: INSULIN ASPART 100 UNITS/ML 3 ML PEN SC SCH ×4 (00:23→18:06)
--- NOTE | 2019-04-07 05:16 | Critical Care Progress Note ---
Date of Service April 07, 2019 Assessment & Plan (1) Admitted to intensive care unit: Reason Critically Ill: Acute blood loss anemia suspect 2/2 AGIB, AMS w/ MRSA bacteremia and septic arthritis with concern for endocarditis PLAN: Neuro: AMS 2/2 Acute Encephalopathy - Sepsis +/- chronic subdural hematomas - Midazolam drip Bilateral subdural hematoma Serial CT, hematoma with maximum transverse dimension of 5 mm and without significant midline shift. -Holding systemic anticoagulation hypodense lesions suspected in the left temporal lobe, chronic subdural hematomas or hygromas, Indeterminate focus of hyperdensity along the falx near the vertex. Trace acute subdural hematoma is no t excluded though this could represent a vessel, appearance unchagned from prior. Recommended MRI for further evaluation. 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, History of high alcohol intake - CIWA precautions - 4-8 drinks per day per pt, liquor - Sedated with versed drip as above Resp: Acute hypoxic respiratory failure with L pulmonary whiteout following cardiac arrest - s/p bronchoscopy with wash of mucous plug - ETT in place, on mechanical ventilation with minimal respiration over vent this morning - Adequate SpO2 at this time History of COPD not tolerant of inhalers No home O2 requirement Former tobacco smoker -40 year .5ppd (~20pack/yr hx) -Quit September this year CV: Cardiac Arrest, Code Blue - MRSA 2/2 septic shock - Following ETT prior to MRI 04/06 pt acutely decompensated with cardiac arrest. GIANFRANCO performed today did not show any obvious valvular vegetations no evidence of left atrial or left atrial appendage thrombus. Global hypokinesis was appreciated. Hypotension 2/2 hypovolemia, sepsis - MRSA bacteremia - Levophed @ .12mcg/kg/hr. - 30% EF + Afib. Abx as below. Tachycardia, history atrial fibrillation - In afib overnight Apixaban held in the setting of acute bleed -Amiodarone added, HR 80s this morning Heart failure with reduced ejection fraction -Echo shows reduced ejection fraction of approximately 30 to 35% 1500 cc urine output last 24 hours EDMUNDO as below No diuresis at this time Renal: Acute kidney injury 2/2 prerenal and FL Creatinine peak 4.56, relatively stable at 2.56 today -Per patient's son who is his decision maker patient would not want dialysis performed. 1500 cc urine output last 24 hours Nonanion Gap Metabolic acidosis, improving Sodium 145, potassium 3.8 - Normosol 80cc/hr Repeat blood gas today ID: Sepsis 2/2 MRSA Bacteremia Blood cultures positive for MRSA Continue surveillance cultures, no negatives yet ID consulted, Vanco discontinued and ceftaroline plus daptomycin initiated - L hand and R foot with septic joint s/p washout with fluid positive for MRSA. -GIANFRANCO without signs of endocarditis as above Perianal/gluteal rash Patient has a diffuse, nontender bilateral rash with central eschar and without vesicles. 3 litigation claim representative lesions unroofed and collected for HSV rapid culture, sample slides sent for pathology/[place] smear. No giant cells, but large amounts of bacteria observed. Continue abx as above GI/Nutrition: Acute GI bleed Hemoglobin 7.7 today, CBC daily GI consulted. EGD showed diffuse gastritis with biopsy taken, nonbleeding gastric ulcers, nonbleeding duodenal ulcers, and a normal second and third portion of the duodenum. Per Protonix 40 mg p.o. twice daily for 6 weeks then 40 mg daily, PO conversion and diet currently held in the setting of AMS Repeat upper endoscopy in 3 months Nutrition NPO 2/2 AMS & ETT Heme: Acute blood loss anemia secondary to GI bleed as above Status post 4 units PRBC, 1 unit PCC on admit. Currently stable. -Reticulocytes increased to 4.1 with a reticulate site index of 1.19 adjusting a degree of hypo-proliferation. Endocrine: No history of type 2 diabetes Glucose checks as needed, BMP daily -SSI ICU hyperglycemia protocol A1c 5.6 DVT prophylaxis: Pharmacal prophylaxis contraindicated, SCDs Vascular access: Peripheral IVs x2, triple-lumen in femoral Goals of Care: His care was discussed with his son who is his medical decision- maker. His son his son states that his father would not want dialysis in his current condition, and would not want CPR or mechanical ventilation his current condition. Code Status: DNR/DNI (2) MRSA (methicillin resistant Staphylococcus aureus) septicemia: (3) Systolic CHF: (4) S/P debridement: (5) Septic arthritis of wrist, left: (6) Septic arthritis of left ankle: (7) Abnormal head CT: (8) Septic arthritis: (9) Abnormal brain MRI: (10) Acute respiratory failure with hypoxia: (11) Hypernatremia: (12) Septic shock due to Staphylococcus aureus: (13) Hypoalbuminemia due to protein-calorie malnutrition: (14) Cardiac arrest with pulseless electrical activity: (15) Cardiac arrest with successful resuscitation: (16) PAF (paroxysmal atrial fibrillation): (17) CAD (coronary artery disease): (18) Left ventricular dysfunction: (19) Tobacco abuse: (20) Septic arthritis of ankle: Supervising Physician Co-Signing Physician Notes Case discussed extensively with ICU staff, family practice resident, and on multidisciplinary rounds. Electronic medical record was extensively reviewed and images were independently reviewed patient. Discussed with cardiology at the bedside. The patient overnight has continued to require vasopressor agents but these have been weaned to some degree. He is renal function has stabilized. His vent settings remain relatively minimal. His blood cultures continue to remain positive. Antibiotics have been adjusted by infectious disease and he currently is on daptomycin and ceftaroline. Will discontinue vancomycin at this point time. We will continue to monitor surveillance cultures to see if they remain persistently positive. He is pending MRI of the brain, C/T/L-spine to evaluate for epidural abscess or discitis. Will also need to follow the subdurals both acute and chronic noted on previous CT scans. It is possible that there are other sites that have been seeded by bacteria that would require additional intervention if he remains persistently bacteremic. Will initiate trophic tube feeds per dietary. GIANFRANCO performed today did not reveal any evidence of vegetation or perivalvular abscess. Appreciate orthopedics assistance in managing secondarily seeded septic joints. Continue to trend hemoglobin and hematocrit. No indication for transfusion currently. The patient remains critically ill. Prognosis remains guarded at the current time. Nicolasa Phelan is seen at the bedside this morning. He does not respond to verbal or vigorous physical stimuli. Subjective limited by mental status. Review of Systems Review of Systems: Unobtainable due to cognitive status Physical Exam Physical Exam: General: ETT in place. Appears ill. Sedated. Skin: Warm, moist. HEENT: Atraumatic, normocephalic. No spontaneous eye movement/opening. Pupils equal and reactive to light and accommodation. Mucous membranes moist. Pulm: Global end expiratory wheezes, AIDA/LLL rales. Symmetrical chest rise. ETT in place Cardiac: Irregularly irregular. No JVD. Abdominal: Nontender, nondistended, soft. BS present. Extremities: Warm, well-perfused. PT pulses palpable bilaterally. L foot wrapped in surgical dressing s/p joint tap/washout. R wrist wrapped in surgical dressing s/p joint tap/washout. R foot swollen with mild erythema at hallux. Results & Data Vital Signs (Past 12 Hours) Vital Signs Pulse Resp BP Pulse Ox 04/07/19 02:31 97 H 90/66 L 100 04/07/19 02:30 99 H 100 04/07/19 02:08 94 H 17 100 04/07/19 02:01 94 H 103/73 95 04/07/19 02:00 99 H 93 04/07/19 01:31 93 H 97/74 L 99 04/07/19 01:30 97 H 99 04/07/19 01:28 103 H 04/07/19 01:01 105 H 95/74 L 93 04/07/19 01:00 102 H 90 04/07/19 00:31 101 H 96/75 L 98 04/07/19 00:30 103 H 100 04/07/19 00:01 104 H 103/75 100 04/07/19 00:00 98 H 100 04/06/19 23:31 93 H 123/71 99 04/06/19 23:30 94 H 99 04/06/19 23:01 101 H 105/69 100 04/06/19 23:00 105 H 93 04/06/19 22:31 105 H 108/78 98 04/06/19 22:30 102 H 18 99 04/06/19 22:01 107 H 96/73 L 98 04/06/19 22:00 104 H 99 04/06/19 21:31 108 H 97/72 L 98 04/06/19 21:30 105 H 98 04/06/19 21:01 99 H 91/62 L 96 04/06/19 21:00 113 H 87 L 04/06/19 20:32 113 H 100/74 89 L 04/06/19 20:30 108 H 95 04/06/19 20:01 132 H 91/73 L 91 04/06/19 20:00 119 H 90 04/06/19 19:31 128 H 130/71 96 04/06/19 19:30 116 H 97 04/06/19 19:01 106 H 16 105/69 96 04/06/19 19:00 114 H 95 04/06/19 17:31 117 H 96/71 L 96 04/06/19 17:30 113 H 97 04/06/19 17:23 109 H 19 99 PG Care Time/CCT Total # of Minutes Spent Total Time Spent with Patient: Total time spent is greater than 50% in coordination of care (as documented) at patient's floor/unit and/or counseling patient: Critical Care Time: Yes Total Critical Care Time: 45 Resident Activity Tracking Resident Involvement: Resident Care Provided Care Provided: Adult Hospital Medicine
[2019-04-07 05:32] LABS: Basophils # (auto) 0.01 K/uL (0-0.2); Basophils % (auto) 0.1 %; Eosinophils # (auto) 0.15 K/uL (0-0.5); Eosinophils % (auto) 1.4 %; Hematocrit (blood only) 23.5 % (42-52); Hemoglobin 7.7 g/dL (14.0-18.0); Immature Granulocytes # (auto) 0.06 K/uL (0.00-0.02); Immature Granulocytes % (auto) 0.5 %; Lymphocytes # (auto) 0.99 K/uL (1.2-3.4); Mean Corpuscular Hgb Conc 32.8 g/dL (32-36); Mean Corpuscular Volume 83.9 fL (80-100); Mean Platelet Volume 10.2 fL (7.4-10.4); Monocytes # (auto) 0.29 K/uL (0.11-0.59); Monocytes % (auto) 2.6 %; Neutrophils % (auto) 86.4 %; Nucleated RBC # (auto) 0.08 K/uL (0-0); Nucleated RBC % (auto) 0.8 %; Platelet Count 346 K/uL (130-400); RDW Standard Deviation 64.6 fL (36.4-46.3)
[2019-04-07 05:44] LABS: INR 1.6 (0.9-1.1); Partial Thromboplastin Ratio 1.4; Partial Thromboplastin Time 37.2 Seconds (21.0-31.0); Prothrombin Time 16.3 Seconds (9.0-12.0)
[2019-04-07 06:17] LABS: Echinocytes 1+; Hypochromasia Present; Polychromasia 1+
[2019-04-07 06:20] LABS: Albumin Globulin Ratio 0.5 (0.9-2); Albumin Level 1.6 gm/dl (3.4-5.0); Bilirubin,Total 1.4 mg/dl (0.2-1); Calcium 8.6 mg/dl (8.5-10.1); Creatinine Clr Calc Pharmacy 32.4 ml/min; Est GFR (African American) 29.7; Est GFR (Non-African American) 25.6; Globulin 3.4 gm/dl (2.5-4.0); Phosphorus 3.3 mg/dl (2.5-4.9)
[2019-04-07] MEDS: CEFTAROLINE FOSAMIL ACETATE 300 MG in SODIUM CHLORIDE 0.9% 250 ML IV SCH ×2 (06:28→18:05)
[2019-04-07] MEDS: NORMOSOL-R 1,000 ML IV SCH ×2 (06:29→18:17)
[2019-04-07 06:58] LABS: Magnesium 2.1 mg/dl (1.8-2.4); Potassium 3.8 mmol/L (3.5-5.1)
--- NOTE | 2019-04-07 08:00 | Orthopedic Progress Note ---
Date of Service April 07, 2019 Assessment & Plan (1) MRSA (methicillin resistant Staphylococcus aureus) septicemia: Packing strips placed in L wrist drain sites. To be changed daily. Cover with 4x4 and JACOBY wrap. Cover L ankle with 4x4 and JACOBY wrap Antibiotics per infectious disease and ICU Ortho will continue to follow (2) Septic arthritis of wrist, left: (3) Septic arthritis of left ankle: Subjective Patient continues to not respond to commands when sedation lifted. Cultures from L wrist and L ankle growing staph aureus. Physical Exam Physical Exam: Gen: intubated and sedated on the ventilator. L wrist: dressings taken down. [place] drains pulled. Small amount of purulence expressed from the drain sites. Moderate edema around the wounds, no significant redness. L ankle: dressings taken down and drain pulled. Minimal serosanguinous drainage from the drain site. Incision c/d/i. No significant redness. Results & Data Vital Signs (Past 12 Hours) Vital Signs Pulse Resp BP Pulse Ox 04/07/19 07:08 85 16 100 04/07/19 06:31 84 87/67 L 100 04/07/19 06:30 86 100 04/07/19 06:01 77 89/66 L 100 04/07/19 06:00 87 100 04/07/19 05:31 84 92/66 L 04/07/19 05:30 89 04/07/19 05:23 81 16 100 04/07/19 05:01 87 87/68 L 100 04/07/19 05:00 92 H 04/07/19 04:31 91 H 85/61 L 98 04/07/19 04:30 96 H 99 04/07/19 04:00 100 H 04/07/19 03:31 94 H 110/60 91 04/07/19 03:30 97 H 89 L 04/07/19 03:01 95 H 113/62 100 04/07/19 03:00 92 H 100 04/07/19 02:31 97 H 90/66 L 100 04/07/19 02:30 99 H 100 04/07/19 02:08 94 H 17 100 04/07/19 02:01 94 H 103/73 95 04/07/19 02:00 99 H 93 04/07/19 01:31 93 H 97/74 L 99 04/07/19 01:30 97 H 99 04/07/19 01:28 103 H 04/07/19 01:01 105 H 95/74 L 93 04/07/19 01:00 102 H 90 04/07/19 00:31 101 H 96/75 L 98 04/07/19 00:30 103 H 100 04/07/19 00:01 104 H 103/75 100 04/07/19 00:00 98 H 100 04/06/19 23:31 93 H 123/71 99 04/06/19 23:30 94 H 99 04/06/19 23:01 101 H 105/69 100 04/06/19 23:00 105 H 93 04/06/19 22:31 105 H 108/78 98 04/06/19 22:30 102 H 18 99 04/06/19 22:01 107 H 96/73 L 98 04/06/19 22:00 104 H 99 04/06/19 21:31 108 H 97/72 L 98 04/06/19 21:30 105 H 98 04/06/19 21:01 99 H 91/62 L 96 04/06/19 21:00 113 H 87 L 04/06/19 20:32 113 H 100/74 89 L 04/06/19 20:30 108 H 95 04/06/19 20:01 132 H 91/73 L 91 04/06/19 20:00 119 H 90
[2019-04-07] MEDS: NOREPINEPHRINE BIT INJ 16 MG in DEXTROSE 5% 500 ML IV SCH ×2 (08:11→20:33)
--- NOTE | 2019-04-07 08:38 | Anesthesiology Progress Note ---
Date of Service April 07, 2019 Anesthesia Post Procedure Vital Signs Vital Signs: Pulse Resp BP Pulse Ox 04/07/19 07:08 85 16 100 04/07/19 06:31 84 87/67 L 100 04/07/19 06:30 86 100 04/07/19 06:01 77 89/66 L 100 04/07/19 06:00 87 100 04/07/19 05:31 84 92/66 L 04/07/19 05:30 89 04/07/19 05:23 81 16 100 04/07/19 05:01 87 87/68 L 100 04/07/19 05:00 92 H 04/07/19 04:31 91 H 85/61 L 98 04/07/19 04:30 96 H 99 04/07/19 04:00 100 H 04/07/19 03:31 94 H 110/60 91 04/07/19 03:30 97 H 89 L 04/07/19 03:01 95 H 113/62 100 04/07/19 03:00 92 H 100 04/07/19 02:31 97 H 90/66 L 100 04/07/19 02:30 99 H 100 04/07/19 02:08 94 H 17 100 04/07/19 02:01 94 H 103/73 95 04/07/19 02:00 99 H 93 04/07/19 01:31 93 H 97/74 L 99 04/07/19 01:30 97 H 99 04/07/19 01:28 103 H 04/07/19 01:01 105 H 95/74 L 93 04/07/19 01:00 102 H 90 04/07/19 00:31 101 H 96/75 L 98 04/07/19 00:30 103 H 100 04/07/19 00:01 104 H 103/75 100 04/07/19 00:00 98 H 100 04/06/19 23:31 93 H 123/71 99 04/06/19 23:30 94 H 99 04/06/19 23:01 101 H 105/69 100 04/06/19 23:00 105 H 93 04/06/19 22:31 105 H 108/78 98 04/06/19 22:30 102 H 18 99 04/06/19 22:01 107 H 96/73 L 98 04/06/19 22:00 104 H 99 04/06/19 21:31 108 H 97/72 L 98 04/06/19 21:30 105 H 98 04/06/19 21:01 99 H 91/62 L 96 04/06/19 21:00 113 H 87 L 04/06/19 20:32 113 H 100/74 89 L 04/06/19 20:30 108 H 95 04/06/19 20:01 132 H 91/73 L 91 04/06/19 20:00 119 H 90 04/06/19 19:31 128 H 130/71 96 04/06/19 19:30 116 H 97 04/06/19 19:01 106 H 16 105/69 96 04/06/19 19:00 114 H 95 04/06/19 17:31 117 H 96/71 L 96 04/06/19 17:30 113 H 97 04/06/19 17:23 109 H 19 99 04/06/19 17:01 107 H 96/76 L 98 04/06/19 16:31 111 H 97/74 L 97 04/06/19 16:00 112 H 96 04/06/19 15:41 107 H 98 04/06/19 15:30 113 H 99 04/06/19 15:15 112 H 98 04/06/19 15:01 109 H 101/76 100 04/06/19 15:00 118 H 100 04/06/19 14:35 116 H 100 04/06/19 14:34 114 H 97/77 L 100 04/06/19 14:03 120 H 16 100 04/06/19 14:01 119 H 102/85 100 04/06/19 13:31 102 H 102/79 100 04/06/19 13:01 110 H 104/78 100 04/06/19 12:33 120 H 100 04/06/19 12:32 118 H 110/87 97 04/06/19 12:01 112 H 103/84 04/06/19 11:31 108 H 109/75 99 04/06/19 11:11 113 H 17 98 04/06/19 11:02 107 H 105/82 100 04/06/19 10:31 111 H 98/74 L 04/06/19 10:01 109 H 106/87 97 04/06/19 09:31 115 H 104/79 04/06/19 09:01 114 H 94/71 L 100 Pain Intensity Generalized: Pain Intensity: 3 (unable to assess; pt intubated and sedated;) Notes Mental Status: participated in evaluation and see notes below (pt on midazolam drip; ) BP & HR: stable & adequate (pt on Norepi drip; ) Hydration State: stable & adequate
[2019-04-07] MEDS ORDERED: THIAMINE HCL 100 MG in SYRINGE 9 ML IV SCH (09:00)
[2019-04-07] MEDS: MIDAZOLAM HCL 125 MG/250 ML BAG IV SCH (09:08)
[2019-04-07] MEDS: THIAMINE HCL 100 MG in SYRINGE 9 ML IV SCH ×2 (09:17→20:35)
[2019-04-07] MEDS: PANTOprazole 40 MG in SYRINGE 0 ML IV SCH ×2 (09:17→20:35)
[2019-04-07] MEDS: FOLIC ACID 1 MG in SYRINGE 9.8 ML IV SCH (09:17)
[2019-04-07] MEDS: SUCRALFATE 1 GM/10 ML UDC PO SCH ×3 (09:18→16:40)
[2019-04-07] MEDS: AMIODARONE / D5W 360 MG/200 ML BAG IV SCH (09:19)
[2019-04-07] MEDS: BACITRACIN OINT 15 GM TUBE EXT SCH (09:24)
--- NOTE | 2019-04-07 09:39 | Cardiology Progress Note ---
Date of Service Patient is intubated and sedated. History is obtained from the chart as well as the nursing staff and the critical care service. April 07, 2019 Results & Data Vital Signs (Past 12 Hours) Vital Signs Pulse Resp BP Pulse Ox 04/07/19 07:08 85 16 100 04/07/19 06:31 84 87/67 L 100 04/07/19 06:30 86 100 04/07/19 06:01 77 89/66 L 100 04/07/19 06:00 87 100 04/07/19 05:31 84 92/66 L 04/07/19 05:30 89 04/07/19 05:23 81 16 100 04/07/19 05:01 87 87/68 L 100 04/07/19 05:00 92 H 04/07/19 04:31 91 H 85/61 L 98 04/07/19 04:30 96 H 99 04/07/19 04:00 100 H 04/07/19 03:31 94 H 110/60 91 04/07/19 03:30 97 H 89 L 04/07/19 03:01 95 H 113/62 100 04/07/19 03:00 92 H 100 04/07/19 02:31 97 H 90/66 L 100 04/07/19 02:30 99 H 100 04/07/19 02:08 94 H 17 100 04/07/19 02:01 94 H 103/73 95 04/07/19 02:00 99 H 93 04/07/19 01:31 93 H 97/74 L 99 04/07/19 01:30 97 H 99 04/07/19 01:28 103 H 04/07/19 01:01 105 H 95/74 L 93 04/07/19 01:00 102 H 90 04/07/19 00:31 101 H 96/75 L 98 04/07/19 00:30 103 H 100 04/07/19 00:01 104 H 103/75 100 04/07/19 00:00 98 H 100 04/06/19 23:31 93 H 123/71 99 04/06/19 23:30 94 H 99 04/06/19 23:01 101 H 105/69 100 04/06/19 23:00 105 H 93 04/06/19 22:31 105 H 108/78 98 04/06/19 22:30 102 H 18 99 04/06/19 22:01 107 H 96/73 L 98 04/06/19 22:00 104 H 99 He is intubated and sedated. He does respond to painful stimuli. He looks chronically ill and much worse than when I last saw him as an outpatient in October HEENT: Moderately reduced carotid upstrokes Lungs: Diffuse inspiratory and expiratory rhonchi with occasional wheezing Heart irregular rate and rhythm no appreciable murmurs rubs or gallops Abdomen soft nontender nondistended decreased bowel sounds Extremities: Bilateral lower extremity edema. Question of [place] or Janeway lesions on his hands Neuro: As above Impressions: 1. Persistent MRSA bacteremia with presumed septic emboli to his joints, brain, and hands while on appropriate antibiotics 2. 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 Vent dependent respiratory failure 4. Acute kidney injury on chronic kidney disease 5. Paroxysmal atrial fibrillation 6. Possible subdural hematoma off anticoagulation 7. Admitted with profound hypotension and anemia He remains on low-dose Levophed but is maintaining blood pressure currently. In discussion with the undercutter operator service they would like a transesophageal echocardiogram to assess his aortic root and his aortic valve to rule out an abscess or significant endocarditis. Although the patient is not a candidate for open heart surgery the undercutter operator service believes that if he has a significant abscess or other cardiac involvement the conversation with the family would be 1 of potentially withdrawing care as antibiotics would not cure cardiac abscess. I will discuss with the [facility] lease purchase driver whether they are available this afternoon to do a GIANFRANCO. He will remain n.p.o. in anticipation of that. At this point the undercutter operator will continue with aggressive support including treating his anemia, hypotension, and ongoing bacteremia.
[2019-04-07] MEDS ORDERED: CANNULA ONE (10:08)
[2019-04-07] MEDS ORDERED: BENZOCAIN/TETRACA/BUTAM SPRAY 200 APPLN/20 GM SPRY EXT ONE (10:08)
--- NOTE | 2019-04-07 10:40 | Post Operative Brief Note ---
Cardiology Brief Post Op Date of Surgery April 07, 2019 Pre & Post Diagnosis Patient underwent transesophageal echocardiography at the bedside to rule out endocarditis given his persistent MRSA bacteremia. The patient was intubated and sedated. He was given an additional bolus of 2 mg of Versed and 50 mcg of fentanyl. He tolerated the procedure without any issues. The probe was easily passed into the esophagus without difficulty. Please see the official GIANFRANCO report. The results of this GIANFRANCO were discussed with the primary service. There are no obvious vegetations on the aortic, mitral, tricuspid, and pulmonic valves. The aortic valve is trileaflet with trace aortic insufficiency. There is trace mitral insufficiency. There is mild to moderate tricuspid insufficiency with a pulmonary artery pressure of at least 40 mmHg There was no evidence of left atrial or left atrial appendage thrombus. There is severe biventricular dysfunction with severe biventricular global hypokinesis Procedure GIANFRANCO County Surveyor Gael Galo DO Call Center Rn CHRISTIANO Nicholson PA-C Estimated Blood Loss 5 Findings See Below Specimens Specimen Description: Microbiology #1 Left Wrist Aspiration #2 Left Wrist synovium Drains Hemovac Drain (single trocar to left ankle) and [place] Drain (1/4 inch page drain used left wrist ) Anesthesia Type General
[2019-04-07] MEDS ORDERED: MIDAZOLAM HCL 5 MG/ML 1 ML VIAL IV STA (10:50)
[2019-04-07] MEDS: fentaNYL citrate 100 MCG/2 ML VIAL IV PRN ×3 (11:08→21:20)
[2019-04-07] MEDS: IMPACT LIQD 1.0 CAL 1,000 ML BAG NG SCH (11:10)
--- NOTE | 2019-04-07 13:25 | Infectious Disease Progress Nt ---
Date of Service April 07, 2019 Assessment & Plan (1) MRSA (methicillin resistant Staphylococcus aureus) septicemia: Patient with MRSA sepsis with multiorgan failure and septic arthritis, possible embolic skin lesions as well. Patient to continue on current antibiotics, await GIANFRANCO results later today. Will discuss further with all involved. (2) Septic arthritis of wrist, left: (3) Septic arthritis of left ankle: Subjective Patient seen in follow-up for MRSA sepsis. Remains intubated. Follow cultures positive for MRSA. For GIANFRANCO later today. Review of Systems Review of Systems: Unobtainable due to endotracheal tube Physical Exam Constitutional: + ill appearing and + altered mental status intubated Eyes: PERRL, conjunctivae normal, anicteric sclerae ENMT: Ears: no external ear abnormality Nose: no external nose abnormality ET-tube in place Neck: trachea midline, no thyromegaly Respiratory: no respiratory distress Auscultation: + rhonchi and + wheezes Cardiovascular: RRR, no murmur, no edema Heart Sounds: no cardiac rub Gastrointestinal (Abdomen): normal bowel sounds, soft, nontender, no hepatosplenomegaly Musculoskeletal: Head/Neck/Chest: normocephalic, head atraumatic and neck supple Skin: + lesion (Janeway-like lesions on hands) Neurologic: moves all extremities Sedated on ventilator Psychiatric: Sedated on ventilator Lymphatic: no cervical or axillary lymphadenopathy no inguinal lymphadenopathy Results & Data Vital Signs (Past 12 Hours) Vital Signs Pulse Resp BP Pulse Ox 04/07/19 12:04 94 H 77/68 L 96 04/07/19 12:01 92 H 79/56 L 04/07/19 12:00 98 H 04/07/19 11:54 89 84/58 L 96 04/07/19 11:44 75 82/55 L 04/07/19 11:01 81 96/66 L 100 04/07/19 11:00 71 100 04/07/19 10:39 84 91/67 L 100 04/07/19 10:36 80 86/61 L 100 04/07/19 10:31 84 86/64 L 100 04/07/19 10:26 79 92/64 L 100 04/07/19 10:21 83 78/56 L 100 04/07/19 10:16 93 H 101/78 04/07/19 10:06 80 16 100 04/07/19 10:01 85 88/67 L 100 04/07/19 09:31 82 86/67 L 100 04/07/19 09:01 83 87/65 L 100 04/07/19 08:31 79 87/65 L 98 04/07/19 08:02 95 H 102/64 04/07/19 07:31 81 91/69 L 100 04/07/19 07:08 85 16 100 04/07/19 07:01 86 89/70 L 100 04/07/19 06:31 84 87/67 L 100 04/07/19 06:30 86 100 04/07/19 06:01 77 89/66 L 100 04/07/19 06:00 87 100 04/07/19 05:31 84 92/66 L 04/07/19 05:30 89 04/07/19 05:23 81 16 100 04/07/19 05:01 87 87/68 L 100 04/07/19 05:00 92 H 04/07/19 04:31 91 H 85/61 L 98 04/07/19 04:30 96 H 99 04/07/19 04:00 100 H 04/07/19 03:31 94 H 110/60 91 04/07/19 03:30 97 H 89 L 04/07/19 03:01 95 H 113/62 100 04/07/19 03:00 92 H 100 04/07/19 02:31 97 H 90/66 L 100 04/07/19 02:30 99 H 100 04/07/19 02:08 94 H 17 100 04/07/19 02:01 94 H 103/73 95 04/07/19 02:00 99 H 93 04/07/19 01:31 93 H 97/74 L 99 04/07/19 01:30 97 H 99 04/07/19 01:28 103 H Laboratory Results Short CBC 04/07/19 Range/Units 04:57 WBC 11.00 H (4.8-10.8) K/uL Hgb 7.7 L (14.0-18.0) g/dL Hct 23.5 L (42-52) % Plt Count 346 (130-400) K/uL BMP 04/07/19 04/07/19 04:57 06:29 Sodium 145 Potassium 3.8 Chloride 114 H Carbon Dioxide 23 BUN 77 H Creatinine 2.56 H Glucose 148 H Calcium 8.6 Liver Function 04/07/19 04/07/19 Range/Units 04:57 06:29 Total Bilirubin 1.4 H (0.2-1) mg/dl AST 938 H (15-37) U/L ALT 646 H (12-78) U/L Alkaline Phosphatase 95 (45-117) U/L Albumin 1.6 L (3.4-5.0) gm/dl Diagnostic Findings Microbiology 04/05/19 Unknown Wrist,Left Gram Stain - Final 04/05/19 Unknown Wrist,Left Aerobic and Anaerobic Culture - Preliminary Staph aureus MRSA 04/05/19 13:56 Wrist,Left Gram Stain - Final 04/05/19 13:56 Wrist,Left Aerobic and Anaerobic Culture - Preliminary Staph aureus MRSA 04/06/19 10:35 Blood Aerobic Blood Culture - Preliminary Gram positive cocci clusters 04/06/19 10:35 Blood Anaerobic Blood Culture - Preliminary No growth in Anaerobic bottle after 24 hours. 04/06/19 10:30 Blood Aerobic Blood Culture - Preliminary Gram positive cocci clusters 04/06/19 10:30 Blood Anaerobic Blood Culture - Preliminary No growth in Anaerobic bottle after 24 hours. 04/05/19 10:35 Ankle,Left Gram Stain - Final 04/05/19 10:35 Ankle,Left Aerobic and Anaerobic Culture - Preliminary Staph aureus MRSA 04/04/19 08:50 Blood Aerobic Blood Culture - Preliminary Staph aureus MRSA 04/04/19 08:50 Blood Anaerobic Blood Culture - Preliminary No growth in Anaerobic bottle after 48 hours. 04/04/19 08:33 Blood Aerobic Blood Culture - Preliminary Staph aureus MRSA 04/04/19 08:33 Blood Anaerobic Blood Culture - Preliminary No growth in Anaerobic bottle after 48 hours. 04/03/19 06:35 Blood Aerobic Blood Culture - Preliminary Staph aureus MRSA 04/03/19 06:35 Blood Anaerobic Blood Culture - Final 04/03/19 06:32 Blood Aerobic Blood Culture - Preliminary Staph aureus MRSA 04/03/19 06:32 Blood Anaerobic Blood Culture - Final 04/03/19 07:06 Nasal MRSA Surveillance Culture - Final Methicillin Resistant Staph Aureus present. ---Surveillance culture only--- PG Care Time/CCT Total # of Minutes Spent Total Time Spent with Patient: Total time spent is greater than 50% in coordination of care (as documented) at patient's floor/unit and/or counseling patient:
--- NOTE | 2019-04-07 13:25 | Hospitalist Progress Note ---
Date of Service April 07, 2019 Assessment & Plan (1) MRSA bacteremia: Unclear where this came from but has evidence of multiple contusions and may have had an abrasion which led to MRSA bacteremia which then spread to multiple joints and now with septic ankle as well as hand joints. GIANFRANCO on 04/07 showed no endocarditis. Unclear source at this point, though subdural or back abscess still possible. - Blood cultures from 04/06 still with Staph growing - Continue dapto & ceftaroline per ID (2) Cardiac arrest with pulseless electrical activity: CODE BLUE on 04/05 for PEA arrest immediately following a bronchoscopy to relieve mucoid impaction. Was resuscitated with CPR, epinephrine, bicarbonate, vasopressin, and Levophed. Likely secondary to septic shock in the setting of bacteremia. ECG without STEMI after achieved return of spontaneous circulation - Management as per site leasing agent (3) Acute metabolic encephalopathy: Acute Metabolic encephalopathy-secondary to EtOH withdrawal, possibly from the SDH, and also with sepsis, med side effect from phenobarb, and hypotension. (4) Acute respiratory failure with hypoxia: With intermittent hypoxia secondary to non-purulent secretions that were advised during bronchoscopy on 04/05. - Was intubated for significant metabolic encephalopathy for airway protection on 04/05 - Management as per ICU (5) Sepsis: Present on arrival. Secondary to MRSA bacteremia. - Had left septic joint as well as septic arthritis of the hand joints - now status post washout on 04/05. - Continue treating with IV abx (6) Hypovolemic shock: Secondary to acute blood loss anemia and septic shock. -Treated with PRBCs, IVFs, and did have some improvement, but now status post cardiac arrest with hypotension requiring vasoactive medications. - Hemoglobin is improved and stable - Vasopressors as per site leasing agent (7) Atrial fibrillation: With rapid afib since admission, has a h/o afib. - Rates better controlled today after sedation and intubation for encephalopathy and alcohol withdrawal. - On IV amiodarone - Holding home Coreg and Eliquis due to hypotension and acute GI bleeding (8) Anemia: Acute blood loss anemia. Patient with normochromic normocytic anemia. Secondary to acute blood loss from a GI source. Hemoglobin of 5.3 on admission, had heme positive stool in ER. - Transfusion of PRBCs x4 units given on admission and hgb up to 9.2 and stable - No further obvious bleeding - Continue PPI IV BID (9) EDMUNDO (acute kidney injury): With markedly elevated BUN and creatinine 125 and 4.6, respectively on admission. Creatinine of 2.09 in 2015, recent creatinine level unknown. - Cr down to 2.5 on 04/06; concern it may go up after code events on 04/05 (10) GI bleed: Upper GI bleed as above with duodenal and gastric ulcers, gastritis on EGD. - Appreciate GI consult - Continue IV PPI bid and eventually convert to PO PPI bid once taking PO (11) Subdural hematoma: Acute on chronic SDH bilat on CT with serial CT similar. With known h/o multiple falls recently, EtOH use. - Gave PCC to try to reverse Eliquis upon admission - Continue to hold Eliquis and would not restart in the future - If worsening, would transfer out for NS eval - Consider monitoring serial head CTs while sedated and paralyzed (12) Wrist pain: X-rays neg for fracture. Swelling of the wrist and some mild erythema of the left second MCP joint today-CT of the hand showed multiple areas of fluid collections - S/p washout by orthopedic surgery on 04/05. - Continue IV antibiotics - Follow wound cultures (13) Left ankle pain: Appears to have suffered an ankle sprain with edema, ecchymosis, warmth, tenderness. Seeded with bacteria and now with septic joint. X-rays neg for fracture. - Appreciate orthopedics consultation-now status post washout of joint on 04/05. - Continue IV antibiotics and follow intraoperative cultures (14) Hyperglycemia: A1c was 5.6% this admission. Glucose elevated, no known h/o DMII. - Accuchecks, SSI (15) Alcohol dependence: Known to drink 1/2 bottle vodka daily, sometimes beer. In active withdrawal and was on a phenobarbital IV taper with PRN Ativan. - Now converted to IV Versed after he is sedated mechanically ventilated - Continue IV thiamine, folate (16) Hypertension: Hold Coreg, lisinopril, Lasix in setting of hypotension (17) Septic arthritis: As above (18) Abnormal head CT: With left temporal hypodensity seen on CT of the head Possibility of septic emboli to the brain -Needs brain MRI and will get MRI of the spine as well - ordered and awaiting stability (19) CKD (chronic kidney disease) stage 3, GFR 30-59 ml/min: As above, baseline king maker 2.0 -avoid nephrotoxins -renally dose meds (20) COPD (chronic obstructive pulmonary disease): Patient with history of COPD. With acute hypoxic respiratory failure, Wheezing on exam on admission, now ventilated as above. - Duo nebs as needed - Albuterol as needed - Supplemental oxygen as needed to maintain saturation of 88 to 94% (21) Systolic CHF: Echo here found to have left ventricular global hypokinesis and severely reduce LV function at 25%. Cardiology has reviewed his outpatient records from his primary direct of real estate at [facility]-he was noted to have an EF of 20% several years ago and had a non-obstructive cardiac catheterization indicating a diagnosis of non-ischemic cardiomyopathy. He then had a repeat echocardiogram in the last couple of years which showed recovery of his EF to 50%. - Could be tachyarrhythmia-induced from Afib vs. alcohol-induced cardiomyopathy as most likely causes - No volume overload at this time - Continue holding home Coreg, lisinopril, Lasix (22) DVT prophylaxis: SCDs Dispo-remains critically ill in ICU Prognosis is extremely guarded at this time Finish Patcher has discussed his care extensively with the patient's son whom he has not had contact with in 13 years but has agreed to be his healthcare power of real estate associate attorney. The son has now decided to make him a DNR/DNI in the event of recurrent cardiac arrest Subjective Intubated and sedated. Review of Systems Review of Systems: Unobtainable due to endotracheal tube and Unobtainable due to reduced consciousness Physical Exam Constitutional: WD/WN, vitals as above Eyes: no conjunctival abnormality ENMT: external ear and nose normal, oropharynx normal Neck: trachea midline, no thyromegaly normal visual inspection Respiratory: normal respiratory effort, lungs clear to auscultation no respiratory distress Cardiovascular: RRR, no murmur, no edema Gastrointestinal (Abdomen): Inspection/Auscultation: abdomen normal to inspection; abdomen not distended Musculoskeletal: no cyanosis or clubbing, extremities motor strength 5/5 Skin: no rashes, warm and dry Neurologic: + does not move all extremities and + not awake Psychiatric: Orientation: + not alert Results & Data Vital Signs (Past 12 Hours) Vital Signs Pulse Resp BP Pulse Ox 04/07/19 12:04 94 H 77/68 L 96 04/07/19 12:01 92 H 79/56 L 04/07/19 12:00 98 H 04/07/19 11:54 89 84/58 L 96 04/07/19 11:44 75 82/55 L 04/07/19 11:01 81 96/66 L 100 04/07/19 11:00 71 100 04/07/19 10:39 84 91/67 L 100 04/07/19 10:36 80 86/61 L 100 04/07/19 10:31 84 86/64 L 100 04/07/19 10:26 79 92/64 L 100 04/07/19 10:21 83 78/56 L 100 04/07/19 10:16 93 H 101/78 04/07/19 10:06 80 16 100 04/07/19 10:01 85 88/67 L 100 04/07/19 09:31 82 86/67 L 100 04/07/19 09:01 83 87/65 L 100 04/07/19 08:31 79 87/65 L 98 04/07/19 08:02 95 H 102/64 04/07/19 07:31 81 91/69 L 100 04/07/19 07:08 85 16 100 04/07/19 07:01 86 89/70 L 100 04/07/19 06:31 84 87/67 L 100 04/07/19 06:30 86 100 04/07/19 06:01 77 89/66 L 100 04/07/19 06:00 87 100 04/07/19 05:31 84 92/66 L 04/07/19 05:30 89 04/07/19 05:23 81 16 100 04/07/19 05:01 87 87/68 L 100 04/07/19 05:00 92 H 04/07/19 04:31 91 H 85/61 L 98 04/07/19 04:30 96 H 99 04/07/19 04:00 100 H 04/07/19 03:31 94 H 110/60 91 04/07/19 03:30 97 H 89 L 04/07/19 03:01 95 H 113/62 100 04/07/19 03:00 92 H 100 04/07/19 02:31 97 H 90/66 L 100 04/07/19 02:30 99 H 100 04/07/19 02:08 94 H 17 100 04/07/19 02:01 94 H 103/73 95 04/07/19 02:00 99 H 93 04/07/19 01:31 93 H 97/74 L 99 04/07/19 01:30 97 H 99 04/07/19 01:28 103 H PG Care Time/CCT Total # of Minutes Spent Total Time Spent with Patient: Total time spent is greater than 50% in coordination of care (as documented) at patient's floor/unit and/or counseling patient:
[2019-04-07 13:53] LABS: Herpes Simplex Virus Culture NOT ISOLATED (NOT ISOLATED)
[2019-04-07 15:28] LABS: iSTAT Art Bld Gas pCO2 Correct 32 mmHg (35-46); iSTAT Art Bld Gas pH Corrected 7.391 (7.35-7.45); iSTAT Arterial Blood Gas HCO3 19 meg/L (19-24); iSTAT Arterial Blood Gas pCO2 32 mmHg (35-46); iSTAT Arterial Blood Gas pH 7.39 (7.35-7.45); iSTAT Carbon Dioxide 20 mEq/l (24-31); iSTAT Site Art Line
[2019-04-07] MEDS ORDERED: DAPTOmycin 500 MG VIAL IV SCH (16:30)
[2019-04-07] MEDS: DAPTOmycin 775 MG in SYRINGE 0 ML IV SCH (20:35)
--- NOTE | 2019-04-07 23:06 | Magnetic Resonance Report ---
MR brain wo con HISTORY: 63 years-old Male AMS, ?mycotic aneuysm, anterior falx lesion acutely altered mental status . Patient presents with history of chronic subdural hematomas. The patient is decreased GFR and there fore cannot have IV contrast. Sepsis with MRSA infection COMPARISON: Head CT 04/04/2019 TECHNIQUE: Multiplanar multisequence MRI of the brain was obtained without the use of IV contrast. FINDINGS: The study is markedly motion degraded. Study is also limited without the use of IV contrast. 1.3 x 0. 9 x 1.2 cm ovoid T1 and T2 hyperintense cortically based lesion of the inferior left temporal lobe, i mage 9 series 7 and image 17 series 6 demonstrates restricted diffusion with only slightly decreased signal on ADC map. There is a cluster of subcentimeter foci within the periventricular right occipita l lobe on image 9 series 5 which demonstrate increased diffusion-weighted signal with intermediate to low signal on ADC map and increased T2/FLAIR signal (also see image 23 series 6). No pathologic bloo tasha artifact on the T2 star series. Prominent extra-axial spaces adjacent to the bilateral cerebral convexities redemonstrated which follows CSF signal on all sequences. 3 mm subdural hematoma adjacent to the falx cerebri is unchanged. Unchanged 3 mm subdural hematoma about the left middle cranial fos sa. No hydrocephalus or midline shift. IMPRESSION: 1. Motion degraded exam. Study is also limited without the use of IV contrast. 2. Small acute subdural hematomas about the left middle cranial fossa and also adjacent to the falx c erebri are unchanged. No midline shift or hydrocephalus. 3. Cluster of subcentimeter foci of the periventricular right occipital lobe as above are suggestive of subacute infarctions. 4. 1.3 cm cortically based lesion of the inferior left temporal lobe with slightly restricted diffusi on and increased T2/FLAIR signal may represent an additional area of subacute infarction with neoplas m also within the differential. Follow-up MRI of the brain in 1 month is recommended to further evalu ate. The above report was generated using voice recognition software. It may contain grammatical, syntax o r spelling errors. Electronically signed by: Juma Shepherd M.D. 04/07/2019 11:03 PM
--- NOTE | 2019-04-07 23:15 | Magnetic Resonance Report ---
MR angio head wo con HISTORY: 63 years-old Male AMS, ?mycotic aneuysm, anterior falx lesion acute sepsis with altered men travis status COMPARISON: MRI brain of same day, head CT 04/03/2019 TECHNIQUE: MRI of the head was obtained without the use of IV contrast utilizing 3-D [id number] equencing with MIP reformats. All measurements were obtained according to NASCET criteria. FINDINGS: Motion degraded exam. Limitations of the study, the imaged bilateral internal carotid arteries, middl e and anterior cerebral arteries are unremarkable and patent. The imaged bilateral vertebral arteries appear unremarkable. The basilar and posterior cerebral arteries also appear patent. There is mild m ultifocal luminal narrowing about the bilateral middle cerebral arteries. No aneurysm, dissection, hi gh-grade stenosis or proximal branch occlusion identified. Subdural hematoma adjacent to the left tem poral lobe redemonstrated. IMPRESSION: 1. Motion degraded exam without aneurysm, high-grade stenosis, dissection or proximal branch occlusio n identified. 2. Subdural hematoma about the left middle cranial fossa redemonstrated. The above report was generated using voice recognition software. It may contain grammatical, syntax o r spelling errors. Electronically signed by: Juma Shepherd M.D. 04/07/2019 11:14 PM
--- NOTE | 2019-04-07 23:23 | Magnetic Resonance Report ---
MR cervical spine wo con HISTORY: 63 years-old Male r/o abscess acute versus infection with altered mental status COMPARISON: Brain MRI of same day, CT cervical spine 04/03/2019 TECHNIQUE: Multiplanar multisequence MRI of the cervical spine was obtained without the use of IV con trast. FINDINGS: Study is markedly motion degraded which limits evaluation of the central canal and neuroforamina spec ifically. No acute process of the imaged posterior fossa structures. Mucosal thickening of the spheno id sinuses. Moderate nonspecific edema noted within the paraspinal musculature with mild edema also s een within the nasopharynx. Soft tissues of the neck are unremarkable. Bilateral mastoid effusions. N o acute fracture, subluxation, or focal bone marrow edema. No epidural fluid collections identified. Mildly increased STIR signal about the central cervical spinal cord may be artifactual. C2-C3: Disc space narrowing with uncovertebral spurring and facet arthrosis. Central canal and right neuroforamen appear patent. Mild left foraminal stenosis. C3-C4: Disc space narrowing with posterior disc osteophyte complex and moderate facet arthrosis. Flat tening of the ventral thecal sac without significant central canal narrowing. Neuroforamina are not w ell evaluated secondary to patient motion. There appears to be at least moderate bilateral foraminal stenosis. C4-C5: Disc space narrowing with moderate facet arthrosis and posterior disc osteophyte complex. Cent ral canal is patent. Neuroforamina are not well evaluated secondary to motion artifact. There is a le ast mild bilateral foraminal narrowing. C5-C6: Moderate disc space narrowing with posterior disc osteophyte complex and moderate facet arthro sis. Flattening of the ventral thecal sac without significant central canal narrowing. Neuroforamina are not well evaluated secondary to motion artifact. Mild left with moderate to severe right foramina l narrowing suggested. C6-C7: Moderate disc space narrowing with posterior disc osteophyte complex and moderate facet arthro sis. No significant central canal narrowing. Neuroforamina are not well evaluated secondary to motion artifact. C7-T1: No central canal or foraminal narrowing. IMPRESSION: 1. Limited exam secondary to motion artifact. 2. No acute fracture, subluxation or focal bone marrow edema identified. 3. Nonspecific moderate amount of edema seen within the subcutaneous and paraspinal musculature exten ding from the skull base through the imaged upper thorax. 4. No epidural abscess identified.. The above report was generated using voice recognition software. It may contain grammatical, syntax o r spelling errors. Electronically signed by: Juma Shepherd M.D. 04/07/2019 11:22 PM
[2019-04-08] MEDS: MIDAZOLAM HCL 125 MG/250 ML BAG IV SCH (00:47)
[2019-04-08] MEDS: SUCRALFATE 1 GM/10 ML UDC PO SCH ×5 (00:47→20:49)
[2019-04-08] MEDS: BACITRACIN OINT 15 GM TUBE EXT SCH ×3 (00:48→20:48)
[2019-04-08] MEDS: INSULIN ASPART 100 UNITS/ML 3 ML PEN SC SCH ×4 (01:22→17:15)
[2019-04-08] MEDS: AMIODARONE / D5W 360 MG/200 ML BAG IV SCH (01:50)
[2019-04-08 04:54] LABS: Basophils # (auto) 0.01 K/uL (0-0.2); Basophils % (auto) 0.1 %; Eosinophils # (auto) 0.13 K/uL (0-0.5); Hematocrit (blood only) 25.3 % (42-52); Hemoglobin 8.2 g/dL (14.0-18.0); Immature Granulocytes % (auto) 0.8 %; Lymphocytes # (auto) 0.92 K/uL (1.2-3.4); Lymphocytes % (auto) 7.3 %; Mean Corpuscular Hgb Conc 32.4 g/dL (32-36); Mean Corpuscular Volume 83.5 fL (80-100); Mean Platelet Volume 9.6 fL (7.4-10.4); Monocytes # (auto) 0.31 K/uL (0.11-0.59); Monocytes % (auto) 2.4 %; Neutrophils # (auto) 11.19 K/uL (1.4-6.5); Neutrophils % (auto) 88.4 %; Nucleated RBC # (auto) 0.06 K/uL (0-0); Nucleated RBC % (auto) 0.5 %; Platelet Count 279 K/uL (130-400); RDW Coefficient of Variation 21.3 % (11.5-14.5); RDW Standard Deviation 65.8 fL (36.4-46.3); Red Blood Count 3.03 M/uL (4.7-6.1); White Blood Count 12.66 K/uL (4.8-10.8)
[2019-04-08 05:11] LABS: INR 1.5 (0.9-1.1); Partial Thromboplastin Ratio 1.4; Partial Thromboplastin Time 36.9 Seconds (21.0-31.0)
[2019-04-08 05:14] LABS: Albumin Level 1.5 gm/dl (3.4-5.0); Calcium 8.1 mg/dl (8.5-10.1); Creatinine Clr Calc Pharmacy 38.2 ml/min; Est GFR (African American) 36.2; Est GFR (Non-African American) 31.3; Magnesium 1.9 mg/dl (1.8-2.4); Potassium 3.4 mmol/L (3.5-5.1)
[2019-04-08 05:26] LABS: Albumin Globulin Ratio 0.4 (0.9-2); Bilirubin,Total 1.4 mg/dl (0.2-1); Globulin 3.8 gm/dl (2.5-4.0); Phosphorus 2.2 mg/dl (2.5-4.9); Total Protein 5.3 gm/dl (6.4-8.2)
[2019-04-08 05:38] LABS: Anisocytosis Present; Dohle Bodies 1+; Echinocytes 1+; Hypochromasia Present; Toxic Granulation 1+; Toxic Vacuolation Occasional
[2019-04-08] MEDS: CEFTAROLINE FOSAMIL ACETATE 300 MG in SODIUM CHLORIDE 0.9% 250 ML IV SCH (06:36)
[2019-04-08] MEDS: POT PHOSPHATE MONOBASIC W/ SOD TAB PO SCH ×3 (07:34→15:15)
[2019-04-08] MEDS: POTASSIUM CHLORIDE 20 MEQ/15 ML UDC PO SCH ×3 (07:36→15:14)
[2019-04-08] MEDS: FOLIC ACID 1 MG in SYRINGE 9.8 ML IV SCH (07:37)
[2019-04-08] MEDS: THIAMINE HCL 100 MG in SYRINGE 9 ML IV SCH ×2 (07:37→20:49)
[2019-04-08] MEDS: PANTOprazole 40 MG in SYRINGE 0 ML IV SCH ×2 (07:38→20:49)
--- NOTE | 2019-04-08 07:54 | Magnetic Resonance Report ---
THORACIC SPINE MRI HISTORY: Sepsis. r/o abscess TECHNIQUE: Multiplanar multisequence MRI of the thoracic spine was performed without the use of contr ast. COMPARISON: None. FINDINGS: Suboptimal evaluation of the thoracic spine due to the motion artifact and lack of intravenous contra st. No fracture or subluxation. Normal marrow signal intensity seen throughout the visualized osseous structures of the thoracic spine. The thoracic spinal cord appears normal in course, caliber, and si gnal intensity. No significant central canal narrowing. Difficult evaluation for an epidural abnormal ity given the motion artifact. However, no definite epidural fluid collections identified on this non contrast study. Subcutaneous/paraspinal edema is noted. This is nonspecific. No evidence for discitis /osteomyelitis. Trace bilateral pleural effusions and right lower lobe consolidation is noted. IMPRESSION: 1. The study is significantly limited from a technical standpoint due to motion artifact and lack of intravenous contrast. However, no definite epidural fluid collections identified. 2. Nonspecific paraspinal/subcutaneous edema is noted. 3. No evidence for discitis/osteomyelitis. 4. Trace bilateral pleural effusions and right lower lobe consolidation. Electronically signed by: Connor Lewis M.D. 04/08/2019 7:52 AM
--- NOTE | 2019-04-08 08:23 | Critical Care Progress Note ---
Date of Service April 08, 2019 Assessment & Plan (1) Admitted to intensive care unit: Reason Critically Ill: Acute blood loss anemia suspect 2/2 AGIB, AMS w/ MRSA bacteremia and septic arthritis PLAN: Neuro: AMS 2/2 Acute Encephalopathy - Sepsis +/- chronic subdural hematomas - Midazolam drip Bilateral subdural hematoma Serial CT, hematoma with maximum transverse dimension of 5 mm and without significant midline shift. -Holding systemic anticoagulation hypodense lesions suspected in the left temporal lobe, chronic subdural hematomas or hygromas, Indeterminate focus of hyperdensity along the falx near the vertex. Trace acute subdural hematoma is not excluded though this could represent a vessel, appearance unchagned from prior. Recommended MRI for further evaluation. -MR brain, MR spine, MRA: Motion degraded, but no change in prior subdurals which are still appreciated. Potential right occipital subacute infarcts are appreciated. 1.3 cm left temporal infarct versus neoplasm noted and recommended for 1 month follow-up. Spine shows no fracture, paraspinal edema from the capitis to upper thorax. No disc disease. Suspect EtOH Withdrawal, last drink PET STYLIST 04/02, History of high alcohol intake - CIWA precautions - 4-8 drinks per day per pt, liquor - Sedated with versed drip as above Resp: Acute hypoxic respiratory failure with L pulmonary whiteout following cardiac arrest - s/p bronchoscopy with wash of mucous plug - ETT in place, on mechanical ventilation. Vent at PRVC rate 16, tidal 500, PEEP 5, FiO2 .3. He is breathing over the vent with a rate of 20 and tidal's approximately [id number] and peak pressure approximately 15-17. History of COPD not tolerant of inhalers No home O2 requirement Former tobacco smoker -40 year .5ppd (~20pack/yr hx) -Quit September this year CV: Cardiac Arrest, Code Blue - MRSA 2/2 septic shock - Following ETT prior to MRI 04/06 pt acutely decompensated with cardiac arrest. GIANFRANCO did not show any obvious valvular vegetations no evidence of left atrial or left atrial appendage thrombus. Global hypokinesis was appreciated. Hypotension 2/2 hypovolemia, sepsis - MRSA bacteremia - Levophed @ .16mcg/kg/hr. from 0.12 yesterday, further weaned to .1 this monring. - 30% EF + Afib. Abx as below. Tachycardia, history atrial fibrillation Apixaban held in the setting of acute bleed - Afib, rate controlled overnight - Per cardiology d/mi amio, started digoxin load with 22.5 Q8H x2 doses. Will reassess and likely follow with 1.25 Q48H. Heart failure with reduced ejection fraction -Echo shows reduced ejection fraction of approximately 30 to 35% 1500 cc urine output last 24 hours EDMUNDO as below No diuresis at this time Renal: Acute kidney injury 2/2 prerenal, DE, and sepsis. Improving Creatinine peak 4.56, downtrending to 2.7 -Per patient's son who is his decision maker patient would not want dialysis performed. Sodium 147, potassium 3.4 Phosphorus 2.2, magnesium 1.9 Neutra-Phos to 50 every 4 hours x3 doses, KCl elixir 20 M EQ x3 doses every 4 hours Recheck BMP at noon Continue BMP daily ID: Sepsis 2/2 MRSA Bacteremia Blood cultures positive for MRSA Continue surveillance cultures, no negatives yet Continue ceftaroline plus daptomycin - L hand and R foot with septic joint s/p washout with fluid positive for MRSA. -GIANFRANCO without signs of endocarditis as above Perianal/gluteal rash Patient has a diffuse, nontender bilateral rash with central eschar and without vesicles. 3 circulation sales representative lesions unroofed and collected for HSV rapid culture, sample slides sent for pathology/[place] smear. No giant cells, but large amounts of bacteria observed. Continue abx as above GI/Nutrition: Acute GI bleed Hemoglobin 8.2 from 7.7, CBC daily GI consulted. EGD showed diffuse gastritis with biopsy taken, nonbleeding gastric ulcers, nonbleeding duodenal ulcers, and a normal second and third portion of the duodenum. Per Protonix 40 mg p.o. twice daily for 6 weeks then 40 mg daily, PO conversion and diet currently held in the setting of AMS Repeat upper endoscopy in 3 months Transaminitis 2/2 sepsis and alcoholism - Transaminases uptrending - AST 1.2K, ALT 878, AlkPh 126 today. Suspect end organ damage in setting of sepsis - CMP daily Nutrition NPO 2/2 AMS & ETT Trickle feeds, increasing free water flushes today - +Prealbumin today Heme: Acute blood loss anemia secondary to GI bleed as above Status post 4 units PRBC, 1 unit PCC on admit. Currently stable. -Reticulocytes increased to 4.1 with a reticulate site index of 1.19 adjusting a degree of hypo-proliferation. Endocrine: No history of type 2 diabetes Glucose checks as needed, BMP daily -SSI ICU hyperglycemia protocol A1c 5.6 DVT prophylaxis: Pharmacal prophylaxis contraindicated, SCDs Vascular access: PIV intact, Radial a-line replaced with femoral line Goals of Care: His care was previously discussed with his son who is his medical decision-maker. His son his son states that his father would not want dialysis in his current condition, and would not want CPR or mechanical ventilation his current condition. Pending his arrival to the unit for further discussion. Code Status: DNR/DNI Supervising Physician Co-Signing Physician Notes Patient was seen and examined with the practice resident and critical care nurse practitioner. EMR was reviewed. Discussed with cardiology. Over the last 24 hours, the patient appears to have stabilized slightly. His kidney function is slightly better. He remains on low-dose vasopressors. Unfortunately his surveillance cultures continue to be positive. MRIs were completed which demonstrated stability of the acute on chronic subdural hematomas. No obvious epidural abscess or fluid collections were identified. Continue antibiotics of ceftaroline and daptomycin under the direction of infectious disease. I remain concerned that there may be other potential sorts of seeded infection given his persistently positive blood cultures. Consideration for sampling of the subdurals would be appropriate however that is not available at this institution and will hold off for now to see if we can sterilize his cultures. Continue to wean pressors as tolerated. Given his reduced ejection fraction and persistent atrial fibrillation with elevation in LFTs, we will pursue a trial of digoxin and potentially amiodarone. LFTs will continue to be trended. Continue trophic tube feeds and add free water. Follow sodium levels. Arterial line is nonfunctional and will be removed and placed. Continue to monitor kidney function closely given his renal insufficiency. The patient will have sedation weaned to see if he is appropriate for spontaneous breathing trial and potential extubation within the next 24 hours. Continue thiamine folate and as needed benzodiazepines for potential alcohol withdrawal. Son is apparently en route and will be updated when he arrives. Nicolasa Phelan is seen at the bedside this morning. He transiently responds to sternal rub, otherwise does not arouse to voice or physical touch. Did MRI last night. Overnight his arterial line has been sluggish and reading artificially low per nursing staff. No other overnight events. Review of Systems Review of Systems: Unobtainable due to cognitive status and Unobtainable due to endotracheal tube Physical Exam Physical Exam: General: ETT in place. Appears ill. Sedated. Skin: Warm, dry. HEENT: Atraumatic, normocephalic. No spontaneous eye movement/opening. Pupils equal and reactive to light and accommodation. Mucous membranes moist. Pulm: Global end expiratory wheezes, AIDA/LLL rales. Symmetrical chest rise. ETT in place Cardiac: Regular rate and rhythm with occasional VPC this morning. No JVD. No murmurs appreciated Abdominal: Nontender, nondistended, soft. BS present. Extremities: Warm, well-perfused. PT pulses palpable bilaterally. L foot wrapped in surgical dressing s/p joint tap/washout. R wrist wrapped in surgical dressing s/p joint tap/washout. R foot swollen with mild erythema at hallux. Scattered few firm erythematous nodules on feet bilaterally, scattered few erythematous macules on forefoot bilaterally. Results & Data Vital Signs (Past 12 Hours) Vital Signs Pulse Pulse Resp BP BP BP Pulse Ox 04/08/19 05:01 96 H 102/74 96 04/08/19 04:46 94 H 89/66 L 95 04/08/19 04:31 88 100/69 97 04/08/19 04:16 102 H 98/73 L 94 04/08/19 04:01 94 H 102/78 95 04/08/19 03:46 92 H 100/71 100 04/08/19 03:42 88 18 94 04/08/19 03:31 89 94/77 L 95 04/08/19 03:16 97 H 101/68 93 04/08/19 03:01 96 H 103/68 96 04/08/19 02:46 89 103/75 96 04/08/19 02:31 96 H 108/71 94 04/08/19 02:16 95 H 99/77 L 98 04/08/19 02:01 101 H 96/77 L 98 04/08/19 01:46 97 H 107/79 96 04/08/19 01:31 99 H 103/71 97 04/08/19 01:24 91 H 04/08/19 01:16 98 H 103/73 98 04/08/19 01:01 95 H 103/67 97 04/08/19 00:46 99 H 97/70 L 96 04/08/19 00:31 101 H 95/66 L 95 04/08/19 00:29 101 H 100/65 94 04/08/19 00:05 102 H 18 96 04/08/19 00:01 106 H 90/63 L 04/08/19 00:00 107 H 04/07/19 23:57 93 H 04/07/19 23:15 120/58 L 04/07/19 22:33 62 112/68 90 04/07/19 21:46 50 L 16 120/69 97 04/07/19 21:30 60 20 96 04/07/19 20:15 86 98 04/07/19 20:01 92 H 83/67 L 100 04/07/19 20:00 84 98 04/07/19 19:31 82 84/57 L 95 04/07/19 19:30 86 96 04/07/19 19:05 83 19 97 04/07/19 19:01 87 79/59 L 100 04/07/19 19:00 83 92 04/07/19 18:00 90 18 98/54 L 95 PG Care Time/CCT Total # of Minutes Spent Total Time Spent with Patient: Total time spent is greater than 50% in coordination of care (as documented) at patient's floor/unit and/or counseling patient: Critical Care Time: Yes Total Critical Care Time: 42 Resident Activity Tracking Resident Involvement: Resident Care Provided Care Provided: Adult Hospital Medicine
--- NOTE | 2019-04-08 09:47 | Magnetic Resonance Report ---
MRI OF THE LUMBAR SPINE WITHOUT IV CONTRAST CLINICAL HISTORY: Clinical concern for spinal infection. COMPARISON STUDY: Abdominal CT dated 04/03/2019. TECHNIQUE: MRI of the lumbar spine is performed utilizing various T1 and T2-weighted sequences in the axial and sagittal planes. IV contrast was not administrated for this examination. The examination i s significantly compromised by motion artifact. The examination is also compromised by lack of IV con trast. FINDINGS: Lumbar spine: Vertebral body height is maintained throughout the lumbar spine. There is minimal anter olisthesis at L3-L4 and L4-L5. Alignment is otherwise preserved. The transverse and spinous processes appear intact. There is no evidence of spondylolysis. No significant marrow edema is identified, and no destructive bony lesion is identified. Intervertebral discs: Degenerative disc desiccation is seen throughout the lumbar spine. Mild multile erica loss of height is observed, greatest at L5-S1. Spinal cord and central canal: The visualized portions of the spinal cord are normal in morphology an d signal intensity. The conus medullaris terminates at the level of L1. The nerve roots of the cauda equina are not well evaluated. There is epidural lipomatosis of the lower spinal canal. No organized fluid collection is clearly identified. L1-L2: Unremarkable. L2-L3: There is minimal disc bulge. The central canal is patent. The neural foramina are clear. L3-L4: There is a disc herniation eccentric to the right. There is mild acquired compromise of the ce ntral canal at this level with a minimum AP diameter of 7 mm. The disc herniation impinges on the tra nsiting right-sided nerve roots. A superiorly extruded fragment measures approximately 1.5 cm. Facet arthropathy is of no consequence. The neural foramina are patent. L4-L5: There is a small posterior disc bulge with annular fissure. There is no evidence of high-grade central canal stenosis at this level. There is bilateral subarticular stenosis. This may abut the ex iting bilateral L4 nerve roots. Facet arthropathy causes mild left-sided neural foraminal stenosis. L5-S1: There is a small disc herniation with annular fissure. This causes mild central canal stenosis . There is severe bilateral subarticular stenosis, right greater than left. There is probable impinge ment on the exiting bilateral L5 nerve roots. Facet arthropathy causes mild to moderate bilateral jeaneth ral foraminal stenosis. Facet joint effusions are observed. Sacrum: The visualized sacrum is normal in morphology and signal intensity. Soft tissues: There is edema of the paraspinous musculature. There are complex-appearing fluid collec tions within the paraspinous muscles are bilaterally. A multiloculated collection on the left at the levels of L3 and L4 is seen on axial image #16. This measures approximately 5 x 2 x 2 cm. A more infe riorly loculated component is suggested on the left at the level of L5 on axial image #22. This measu res at least 1.9 cm. A collection in the right paraspinous musculature on the right seen on image #25 at the levels of L4-L5 measures approximately 3 x 2 x 1.5 cm. Components of both paraspinous fluid c ollections appear to involve the L4-L5 facet joints. The retroperitoneal structures are not well eval uated. IMPRESSION: 1. Significantly motion compromised examination. 2. There is no clear evidence of epidural fluid collection. Epidural lipomatosis is present and compr omises assessment. 3. There is significant edema identified within the paraspinous musculature with associated complex f luid collections bilaterally. These likely represent abscesses. 4. Components of the paraspinous fluid collections likely involves the bilateral L4-L5 facet joints. Septic arthritis of the joints is not excluded. 5. There is a disc herniation eccentric to the right at L3-L4 with a superiorly extruded fragment. 6. There is a small disc herniation identified at L5-S1. 7. See discussion for detailed level by level analysis. Dictated: 04/08/2019 8:01 AM Transcribed: 04/08/2019 9:36 AM Lala [id number] [email or web address] Electronically signed by: Mynor Holder M.D. 04/08/2019 9:46 AM
--- NOTE | 2019-04-08 09:54 | Cardiology Progress Note ---
Date of Service April 08, 2019 Subjective The patient remains intubated and sedated. He does move to tactile stimuli. He remains on pressors at this time. His case was discussed with the dispatcher clerk service who was at the bedside. Results & Data Vital Signs (Past 12 Hours) Vital Signs Pulse Pulse Resp BP BP Pulse Ox 04/08/19 08:31 97 H 95 04/08/19 08:30 101 H 94 04/08/19 08:16 88 105/74 97 04/08/19 08:15 96 H 95 04/08/19 08:01 97 H 111/81 96 04/08/19 08:00 102 H 94 04/08/19 07:46 100 H 106/74 95 04/08/19 07:45 96 H 94 04/08/19 07:31 98 H 110/78 96 04/08/19 07:30 94 H 95 04/08/19 07:26 100 H 19 95 04/08/19 07:16 95 H 110/77 96 04/08/19 07:15 95 H 96 04/08/19 07:01 93 H 104/79 95 04/08/19 07:00 93 H 94 04/08/19 06:46 91 H 101/80 96 04/08/19 06:31 96 H 105/89 96 04/08/19 06:16 99 H 89/58 L 92 04/08/19 06:01 92 H 97/78 L 95 04/08/19 05:46 85 104/83 95 04/08/19 05:31 98 H 103/73 95 04/08/19 05:16 98 H 108/75 95 04/08/19 05:01 96 H 102/74 96 04/08/19 04:46 94 H 89/66 L 95 04/08/19 04:31 88 100/69 97 04/08/19 04:16 102 H 98/73 L 94 04/08/19 04:01 94 H 102/78 95 04/08/19 03:46 92 H 100/71 100 04/08/19 03:42 88 18 94 04/08/19 03:31 89 94/77 L 95 04/08/19 03:16 97 H 101/68 93 04/08/19 03:01 96 H 103/68 96 04/08/19 02:46 89 103/75 96 04/08/19 02:31 96 H 108/71 94 04/08/19 02:16 95 H 99/77 L 98 04/08/19 02:01 101 H 96/77 L 98 04/08/19 01:46 97 H 107/79 96 04/08/19 01:31 99 H 103/71 97 04/08/19 01:24 91 H 04/08/19 01:16 98 H 103/73 98 04/08/19 01:01 95 H 103/67 97 04/08/19 00:46 99 H 97/70 L 96 04/08/19 00:31 101 H 95/66 L 95 04/08/19 00:29 101 H 100/65 94 04/08/19 00:05 102 H 18 96 04/08/19 00:01 106 H 90/63 L 04/08/19 00:00 107 H 04/07/19 23:57 93 H 04/07/19 23:15 120/58 L 04/07/19 22:33 62 112/68 90 He is intubated and sedated. He does respond to painful stimuli. He looks chronically ill and much worse than when I last saw him as an outpatient in October HEENT: Severely reduced carotid upstrokes Lungs: Diffuse inspiratory and expiratory rhonchi Heart irregular rate and rhythm no appreciable murmurs rubs or gallops Abdomen soft nontender nondistended decreased bowel sounds Extremities: Bilateral lower extremity edema. Question of [place] or [place] lesions on his hands and feet Neuro: As above Impressions: 1. Persistent MRSA bacteremia with presumed septic emboli to his joints, brain, and hands while on appropriate antibiotics 2. History of moderate nonischemic cardia myopathy likely secondary to alcohol abuse 3. Vent dependent respiratory failure 4. Acute kidney injury on chronic kidney disease 5. Paroxysmal atrial fibrillation 6. Both subdural hematomas and acute infarcts by MRI 7. Admitted with profound hypotension and anemia 8. Worsening of his LFT abnormalities possibly related to amiodarone, possibly from hepatic congestion, possibly from hypoperfusion There is no evidence of endocarditis or aortic root abscess on his GIANFRANCO yesterday. He remains persistently bacteremic even though he is on appropriate antibiotics. Database Engineer service is concerned with regards to his rising LFTs and the use of amiodarone. Amiodarone was started for rate control rather than a rhythm control strategy. At this point I would stop his amiodarone. I would give him a dose of digoxin 0.25 mg IV x1 and then repeat the dose in 8 hours. His renal function is improving with a baseline creatinine of around 1.7. He likely will need digoxin 0.125 mg every 48 hours Based on his GIANFRANCO he now has severe biventricular dysfunction this is likely exacerbated by his ongoing sepsis. Additionally it appears he was drinking rather heavily as an outpatient which would also be the cause for his not known nonischemic cardiomyopathy. Database Engineer inquired with regards to dobutamine to try to get him off pressors. I think at this point I will continue with Levophed at the small dose he is on as he will get some beta effect from Levophed. If he has refractory heart failure does not allow us to get him extubated at some point down the road then I would try dobutamine.
--- NOTE | 2019-04-08 10:46 | XRay Report ---
XR chest 1V portable HISTORY: Shortness of breath. Evaluate lines and tubes. COMPARISON: Chest 04/05/2019. FINDINGS: The endotracheal tube terminates approximately 3.9 cm from the radha. Nasogastric tube ter minates below the diaphragm. The tip is not included on this study. Right jugular central venous cath eter terminates at the proximal SVC. No pneumothorax. Left basilar density/effusion persists. Right g reater than left interstitial and vascular thickening suggestive of mild asymmetric pulmonary edema. This is also unchanged. IMPRESSION: 1. Satisfactory support line placement. 2. Left basilar opacity/effusion persist. 3. Right greater than left interstitial and vascular thickening suggestive of asymmetric congestive c hange. This remains unchanged. Electronically signed by: Connor Lewis M.D. 04/08/2019 10:45 AM
[2019-04-08] MEDS: CALCIUM CHLORIDE 10% 1,000 MG in SODIUM CHLORIDE 0.9% 50 ML IV SCH ×2 (10:55→11:30)
[2019-04-08] MEDS: NORMOSOL-R 1,000 ML IV SCH (10:58)
[2019-04-08] MEDS: DIGOXIN 250 MCG in SYRINGE 9 ML IV SCH ×2 (10:59→18:18)
--- NOTE | 2019-04-08 11:16 | Procedure Note ---
Procedure Note Date of Service April 08, 2019 Note ARTERIAL LINE PROCEDURE NOTE: Procedure: Arterial Line Placement Attending: Dr. Valdemar Linares Provider: CHLOÉ Moore Indication: Frequent ABGs/continuous blood pressure monitoring Anesthesia:Lidocaine 1% Consent was signed and placed on the chart prior to procedure. Indication, risks, and benefits were explained at length. A time-out was completed verifying correct patient, procedure, site, positioning, and implant(s) or special equipment if applicable. Patients right groin was prepped and draped in the usual sterile fashion. Ultrasound guidance was used to aid needle placement. A finder needle was introduced into the right femoral artery and arterial flow was observed. A guidewire was then threaded through the introducer needle, and the introducer needle was removed. Catheter was threaded over the guidewire, and the guidewire was removed with appropriate blood return. The catheter was attached to the transducer and good waveform was observed on the monitor. The patient tolerated the procedure well. Blood Loss: Minimal Complications: None Procedural Ultrasound Guidance: Procedure Date: 04/08/2019 Indication: Femoral arterial line insertion Attending: Dr. Valdemar Linares Provider: CHLOÉ Moore Artery Identified: YES Line confirmed in Artery with ultrasound: Yes Complications: NONE Patient tolerated procedure: WELL Supervising Physician Co-Signing Physician Notes I was present for and scrubbed and assisted with this procedure in its entirety. Coding CPT Codes Tubes, Drains, and Vasc Access - Tubes, Drains, and Vasc Access: Place Catheter In Artery ([id number]) Tubes, Drains, and Vasc Access - Tubes, Drains, and Vasc Access: Ultrasound Guidance For Vascular ([id number])
[2019-04-08 12:08] LABS: BUN Creatinine Ratio 33.6 (10-20); Calcium 9.5 mg/dl (8.5-10.1); Creatinine Clr Calc Pharmacy 43.9 ml/min; Est GFR (African American) 42.8; Est GFR (Non-African American) 36.9; Potassium 3.6 mmol/L (3.5-5.1)
[2019-04-08 12:14] LABS: Prealbumin 4.5 mg/dl (20-40)
[2019-04-08] MEDS ORDERED: PROPOFOL 1,000 MG/100 ML VIAL IV STA (13:55)
--- NOTE | 2019-04-08 15:09 | Orthopedic Progress Note ---
Date of Service April 08, 2019 Assessment & Plan (1) Septic arthritis of left ankle: Order place for daily dressing changes for Left wrist and ankle, with new packing to be placed in wrist wound Patient will cont to be cared for by ICU hospitalist IV ABX per infectious disease Will cont to follow while in house. (2) Septic arthritis of wrist, left: Subjective Patient in ICU with several comorbid issued, coded x2 evening after surgery. Unresponsive to any stimuli. Dressings on Left wrist and ankle are both clean, dry and intact. Spoke with RN who states that all pain relieving agents have been discontinued. ICU hospitalist service will cont to monitor trough for Vanco administration. Review of Systems Review of Systems: Unobtainable due to endotracheal tube Physical Exam Physical Exam: Gen: intubated and sedated on the ventilator. L wrist: dressings lifted. Packing in place. No purulence expressed from the drain sites. Moderate edema around the wounds, no significant redness. L ankle: dressings lifted. Minimal serosanguinous drainage from the drain site. Incision c/d/i. Sutures intact. No significant redness. Results & Data Vital Signs (Past 12 Hours) Vital Signs Pulse Resp BP Pulse Ox 04/08/19 14:10 96 H 18 99 04/08/19 11:46 93 H 103/67 99 04/08/19 11:45 95 H 100 04/08/19 11:31 92 H 101/75 97 04/08/19 11:30 95 H 95 04/08/19 11:16 97 H 106/78 04/08/19 11:15 94 H 91 04/08/19 11:01 88 98/82 L 91 04/08/19 11:00 97 H 18 100 04/08/19 10:59 88 04/08/19 10:46 88 98/76 L 91 04/08/19 10:45 95 H 91 04/08/19 10:31 93 H 100/75 93 04/08/19 10:30 90 90 04/08/19 10:16 90 97/69 L 92 04/08/19 10:15 95 H 91 04/08/19 10:01 96 H 96/74 L 94 04/08/19 10:00 92 H 92 04/08/19 09:46 92 H 114/76 98 04/08/19 09:45 94 H 96 04/08/19 09:31 96 H 114/74 90 04/08/19 09:30 94 H 94 04/08/19 09:16 94 H 102/69 94 04/08/19 09:15 100 H 96 04/08/19 09:01 97 H 113/73 95 04/08/19 09:00 94 H 94 04/08/19 08:47 94 H 99/71 L 99 04/08/19 08:45 88 97 04/08/19 08:31 97 H 95 04/08/19 08:30 101 H 94 04/08/19 08:16 88 105/74 97 04/08/19 08:15 96 H 95 04/08/19 08:01 97 H 111/81 96 04/08/19 08:00 102 H 94 04/08/19 07:46 100 H 106/74 95 04/08/19 07:45 96 H 94 04/08/19 07:31 98 H 110/78 96 04/08/19 07:30 94 H 95 04/08/19 07:26 100 H 19 95 04/08/19 07:16 95 H 110/77 96 04/08/19 07:15 95 H 96 04/08/19 07:01 93 H 104/79 95 04/08/19 07:00 93 H 94 04/08/19 06:46 91 H 101/80 96 04/08/19 06:31 96 H 105/89 96 04/08/19 06:16 99 H 89/58 L 92 04/08/19 06:01 92 H 97/78 L 95 04/08/19 05:46 85 104/83 95 04/08/19 05:31 98 H 103/73 95 04/08/19 05:16 98 H 108/75 95 04/08/19 05:01 96 H 102/74 96 04/08/19 04:46 94 H 89/66 L 95 04/08/19 04:31 88 100/69 97 04/08/19 04:16 102 H 98/73 L 94 04/08/19 04:01 94 H 102/78 95 04/08/19 03:46 92 H 100/71 100 04/08/19 03:42 88 18 94 04/08/19 03:31 89 94/77 L 95 04/08/19 03:16 97 H 101/68 93 Laboratory Results 04/08/19 04/08/19 04/08/19 Range/Units 11:34 11:19 06:19 WBC (4.8-10.8) K/uL RBC (4.7-6.1) M/uL Hgb (14.0-18.0) g/dL Hct (42-52) % MCV (80-100) fL MCH (25-34) pg MCHC (32-36) g/dL RDW Std Deviation (36.4-46.3) fL RDW Coeff of Quan (11.5-14.5) % Plt Count (130-400) K/uL MPV (7.4-10.4) fL Immature Gran % (Auto) % Neut % (Auto) % Lymph % (Auto) % Fergus % (Auto) % Eos % (Auto) % Baso % (Auto) % Immature Gran # (Auto) (0.00-0.02) K/uL Neut # (Auto) (1.4-6.5) K/uL Lymph # (Auto) (1.2-3.4) K/uL Fergus # (Auto) (0.11-0.59) K/uL Eos # (Auto) (0-0.5) K/uL Baso # (Auto) (0-0.2) K/uL Absolute Nucleated RBC (0-0) K/uL Nucleated RBC % (auto) % Toxic Granulation Toxic Vacuolation Dohle Bodies Hypochromasia Anisocytosis Echinocytes PT (9.0-12.0) Seconds INR (0.9-1.1) APTT (21.0-31.0) Seconds PTT Ratio Sample Site POC pH (7.35-7.45) POC pCO2 (35-46) mmHg POC pO2 (80-95) mmHg POC HCO3 (19-24) jennifer/L POC Total CO2 (24-31) mEq/l POC Base Excess (-9-1.8) jennifer/L ABG pH (Temp Correct) (7.35-7.45) ABG pCO2 (Temp Corrct (35-46) mmHg POC ABG pO2 at Pt Temp POC ABG O2 Sat (90-95) % Jimmy Test O2 Delivery Device POC O2 Rate Minute Ventilation Tidal Volume PEEP Sodium 147 H (136-145) mmol/L Potassium 3.6 (3.5-5.1) mmol/L Chloride 118 H (98-107) mmol/L Carbon Dioxide 22 (21-32) mmol/L Anion Gap 7.0 (3-11) BUN 63 H (7-18) mg/dl Creatinine 1.89 H (0.6-1.4) mg/dl Est Cr Clr Drug Dosing 43.9 ml/min Est GFR ( Amer) 42.8 Est GFR (Non-Af Amer) 36.9 BUN/Creatinine Ratio 33.6 H (10-20) Glucose 153 H (70-99) mg/dl POC Glucose (other) 160 H 170 H (70-99) mg/dl Calcium 9.5 D (8.5-10.1) mg/dl Phosphorus (2.5-4.9) mg/dl Magnesium (1.8-2.4) mg/dl Total Bilirubin (0.2-1) mg/dl AST (15-37) U/L ALT (12-78) U/L Alkaline Phosphatase (45-117) U/L Total Protein (6.4-8.2) gm/dl Albumin (3.4-5.0) gm/dl Globulin (2.5-4.0) gm/dl Albumin/Globulin Ratio (0.9-2) Prealbumin 4.5 L (20-40) mg/dl 04/08/19 04/08/19 04/08/19 Range/Units 04:27 04:27 04:27 WBC 12.66 H (4.8-10.8) K/uL RBC 3.03 L (4.7-6.1) M/uL Hgb 8.2 L (14.0-18.0) g/dL Hct 25.3 L (42-52) % MCV 83.5 (80-100) fL MCH 27.1 (25-34) pg MCHC 32.4 (32-36) g/dL RDW Std Deviation 65.8 H (36.4-46.3) fL RDW Coeff of Quan 21.3 H (11.5-14.5) % Plt Count 279 (130-400) K/uL MPV 9.6 (7.4-10.4) fL Immature Gran % (Auto) 0.8 % Neut % (Auto) 88.4 % Lymph % (Auto) 7.3 % Fergus % (Auto) 2.4 % Eos % (Auto) 1.0 % Baso % (Auto) 0.1 % Immature Gran # (Auto) 0.10 H (0.00-0.02) K/uL Neut # (Auto) 11.19 H (1.4-6.5) K/uL Lymph # (Auto) 0.92 L (1.2-3.4) K/uL Fergus # (Auto) 0.31 (0.11-0.59) K/uL Eos # (Auto) 0.13 (0-0.5) K/uL Baso # (Auto) 0.01 (0-0.2) K/uL Absolute Nucleated RBC 0.06 H (0-0) K/uL Nucleated RBC % (auto) 0.5 % Toxic Granulation 1+ Toxic Vacuolation Occasional Dohle Bodies 1+ Hypochromasia Present Anisocytosis Present Echinocytes 1+ PT 15.0 H (9.0-12.0) Seconds INR 1.5 H (0.9-1.1) APTT 36.9 H (21.0-31.0) Seconds PTT Ratio 1.4 Sample Site POC pH (7.35-7.45) POC pCO2 (35-46) mmHg POC pO2 (80-95) mmHg POC HCO3 (19-24) jennifer/L POC Total CO2 (24-31) mEq/l POC Base Excess (-9-1.8) jennifer/L ABG pH (Temp Correct) (7.35-7.45) ABG pCO2 (Temp Corrct (35-46) mmHg POC ABG pO2 at Pt Temp POC ABG O2 Sat (90-95) % Jimmy Test O2 Delivery Device POC O2 Rate Minute Ventilation Tidal Volume PEEP Sodium 147 H (136-145) mmol/L Potassium 3.4 L (3.5-5.1) mmol/L Chloride 114 H (98-107) mmol/L Carbon Dioxide 24 (21-32) mmol/L Anion Gap 9.0 (3-11) BUN 67 H (7-18) mg/dl Creatinine 2.17 H D (0.6-1.4) mg/dl Est Cr Clr Drug Dosing 38.2 ml/min Est GFR ( Amer) 36.2 Est GFR (Non-Af Amer) 31.3 BUN/Creatinine Ratio 31.0 H (10-20) Glucose 166 H (70-99) mg/dl POC Glucose (other) (70-99) mg/dl Calcium 8.1 L (8.5-10.1) mg/dl Phosphorus 2.2 L D (2.5-4.9) mg/dl Magnesium 1.9 (1.8-2.4) mg/dl Total Bilirubin 1.4 H (0.2-1) mg/dl AST 1258 H (15-37) U/L ALT 878 H (12-78) U/L Alkaline Phosphatase 126 H (45-117) U/L Total Protein 5.3 L (6.4-8.2) gm/dl Albumin 1.5 L (3.4-5.0) gm/dl Globulin 3.8 (2.5-4.0) gm/dl Albumin/Globulin Ratio 0.4 L (0.9-2) Prealbumin (20-40) mg/dl 04/08/19 04/07/19 04/07/19 Range/Units 01:04 17:51 15:13 WBC (4.8-10.8) K/uL RBC (4.7-6.1) M/uL Hgb (14.0-18.0) g/dL Hct (42-52) % MCV (80-100) fL MCH (25-34) pg MCHC (32-36) g/dL RDW Std Deviation (36.4-46.3) fL RDW Coeff of Quan (11.5-14.5) % Plt Count (130-400) K/uL MPV (7.4-10.4) fL Immature Gran % (Auto) % Neut % (Auto) % Lymph % (Auto) % Fergus % (Auto) % Eos % (Auto) % Baso % (Auto) % Immature Gran # (Auto) (0.00-0.02) K/uL Neut # (Auto) (1.4-6.5) K/uL Lymph # (Auto) (1.2-3.4) K/uL Fergus # (Auto) (0.11-0.59) K/uL Eos # (Auto) (0-0.5) K/uL Baso # (Auto) (0-0.2) K/uL Absolute Nucleated RBC (0-0) K/uL Nucleated RBC % (auto) % Toxic Granulation Toxic Vacuolation Dohle Bodies Hypochromasia Anisocytosis Echinocytes PT (9.0-12.0) Seconds INR (0.9-1.1) APTT (21.0-31.0) Seconds PTT Ratio Sample Site Art Line POC pH 7.39 (7.35-7.45) POC pCO2 32 L (35-46) mmHg POC pO2 69 L (80-95) mmHg POC HCO3 19 (19-24) jennifer/L POC Total CO2 20 L (24-31) mEq/l POC Base Excess -6.0 (-9-1.8) jennifer/L ABG pH (Temp Correct) 7.391 (7.35-7.45) ABG pCO2 (Temp Corrct 32 L (35-46) mmHg POC ABG pO2 at Pt Temp 68 POC ABG O2 Sat 93.0 (90-95) % Jimmy Test NA O2 Delivery Device Ventilator POC O2 Rate 16 Minute Ventilation 8.0 Tidal Volume 500 PEEP 5 Sodium (136-145) mmol/L Potassium (3.5-5.1) mmol/L Chloride (98-107) mmol/L Carbon Dioxide (21-32) mmol/L Anion Gap (3-11) BUN (7-18) mg/dl Creatinine (0.6-1.4) mg/dl Est Cr Clr Drug Dosing ml/min Est GFR ( Amer) Est GFR (Non-Af Amer) BUN/Creatinine Ratio (10-20) Glucose (70-99) mg/dl POC Glucose (other) 150 H 146 H (70-99) mg/dl Calcium (8.5-10.1) mg/dl Phosphorus (2.5-4.9) mg/dl Magnesium (1.8-2.4) mg/dl Total Bilirubin (0.2-1) mg/dl AST (15-37) U/L ALT (12-78) U/L Alkaline Phosphatase (45-117) U/L Total Protein (6.4-8.2) gm/dl Albumin (3.4-5.0) gm/dl Globulin (2.5-4.0) gm/dl Albumin/Globulin Ratio (0.9-2) Prealbumin (20-40) mg/dl
[2019-04-08] MEDS: fentaNYL citrate 100 MCG/2 ML VIAL IV PRN ×3 (15:12→20:49)
--- NOTE | 2019-04-08 15:55 | Hospitalist Progress Note ---
Date of Service April 08, 2019 Assessment & Plan (1) MRSA bacteremia: Unclear where this came from but has evidence of multiple contusions and may have had an abrasion which led to MRSA bacteremia which then spread to multiple joints and now with septic ankle as well as hand joints. GIANFRANCO on 04/07 showed no endocarditis. Unclear source at this point. MRI lumbar spine on 04/07 showed left 5 x 2 x 2 cm abscess at L3/L4 level & right 3 x 2 x 1.5 cm abscess at L4/L5. - Blood cultures from 04/07 still with Staph growing - Continue dapto & ceftaroline per ID (2) Hepatitis: Normal LFTs on presentation. - On 04/08, AST/ALT up to 1250/880. Ddx includes shock liver from vasopressors, medications, perhaps direct toxic effect of the infection (possible abscesses?). Unfortunately, not really many options given his current situation. (3) Cardiac arrest with pulseless electrical activity: CODE BLUE on 04/05 for PEA arrest immediately following a bronchoscopy to relieve mucoid impaction. Was resuscitated with CPR, epinephrine, bicarbonate, vasopressin, and Levophed. Likely secondary to septic shock in the setting of bacteremia. ECG without STEMI after achieved return of spontaneous circulation - Management as per epic [facility] specialist (4) Acute metabolic encephalopathy: Acute Metabolic encephalopathy-secondary to EtOH withdrawal, possibly from the SDH, and also with sepsis, med side effect from phenobarb, and hypotension. (5) Acute respiratory failure with hypoxia: With intermittent hypoxia secondary to non-purulent secretions that were advised during bronchoscopy on 04/05. - Was intubated for significant metabolic encephalopathy for airway protection on 04/05 - Management as per ICU (6) Sepsis: Present on arrival. Secondary to MRSA bacteremia. - Had left septic joint as well as septic arthritis of the hand joints - now status post washout on 04/05. - Continue treating with IV abx (7) Hypovolemic shock: Secondary to acute blood loss anemia and septic shock. -Treated with PRBCs, IVFs, and did have some improvement, but now status post cardiac arrest with hypotension requiring vasoactive medications. - Hemoglobin is improved and stable - Vasopressors as per epic [facility] specialist (8) Atrial fibrillation: With rapid afib since admission, has a h/o afib. - Rates better controlled today after sedation and intubation for encephalopathy and alcohol withdrawal. - On IV amiodarone - Holding home Coreg and Eliquis due to hypotension and acute GI bleeding (9) Anemia: Acute blood loss anemia. Patient with normochromic normocytic anemia. Secondary to acute blood loss from a GI source. Hemoglobin of 5.3 on admission, had heme positive stool in ER. - Transfusion of PRBCs x4 units given on admission and hgb up to 9.2 and stable - No further obvious bleeding - Continue PPI IV BID (10) EDMUNDO (acute kidney injury): With markedly elevated BUN and creatinine 125 and 4.6, respectively on admission. Creatinine of 2.09 in 2014, recent creatinine level unknown. - Cr down to 2.5 on 04/06; concern it may go up after code events on 04/05 (11) GI bleed: Upper GI bleed as above with duodenal and gastric ulcers, gastritis on EGD. - Appreciate GI consult - Continue IV PPI bid and eventually convert to PO PPI bid once taking PO (12) Subdural hematoma: Acute on chronic SDH bilat on CT with serial CT similar. With known h/o multiple falls recently, EtOH use. - Gave PCC to try to reverse Eliquis upon admission - Continue to hold Eliquis and would not restart in the future - If worsening, would transfer out for NS eval - Consider monitoring serial head CTs while sedated and paralyzed (13) Wrist pain: X-rays neg for fracture. Swelling of the wrist and some mild erythema of the left second MCP joint today-CT of the hand showed multiple areas of fluid collections - S/p washout by orthopedic surgery on 04/05. - Continue IV antibiotics - Follow wound cultures (14) Left ankle pain: Appears to have suffered an ankle sprain with edema, ecchymosis, warmth, tenderness. Seeded with bacteria and now with septic joint. X-rays neg for fracture. - Appreciate orthopedics consultation-now status post washout of joint on 04/05. - Continue IV antibiotics and follow intraoperative cultures (15) Hyperglycemia: A1c was 5.6% this admission. Glucose elevated, no known h/o DMII. - Accuchecks, SSI (16) Alcohol dependence: Known to drink 1/2 bottle vodka daily, sometimes beer. In active withdrawal and was on a phenobarbital IV taper with PRN Ativan. - Now converted to IV Versed after he is sedated mechanically ventilated - Continue IV thiamine, folate (17) Hypertension: Hold Coreg, lisinopril, Lasix in setting of hypotension (18) Septic arthritis: As above (19) Abnormal head CT: With left temporal hypodensity seen on CT of the head Possibility of septic emboli to the brain -Needs brain MRI and will get MRI of the spine as well - ordered and awaiting stability (20) CKD (chronic kidney disease) stage 3, GFR 30-59 ml/min: As above, baseline distribution designer 2.0 -avoid nephrotoxins -renally dose meds (21) COPD (chronic obstructive pulmonary disease): Patient with history of COPD. With acute hypoxic respiratory failure, Wheezing on exam on admission, now ventilated as above. - Duo nebs as needed - Albuterol as needed - Supplemental oxygen as needed to maintain saturation of 88 to 94% (22) Systolic CHF: Echo here found to have left ventricular global hypokinesis and severely reduce LV function at 25%. Cardiology has reviewed his outpatient records from his primary annealer at [facility]-he was noted to have an EF of 20% several years ago and had a non-obstructive cardiac catheterization indicating a diagnosis of non-ischemic cardiomyopathy. He then had a repeat echocardiogram in the last couple of years which showed recovery of his EF to 50%. - Could be tachyarrhythmia-induced from Afib vs. alcohol-induced cardiomyopathy as most likely causes - No volume overload at this time - Continue holding home Coreg, lisinopril, Lasix (23) DVT prophylaxis: SCDs Dispo-remains critically ill in ICU Prognosis is extremely guarded at this time [employer] has discussed his care extensively with the patient's son whom he has not had contact with in 13 years but has agreed to be his healthcare power of aircraft mechanic. The son has now decided to make him a DNR/DNI in the event of recurrent cardiac arrest Subjective Intubated and sedated Review of Systems Review of Systems: Unobtainable due to endotracheal tube and Unobtainable due to reduced consciousness Physical Exam Constitutional: WD/WN, vitals as above Eyes: no conjunctival abnormality ENMT: external ear and nose normal, oropharynx normal Neck: trachea midline, no thyromegaly normal visual inspection Respiratory: normal respiratory effort, lungs clear to auscultation no respiratory distress Cardiovascular: RRR, no murmur, no edema Gastrointestinal (Abdomen): Inspection/Auscultation: abdomen normal to inspection; abdomen not distended Musculoskeletal: no cyanosis or clubbing, extremities motor strength 5/5 Skin: no rashes, warm and dry Neurologic: + does not move all extremities and + not awake Psychiatric: Orientation: + not alert Results & Data Vital Signs (Past 12 Hours) Vital Signs Pulse Resp BP Pulse Ox 04/08/19 15:30 99 H 100 04/08/19 15:15 98 H 04/08/19 15:00 95 H 04/08/19 14:45 97 H 100 04/08/19 14:30 100 H 99 04/08/19 14:15 97 H 96 04/08/19 14:10 96 H 18 99 04/08/19 14:00 95 H 100 04/08/19 13:45 92 H 100 04/08/19 13:31 94 H 102/84 97 04/08/19 13:30 91 H 99 04/08/19 13:16 96 H 100/80 100 04/08/19 13:15 101 H 95 04/08/19 13:01 93 H 96/81 L 99 04/08/19 13:00 98 H 99 04/08/19 12:46 91 H 99/77 L 99 04/08/19 12:45 97 H 99 04/08/19 12:31 101 H 96/77 L 90 04/08/19 12:30 88 95 04/08/19 12:16 95 H 112/70 98 04/08/19 12:15 89 98 04/08/19 12:01 89 111/71 98 04/08/19 12:00 94 H 99 04/08/19 11:46 93 H 103/67 99 04/08/19 11:45 95 H 100 04/08/19 11:31 92 H 101/75 97 04/08/19 11:30 95 H 95 04/08/19 11:16 97 H 106/78 04/08/19 11:15 94 H 91 04/08/19 11:01 88 98/82 L 91 04/08/19 11:00 97 H 18 100 04/08/19 10:59 88 04/08/19 10:46 88 98/76 L 91 04/08/19 10:45 95 H 91 04/08/19 10:31 93 H 100/75 93 04/08/19 10:30 90 90 04/08/19 10:16 90 97/69 L 92 04/08/19 10:15 95 H 91 04/08/19 10:01 96 H 96/74 L 94 04/08/19 10:00 92 H 92 04/08/19 09:46 92 H 114/76 98 04/08/19 09:45 94 H 96 04/08/19 09:31 96 H 114/74 90 04/08/19 09:30 94 H 94 04/08/19 09:16 94 H 102/69 94 04/08/19 09:15 100 H 96 04/08/19 09:01 97 H 113/73 95 04/08/19 09:00 94 H 94 04/08/19 08:47 94 H 99/71 L 99 04/08/19 08:45 88 97 04/08/19 08:31 97 H 95 04/08/19 08:30 101 H 94 04/08/19 08:16 88 105/74 97 04/08/19 08:15 96 H 95 04/08/19 08:01 97 H 111/81 96 04/08/19 08:00 102 H 94 04/08/19 07:46 100 H 106/74 95 04/08/19 07:45 96 H 94 04/08/19 07:31 98 H 110/78 96 04/08/19 07:30 94 H 95 04/08/19 07:26 100 H 19 95 04/08/19 07:16 95 H 110/77 96 04/08/19 07:15 95 H 96 04/08/19 07:01 93 H 104/79 95 04/08/19 07:00 93 H 94 04/08/19 06:46 91 H 101/80 96 04/08/19 06:31 96 H 105/89 96 04/08/19 06:16 99 H 89/58 L 92 04/08/19 06:01 92 H 97/78 L 95 04/08/19 05:46 85 104/83 95 04/08/19 05:31 98 H 103/73 95 04/08/19 05:16 98 H 108/75 95 04/08/19 05:01 96 H 102/74 96 04/08/19 04:46 94 H 89/66 L 95 04/08/19 04:31 88 100/69 97 04/08/19 04:16 102 H 98/73 L 94 04/08/19 04:01 94 H 102/78 95 PG Care Time/CCT Total # of Minutes Spent Total Time Spent with Patient: Total time spent is greater than 50% in coordination of care (as documented) at patient's floor/unit and/or counseling patient:
[2019-04-08] MEDS ORDERED: HEPARIN 100 UNIT/ML 5ML FLUSH ONE (16:21)
[2019-04-08] MEDS: IMPACT LIQD 1.0 CAL 1,000 ML BAG NG SCH (16:34)
[2019-04-08] MEDS: CEFTAROLINE FOSAMIL ACETATE 400 MG in SODIUM CHLORIDE 0.9% 250 ML IV SCH (18:38)
[2019-04-08] MEDS: DAPTOmycin 775 MG in SYRINGE 0 ML IV SCH (20:48)
[2019-04-09] MEDS: INSULIN ASPART 100 UNITS/ML 3 ML PEN SC SCH ×3 (00:20→12:29)
[2019-04-09] MEDS: NORMOSOL-R 1,000 ML IV SCH (00:22)
[2019-04-09] MEDS: fentaNYL citrate 100 MCG/2 ML VIAL IV PRN (02:49)
[2019-04-09 05:27] LABS: Basophils # (auto) 0.01 K/uL (0-0.2); Basophils % (auto) 0.1 %; Eosinophils # (auto) 0.05 K/uL (0-0.5); Eosinophils % (auto) 0.4 %; Hematocrit (blood only) 24.3 % (42-52); Immature Granulocytes # (auto) 0.06 K/uL (0.00-0.02); Immature Granulocytes % (auto) 0.5 %; Lymphocytes % (auto) 6.5 %; Mean Corpuscular Hgb Conc 32.9 g/dL (32-36); Mean Corpuscular Volume 82.7 fL (80-100); Monocytes # (auto) 0.27 K/uL (0.11-0.59); Monocytes % (auto) 2.2 %; Neutrophils # (auto) 11.19 K/uL (1.4-6.5); Neutrophils % (auto) 90.3 %; Nucleated RBC # (auto) 0.04 K/uL (0-0); Nucleated RBC % (auto) 0.4 %; Platelet Count 212 K/uL (130-400); RDW Coefficient of Variation 21.2 % (11.5-14.5); Red Blood Count 2.94 M/uL (4.7-6.1); White Blood Count 12.38 K/uL (4.8-10.8)
[2019-04-09 05:37] LABS: INR 1.4 (0.9-1.1); Partial Thromboplastin Ratio 1.3; Partial Thromboplastin Time 35.1 Seconds (21.0-31.0); Prothrombin Time 13.8 Seconds (9.0-12.0)
[2019-04-09 05:52] LABS: Albumin Level 1.4 gm/dl (3.4-5.0); BUN Creatinine Ratio 33.2 (10-20); Calcium 8.6 mg/dl (8.5-10.1); Creatinine Clr Calc Pharmacy 50.6 ml/min; Est GFR (African American) 50.8; Est GFR (Non-African American) 43.8; Potassium 3.8 mmol/L (3.5-5.1)
[2019-04-09 05:54] LABS: Albumin Globulin Ratio 0.4 (0.9-2); Bilirubin,Total 1.5 mg/dl (0.2-1); Globulin 3.7 gm/dl (2.5-4.0); Total Protein 5.1 gm/dl (6.4-8.2)
[2019-04-09] MEDS: CEFTAROLINE FOSAMIL ACETATE 400 MG in SODIUM CHLORIDE 0.9% 250 ML IV SCH (06:01)
[2019-04-09 06:16] LABS: Echinocytes 1+; Hypochromasia Present; Polychromasia 1+; Target Cells 1+; Toxic Granulation 1+
[2019-04-09] MEDS: NOREPINEPHRINE BIT INJ 16 MG in DEXTROSE 5% 500 ML IV SCH ×3 (07:27→14:21)
--- NOTE | 2019-04-09 07:51 | Critical Care Progress Note ---
Date of Service April 09, 2019 Assessment & Plan (1) Admitted to intensive care unit: Reason Critically Ill: Acute blood loss anemia suspect 2/2 AGIB, AMS w/ MRSA bacteremia and septic arthritis PLAN: Neuro: AMS 2/2 Acute Encephalopathy - Sepsis +/- chronic subdural hematomas - Midazolam drip discontinued @ 1100hrs yesterday. May have delayed clearance of metabolites 2/2 liver disease. Bilateral subdural hematoma Serial CT, hematoma with maximum transverse dimension of 5 mm and without significant midline shift. -Holding systemic anticoagulation hypodense lesions suspected in the left temporal lobe, chronic subdural hematomas or hygromas, Indeterminate focus of hyperdensity along the falx near the vertex. Trace acute subdural hematoma is not excluded though this could represent a vessel, appearance unchagned from prior. Recommended MRI for further evaluation. -MR brain, MR- C/T-spine, MRA: Motion degraded, but no change in prior subdurals which are still appreciated. Potential right occipital subacute infarcts are appreciated. 1.3 cm left temporal infarct versus neoplasm noted and recommended for 1 month follow-up. Spine shows no fracture, paraspinal edema from the capitis to upper thorax. No disc disease. Paraspinal Abscesses of Lumbar Spine - MR-Lumbar Spine: There is edema of the paraspinous musculature. Complex- appearing fluid collections within the paraspinous muscles are bilaterally. Left L3-L4 multiloculated collection measures approximately 5 x 2 x 2 cm. L loculated L5 component at least 1.9 cm. Right paraspinal at fluid collected L4-L5 measures approximately 3 x 2 x 1.5 cm. Components of both paraspinous fluid collections appear to involve the L4-L5 facet joints. - Suspect MRSA abscesses given clinical picture. His surveillance cultures continue to be positive. While he is hemodynamically and neurologically improving on antibiotics, source control will be required. Discussed case with Dr. Ervin and radiology, pending further discussion on whether he is able to have surgical intervention at our facility or if he will require transfer a higher level of care. 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 Vent at PRVC rate 16, tidal 500, PEEP 5, FiO2 .3. Breathing an additional 2-3 breaths over vent per minute with volumes ~600s. - Not neurologically ready for extubation. SBT today. History of COPD not tolerant of inhalers No home O2 requirement Former tobacco smoker -40 year .5ppd (~20pack/yr hx) -Quit September this year CV: Cardiac Arrest, Code Blue - MRSA 2/2 septic shock - Following ETT prior to MRI 04/06 pt acutely decompensated with cardiac arrest. GIANFRANCO did not show any obvious valvular vegetations no evidence of left atrial or left atrial appendage thrombus. Global hypokinesis was appreciated. EF <20%, acutely decreased from 30-35% on prior. He has known prior nonischemic cardiac disease at baseline. Hypotension 2/2 hypovolemia, sepsis - MRSA bacteremia - Off pressors overnight - 30% EF + Afib. Abx as below. Tachycardia, history atrial fibrillation Apixaban held in the setting of acute bleed - Afib, rate controlled overnight - Per cardiology d/mi amio, started digoxin load with 2.5 Q8H x2 doses. His renal function has improved, added maintenance dig 1.25 daily Heart failure with reduced ejection fraction -TTE shows reduced ejection fraction of approximately 30 to 35% worsened to <20% on GIANFRANCO - 2100cc output last 24 hours EDMUNDO as below Edema present. Added 20mg lasix daily IV. Renal: Acute kidney injury 2/2 prerenal, ME, and sepsis. Improving Creatinine peak 4.56, downtrended to 1.6 close to baseline today. -Per patient's son who is his decision maker patient would not want dialysis performed. Sodium 147, potassium 3.8 - Phos [] ID: Sepsis 2/2 MRSA Bacteremia Blood cultures positive for MRSA Continue surveillance cultures, no negatives yet Continue ceftaroline plus daptomycin. Certaroline dosing increased for CrCl. - L hand and R foot with septic joint s/p washout with fluid positive for MRSA. -GIANFRANCO without signs of endocarditis as above Perianal/gluteal rash Patient has a diffuse, nontender bilateral rash with central eschar and without vesicles. 3 sales representative trainee lesions unroofed and collected for HSV rapid culture, sample slides sent for pathology/[place] smear. No giant cells, but large amounts of bacteria observed. Continue abx as above - improved today with wound care and abx as above GI/Nutrition: Acute GI bleed Hemoglobin 8 from 8.2. Stable. - CBC daily GI consulted. EGD showed diffuse gastritis with biopsy taken, nonbleeding gastric ulcers, nonbleeding duodenal ulcers, and a normal second and third portion of the duodenum. Per Protonix 40 mg p.o. twice daily for 6 weeks then 40 mg daily, PO conversion and diet currently held in the setting of AMS Repeat upper endoscopy in 3 months Transaminitis 2/2 sepsis and alcoholism - Transaminases downtrending today - AST 567 from 1.2K, ALT 680 from 878, Suspect end organ damage in setting of sepsis with background of alcoholic hepatitis. - CMP daily Nutrition NPO 2/2 AMS & ETT Advance feeds today. Continue 200cc Q4H free water flush. - Prealbumin 4.5 today, likely due to synthetic dysfunction and chronic malnutirtion Heme: Acute blood loss anemia secondary to GI bleed as above Status post 4 units PRBC, 1 unit PCC on admit. Currently stable. -Reticulocytes increased to 4.1 with a reticulate site index of 1.19 adjusting a degree of hypo-proliferation. Endocrine: No history of type 2 diabetes Glucose checks as needed, BMP daily -SSI ICU hyperglycemia protocol A1c 5.6 DVT prophylaxis: Pharmacal prophylaxis contraindicated, SCDs Vascular access: PIV intact, Femoral A-line intact. If he remains hemodynamically stable today and off pressors, remove femoral line this afternoon. Code Status: DNR/DNI (2) Septic arthritis of left ankle: (3) Septic arthritis of wrist, left: (4) MRSA (methicillin resistant Staphylococcus aureus) septicemia: (5) Systolic CHF: (6) S/P debridement: (7) Abnormal brain MRI: (8) Septic arthritis: (9) Acute respiratory failure with hypoxia: (10) Nonischemic cardiomyopathy: (11) Hypernatremia: (12) Tobacco abuse: (13) CKD (chronic kidney disease) stage 3, GFR 30-59 ml/min: (14) Alcohol dependence: (15) Hyperglycemia: (16) Sepsis: (17) DVT prophylaxis: (18) MRSA bacteremia: Supervising Physician Co-Signing Physician Notes Patient seen and examined. Discussed with family practice resident and with the critical care nurse practitioner and on multidisciplinary rounds. Imaging studies were independently reviewed 63-year-old male with MRSA bacteremia with seeding of the left wrist and right ankle and paraspinous abscesses. He has chronic subdurals with a small acute subdural which may be secondarily seeded but if not yet been intervened upon. He initially had profound septic shock which has improved as well as acute kidney injury which is also improved. After extensive discussion with orthopedics, orthospine, and surgery, as well as radiology, the paraspinous abscesses cannot be effectively drained at this institution and he requires transfer to a higher level of care. The family practice resident discussed with the department of mathematics chair at [facility] in [employer] who has graciously accepted the patient in transfer. Recommend continuing antibiotics. ID is recommended ceftaroline and daptomycin here. His surveillance cultures have unfortunately remained positive and it is possible there are other potential sources of infection that have not yet been drained. Of note transesophageal echocardiogram did not demonstrate evidence of perivalvular abscess or endocarditis. The patient was tolerating pressure support ventilation but will be returned back to her rate for transport. We will keep him intubated pending improvement of his mental status. MRI of the brain did not demonstrate any significant pathology related to his bacteremia other than the chronic subdurals and the acute subdural none of which showed significant progression over time. Neurosurgery consultation may be of benefit. Patient has been tolerating enteral tube feeds at goal. These will be held for transport. Continue to follow neurological status pending evaluation for possible extubation. I did extensively discussed the patient's case with his son Kenny who has traveled from [place] to be with his father. He has not had contact with him in over 10 years. The patient does have additional family including a daughter and ex- who live in [place] which prompted the decision to try and transfer to [facility]. Would be happy to discuss his case further with the accepting physician and in [employer] if needed. Nicolasa Phelan is seen at the bedside this morning. No overnight events. Received 1x dose of fentanyl 50mcg IV, versed drip off since 1100am yesterday. Propofol ordered, but has not yet been required. He continues in Afib with good rate control overnight. He is off pressors with MAP >60. MRI-Spine showed bilateral lumbar paraspinal abscesses without epidural involvement. Ortho consulted, case discussed with Dr. Ervin who is to see the pt. Discussed case with radiology per ortho request, rads felt that he was not a good candidate for CT/US guided drainage. Left message with Dr. Ervin's answering service with update and that pt's son is anticipating being here ~0930hrs. Case also discussed with Dr. Oliva this morning. Update 1108am: Discussed case with Dr. Ervin, pt is more appropriate for intervention at a higher level of facility .Discussed case with Mr. Mac's son Arnold, ex Domonique, and daughter in law Bertha who are present at bedside. They would prefer transfer to [employer] if possible for further intervention. Review of Systems Review of Systems: Unobtainable due to cognitive status Physical Exam Physical Exam: General: ETT in place. Appears ill. Sedated. Opens eyes to vigorous physical stimuli but does not track light or movement. Skin: Warm, dry. Diffuse edema. HEENT: Atraumatic, normocephalic. No spontaneous eye movement/opening. Pupils equal and reactive to light and accommodation. Mucous membranes moist. Pulm: Moderate air movement, coarse, no overt crackles or rales. Symmetrical chest rise. ETT in place Cardiac: Irregular rate and rhythm with occasional VPC this morning. No JVD. No murmurs appreciated Abdominal: Nontender, nondistended, soft. BS present. Extremities: Warm, well-perfused. PT pulses palpable bilaterally. L foot wrapped in surgical dressing s/p joint tap/washout. L wrist wrapped in surgical dressing s/p joint tap/washout. R foot swollen with mild erythema at hallux. Scattered few firm erythematous nodules on feet bilaterally, scattered few erythematous macules on forefoot bilaterally. R radial hand with a 3mm firm, erythematous nodule. Results & Data Vital Signs (Past 12 Hours) Vital Signs Temp Pulse Pulse Resp BP BP BP 04/09/19 07:18 94 H 18 04/09/19 07:01 81 86/59 L 04/09/19 07:00 84 04/09/19 06:01 89 96/63 L 04/09/19 06:00 88 04/09/19 05:01 90 93/66 L 04/09/19 05:00 98 H 04/09/19 04:01 86 85/62 L 04/09/19 04:00 84 04/09/19 03:36 82 16 04/09/19 03:01 95 H 88/64 L 04/09/19 03:00 89 04/09/19 02:01 89 95/69 L 04/09/19 02:00 87 04/09/19 01:01 82 87/65 L 04/09/19 01:00 88 04/09/19 00:27 92 H 04/09/19 00:10 83 16 04/09/19 00:00 87 86/58 L 04/08/19 23:00 36.5 C 88 16 85/60 L 113/54 L 04/08/19 22:00 36.5 C 88 16 87/64 L 105/51 L 04/08/19 21:16 73 16 04/08/19 21:00 36.6 C 99 H 16 93/63 L 103/49 L 04/08/19 20:00 36.6 C 89 88 16 99/70 L 118/55 L Pulse Ox 04/09/19 07:18 100 04/09/19 07:01 100 04/09/19 07:00 100 04/09/19 06:01 100 04/09/19 06:00 100 04/09/19 05:01 96 04/09/19 05:00 95 04/09/19 04:01 100 04/09/19 04:00 100 04/09/19 03:36 100 04/09/19 03:01 94 04/09/19 03:00 94 04/09/19 02:01 98 04/09/19 02:00 100 04/09/19 01:01 04/09/19 01:00 04/09/19 00:27 04/09/19 00:10 100 04/09/19 00:00 100 04/08/19 23:00 100 04/08/19 22:00 100 04/08/19 21:16 100 04/08/19 21:00 95 04/08/19 20:00 100 PG Care Time/CCT Total # of Minutes Spent Total Time Spent with Patient: Total time spent is greater than 50% in coordi nation of care (as documented) at patient's floor/unit and/or counseling patient: Critical Care Time: Yes Total Critical Care Time: 50 Resident Activity Tracking Resident Involvement: Resident Care Provided Care Provided: Adult Hospital Medicine
[2019-04-09] MEDS: BACITRACIN OINT 15 GM TUBE EXT SCH (07:53)
[2019-04-09] MEDS: THIAMINE HCL 100 MG in SYRINGE 9 ML IV SCH (07:54)
[2019-04-09] MEDS: SUCRALFATE 1 GM/10 ML UDC PO SCH ×2 (07:54→12:25)
[2019-04-09] MEDS: FOLIC ACID 1 MG in SYRINGE 9.8 ML IV SCH (07:54)
[2019-04-09] MEDS: PANTOprazole 40 MG in SYRINGE 0 ML IV SCH (07:54)
--- NOTE | 2019-04-09 09:27 | Cardiology Progress Note ---
Date of Service April 09, 2019 Subjective He remains intubated. His sedation has been discontinued. He is moving about in the bed. History is unobtainable. His case was discussed with the furnace room supervisor service Results & Data Vital Signs (Past 12 Hours) Vital Signs Temp Pulse Pulse Resp BP BP BP 04/09/19 09:00 93 H 88/59 L 04/09/19 08:00 98 H 91/57 L 04/09/19 07:45 89 98/69 L 04/09/19 07:18 94 H 18 04/09/19 07:01 81 86/59 L 04/09/19 07:00 84 04/09/19 06:01 89 96/63 L 04/09/19 06:00 88 04/09/19 05:01 90 93/66 L 04/09/19 05:00 98 H 04/09/19 04:01 86 85/62 L 04/09/19 04:00 84 04/09/19 03:36 82 16 04/09/19 03:01 95 H 88/64 L 04/09/19 03:00 89 04/09/19 02:01 89 95/69 L 04/09/19 02:00 87 04/09/19 01:01 82 87/65 L 04/09/19 01:00 88 04/09/19 00:27 92 H 04/09/19 00:10 83 16 04/09/19 00:00 87 86/58 L 04/08/19 23:00 36.5 C 88 16 85/60 L 113/54 L 04/08/19 22:00 36.5 C 88 16 87/64 L 105/51 L Pulse Ox 04/09/19 09:00 96 04/09/19 08:00 92 04/09/19 07:45 95 04/09/19 07:18 100 04/09/19 07:01 100 04/09/19 07:00 100 04/09/19 06:01 100 04/09/19 06:00 100 04/09/19 05:01 96 04/09/19 05:00 95 04/09/19 04:01 100 04/09/19 04:00 100 04/09/19 03:36 100 04/09/19 03:01 94 04/09/19 03:00 94 04/09/19 02:01 98 04/09/19 02:00 100 04/09/19 01:01 100 04/09/19 01:00 100 04/09/19 00:27 04/09/19 00:10 100 04/09/19 00:00 100 04/08/19 23:00 100 04/08/19 22:00 100 He is intubated and sedated. He does respond to painful stimuli. He looks chronically ill HEENT: Moderately reduced carotid upstrokes Lungs: Diffuse inspiratory and expiratory rhonchi Heart irregular rate and rhythm no appreciable murmurs rubs or gallops Abdomen soft nontender nondistended decreased bowel sounds Extremities: Mild bilateral lower extremity edema. Neuro: As above Impressions: 1. Persistent MRSA bacteremia with presumed septic emboli to his joints, brain, and hands while on appropriate antibiotics 2. History of moderate nonischemic cardiomyopathy likely secondary to alcohol abuse now with severe LV dysfunction and an EF in the range of 15 to 20% 3. Vent dependent respiratory failure 4. Acute kidney injury on chronic kidney disease --improving 5. Paroxysmal atrial fibrillation 6. Both subdural hematomas and acute infarcts by MRI 7. Admitted with profound hypotension and anemia 8. Worsening of his LFT abnormalities possibly related to amiodarone, possibly from hepatic congestion, possibly from hypoperfusion--improved today 9. Paraspinal abscesses Now that his renal function is improved I would give digoxin 0.125 mg daily. He did receive 0.25 mg x 2 doses yesterday. His heart rate is stable in the 90s. With regards to his paraspinal abscesses. From a cardiac standpoint if he is going to go to the operating room he has high risk given the severity of his LV dysfunction, RV dysfunction and significant comorbidities. In discussion with the furnace room supervisor service if he does not have the abscesses drained then he likely will not survive this with medical therapy. With any sedation for the procedure he will likely vasodilate and will need volume support and pressor support in the short-term. This was all discussed with the hospitalist service and the furnace room supervisor service.
[2019-04-09] MEDS ORDERED: FUROSEMIDE 20 MG in SYRINGE 0 ML IV SCH (09:30)
--- NOTE | 2019-04-09 09:52 | Orthopedic Progress Note ---
Date of Service April 09, 2019 Assessment & Plan (1) Septic arthritis of left ankle: Continue daily dressing changes for Left wrist and ankle, with new packing to be placed in wrist wound IV ABX per infectious disease Ortho will cont to follow while in house. (2) Septic arthritis of wrist, left: Nicolasa Phelan is seen at the bedside this morning. No overnight events. Recieved 1x dose of fentanyl 50mcg IV, versed drip off since 1100am yesterday. He continues in Afib with good rate control overnight. He is off pressors with MAP >60. MRI-Spine showed bilateral lumbar paraspinal abscesses without epidural involvement. Ortho consulted, case discussed with Dr. Ervin who recommended consulting radiology for possible CT/US guided drainage. Case was discussed with radiology who felt that he was not a good candidate for CT/US guided drainage. Patient's son is anticipating being here ~0930hrs. In terms of his left wrist and left ankle, nursing has been changing his dressings daily, including repacking the left wrist. Small amount of purulence was noted in the left wrist during his dressing change yesterday. Physical Exam Physical Exam: Intubated, sedated on the ventilator. Did not take dressings down due to recent change yesterday evening. Results & Data Vital Signs (Past 12 Hours) Vital Signs Temp Pulse Pulse Resp BP BP BP 04/09/19 09:00 93 H 88/59 L 04/09/19 08:00 98 H 91/57 L 04/09/19 07:45 89 98/69 L 04/09/19 07:18 94 H 18 04/09/19 07:01 81 86/59 L 04/09/19 07:00 84 04/09/19 06:01 89 96/63 L 04/09/19 06:00 88 04/09/19 05:01 90 93/66 L 04/09/19 05:00 98 H 04/09/19 04:01 86 85/62 L 04/09/19 04:00 84 04/09/19 03:36 82 16 04/09/19 03:01 95 H 88/64 L 04/09/19 03:00 89 04/09/19 02:01 89 95/69 L 04/09/19 02:00 87 04/09/19 01:01 82 87/65 L 04/09/19 01:00 88 09/05/19 00:27 92 H 04/09/19 00:10 83 16 04/09/19 00:00 87 86/58 L 04/08/19 23:00 36.5 C 88 16 85/60 L 113/54 L 04/08/19 22:00 36.5 C 88 16 87/64 L 105/51 L Pulse Ox 04/09/19 09:00 96 04/09/19 08:00 92 04/09/19 07:45 95 04/09/19 07:18 100 04/09/19 07:01 100 04/09/19 07:00 100 04/09/19 06:01 100 04/09/19 06:00 100 04/09/19 05:01 96 04/09/19 05:00 95 04/09/19 04:01 100 04/09/19 04:00 04/09/19 03:36 100 04/09/19 03:01 94 04/09/19 03:00 94 04/09/19 02:01 98 04/09/19 02:00 04/09/19 01:01 100 04/09/19 01:00 04/09/19 00:27 04/09/19 00:10 100 04/09/19 00:00 100 04/08/19 23:00 100 04/08/19 22:00 100
[2019-04-09 10:26] LABS: Magnesium 1.8 mg/dl (1.8-2.4); Phosphorus 2.3 mg/dl (2.5-4.9)
[2019-04-09] MEDS ORDERED: BISACODYL 10 MG SUPP PR STA (13:01)
[2019-04-09] MEDS ORDERED: POLYETHYLENE (MIRALAX) 17 GM PACK PO ONE (13:15)
[2019-04-09] MEDS ORDERED: INSULIN ASPART 100 UNITS/ML 3 ML PEN SC SCH (13:30)
--- NOTE | 2019-04-09 13:40 | Infectious Disease Progress Nt ---
Date of Service April 09, 2019 Assessment & Plan (1) MRSA (methicillin resistant Staphylococcus aureus) septicemia: Patient with MRSA sepsis with multiorgan failure and septic arthritis, possible embolic skin lesions as well. Patient to continue on current antibiotics, GIANFRANCO negative. continue abx, await orhto eval re paraspinal abscesses. repeat blood cultures, remain + several days. (2) Septic arthritis of wrist, left: (3) Septic arthritis of left ankle: Subjective pt is seen in ID followup, previously evaluated by Dr. Meadows. Remains on IV Dapto and Ceftaroline, all cultures remain +, several days. MRI done yesterday spine, no osteo noted but b/l paraspinal abscesses noted. ortho to eval for this. Also being treated for septic wrist and ankle. afebrile. wbc 12. LFTs improving, s/p cardiac arrest. creat 1.6. sedated on vent. Review of Systems Review of Systems: Unobtainable due to endotracheal tube Physical Exam Constitutional: sedated on vent ENMT: intubated Neck: normal visual inspection Respiratory: normal respiratory effort, lungs clear to auscultation Auscultation: + diminished lung sounds Cardiovascular: RRR, no murmur, no edema Gastrointestinal (Abdomen): Inspection/Auscultation: abdomen normal to inspection; abdomen not distended Skin: no rashes, warm and dry Psychiatric: sedated on vent Results & Data Vital Signs (Past 12 Hours) Vital Signs Pulse Resp BP Pulse Ox 04/09/19 13:00 102 H 108/73 100 04/09/19 12:00 104 H 92/62 L 100 04/09/19 11:00 102 H 93/60 L 100 04/09/19 10:59 94 H 15 100 04/09/19 10:00 100 H 84/60 L 04/09/19 09:00 93 H 88/59 L 96 04/09/19 08:54 95 H 18 95 04/09/19 08:00 98 H 91/57 L 92 04/09/19 07:45 89 98/69 L 95 04/09/19 07:18 94 H 18 100 04/09/19 07:01 81 86/59 L 100 04/09/19 07:00 84 100 04/09/19 06:01 89 96/63 L 100 04/09/19 06:00 88 100 04/09/19 05:01 90 93/66 L 96 04/09/19 05:00 98 H 95 04/09/19 04:01 86 85/62 L 100 04/09/19 04:00 84 100 04/09/19 03:36 82 16 100 04/09/19 03:01 95 H 88/64 L 94 04/09/19 03:00 89 94 04/09/19 02:01 89 95/69 L 98 04/09/19 02:00 87 100 Laboratory Results Microbiology 04/07/19 11:29 Blood Aerobic Blood Culture - Preliminary Staph aureus MRSA 04/07/19 11:29 Blood Anaerobic Blood Culture - Preliminary No growth in Anaerobic bottle after 48 hours. 04/07/19 11:23 Blood Aerobic Blood Culture - Preliminary Staph aureus MRSA 04/07/19 11:23 Blood Anaerobic Blood Culture - Preliminary No growth in Anaerobic bottle after 48 hours. 04/05/19 Unknown Wrist,Left Gram Stain - Final 04/05/19 Unknown Wrist,Left Aerobic and Anaerobic Culture - Preliminary Staph aureus MRSA 04/05/19 13:56 Wrist,Left Gram Stain - Final 04/05/19 13:56 Wrist,Left Aerobic and Anaerobic Culture - Preliminary Staph aureus MRSA 04/05/19 10:35 Ankle,Left Gram Stain - Final 04/05/19 10:35 Ankle,Left Aerobic and Anaerobic Culture - Preliminary Staph aureus MRSA 04/04/19 08:50 Blood Aerobic Blood Culture - Preliminary Staph aureus MRSA 04/04/19 08:50 Blood Anaerobic Blood Culture - Final No growth in Anaerobic bottle after 5 days. 04/04/19 08:33 Blood Aerobic Blood Culture - Preliminary Staph aureus MRSA 04/04/19 08:33 Blood Anaerobic Blood Culture - Final No growth in Anaerobic bottle after 5 days. 04/06/19 10:35 Blood Aerobic Blood Culture - Preliminary Staph aureus MRSA 04/06/19 10:35 Blood Anaerobic Blood Culture - Preliminary No growth in Anaerobic bottle after 48 hours. 04/06/19 10:30 Blood Aerobic Blood Culture - Preliminary Staph aureus MRSA 04/06/19 10:30 Blood Anaerobic Blood Culture - Preliminary No growth in Anaerobic bottle after 48 hours. 04/08/19 08:54 Blood Aerobic Blood Culture - Preliminary Gram positive cocci clusters 04/08/19 08:48 Blood Aerobic Blood Culture - Preliminary Gram positive cocci clusters 04/03/19 06:35 Blood Aerobic Blood Culture - Final Staph aureus MRSA 04/03/19 06:35 Blood Anaerobic Blood Culture - Final 04/03/19 06:32 Blood Aerobic Blood Culture - Final Staph aureus MRSA 04/03/19 06:32 Blood Anaerobic Blood Culture - Final 04/03/19 07:06 Nasal MRSA Surveillance Culture - Final Methicillin Resistant Staph Aureus present. ---Surveillance culture only--- PG Care Time/CCT Total # of Minutes Spent Total Time Spent with Patient: Total time spent is greater than 50% in coordination of care (as documented) at patient's floor/unit and/or counseling patient:
--- NOTE | 2019-04-09 14:01 | Discharge Summary ---
Date of Service April 09, 2019 Admission HPI Per Admitting Provider Mr. Mac is a 63-year-old male with history of atrial flutter on Eliquis for anticoagulation, hypertension, COPD and heavy alcohol use. He was found down in his home by friends and was brought to [facility]. Mr. Flores complains only of feeling tired, shaky and thirsty. He does report frequent falls at home over the last few weeks. States that his legs simply give out. He denies chest pain, palpitations, dizziness contributing to these falls. Denies any significant head trauma. Does not completely recall having a fall this evening. On arrival patient afebrile, tachycardic at 103 bpm, hypotensive at 88/55, saturating well on ambient air. He had what may be a syncopal episode while in the ER where he became pale and became briefly unresponsive. Blood pressure during the episode was difficult to obtain. Patient found to have heme positive stools. Hemoglobin of 5.3. BUN elevated at 125 and creatinine elevated at 4.6. Patient was administered PCC for some degree of Eliquis reversal in setting of presumed acute bleed. A triple-lumen central venous catheter was placed in the right femoral by the ER attending. The patient was aggressively resuscitated with 1 L of normal saline in route and 2 additional liters in the ER. He was transfused with [address] of the head was obtained which revealed evidence of chronic subdural hematomas, possible small areas of acute hemorrhage. Case was discussed with neurology at [place] for possible transfer. Patient will remain at [facility] for now with close neurological observation. ER course: Ceftriaxone, Protonix bolus and drip, PCC, normal saline solution, 2 units PRBCs Principal Diagnosis MRSA bacteremia Discharge Exam Constitutional WD/WN, vitals as above Eyes no conjunctival abnormality ENMT external ear and nose normal, oropharynx normal Neck trachea midline, no thyromegaly normal visual inspection Respiratory normal respiratory effort, lungs clear to auscultation no respiratory distress Cardiovascular RRR, no murmur, no edema Gastrointestinal (Abdomen) Inspection/Auscultation: abdomen normal to inspection; abdomen not distended Musculoskeletal no cyanosis or clubbing, extremities motor strength 5/5 Skin no rashes, warm and dry Neurologic + does not move all extremities and + not awake Psychiatric Orientation: + not alert Discharge Data Allergies Allergy/AdvReac Type Severity Reaction Status Date / Time No Known Allergies Allergy NONE Verified 04/03/19 00:22 Consultations 04/03/19 01:44 ED Decision to Admit Stat 04/03/19 04:23 Consult Case Management - Discharge Planning Routine Consult Gastroenterology Routine Consult Stock Sorter Routine 04/04/19 10:51 Consult Cardiology Routine 04/05/19 08:19 Consult Orthopedic Surgery Routine 04/05/19 15:08 Consult Stock Sorter Routine 04/06/19 10:49 Consult Infectious Diseases Routine 04/08/19 15:05 Consult Orthopedic Surgery Routine 04/09/19 13:15 Burn CD for patient Stat Procedures Performed Operation Date: 04/03/19 07:00 Actual Procedures p Esophagogastroduodenoscopy, with biopsy - Ray Miramontes Operation Date: 04/05/19 13:00 Actual Procedures p Incision and Drainage Left Wrist and Mid Carpal Joint, Incision and Drainage Left Ankle, Aspiration of Left Wrist (Left) - Gilbert Santillan MD Ordered Studies 04/03/19 00:17 CT head/brain wo con Urgent 04/03/19 00:22 CT abd pelvis wo con Urgent CT cervical spine wo con Urgent 04/03/19 07:00 CT head/brain wo con DAILY 04/03/19 08:27 US abdomen limited Routine 04/04/19 16:11 CT head/brain wo con Routine 04/05/19 09:16 US renal/blad retro comp Routine 04/05/19 10:41 CT hand LT wo con Stat 04/07/19 00:53 MR angio head wo con Routine MR brain wo con Routine MR thoracic spine wo con Routine 04/07/19 00:54 MR cervical spine wo con Routine MR lumbar spine wo con Routine 04/08/19 09:43 US point of care ultrasound Routine Hospital Course (1) MRSA bacteremia: Unclear where this came from but has evidence of multiple contusions and may have had an abrasion which led to MRSA bacteremia which then spread to multiple joints and now with septic ankle as well as hand joints. GIANFRANCO on 04/07 showed no endocarditis. Unclear source at this point. MRI lumbar spine on 04/07 showed left 5 x 2 x 2 cm abscess at L3/L4 level & right 3 x 2 x 1.5 cm abscess at L4/L5. - Blood cultures from 04/08 still with MRSA growing - GIANFRANCO on 04/08 showed no vegetations, but EF of 15-20% - Continue dapto & ceftaroline per ID - Transfer to [place] for surgical assessment and possible I&D of his lumbar paraspinal abscsses (2) Hepatitis: Normal LFTs on presentation. - On 04/08, AST/ALT up to 1250/880. Ddx includes shock liver from vasopressors, medications, perhaps direct toxic effect of the infection (possible abscesses?). Unfortunately, not really many options given his current situation. (3) Cardiac arrest with pulseless electrical activity: CODE BLUE on 04/05 for PEA arrest immediately following a bronchoscopy to relieve mucoid impaction. Was resuscitated with CPR, epinephrine, bicarbonate, vasopressin, and Levophed. Likely secondary to septic shock in the setting of bacteremia. ECG without STEMI after achieved return of spontaneous circulation. - Management as per fence post driver - Presently on low-dose Levophed - GIANFRANCO on 04/08 showed no vegetations, but EF of 15-20% (4) Acute metabolic encephalopathy: Acute Metabolic encephalopathy-secondary to EtOH withdrawal, possibly from the SDH, and also with sepsis, med side effect from phenobarb, and hypotension. (5) Acute respiratory failure with hypoxia: With intermittent hypoxia secondary to non-purulent secretions that were advised during bronchoscopy on 04/05. - Was intubated for significant metabolic encephalopathy for airway protection on 04/05 - Management as per ICU (6) Sepsis: Present on arrival. Secondary to MRSA bacteremia. - Had left septic joint as well as septic arthritis of the hand joints - now status post washout on 04/05. - Continue treating with IV abx (7) Hypovolemic shock: Secondary to acute blood loss anemia and septic shock. -Treated with PRBCs, IVFs, and did have some improvement, but now status post cardiac arrest with hypotension requiring vasoactive medications. - Hemoglobin is improved and stable - Vasopressors as per fence post driver (8) Atrial fibrillation: With rapid afib since admission, has a h/o afib. - Rates better controlled today after sedation and intubation for encephalopathy and alcohol withdrawal. - On IV amiodarone - Holding home Coreg and Eliquis due to hypotension and acute GI bleeding (9) Anemia: Acute blood loss anemia. Patient with normochromic normocytic anemia. Secondary to acute blood loss from a GI source. Hemoglobin of 5.3 on admission, had heme positive stool in ER. - Transfusion of PRBCs x4 units given on admission and hgb up to 9.2 and stable - No further obvious bleeding - Continue PPI IV BID (10) EDMUNDO (acute kidney injury): With markedly elevated BUN and creatinine 125 and 4.6, respectively on admission. Creatinine of 2.09 in 2015, recent creatinine level unknown. - Cr down to 2.5 on 04/06; concern it may go up after code events on 04/05 (11) GI bleed: Upper GI bleed as above with duodenal and gastric ulcers, gastritis on EGD. - Appreciate GI consult - Continue IV PPI bid and eventually convert to PO PPI bid once taking PO (12) Subdural hematoma: Acute on chronic SDH bilat on CT with serial CT similar. With known h/o multiple falls recently, EtOH use. - Gave PCC to try to reverse Eliquis upon admission - Continue to hold Eliquis and would not restart in the future - If worsening, would transfer out for NS eval - Consider monitoring serial head CTs while sedated and paralyzed (13) Wrist pain: X-rays neg for fracture. Swelling of the wrist and some mild erythema of the left second MCP joint today-CT of the hand showed multiple areas of fluid collections - S/p washout by orthopedic surgery on 04/05. - Continue IV antibiotics - Follow wound cultures (14) Left ankle pain: Appears to have suffered an ankle sprain with edema, ecchymosis, warmth, tenderness. Seeded with bacteria and now with septic joint. X-rays neg for fracture. - Appreciate orthopedics consultation-now status post washout of joint on 04/05. - Continue IV antibiotics and follow intraoperative cultures (15) Hyperglycemia: A1c was 5.6% this admission. Glucose elevated, no known h/o DMII. - Accuchecks, SSI (16) Alcohol dependence: Known to drink 1/2 bottle vodka daily, sometimes beer. In active withdrawal and was on a phenobarbital IV taper with PRN Ativan. - Now converted to IV Versed after he is sedated mechanically ventilated - Continue IV thiamine, folate (17) Hypertension: Hold Coreg, lisinopril, Lasix in setting of hypotension (18) Septic arthritis: As above (19) Abnormal head CT: With left temporal hypodensity seen on CT of the head Possibility of septic emboli to the brain -Needs brain MRI and will get MRI of the spine as well - ordered and awaiting stability (20) CKD (chronic kidney disease) stage 3, GFR 30-59 ml/min: As above, baseline utility engineer 2.0 -avoid nephrotoxins -renally dose meds (21) COPD (chronic obstructive pulmonary disease): Patient with history of COPD. With acute hypoxic respiratory failure, Wheezing on exam on admission, now ventilated as above. - Duo nebs as needed - Albuterol as needed - Supplemental oxygen as needed to maintain saturation of 88 to 94% (22) Systolic CHF: Echo here found to have left ventricular global hypokinesis and severely reduce LV function at 25%. Cardiology has reviewed his outpatient records from his primary .net developer at [facility]-he was noted to have an EF of 20% several years ago and had a non-obstructive cardiac catheterization indicating a diagnosis of non-ischemic cardiomyopathy. He then had a repeat echocardiogram in the last couple of years which showed recovery of his EF to 50%. - Could be tachyarrhythmia-induced from Afib vs. alcohol-induced cardiomyopathy as most likely causes - No volume overload at this time - Continue holding home Coreg, lisinopril, Lasix (23) DVT prophylaxis: SCDs Dispo-remains critically ill in ICU Prognosis is extremely guarded at this time Stock Sorter has discussed his care extensively with the patient's son whom he has not had contact with in 13 years but has agreed to be his healthcare power of assistant attorney general. The son has now decided to make him a DNR/DNI in the event of recurrent cardiac arrest Total Time Total Time Spent Total Time Spent (In Minutes): 45 Discharge Plan Discharge Items Patient Disposition: Transfer Acute Care Hospital Reason For Visit: HYPOTENSION Discharge Diagnosis: MRSA bacteremia and abscesses Discharge Goals: Decrease discomfort Activity: Resume your previous activity Non-emergency contact: Primary Care Provider Call non-emergency contact if: your pain is not controlled and your temperature is above 100.5 Follow-up/Referrals: Mg Fuller [Primary Care Provider] - Diet: Nothing by mouth Addtl Provider Instructions: Prescriptions: New ipratropium-albuterol 0.5 mg-3 mg(2.5 mg base)/3 mL Solution For Nebulization 3 ml inhalation Q4H PRN (Reason: shortness of breath) Qty: 1 RF: 0 fentanyl citrate (PF) 50 mcg/mL Solution 50 mcg IV Q2H PRN (Reason: sedation) Qty: 1 RF: 0 Novolog Flexpen U-100 Insulin 100 unit/mL (3 mL) Insulin Pen See Rx Instructions .ROUTE .COMPLEX Qty: 1 RF: 0 sucralfate 100 mg/mL Suspension 15 ml PO QID Qty: 1 RF: 0 Impact 1 Fabiano 0.06-1 gram-kcal/mL Liquid 1,000 ml NG UD Qty: 1 RF: 0 Discontinued multivitamin Tablet 1 tab PO DAILY RF: 0 carvedilol 25 mg tablet 25 mg PO BID RF: 0 prednisone 20 mg tablet PO DIRECTED RF: 0 lisinopril 10 mg tablet 10 mg PO DAILY RF: 0 furosemide 20 mg tablet 20 mg PO DAILY RF: 0 Eliquis 5 mg tablet 5 mg PO BID RF: 0 Stand-Alone Forms: [facility] Discharge Orders: Discharge Order (Routine); Ordered 04/09/19 Ordered By: Slava Pena Admission Data Admit Date/Time: 04/03/19 02:58 Attending Provider: Slava Pena Admit Provider: Hortensia Huitron Primary Care Provider: Mg Fuller Other Providers: Hortensia Huitron ; Julio Antonio ; Beth Delgado ; Marissa Guan ; Josh Cintron ; Mg Cooley ; Anand Renner ; Gilbert Santillan ; Mg Fuller ; Giuseppe Meadows ; Tapan Ervin Service: Intensive Care Unit
[2019-04-09] MEDS ORDERED: PROPOFOL 1,000 MG/100 ML VIAL IV SCH (14:15)
[2019-04-09] MEDS ORDERED: DIGOXIN 125 MCG in SYRINGE 9.5 ML IV SCH (16:00)
[2019-04-09] MEDS ORDERED: CEFTAROLINE FOSAMIL ACETATE 600 MG in SODIUM CHLORIDE 0.9% 250 ML IV SCH (18:00)
== END 2019-04-09 15:19 | disposition short-term general hospital (02) | DRG 853 ==
LOC: ED 23:50 → SUATTDRO 04-03 02:58 → 1E 04-03 02:58